=== PATIENT | male | born 1950 | race Caucasian/White ===

== ENCOUNTER 2021-11-18 09:33 | Emergency (ER) | payer MEDICARE, SELFPAY ==
[2021-11-18 09:37] VITALS: BP 181/97; PULSE 77; RESP 18; TEMP 36.8; O2SAT 99; BMI 37.1
--- NOTE | 2021-11-18 09:42 | W.ED.GENADLT ---
HPI - General Adult General: Chief complaint: General Medical Stated complaint: HYPERTENSION Time Seen by Provider: 11/18/21 09:42 Source: patient History of Present Illness: Jared Sofia is a 71 year old male who presents to the ER for high blood pressure. Upon ER arrival, BP was 181/97. Per patient, he did take his BP meds this morning. He states that he lives with his stepmom at home and she normally takes his blood pressure and administers his meds every day. He is unsure how much his BP usually runs at home but states that it is usually high because it runs in the family. He endorses feeling a headache on the right side of his head this morning that was alleviated by taking his BP meds and water pill. He has been having some blurry vision but states that this has been going on for quite a while now. He denies chest pain, SOB, abdominal pain, and black or tarry stools. Patient was unable to state his birthday when asked by registration, and according to his stepmom, that is not normal for him. Onset (ago): unknown Location: head Severity: mild Pain Consistency: now resolved Relieving factors: medication Exacerbating factors: none Associated symptoms: Reports headache(s); Deny chest pain, confusion, cough, diaphoresis, decreased appetite, dyspnea, fevers/chills, malaise, nausea, rash, palpitations, seizures, short of breath, syncope, vomiting or weakness Treatments prior to arrival: none Review of Systems Const: Denies: fever(s), chills, malaise or diaphoresis Eyes: Reports: blurry vision ENMT: Denies: odynophagia Card: Denies: chest pain, palpitations or syncope Resp: Denies: dyspnea GI: Denies: abdominal pain, nausea, vomiting, hematochezia or melena : Denies: flank pain or difficulty urinating Musc: Denies: neck pain Skin/Breast: Denies: rash Neuro: Reports: headache(s); Denies: confusion Psych: Denies: irritability Endo: Denies: polyuria Keyur/Lymph: Denies: easy bruising All/Imm: Denies: urticaria PFSH ED PFSH: Medical History (Updated 11/18/21 @ 13:32 by Bj Baer DO) Diabetes Hypertension Surgical History (Updated 11/18/21 @ 10:02 by Bj Baer DO) History of appendectomy Family History (Updated 11/18/21 @ 10:02 by Bj Baer DO) Other Cancer Hypertension Social History (Updated 11/18/21 @ 10:04 by Bj Baer DO) Smoking and tobacco status: former smoker Second hand smoke exposure: No Smoking risk assessment/counseling performed?: No Alcohol intake: former Desire information about alcohol rehabilitation?: No Counseling given: No Substance/Drug Use: never Desire information about substance/drug rehabilitation?: No Counseling given: No Physical Exam Const: GENERAL APPEARANCE: cooperative and comfortable HENMT: COMMON NORMALS: normocephalic, atraumatic and hearing grossly normal bilaterally HEAD & SCALP: normocephalic and atraumatic Eye: COMMON NORMALS: Equal, round and reactive pupils present and EOMs intact bilaterally PUPIL: Yes Equal, round and reactive pupils present Neck/C-Spine: COMMON NORMALS: no JVD Resp: COMMON NORMALS: normal respiratory effort, No retractions, No use of accessory muscles and clear to auscultation bilaterally AUSCULTATION: clear to auscultation bilaterally Cardio: COMMON NORMALS: no JVD, regular rate, regular rhythm and No murmurs present (Cardio) RATE: regular rate RHYTHM: regular rhythm GI: COMMON NORMALS: Soft to palpation and No hepatosplenomegaly present AUSCULTATION: Yes normoactive bowel sounds PALPATION: Yes Soft to palpation, No Tenderness to palpation present (GI) and Yes No hepatosplenomegaly present Extremity: COMMON NORMALS: normal to inspection, no clubbing, cyanosis or edema, no calf tenderness and no pedal edema Neuro: COMMON NORMALS: moves all extremities and no focal motor deficits SPEECH: speech normal SENSORY EXAM: Yes extremities MOTOR EXAM: 5/5 motor strength present throughout, Pronator motor function not present and no tremor noted Skin: COMMON NORMALS: no rashes or lesions noted GENERAL SKIN EXAM: no rashes or lesions noted Course Vital Signs: Vital signs: Vital Signs Temperature 98.2 F 11/18/21 09:37 Pulse Rate 48 L 11/18/21 13:38 Respiratory Rate 16 11/18/21 13:38 Blood Pressure 193/66 11/18/21 13:38 Pulse Oximetry 99 11/18/21 13:38 [facility] - General Adult Medical Decision Making Elevated blood pressure he is improved he is feeling fine at this point were going to increase his amlodipine to 10 mg daily and Toprol-XL to 50 mg daily. Aspirin daily 81 mg and follow-up with the primary care physician tomorrow to reevaluate blood pressure. Lab Data : 11/18/21 10:35 11/18/21 10:35 Radiology Impressions Chest X-Ray 11/18/21 10:20 IMPRESSION: No acute findings. Laboratory Results WBC 6.7 10^3/uL (4.0-10.0) 11/18/21 10:35 RBC 5.34 10^6/uL (4.1-5.3) H 11/18/21 10:35 Hgb 14.9 g/dL (11.7-16.6) 11/18/21 10:35 Hct 45.3 % (42.0-52.0) 11/18/21 10:35 MCV 84.8 fl (80-94) 11/18/21 10:35 MCH 27.9 pg (28.0-34.0) L 11/18/21 10:35 MCHC 32.9 g/dL (30.0-36.0) 11/18/21 10:35 RDW 13.3 % (12.1-15.1) 11/18/21 10:35 Plt Count 192 10^3/cmm (130-400) 11/18/21 10:35 MPV 11.6 fL (7.4-10.4) H 11/18/21 10:35 Neut % (Auto) 69.7 % 11/18/21 10:35 Lymph % (Auto) 17.5 % 11/18/21 10:35 [place] % (Auto) 11.1 % 11/18/21 10:35 Eos % (Auto) 1.2 % 11/18/21 10:35 Baso % (Auto) 0.4 % 11/18/21 10:35 Neut # (Auto) 4.65 10^3/uL (1.8-7.7) 11/18/21 10:35 Lymph # (Auto) 1.2 10^3/uL (0.8-4.8) 11/18/21 10:35 [place] # (Auto) 0.7 10^3/uL (0.2-0.9) 11/18/21 10:35 Eos # (Auto) 0.1 10^3/uL (0.0-0.8) 11/18/21 10:35 Baso # (Auto) 0.0 10^3/uL (0.0-0.1) 11/18/21 10:35 Nucleated RBC % (auto) 0 % 11/18/21 10:35 Nucleated RBCs # 0.0 /100WBC 11/18/21 10:35 Sodium 141 mmol/L (136-145) 11/18/21 10:35 Potassium 4.1 mmol/L (3.5-5.1) 11/18/21 10:35 Chloride 107 mmol/L (98-107) 11/18/21 10:35 Carbon Dioxide 20 mmol/L (22-29) L 11/18/21 10:35 Anion Gap 18.1 (5-19) 11/18/21 10:35 BUN 24 mg/dL (8-23) H 11/18/21 10:35 Creatinine 0.9 mg/dL (0.7-1.2) 11/18/21 10:35 GFR Calculation Not Reportable 11/18/21 10:35 Glucose 144 mg/dL (65-115) H 11/18/21 10:35 Calculated Osmolality 299 mOsm/kg (285-295) H 11/18/21 10:35 Calcium 8.8 mg/dL (8.5-10.5) 11/18/21 10:35 Total Bilirubin 0.2 mg/dL (0.15-1.2) 11/18/21 10:35 AST 24 U/L (0-40) 11/18/21 10:35 ALT 19 U/L (0-41) 11/18/21 10:35 Alkaline Phosphatase 90 IU/L (40-130) 11/18/21 10:35 Troponin T Baseline 27 ng/L (0-15) H 11/18/21 10:35 Troponin T 120 Minute 27.08 ng/L (0-15) H 11/18/21 12:27 Delta Troponin T 0.08 ABS# (0-10) 11/18/21 12:27 Total Protein 7.7 g/dL (6.6-8.7) 11/18/21 10:35 Albumin 4.7 g/dL (3.5-5.2) 11/18/21 10:35 Globulin 3.0 g/dL (1.3-4.6) 11/18/21 10:35 Discharge Plan Discharge Patient Disposition: Home Clinical Impression: Hypertension Condition: Stable Prescriptions: New amlodipine 10 mg tablet 10 mg PO DAILY Qty: 30 0RF Toprol XL 50 mg tablet extended release 24 hr 50 mg PO DAILY Qty: 30 0RF Discontinued amlodipine 2.5 mg tablet 2.5 mg PO DAILY 0RF No Action glimepiride 2 mg tablet 2 mg PO DAILY 0RF benztropine 1 mg tablet 1 mg PO BID 0RF oxcarbazepine [Trileptal] 600 mg tablet 600 mg PO TID 0RF venlafaxine 75 mg tablet 75 mg PO DAILY 0RF trazodone 50 mg tablet 50 mg PO DAILY 0RF pantoprazole [Protonix] [address] for susp in packet 40 mg PO DAILY 0RF spironolactone [Aldactone] 25 mg tablet 25 mg PO DAILY 0RF omeprazole 40 mg capsule,delayed release(DR/EC) 40 mg PO DAILY 0RF Discharge Orders: Discharge ED (Routine); Ordered 11/18/21 Ordered By: Bj Baer Discharge Diet: Usual diet Discharge Activity: Limit activity as instructed Patient Instructions: Opioid Safety Activity Restrictions/Additional Instructions: Follow-up with your primary care doctor within the week. Coding Level of Care Code ED Process Operator for Deangelo Fwnaveen Exam Comprehensive
--- NOTE | 2021-11-18 10:20 | XRR_ITS ---
PROCEDURE INFORMATION: Exam: XR Chest Exam date and time: 11/18/2021 10:20 AM Age: 71 years old Clinical indication: Cough and dyspnea; Patient HX: Hypertension; Additional info: Dyspnea/cough TECHNIQUE: Imaging protocol: XR of the chest. Views: 1 view. COMPARISON: No relevant prior studies available. FINDINGS: Lungs: Unremarkable. No consolidation. Pleural spaces: Unremarkable. No pleural effusion. No pneumothorax. Heart/Mediastinum: Unremarkable. No cardiomegaly. Bones/joints: Unremarkable. XR/XR chest 1V portable [id number] IMPRESSION: No acute findings.
--- NOTE | 2021-11-18 10:21 | ECG_ITS ---
[facility] Test Date: 2021-11-18 Pat Name: Jared Sofia Department: Room: Gender: Male Information Developer: : 1950 Requested By: Bj Can Order Number: [id number] Malachi MD: Frances Lebron M.D. Measurements Intervals [place] Rate: 63 P: MD: QRS: 127 QRSD: 166 T: 45 QT: 439 QTc: 452 Interpretive Statements Sinus rhythm with first-degree AV block RIGHT BUNDLE BRANCH BLOCK LEFT POSTERIOR FASCICULAR BLOCK SEPTAL MYOCARDIAL INFARCTION , PROBABLY OLD Compared to ECG 05/29/2015 16:03:59 Right bundle-branch block now present Left posterior fascicular block now present Myocardial infarct finding now present Sinus rhythm no longer present Electronically Signed On 11-19-2021 14:41:26 INDUSTRIAL SAFETY AND HEALTH MANAGER by Frances Lebron M.D. [email or web address] children's hospitalHandstrumbull regional [facility] center.BigFix/store/[id number]
[2021-11-18 10:42] VITALS: BP 170/83; PULSE 70; RESP 17; O2SAT 98
[2021-11-18] MEDS: amlodipine 5 mg Tablet PO (10:42)
[2021-11-18] MEDS: metoprolol tartrate 25 mg Tablet PO (10:42)
[2021-11-18 10:49] LABS: Basophils % 0.4 %; Eosinophils # 0.1 10^3/uL (0.0-0.8); Eosinophils % 1.2 %; Hematocrit 45.3 % (42.0-52.0); Hemoglobin 14.9 g/dL (11.7-16.6); Lymphocytes # 1.2 10^3/uL (0.8-4.8); Lymphocytes % 17.5 %; Mean Corpuscular HGB Conc 32.9 g/dL (30.0-36.0); Mean Corpuscular Hemoglobin 27.9 pg (28.0-34.0); Mean Corpuscular Volume 84.8 fl (80-94); Mean Platelet Volume 11.6 fL (7.4-10.4); Monocytes # 0.7 10^3/uL (0.2-0.9); Monocytes % 11.1 %; Neutrophils # 4.65 10^3/uL (1.8-7.7); Neutrophils % 69.7 %; Nucleated Red Blood Cells % 0 %; Platelet Count 192 10^3/cmm (130-400); Red Blood Count 5.34 10^6/uL (4.1-5.3); Red Cell Distribution Width 13.3 % (12.1-15.1); White Blood Count 6.7 10^3/uL (4.0-10.0)
[2021-11-18 11:07] LABS: Troponin(5th) Baseline 27 ng/L (0-15)
[2021-11-18 11:25] LABS: Alanine Aminotransferase 19 U/L (0-41); Albumin Level 4.7 g/dL (3.5-5.2); Alkaline Phosphatase 90 IU/L (40-130); Aspartate Amino Transferase 24 U/L (0-40); Blood Urea Nitrogen 24 mg/dL (8-23); Calcium 8.8 mg/dL (8.5-10.5); Carbon Dioxide 20 mmol/L (22-29); Chloride 107 mmol/L (98-107); Glucose 144 mg/dL (65-115); Osmolality Calculated 299 mOsm/kg (285-295); Sodium 141 mmol/L (136-145); Total Bilirubin 0.2 mg/dL (0.15-1.2); Total Protein 7.7 g/dL (6.6-8.7)
[2021-11-18 11:37] LABS: Anion Gap 18.1 (5-19); Potassium 4.1 mmol/L (3.5-5.1)
[2021-11-18 11:47] VITALS: BP 160/88; PULSE 48; RESP 17; O2SAT 99
--- NOTE | 2021-11-18 12:21 | ECG_ITS ---
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 Measurements Intervals [place] Rate: 50 P: [place]: QRS: -58 QRSD: 176 T: -8 QT: 508 QTc: 466 Interpretive Statements Sinus rhythm with first-degree AV block RIGHT BUNDLE BRANCH BLOCK LEFT ANTERIOR FASCICULAR BLOCK MINIMAL VOLTAGE CRITERIA FOR LVH, CONSIDER NORMAL VARIANT SEPTAL MYOCARDIAL INFARCTION , PROBABLY OLD Compared to ECG 11/18/2021 11:00:40 Left anterior fascicular block now present Left posterior fascicular block no longer present Myocardial infarct finding still present Electronically Signed On 11-19-2021 14:49:05 MAINTENANCE MECHANIC TECHNICIAN by Frances Lebron M.D. [email or web address].Melodigrammerit health river regionBerkeley Design Automationohiohealth shel[facility].[employer]/store/OM/[id number]
[2021-11-18 12:51] VITALS: BP 179/98; PULSE 46; RESP 16; O2SAT 99
[2021-11-18 13:04] LABS: Troponin 5 2HR 27.08 ng/L (0-15)
[2021-11-18 13:06] LABS: Troponin 5 2HR Delta 0.08 ABS# (0-10)
[2021-11-18] MEDS: hyDRALAzine 20 mg/mL INJ 1 mL IVP (13:37)
[2021-11-18 13:38] VITALS: BP 193/66; PULSE 48; RESP 16; O2SAT 99
== END 2021-11-18 13:47 | disposition home or self-care (01) ==
PROVIDERS: Emergency Provider Family Medicine; PCP Family Medicine
DX: I10 Essential (primary) hypertension (principal); Z79.84 Long term (current) use of oral hypoglycemic drugs; E11.9 Type 2 diabetes mellitus without complications; Z87.891 Personal history of nicotine dependence
CPT/HCPCS: 36415; 71045; 80053; 84484; 85025; 93005; 96374; 99284; J0360

== ENCOUNTER 2021-12-08 21:36 | Observation (INO) | payer MEDICARE, SELFPAY ==
--- NOTE | 2021-12-08 21:40 | XRR_ITS ---
PROCEDURE INFORMATION: Exam: XR Chest Exam date and time: 12/08/2021 9:40 PM Age: 71 years old Clinical indication: Chest wall pain; Additional info: Cp TECHNIQUE: Imaging protocol: XR of the chest. Views: 1 view. COMPARISON: CR XR chest 1V portable [id number] 11/18/2021 10:40 AM FINDINGS: Lungs: Unremarkable. No consolidation. Pleural spaces: Unremarkable. No pleural effusion. No pneumothorax. Heart/Mediastinum: Similar mild cardiomegaly. Bones/joints: Unremarkable. XR/XR chest 1V portable [id number] IMPRESSION: Stable exam, no acute findings.
--- NOTE | 2021-12-08 21:41 | ECG_ITS ---
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 Measurements Intervals [place] Rate: 66 P: ID: QRS: -77 QRSD: 164 T: 64 QT: 432 QTc: 456 Interpretive Statements UNCERTAIN IRREGULAR RHYTHM RIGHT BUNDLE BRANCH BLOCK [120+ ms QRS DURATION, UPRIGHT V1, 40+ ms S IN I/aVL/V4/V5/V6] LEFT ANTERIOR FASCICULAR BLOCK [QRS AXIS <= -45, QR IN I, RS IN II] LEFT VENTRICULAR HYPERTROPHY AND ST-T CHANGE [VOLTAGE CRITERIA PLUS ST/T ABNORMALITY] POSSIBLE SEPTAL MYOCARDIAL INFARCTION , PROBABLY OLD [30 ms Q WAVE IN V1/V2] Compared to ECG 11/18/2021 12:24:23 ST (T wave) deviation now present Sinus rhythm no longer present Myocardial infarct finding still present Electronically Signed On 12-09-2021 17:35:03 PLATE DRYING MACHINE TENDER by Sandro Miller M.D. [id number] f
--- NOTE | 2021-12-08 21:43 | ED_ITS ---
HPI - Chest Pain General: Chief Complaint: Chest Pain Stated Complaint: cp Time Seen by Provider: 12/08/21 21:36 Source: patient and EMS Limitations: no limitations History of Present Illness: 71-year-old male states he is having chest pain this evening. He states its been a sharp pain in the center of his chest when EMS arrived he was bradycardic into the 30s and has since resolved. He states his pain is improved as well currently and 2 out of 10. Denies any shortness of breath denies any vomiting or diarrhea. Patient was seen here recently for high blood pressure and increased his metoprolol to 50 mg a day. Denies any worsening improving factors. Associated symptoms: Deny abdominal pain, dyspnea, fever(s), nausea or vomiting Review of Systems Const: Denies: fever(s), chills, body aches or change in appetite Eyes: Denies: blurry vision or eye discomfort ENMT: Denies: throat pain or dental pain Card: Reports: chest pain Resp: Denies: dyspnea GI: Denies: abdominal pain, nausea, vomiting or diarrhea : Denies: dysuria Musc: Denies: neck pain or back pain Skin/Breast: Denies: rash Neuro: Denies: headache(s) Psych: Denies: depression Keyur/Lymph: Denies: easy bruising All/Imm: Denies: urticaria PFSH ED PFSH: Medical History Diabetes Hypertension Surgical History History of appendectomy Family History Other Cancer Hypertension Social History Smoking and tobacco status: former smoker Second hand smoke exposure: No Smoking risk assessment/counseling performed?: No Alcohol intake: former Desire information about alcohol rehabilitation?: No Counseling given: No Desire information about substance/drug rehabilitation?: No Counseling given: No Physical Exam Const: COMMON NORMALS: no acute distress, patient oriented x3 and healthy appearing HENMT: COMMON NORMALS: normocephalic and atraumatic HEAD & SCALP: normocephalic and atraumatic Eye: COMMON NORMALS: Equal, round and reactive pupils present and EOMs intact bilaterally PUPIL: Yes Equal, round and reactive pupils present Neck/C-Spine: COMMON NORMALS: full ROM and supple Chest: COMMONS NORMALS: normal inspection of the chest and normal palpation of entire chest wall Resp: COMMON NORMALS: normal respiratory effort, No retractions, No use of accessory muscles and clear to auscultation bilaterally AUSCULTATION: clear to auscultation bilaterally Cardio: COMMON NORMALS: regular rate, regular rhythm and No murmurs present (Cardio) RATE: regular rate RHYTHM: regular rhythm GI: COMMON NORMALS: Normal to inspection, nondistended, normoactive bowel sounds present, Soft to palpation, non-tender and no masses PALPATION: Yes Soft to palpation Extremity: COMMON NORMALS: normal to inspection and full ROM Neuro: COMMON NORMALS: patient oriented x3, moves all extremities and no focal motor deficits Psych: COMMON NORMALS: mental status grossly normal, Normal thought process present and cooperative THOUGHT PROCESS: Normal thought process present Skin: COMMON NORMALS: no rashes or lesions noted and no wounds GENERAL SKIN EXAM: no rashes or lesions noted Course Vital Signs: Vital signs: Vital Signs Temperature 97.9 F 12/08/21 21:50 Pulse Rate 55 L 12/08/21 21:50 Respiratory Rate 16 12/08/21 21:50 Blood Pressure 208/98 12/08/21 21:50 Pulse Oximetry 98 12/08/21 21:50 MDM - Chest Pain Medical Decision Making The patient presents here with chest and abdominal pain. More abdominal pain here than actual chest pain CT of her abdomen and chest here normal blood work including 2 troponins are normal as well she feels improved here we will start her on Protonix she is to follow-up with PCP and return if worsening. Lab Data : 12/08/21 21:00 12/08/21 21:00 Laboratory Results WBC 8.3 10^3/uL (4.0-10.0) 12/08/21 21:00 RBC 5.06 10^6/uL (4.1-5.3) 12/08/21 21:00 Hgb 13.8 g/dL (11.7-16.6) 12/08/21 21:00 Hct 43.7 % (42.0-52.0) 12/08/21 21:00 MCV 86.4 fl (80-94) 12/08/21 21:00 MCH 27.3 pg (28.0-34.0) L 12/08/21 21:00 MCHC 31.6 g/dL (30.0-36.0) 12/08/21 21:00 RDW 13.3 % (12.1-15.1) 12/08/21 21:00 Plt Count 195 10^3/cmm (130-400) 12/08/21 21:00 MPV 12.3 fL (7.4-10.4) H 12/08/21 21:00 Neut % (Auto) 57.6 % 12/08/21 21:00 Lymph % (Auto) 26.4 % 12/08/21 21:00 [place] % (Auto) 13.5 % 12/08/21 21:00 Eos % (Auto) 1.7 % 12/08/21 21:00 Baso % (Auto) 0.6 % 12/08/21 21:00 Neut # (Auto) 4.79 10^3/uL (1.8-7.7) 12/08/21 21:00 Lymph # (Auto) 2.2 10^3/uL (0.8-4.8) 12/08/21 21:00 [place] # (Auto) 1.1 10^3/uL (0.2-0.9) H 12/08/21 21:00 Eos # (Auto) 0.1 10^3/uL (0.0-0.8) 12/08/21 21:00 Baso # (Auto) 0.1 10^3/uL (0.0-0.1) 12/08/21 21:00 Nucleated RBC % (auto) 0 % 12/08/21 21:00 Nucleated RBCs # 0.0 /100WBC 12/08/21 21:00 EKG Data EKG 1: I personally reviewed and interpreted this EKG as follows: EKG interpretation date: 12/08/21 EKG interpretation time: 21:46 Interpretation: hr [address] or t wave abnormalities rbb qrs 464 qtc 446 unchanged from previous Discharge Plan Discharge Condition: Stable Prescriptions: No Action glimepiride 2 mg tablet 2 mg PO DAILY 0RF benztropine 1 mg tablet 1 mg PO BID 0RF oxcarbazepine [Trileptal] 600 mg tablet 600 mg PO TID 0RF venlafaxine 75 mg tablet 75 mg PO DAILY 0RF trazodone 50 mg tablet 50 mg PO DAILY 0RF pantoprazole [Protonix] [address] for susp in packet 40 mg PO DAILY 0RF spironolactone [Aldactone] 25 mg tablet 25 mg PO DAILY 0RF omeprazole 40 mg capsule,delayed release(DR/EC) 40 mg PO DAILY 0RF amlodipine 10 mg tablet 10 mg PO DAILY Qty: 30 0RF Toprol XL 50 mg tablet extended release 24 hr 50 mg PO DAILY Qty: 30 0RF Referrals: Tray Dennis [Primary Care Provider] - Coding Level of Care Code ED Tool Crib Attendant for Chg Fwd Exam Comprehensive
[2021-12-08 21:46] LABS: Basophils # 0.1 10^3/uL (0.0-0.1); Basophils % 0.6 %; Eosinophils # 0.1 10^3/uL (0.0-0.8); Eosinophils % 1.7 %; Hematocrit 43.7 % (42.0-52.0); Hemoglobin 13.8 g/dL (11.7-16.6); Lymphocytes # 2.2 10^3/uL (0.8-4.8); Lymphocytes % 26.4 %; Mean Corpuscular HGB Conc 31.6 g/dL (30.0-36.0); Mean Corpuscular Hemoglobin 27.3 pg (28.0-34.0); Mean Corpuscular Volume 86.4 fl (80-94); Mean Platelet Volume 12.3 fL (7.4-10.4); Monocytes # 1.1 10^3/uL (0.2-0.9); Monocytes % 13.5 %; Neutrophils # 4.79 10^3/uL (1.8-7.7); Neutrophils % 57.6 %; Nucleated Red Blood Cells % 0 %; Platelet Count 195 10^3/cmm (130-400); Red Blood Count 5.06 10^6/uL (4.1-5.3); Red Cell Distribution Width 13.3 % (12.1-15.1); White Blood Count 8.3 10^3/uL (4.0-10.0)
[2021-12-08 21:50] VITALS: BP 208/98; PULSE 55; RESP 16; TEMP 36.6; O2SAT 98; BMI 37.1
[2021-12-08 22:22] LABS: Troponin(5th) Baseline 33 ng/L (0-15)
[2021-12-08 22:25] LABS: Alanine Aminotransferase 22 U/L (0-41); Albumin Level 4.5 g/dL (3.5-5.2); Alkaline Phosphatase 101 IU/L (40-130); Anion Gap 15.6 (5-19); Aspartate Amino Transferase 23 U/L (0-40); Blood Urea Nitrogen 31 mg/dL (8-23); Calcium 9.9 mg/dL (8.5-10.5); Carbon Dioxide 23 mmol/L (22-29); Chloride 104 mmol/L (98-107); Globulin 2.8 g/dL (1.3-4.6); Glucose 83 mg/dL (65-115); Lipase 33 U/L (13-60); Osmolality Calculated 292 mOsm/kg (285-295); Potassium 4.6 mmol/L (3.5-5.1); Sodium 138 mmol/L (136-145); Total Bilirubin 0.2 mg/dL (0.15-1.2); Total Protein 7.3 g/dL (6.6-8.7)
[2021-12-08] MEDS: hyDRALAzine 20 mg/mL INJ 1 mL 10 MG IVP (22:31)
[2021-12-08 22:53] VITALS: BP 172/84; PULSE 62; RESP 18; O2SAT 94
[2021-12-08 23:03] VITALS: PULSE 55; RESP 16; O2SAT 94
[2021-12-08 23:32] VITALS: BP 179/78; PULSE 57; RESP 18; TEMP 36.1; O2SAT 98
--- NOTE | 2021-12-08 23:41 | ECG_ITS ---
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 Measurements Intervals [place] Rate: 65 P: [place]: QRS: -70 QRSD: 166 T: 25 QT: 440 QTc: 460 Interpretive Statements ATRIAL FIBRILLATION RIGHT BUNDLE BRANCH BLOCK [120+ ms QRS DURATION, UPRIGHT V1, 40+ ms S IN I/aVL/V4/V5/V6] LEFT ANTERIOR FASCICULAR BLOCK [QRS AXIS <= -45, QR IN I, RS IN II] MODERATE VOLTAGE CRITERIA FOR LVH, CONSIDER NORMAL VARIANT [MEETS CRITERIA IN ONE OF: R(aVL), S(V1), R(V5), R(V5/V6)+S(V1)] Compared to ECG 11/18/2021 12:24:23 Sinus rhythm no longer present Myocardial infarct finding no longer present Electronically Signed On 12-09-2021 17:40:23 CLAY DRY PRESS HELPER by Sandro Miller M.D. [email or web address].[employer]store/[id number]
[2021-12-08 23:45] VITALS: BP 179/78; PULSE 50; PULSE 57; RESP 18; TEMP 36.1
--- NOTE | 2021-12-08 23:45 | P.HP_ITS ---
Providers/Chief Complaint Admitting Physician: Harriet Salinas MD Primary Care Provider: Tray Dennis Chief Complaint: cp History of Present Illness Jared Sofia is a 71 year old male with past medical history of hypertension, MR, presents to the hospital after complaining of chest pain, EMS was called at reported bradycardia initially upon arrival. Percolates that are available currently appears to be sinus bradycardia with a heart rate of around 35. Reportedly bradycardia started to resolve by itself. Patient did not need any specific medications or otherwise cardiac resuscitation. History is limited at this present time as patient unable to clearly tell me what brought him to the hospital. At this current time denies any chest pain dyspnea. Blood pressure has been well maintained 1 40-1 60 systolic. EKG showed atrial fibrillation heart rate of 65/min. Baseline troponin at 33, 2-hour troponin at 30, negative delta of -2. Review of Systems General: Reports: 10 or more systems reviewed and unremarkable except in HPI and below Const: Denies: fever(s), chills or body aches Eyes: Denies: change in vision, blurry vision or photophobia ENMT: Reports: hoarseness; Denies: throat pain, enlarged tonsils, odynophagia or nasal congestion Card: Denies: chest pain, palpitations, irregular heart rhythm, edema, swelling of feet/ankles, lightheadedness, pre-syncope, dyspnea on exertion or orthopnea Resp: Denies: dyspnea, productive cough, non-productive cough, wheezing, stridor, pain on inspiration, change in phlegm color, hemoptysis or chest congestion GI: Denies: abdominal pain, nausea, vomiting, hematemesis, coffee ground emesis, dysphagia, heartburn, diarrhea, constipation, GI cramping, change in stool character, hematochezia or melena : Denies: flank pain, dysuria, urinary frequency, urinary urgency, urinary hesitancy or hematuria Musc: Denies: neck pain, back pain, extremity pain, joint swelling, joint warmth or deformity Neuro: Denies: headache(s), numbness in extremities, weakness in extremities, sensory changes, difficulty walking, frequent falls, dizziness, vertigo, behavioral changes, Slurred speech present or seizure-like activity Psych: Denies: anxiety, depression, suicidal ideation or homicidal ideation Endo: Denies: polyuria, polydipsia, tired all the time, cold intolerance or hot flashes Keyur/Lymph: Denies: easy bruising or easy bleeding Medications/Allergies Home Medications Medication Instructions Recorded Confirmed Last Taken Type benztropine 1 mg tablet 1 mg PO BID 08/11/21 08/11/21 Unknown History glimepiride 2 mg tablet 2 mg PO DAILY 08/11/21 08/11/21 Unknown History omeprazole 40 mg capsule,delayed 40 mg PO DAILY 08/11/21 08/11/21 Unknown History release oxcarbazepine 600 mg tablet 600 mg PO TID tab 08/11/21 08/11/21 Unknown History (Trileptal) pantoprazole 40 mg granules 40 mg PO DAILY 08/11/21 08/11/21 Unknown History delayed-release for susp in packet (Protonix) spironolactone 25 mg tablet 25 mg PO DAILY 08/11/21 08/11/21 Unknown History (Aldactone) trazodone 50 mg tablet 50 mg PO DAILY 08/11/21 08/11/21 Unknown History venlafaxine 75 mg tablet 75 mg PO DAILY 08/11/21 08/11/21 Unknown History amlodipine 10 mg tablet 10 mg PO DAILY #30 tab 11/18/21 Unknown Rx metoprolol succinate 50 mg 50 mg PO DAILY #30 tab 11/18/21 Unknown Rx tablet,extended release 24 hr (Toprol XL) Allergies Allergy/AdvReac Type Severity Reaction Status Date / Time aripiprazole [From Abilify] Allergy Mild UNKNOWN Verified 08/11/21 14:22 haloperidol [From Haldol] Allergy Mild UNKNOWN Verified 08/11/21 14:22 cephalexin [From Keflex] Allergy UNKNOWN Verified 08/11/21 14:22 fluoxetine [From Prozac] Allergy Unknown Verified 08/11/21 14:22 lithium Allergy UNKNOWN Verified 08/11/21 14:22 PFSH Acute PFSH: Medical History (Updated 12/09/21 @ 06:47 by Harriet Salinas MD) Bipolar disorder, current episode depressed, moderate Diabetes SHANTEL (generalized anxiety disorder) Hyperlipidemia, unspecified Hypertension Intellectual disability Surgical History History of appendectomy Family History Other Cancer Hypertension Social History Smoking and tobacco status: former smoker Second hand smoke exposure: No Smoking risk assessment/counseling performed?: No Alcohol intake: former Desire information about alcohol rehabilitation?: No Counseling given: No Desire information about substance/drug rehabilitation?: No Counseling given: No Vitals/I&O/Wt Last Vital Signs Temp 97 F L 12/08/21 23:32 Pulse 57 L 12/08/21 23:32 Resp 18 12/08/21 23:32 BP 179/78 12/08/21 23:32 Pulse Ox 98 12/08/21 23:32 Weight last 48 hrs Weight 104.326 kg Physical Exam Narrative: GEN: Awake, alert and oriented, no acute distress CVS: S1S2 N RS: CTA B/L all areas Abd: Soft, nt/nd , bs+ LATENT PRINT EXAMINER: no focal neuro deficits Data : 12/08/21 21:00 12/08/21 21:00 A&P Assessment and plan (1) Bradycardia: EKG with sinus bradycardia with left anterior fascicular block Negatve delta at 2 hr troponin check, pending 6 hr EKG and troponin Recently dose of metoprolol has been increased to 50mg daily for uncontrolled HTN For now hold Beta blockers and benztropine Monitor on telemetry Check TSH Status: Acute (2) Chest pain: Denies current chest pain, dyspnea, palpitations Check echocardiogram May need cardiology consult if c/o recurrent chest pain Status: Acute (3) Diabetes: Status: Acute (4) Hypertension: Currently well controlled, continue spirinolactone and amlodipine Status: Acute Attestations Medical Necessity Statement*: observation admission, anticipate less than 2 midnight for assessment of bradycardia Coding Level of Care Code Acute Neonatal Critical Care Nurse for g Fwd Diagnoses Bradycardia R00.1 Chest pain R07.9 Diabetes E11.9 Hypertension I10
[2021-12-08 23:47] VITALS: BP 179/78; PULSE 68; RESP 16; O2SAT 96
[2021-12-09] VITALS (12 sets, daily range): BP systolic 121–164; BP diastolic 59–104; PULSE 19–79; RESP 17–143; TEMP 36.1–36.6; O2SAT 95–98
--- NOTE | 2021-12-09 | USCV_ITS ---
Transthoracic Echo Jared Sofia Age: 71 Gender: M : 1950 Exam Date: 12/09/2021 02:14 Ordering Phys: Harriet Salinas MD Technologist: Franklyn Villela Exam Location: [facility] [place] Indication: New Onset Bradycardia BP: 121 / 69 HR: 51 Rhythm: Sinus Technical Quality: Adequate MEASUREMENTS (Male / Female) Normal Values 2D ECHO LV Diastolic Diameter PLAX 3.6 cm 4.2 - 5.9 / 3.9 - 5.3 cm LV Systolic Diameter PLAX 2.1 cm IVS Diastolic Thickness 2.0 cm 0.6 - 1.0 / 0.6 - 0.9 cm IVS Systolic Thickness 2.1 cm LVPW Diastolic Thickness 1.6 cm 0.6 - 1.0 / 0.6 - 0.9 cm LVPW Systolic Thickness 2.3 cm LVOT Diameter 2.2 cm LV Ejection Fraction 2D Teich 73.3 % LV Ejection Fraction MOD 2C 67.6 % LV Ejection Fraction 2C AL 64.1 % LA Diameter 3.8 cm LA Width 3.4 cm LA Height 8.1 cm RA Width 6.0 cm RA Height 6.1 cm Aorta at Sinotubular Diameter 2.4 cm M-MODE Aortic Annulus Diameter 2.9 cm LA Ao Ratio MM 1.4 MV E Point Septal Separation 0.5 cm DOPPLER AV Peak Velocity 180.0 cm/s LVOT Peak Velocity 105.0 cm/s AV Area Cont Eq vti 1.9 cm squared AV Area Cont Eq pk 2.3 cm squared MV Area PHT 5.0 cm squared MV E' Velocity 110.0 cm/s TR Peak Velocity 72.4 cm/s TR Peak Gradient 2.1 mmHg TR Mean Velocity 77.4 cm/s TR Mean Gradient 2.8 mmHg TR Velocity Time Integral 23.3 cm Right Atrial Pressure 3.0 mmHg Pulmonary Artery Systolic Pressu 5.1 mmHg PV Peak Velocity 101.0 cm/s RV Acceleration Time 0.2 s RV Ejection Time 0.3 s RV AcT/ET 0.5 FINDINGS Left Ventricle Normal left ventricular size. LV systolic function is normal with EF of 55-60%. No regional wall motion abnormalities. Diastolic function is indeterminate Right Ventricle The right ventricle is normal in size and function. Right Atrium The right atrium is normal in size. Left Atrium The left atrium is normal in size. Mitral Valve Structurally normal mitral valve without significant stenosis or prolapse. There is mild mitral regurgitation. Aortic Valve Not well visualized. No significant stenosis. There is no aortic regurgitation. Tricuspid Valve Structurally normal tricuspid valve without significant stenosis or regurgitation. Insufficient TR jet to calculate RVSP Pulmonic Valve Not visualized Pericardium Normal pericardium without effusion. Aorta Normal ascending aorta dimension. CONCLUSIONS LV systolic function is normal with EF of 55-60% Diastolic function is indeterminate Mild mitral regurgitation No comparison studies are available Sandro Miller MD (Electronically Signed) Final Date: 09 December 2021 17:18 S
[2021-12-09] MEDS: amlodipine 10 mg Tablet PO ×2 (00:05→09:55)
[2021-12-09 00:26] LABS: Troponin 5 2HR 30.06 ng/L (0-15)
[2021-12-09 00:28] LABS: Troponin 5 2HR Delta -2.94 ABS# (0-10)
[2021-12-09 00:35] LABS: Magnesium 2.2 mg/dL (1.7-2.3); Thyroid Stimulating Hormone 1.71 uIU/mL (0.27-4.20)
--- NOTE | 2021-12-09 02:13 | PC.NURSE ---
Pt arrhythmia atrial fibrillation and bradycardic heart rate of 45 bpm. notified. No new orders given. Will continue to monitor.
--- NOTE | 2021-12-09 03:41 | ECG_ITS ---
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 Measurements Intervals [place] Rate: 54 P: ME: QRS: -64 QRSD: 164 T: 1 QT: 468 QTc: 444 Interpretive Statements SINUS BRADYCARDIA WITH 2ND DEGREE AV BLOCK, 2:1 OR MOBITZ TYPE II WITH OCCASIONAL VENTRICULAR PREMATURE COMPLEXES RIGHT BUNDLE BRANCH BLOCK [120+ ms QRS DURATION, UPRIGHT V1, 40+ ms S IN I/aVL/V4/V5/V6] LEFT ANTERIOR FASCICULAR BLOCK [QRS AXIS <= -45, QR IN I, RS IN II] Compared to ECG 12/09/2021 00:31:19 Ventricular premature complex(es) now present Atrial fibrillation no longer present Electronically Signed On 12-09-2021 17:39:48 CMA OR LPN by Sandro Miller M.D. [id number]
[2021-12-09 05:05] LABS: Troponin 5 6HR 36.31 ng/L (0-15)
[2021-12-09 05:12] LABS: Troponin 5 6HR Delta 3.31 ng/L (0-12)
--- NOTE | 2021-12-09 09:39 | PC.PHAR ---
pt states his stepmother liana takes care of his medications-pts stepmother liana states the pts amlodipine 2.5mg daily was dced 7 to 10 days ago states it was changed to losartan 100mg daily-
--- NOTE | 2021-12-09 09:43 | P.CONIM_ITS ---
Providers/Reason For Consult Consulting Physician/Specialty*: SANDRA Hargrove MD/cardiology Reason for Consult*: Patient bradycardia/heart block/chest pain Requesting Physician: Dr. Brambila Attending Physician: Gopal Brambila MD Primary Care Provider: Tray Dennis History of Present Illness History of Present Illness Jared Sofia is a 71 year old male, is admitted to hospital with complaints of chest pain and slow heartbeat. This patient is staying with his stepmother and has history of for developmental delay. He is not able to give any detailed history. Apparently he has been having chest pains off and on. Yesterday evening he had another episode of chest pain. He was found to have heart rate in the 30s, based on EMS report. I do not have the rhythm strip to substantiate this. He was found to have heart rate in the 50s in the emergency room. The EKG also showed features of second- degree heart blocks. He is admitted to hospital for further evaluation management. According the patient, the chest pain can be severe at times. The pain is across the chest. He does not have any shortness of breath. He never had any syncopal episodes. Apparently he was evaluated in the emergency room on 11/18/2021 with uncontrolled blood pressure. At that time, he was started on Toprol-XL 50 mg p.o. daily. The dose of the amlodipine was increased to 5 mg p.o. daily. Review of the EKG at that time revealed first-degree AV block/asymmetric A-V dissociation. The heart rate was in the 50s. He denies any fever or chills. According to him, he has frequent bowel movements since the hospital admission. Blood pressure seems to be getting under control. He is currently off the beta-padmini. He has no previous histor y for any coronary disease, myocardial infarction or heart failure. Details of his family history is not on. Review of Systems General: Reports: 10 or more systems reviewed and unremarkable except in HPI and below Const: Denies: fever(s), chills or body aches Eyes: Denies: change in vision, blurry vision or photophobia ENMT: Reports: hoarseness; Denies: throat pain, enlarged tonsils, odynophagia or nasal congestion Card: Reports: chest pain and irregular heart rhythm (?); Denies: palpitations, edema, swelling of feet/ankles, lightheadedness, pre- syncope, dyspnea on exertion or orthopnea Resp: Denies: dyspnea, productive cough, non-productive cough, wheezing, stridor, pain on inspiration, change in phlegm color, hemoptysis or chest congestion GI: Reports: change in stool character (More frequent stools since the hospital admission); Denies: abdominal pain, nausea, vomiting, hematemesis, coffee ground emesis, dysphagia, heartburn, diarrhea, constipation, GI cramping, hematochezia or melena : Denies: flank pain, dysuria, urinary frequency, urinary urgency, urinary hesitancy or hematuria Musc: Denies: neck pain, back pain, extremity pain, joint swelling, joint warmth or deformity Neuro: Reports: difficulty communicating thoughts and other (Known to have developmental delay); Denies: headache(s), numbness in extremities, weakness in extremities, sensory changes, difficulty walking, frequent falls, dizziness, vertigo, Slurred speech present or seizure-like activity Psych: Denies: anxiety, depression, suicidal ideation or homicidal ideation Endo: Denies: polyuria, polydipsia, tired all the time, cold intolerance or hot flashes Keyur/Lymph: Denies: easy bruising or easy bleeding Medications/Allergies Home Medications Medication Instructions Recorded Confirmed Last Taken Type benztropine 1 mg tablet 2 mg PO BID 08/11/21 12/09/21 Unknown History glimepiride 2 mg tablet 2 mg PO BID 08/11/21 12/09/21 Unknown History omeprazole 40 mg capsule,delayed 40 mg PO DAILY PRN 08/11/21 12/09/21 Unknown History release oxcarbazepine 600 mg tablet 600 mg PO BID tab 08/11/21 12/09/21 Unknown History (Trileptal) pantoprazole 40 mg granules 40 mg PO DAILY PRN 08/11/21 12/09/21 Unknown History delayed-release for susp in packet (Protonix) spironolactone 25 mg tablet 25 mg PO QAM 08/11/21 12/09/21 Unknown History (Aldactone) trazodone 50 mg tablet 50 mg PO BEDTIME 08/11/21 12/09/21 Unknown History venlafaxine 75 mg tablet 75 mg PO QAM 08/11/21 12/09/21 Unknown History ascorbic acid (vitamin C) 500 mg 500 mg PO DAILY 12/09/21 12/09/21 Unknown History tablet (Vitamin C) hydroxyzine HCl 10 mg tablet 10 mg PO TID PRN 12/09/21 12/09/21 Unknown History losartan 100 mg tablet 100 mg PO DAILY 12/09/21 12/09/21 Unknown History metoprolol succinate 25 mg 25 mg PO DAILY 12/09/21 12/09/21 Unknown History tablet,extended release 24 hr topiramate 50 mg tablet 50 mg PO TID 12/09/21 12/09/21 Unknown History Allergies Allergy/AdvReac Type Severity Reaction Status Date / Time aripiprazole [From Abilify] Allergy Mild UNKNOWN Verified 12/09/21 09:33 haloperidol [From Haldol] Allergy Mild UNKNOWN Verified 12/09/21 09:33 cephalexin [From Keflex] Allergy UNKNOWN Verified 12/09/21 09:33 fluoxetine [From Prozac] Allergy Unknown Verified 12/09/21 09:33 lithium Allergy UNKNOWN Verified 12/09/21 09:33 Current Medications Generic Name Dose Route Start Last Admin Trade Name Freq PRN Reason Stop Dose Admin Amlodipine Besylate 10 mg 12/08/21 23:55 12/09/21 00:05 Amlodipine 10 Mg Tablet PO 10 mg DAILY BENJIE Administration PFSH Acute PFSH: Medical History Bipolar disorder, current episode depressed, moderate Diabetes SHANTEL (generalized anxiety disorder) Hyperlipidemia, unspecified Hypertension Intellectual disability Surgical History History of appendectomy Family History Other Cancer Hypertension Social History Smoking and tobacco status: former smoker Second hand smoke exposure: No Smoking risk assessment/counseling performed?: No Alcohol intake: former Desire information about alcohol rehabilitation?: No Counseling given: No Desire information about substance/drug rehabilitation?: No Counseling given: No Vitals/I&O/Wt Last Vital Signs Temp 97.0 F L 12/09/21 07:15 Pulse 68 12/09/21 07:15 Resp 24 H 12/09/21 07:15 BP 147/104 12/09/21 07:15 Pulse Ox 97 12/09/21 07:15 12/08/21 12/09/21 12/09/21 22:59 06:59 14:59 Intake Total 120 / 120 Balance 120 / 120 Weight last 48 hrs Weight 230 lb Physical Exam Narrative: GENERAL: The patient is alert and oriented to place and person. Not in any acute distress. HEENT: No significant pallor, icterus or lymphadenopathy. The pupils are symmetric. Oral cavity: There are no mucous membrane lesions. Funduscopic examination: The fundus is not vision NECK: Trachea appears to be central. No masses noted. No JVD or thyromegaly appreciated. No carotid bruit. RESPIRATORY: Chest is symmetrical. No intercostals muscle retraction or any accessory muscle activation. There is no chest wall tenderness. Breath sounds are heard bilaterally. No rales or rhonchi heard. No evidence of any consolidation. BREASTS: Deferred. HEART: The heart sounds are normal. No S3 or S4. No significant murmurs. No pericardial rub. ABDOMEN: No vessel pulsations or distention. No tenderness. No organomegaly appreciated. No abdominal bruit. Bowel sounds are normally heard. : Deferred. RECTAL: Deferred. LYMPHATIC: No lymphadenopathy noted in the neck or groin. EXTREMITIES: No edema or cyanosis. No clubbing. The peripheral pulses are palpable and fairly good volume and amplitude. MUSCULOSKELETAL: No acute joint deformities or swelling. SKIN: There are no significant scars or skin rash noted. NEUROPSYCHIATRIC: The patient is alert and oriented x2. Appears to be somewhat withdrawn. No focal motor deficits. No rigidity or tremor. Data : 12/08/21 21:00 12/08/21 21:00 Other Labs: Laboratory Last Values WBC 8.3 10^3/uL (4.0-10.0) 12/08/21 21:00 RBC 5.06 10^6/uL (4.1-5.3) 12/08/21 21:00 Hgb 13.8 g/dL (11.7-16.6) 12/08/21 21:00 Hct 43.7 % (42.0-52.0) 12/08/21 21:00 MCV 86.4 fl (80-94) 12/08/21 21:00 MCH 27.3 pg (28.0-34.0) L 12/08/21 21:00 MCHC 31.6 g/dL (30.0-36.0) 12/08/21 21:00 RDW 13.3 % (12.1-15.1) 12/08/21 21:00 Plt Count 195 10^3/cmm (130-400) 12/08/21 21:00 MPV 12.3 fL (7.4-10.4) H 12/08/21 21:00 Neut % (Auto) 57.6 % 12/08/21 21:00 Lymph % (Auto) 26.4 % 12/08/21 21:00 Evangeline % (Auto) 13.5 % 12/08/21 21:00 Eos % (Auto) 1.7 % 12/08/21 21:00 Baso % (Auto) 0.6 % 12/08/21 21:00 Neut # (Auto) 4.79 10^3/uL (1.8-7.7) 12/08/21 21:00 Lymph # (Auto) 2.2 10^3/uL (0.8-4.8) 12/08/21 21:00 Evangeline # (Auto) 1.1 10^3/uL (0.2-0.9) H 12/08/21 21:00 Eos # (Auto) 0.1 10^3/uL (0.0-0.8) 12/08/21 21:00 Baso # (Auto) 0.1 10^3/uL (0.0-0.1) 12/08/21 21:00 Nucleated RBC % (auto) 0 % 12/08/21 21:00 Nucleated RBCs # 0.0 /100WBC 12/08/21 21:00 Sodium 138 mmol/L (136-145) 12/08/21 21:00 Potassium 4.6 mmol/L (3.5-5.1) 12/08/21 21:00 Chloride 104 mmol/L (98-107) 12/08/21 21:00 Carbon Dioxide 23 mmol/L (22-29) 12/08/21 21:00 Anion Gap 15.6 (5-19) 12/08/21 21:00 BUN 31 mg/dL (8-23) H 12/08/21 21:00 Creatinine 1.1 mg/dL (0.7-1.2) 12/08/21 21:00 GFR Calculation Not Reportable 12/08/21 21:00 Glucose 83 mg/dL (65-115) 12/08/21 21:00 Calculated Osmolality 292 mOsm/kg (285-295) 12/08/21 21:00 Calcium 9.9 mg/dL (8.5-10.5) 12/08/21 21:00 Magnesium 2.2 mg/dL (1.7-2.3) 12/08/21 23:52 Total Bilirubin 0.2 mg/dL (0.15-1.2) 12/08/21 21:00 AST 23 U/L (0-40) 12/08/21 21:00 ALT 22 U/L (0-41) 12/08/21 21:00 Alkaline Phosphatase 101 IU/L (40-130) 12/08/21 21:00 Troponin T Baseline 33 ng/L (0-15) H 12/08/21 21:00 Troponin T 120 Minute 30.06 ng/L (0-15) H 12/08/21 23:52 Delta Troponin T -2.94 ABS# (0-10) L 12/08/21 23:52 Troponin T Hi Sens 6Hr 36.31 ng/L (0-15) H 12/09/21 03:40 Troponin T Hi Sens 6Hr Delta 3.31 ng/L (0-12) 12/09/21 03:40 Total Protein 7.3 g/dL (6.6-8.7) 12/08/21 21:00 Albumin 4.5 g/dL (3.5-5.2) 12/08/21 21:00 Globulin 2.8 g/dL (1.3-4.6) 12/08/21 21:00 Lipase 33 U/L (13-60) 12/08/21 21:00 TSH 1.71 uIU/mL (0.27-4.20) 12/08/21 23:52 EKG 1: My Interpretation: EKG from 11/18/2021 reveals sinus rhythm with a first-degree AV block. Right bundle branch block. Left anterior fascicular block. 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 EKG computer-generated impression: Chest X-Ray 12/08/21 21:40 IMPRESSION: Stable exam, no acute findings. EKG 2: My Interpretation: EKG from 12/08/2021 reveals sinus rhythm with a first-degree AV block and premature atrial contractions. Right bundle branch block. Left anterior fascicle block. EKG computer-generated impression: Chest X-Ray 12/08/21 21:40 IMPRESSION: Stable exam, no acute findings. EKG 3: My Interpretation: EKG from today 12/09/2021 reveals sinus rhythm with second-degree type I AV block. Heart rate of 65 bpm. Right bundle branch block. Left anterior fascicular block. EKG computer-generated impression: Chest X-Ray 12/08/21 21:40 IMPRESSION: Stable exam, no acute findings. A&P Assessment and plan (1) Chest pain: The patient chest pain is atypical. The EKG does not reveal any acute ischemic changes. However in view of his multiple risk factors, possibility of underlying coronary ischemia causing this is a consideration. Myocardial infarction is ruled out. The troponin T is slightly elevated with no significant delta. For further evaluation of his symptoms, an echocardiogram would be helpful. His echocardiogram shows some significant wall motion of normalities, We may request a cardiac catheterization. If the LV ejection fraction is normal with no significant wall motion normalities, we may consider doing a stress test. He may be treated with aspirin, topical nitrates and Lovenox for DVT prophylaxis. Status: Acute (2) Bradycardia: At this point, the patient does not appear to have any symptomatic bradyarrhythmias. He needs to be closely monitored on telemetry. He may require a permanent pacemaker , sometime down the line. Since he had the heart block even before starting the metoprolol, most likely this patient has some conduction abnormalities and sinus node dysfunction. Status: Acute (3) Heart block atrioventricular: As mentioned above. Patient seems to have first-degree AV block and intermittent type I second-degree AV block. He has blocked PACs and post PAC pauses. Status: Acute (4) Hypertension: The antihypertensive medication needs to be optimized Status: Acute Plan Based on the clinical progress and the results of the above, further recommendations will be made. Thank you for the opportunity to eval this patient make these recommendations. For better control of blood pressure, he may be started on hydralazine 25 mg p.o. 3 times daily Consult Attestations Medical Necessity Statement: Patient requires continued hospital stay for close monitoring and further management Coding Level of Care Code Acute Chief Controller Tower for Chg Fwd History Detailed Exam Detailed Medical Decision Making High Complexity Diagnoses Chest pain R07.9 Bradycardia R00.1 Heart block atrioventricular I44.30 Hypertension I10
[2021-12-09] MEDS: OXcarbazepine 300 mg Tablet 600 MG PO ×3 (09:54→21:59)
[2021-12-09] MEDS: spironolactone 25 mg Tablet PO (09:55)
[2021-12-09] MEDS: venlafaxine 75 mg Tablet PO (09:55)
[2021-12-09] MEDS: pantoprazole DR 40 mg Tablet PO (09:55)
[2021-12-09] MEDS: trazodone 50 mg Tablet PO (09:55)
--- NOTE | 2021-12-09 14:34 | P.PN_ITS ---
Subjective Subjective: Patient was seen this morning, he sitting up beside the bed, he has a history of developmental delay, it is difficult for me to get answers out of him, when I asked him if he has chest pain he says no, he denies feeling lightheaded or dizzy, he denies passing out, denies feeling weak, denies any n ausea, denies any vomiting, no history of strokes, no history of cardiovascular disease, denies taking too much of his medication, he is not sure who manages his medication, Vitals/I&O/Wt Last Vital Signs Temp 97.0 F L 12/09/21 07:15 Pulse 75 12/09/21 11:34 Resp 19 H 12/09/21 11:34 BP 131/67 12/09/21 11:34 Pulse Ox 97 12/09/21 11:34 12/08/21 12/09/21 12/09/21 22:59 06:59 14:59 Intake Total 120 / 120 Balance 120 / 120 Weight last 48 hrs Weight 104.326 kg Physical Exam Const: COMMON NORMALS: no acute distress HENMT: COMMON NORMALS: normocephalic HEAD & SCALP: normocephalic Resp: COMMON NORMALS: normal respiratory effort, No retractions, No use of ac cessory muscles and clear to auscultation bilaterally AUSCULTATION: clear to auscultation bilaterally Cardio: COMMON NORMALS: regular rate, regular rhythm, S1 normal heart sound present and S2 normal heart sound present RATE: regular rate RHYTHM: regular rhythm HEART SOUNDS: S1 normal heart sound present and S2 normal heart sound present GI: COMMON NORMALS: Normal to inspection, nondistended, normoactive bowel sounds present, Soft to palpation, non-tender and No hepatosplenomegaly present PALPATION: Yes Soft to palpation and Yes No hepatosplenomegaly present Extremity: COMMON NORMALS: no pedal edema Data : 12/08/21 21:00 12/08/21 21:00 A&P Assessment and plan (1) Chest pain: -Cardiac stress test ordered -Cardiac echocardiogram ordered -Cardiology consulted -Full code -Lovenox for DVT prophylaxis Status: Acute (2) Bradycardia: -Hold metoprolol, hold benztropine -Telemetry monitoring -PT OT Status: Acute (3) Heart block atrioventricular: As mentioned above. Patient seems to have first-degree AV block and intermittent type II second-degree AV block. He has blocked PACs and post PAC p auses. -Continue telemetry monitoring -Cardiology consulted Status: Acute (4) Hypertension: The antihypertensive medication needs to be optimized Status: Acute Plan N.p.o. midnight, cardiac stress test morning, cardiac echocardiogram, telemetry monitoring, PT OT Attestations Medical Necessity Statement*: Patient requires hospitalization for chest pain, bradycardia Coding Level of Care Code Acute Mineralogy Teacher for [facility] Nora Diagnoses Chest pain R07.9 Bradycardia R00.1 Heart block atrioventricular I44.30 Hypertension I10
[2021-12-09] MEDS: hyDRALAzine 25 mg Tablet PO ×2 (15:21→21:59)
[2021-12-09] MEDS: topiramate 25 mg Tablet 50 MG PO ×2 (15:22→21:59)
[2021-12-09 15:35] LABS: Estmated Average Glucose 120; Hemoglobin A1C 5.8 % (4.0-6.0)
[2021-12-09 16:15] LABS: Glucose Point of Care 153 mg/dL (70-110)
[2021-12-09] MEDS: insulin lispro 100 unit/1 mL SUBCUT (17:57)
[2021-12-09 20:59] LABS: Glucose Point of Care 129 mg/dL (70-110)
[2021-12-10] VITALS (11 sets, daily range): BP systolic 128–199; BP diastolic 64–92; PULSE 58–73; RESP 16–21; TEMP 36.6; O2SAT 90–99
[2021-12-10 04:46] LABS: Basophils % 0.6 %; Eosinophils # 0.2 10^3/uL (0.0-0.8); Eosinophils % 2.4 %; Hematocrit 43.3 % (42.0-52.0); Hemoglobin 13.9 g/dL (11.7-16.6); Lymphocytes # 1.9 10^3/uL (0.8-4.8); Lymphocytes % 26.4 %; Mean Corpuscular HGB Conc 32.1 g/dL (30.0-36.0); Mean Corpuscular Hemoglobin 27.7 pg (28.0-34.0); Mean Corpuscular Volume 86.3 fl (80-94); Monocytes % 14.3 %; Neutrophils # 4.04 10^3/uL (1.8-7.7); Nucleated Red Blood Cells % 0 %; Platelet Count 167 10^3/cmm (130-400); Red Blood Count 5.02 10^6/uL (4.1-5.3); Red Cell Distribution Width 13.3 % (12.1-15.1); White Blood Count 7.2 10^3/uL (4.0-10.0)
--- NOTE | 2021-12-10 04:52 | PC.NURSE ---
Pt lying in bed talking to staff. Pt resp even and non-labored no distress noted. Pt has no c/o pain or discomfort at the present time. Call light in reach. No needs voiced at the present time. Will cont to monitor.
[2021-12-10 05:10] LABS: Alanine Aminotransferase 18 U/L (0-41); Alkaline Phosphatase 82 IU/L (40-130); Anion Gap 16.2 (5-19); Aspartate Amino Transferase 18 U/L (0-40); Blood Urea Nitrogen 25 mg/dL (8-23); Calcium 9.3 mg/dL (8.5-10.5); Carbon Dioxide 20 mmol/L (22-29); Chloride 109 mmol/L (98-107); Globulin 2.5 g/dL (1.3-4.6); Glucose 116 mg/dL (65-115); Magnesium 2.2 mg/dL (1.7-2.3); Osmolality Calculated 297 mOsm/kg (285-295); Phosphorus 3.2 mg/dL (2.5-4.5); Potassium 4.2 mmol/L (3.5-5.1); Sodium 141 mmol/L (136-145); Total Bilirubin 0.3 mg/dL (0.15-1.2); Total Protein 6.5 g/dL (6.6-8.7)
[2021-12-10 06:43] LABS: Glucose Point of Care 119 mg/dL (70-110)
--- NOTE | 2021-12-10 07:39 | ECG_ITS ---
[facility] Test Date: 2021-12-10 Pat Name: Jared Sofia Department: Room: 105 Gender: Male Rn Appeals: Kim Campon : 1950 Requested By: Gopal Brambila Order Number: [id number] Malachi MD: Sandro Miller M.D. Interpretive Statements NAME OF STUDY: LEXISCAN SESTAMIBI STRESS TEST INDICATION: [Chest Pain, ] Procedure: At the baseline, the blood pressure was 185/84 mmHg with a heart rate of 65 bpm. The electrocardiogram showed normal sinus rhythm, first degree AV block, right bundle branch block, normal axis with normal ST and T's. The Lexiscan was infused over a period of 20 seconds. A total of 0.4 mg of Lexiscan was infused. The stress phase was continued for a total of 5 minutes. Heart rate was at the end of stress phase was 87 bpm and a blood pressure of 139/53 mmHg. The EKG at the peak infusion revealed since normal sinus rhythm with no significant ST-T wave changes. Sestamibi was injected 20 seconds after the Lexiscan infusion. Blood pressure at the end of recovery phase was 139/66 mmHg with a heart rate of 89 bpm. Conclusion: 1. Normal EKG response to Lexiscan infusion 2. No Lexiscan induced chest pain or cardiac arrhythmia. 3. Normal blood pressure and heart rate response. 4. Sestamibi/sestamibi perfusion scan pending; see separate report. Electronically Signed On 01-10-2022 12:14:10 CDT by Sandro Miller M.D. [id number]
--- NOTE | 2021-12-10 07:40 | NMCV_ITS ---
NM [place] perf SPECT r/s* [id number] Jared Sofia Age: 71 Gender: M : 1950 Exam Date: 12/10/2021 09:40 Ordering Phys: Gopal Brambila MD Technologist: SERGEI Scott Exam Location: [facility] Indications: CHEST PAIN STRESS TEST [facility] IMAGE PROTOCOL Rest/Stress 1 Lexiscan Day Radiopharmaceutical Dose (mCi) Administration Site Administered by Rest: Tc-99m 10.8 IV SERGEI Scott Sestamibi Stress:Tc-99m 32.5 IV SERGEI Majano Sestamibi Rest: 10-Dec-2021 60 Discovery 630 Stress: 10-Dec-2021 30 Discovery 630 0.4mg Lexiscan. Supine position only as patient was unable to lay prone. SPECT RESULTS Technical Quality: Excellent Raw Data Analysis: Normal Image Corrections: No attenuation or motion correction applied Summed Stress Score: 7 Summed Rest Score: 3 Summed Difference Score: 4 PERFUSION FINDINGS There is a small sized, mostly fixed myocardial perfusion defect in the anterolateral and lateral perry. This represents small sized prior infarct with small area of nemo-infarct ischemia in LCx territroy FUNCTIONAL RESULTS (calculated via Gated SPECT) Stress Image LV EF (%): 73 Stress EDV (mL):90 TID: 0.93 Stress ESV (mL):24 FUNCTIONAL FINDINGS: There is normal left ventricular systolic function. IMPRESSIONS 1. Abnormal myocardial perfusion imaging with small sized infarct with small area of reversiblity in the Left circumflex artery/diagonal territory 2. LV systolic function is normal Sandro Miller MD (Electronically Signed) Final Date: 10 December 2021 14:30 S
--- NOTE | 2021-12-10 07:58 | PC.NURSE ---
spoke with Dr moreno with concerns patient is to have a stress test this am however has no orders for testing instructions to order lexiscan mibi for this am keep patient NPO
--- NOTE | 2021-12-10 09:36 | PC.NURSE ---
patient off unit for testing
[2021-12-10] MEDS: regadenoson 0.4 Mg/5 ml Syringe IVP (11:02)
[2021-12-10] MEDS: pantoprazole DR 40 mg Tablet PO (12:52)
[2021-12-10] MEDS: spironolactone 25 mg Tablet PO (12:52)
[2021-12-10] MEDS: amlodipine 10 mg Tablet PO (12:52)
[2021-12-10] MEDS: venlafaxine 75 mg Tablet PO (12:52)
[2021-12-10 13:12] LABS: Glucose Point of Care 142 mg/dL (70-110)
[2021-12-10] MEDS: hyDRALAzine 25 mg Tablet PO ×2 (14:09→20:20)
[2021-12-10] MEDS: topiramate 25 mg Tablet 50 MG PO ×2 (14:09→20:20)
[2021-12-10] MEDS: OXcarbazepine 300 mg Tablet 600 MG PO ×2 (14:09→20:20)
--- NOTE | 2021-12-10 14:48 | PM.PN ---
Subjective Subjective: Patient was seen this morning, he sitting up at side of bed, denies any chest pain, no lightheadedness, no dizziness Vitals/I&O/Wt Last Vital Signs Temp 97.9 F 12/10/21 03:26 Pulse 63 12/10/21 07:10 Resp 20 H 12/10/21 07:10 BP 168/76 12/10/21 07:10 Pulse Ox 96 12/10/21 03:26 12/09/21 12/10/21 12/10/21 22:59 06:59 14:59 Intake Total 240 / 480 480 / 480 Output Total 200 / 400 500 / 900 100 / 100 Balance 40 / 80 -500 / -420 380 / 380 Weight last 48 hrs Weight 104.326 kg Physical Exam Const: COMMON NORMALS: no acute distress and patient oriented x3 Resp: COMMON NORMALS: normal respiratory effort, No retractions, No use of accessory muscles and clear to auscultation bilaterally AUSCULTATION: clear to auscultation bilaterally Cardio: COMMON NORMALS: regular rate, regular rhythm, S1 normal heart sound present and S2 normal heart sound present RATE: regular rate RHYTHM: regular rhythm HEART SOUNDS: S1 normal heart sound present and S2 normal heart sound present GI: COMMON NORMALS: Normal to inspection, nondistended, normoactive bowel sounds present, Soft to palpation, non-tender and No hepatosplenomegaly present PALPATION: Yes Soft to palpation and Yes No hepatosplenomegaly present Extremity: COMMON NORMALS: no pedal edema Neuro: COMMON NORMALS: patient oriented x3 Data : 12/10/21 04:08 12/10/21 04:08 A&P Assessment and plan (1) Chest pain: -EKG shows first-degree AV block, 6-hour troponin 36 with a 1, delta 3.31 -Cardiac stress test ordered -Cardiac echocardiogram ordered -Cardiology consulted -Full code -Lovenox for DVT prophylaxis Status: Acute (2) Bradycardia: -Hold metoprolol, hold benztropine -Telemetry monitoring -PT OT Status: Acute (3) Heart block atrioventricular: As mentioned above. Patient seems to have first-degree AV block and intermittent type II second-degree AV block. He has blocked PACs and post PAC pauses. 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
--- NOTE | 2021-12-10 15:12 | ECG_ITS ---
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 Measurements Intervals [place] Rate: 63 P: [place]: QRS: -74 QRSD: 160 T: 27 QT: 443 QTc: 456 Interpretive Statements Possible isometric A-V dissociation RIGHT BUNDLE BRANCH BLOCK [120+ ms QRS DURATION, UPRIGHT V1, 40+ ms S IN I/aVL/V4/V5/V6] LEFT ANTERIOR FASCICULAR BLOCK [QRS AXIS <= -45, QR IN I, RS IN II] MINIMAL VOLTAGE CRITERIA FOR LVH, CONSIDER NORMAL VARIANT [MEETS CRITERIA IN ONE OF: R(aVL), S(V1), R(V5), R(V5/V6)+S(V1)] Compared to ECG 12/09/2021 03:46:42 Sinus bradycardia no longer present Ventricular premature complex(es) no longer present Electronically Signed On 12-10-2021 23:12:49 CREDIT BALANCE SPECIALIST by Angel Hargrove M.D. [id number]
--- NOTE | 2021-12-10 15:13 | PC.NURSE ---
spoke with Dr moreno about tele monitoring changes noted instructions to obtain Ekg
[2021-12-10] MEDS: losartan 50 mg Tablet PO (16:21)
[2021-12-10 17:07] LABS: Glucose Point of Care 121 mg/dL (70-110)
[2021-12-10] MEDS: benztropine 1 mg Tablet 2 MG PO (17:40)
--- NOTE | 2021-12-10 18:08 | PC.NURSE ---
This nurse agrees with all documentation and medication administration by Yulia saleh student nurse
--- NOTE | 2021-12-10 19:13 | PM.PN ---
Subjective Subjective: Patient is feeling okay. He denies any chest pain or chest tightness. No shortness of breath. Telemetry shows sinus rhythm with first-degree AV block intermittent second-degree type I AV block and possible occasional A-V dissociation. Heart rate is mostly in the 60s and 70s. Patient had a myocardial perfusion imaging today. He had a dobutamine/sestamibi/sestamibi stress test. Medications: Medication Review Details: Current Medications Acetaminophen (Acetaminophen 325 Mg Tablet) 650 mg PO Q6H PRN PRN Reason: Mild/Mod Pain Or Temp >/= 101 Aminophylline (Aminophylline 25 Mg/Ml Sdv 10 Ml) 25 mg IVP Q2M PRN PRN Reason: see dose instructions Stop: 12/11/21 07:50 Benztropine Mesylate (Benztropine 1 Mg Tablet) 2 mg PO BID [facility] Last Admin: 12/10/21 17:40 Dose: 2 mg Documented by: Dextrose (Dextrose 50% Syringe 50 Ml) 25 ml IVP ONCE PRN; Protocol PRN Reason: hypoglycemia protocol Dextrose (Dextrose 50% Syringe 50 Ml) 50 ml IVP PRN PRN; Protocol PRN Reason: hypoglycemia protocol Glucagon (Glucagon 1 Mg/Ml Inj 1 Ml) 1 mg IM ONCE PRN; Protocol PRN Reason: Adult Acute Hypoglycemia Prot. Hydralazine HCl (Hydralazine 25 Mg Tablet) 25 mg PO TID [facility] Last Admin: 12/10/21 20:20 Dose: 25 mg Documented by: Dextrose (D5w) 500 mls @ 100 mls/hr IV ONCE PRN; Protocol PRN Reason: Adult Acute Hypoglycemia Prot Insulin Human Lispro (Insulin Lispro 100 Unit/1 Ml) 0 unit SUBCUT TIDWM [facility]; Protocol Last Admin: 12/10/21 17:20 Dose: Not Given Documented by: Losartan Potassium (Losartan 50 Mg Tablet) 50 mg PO Q12H [facility] Last Admin: 12/10/21 16:21 Dose: 50 mg Documented by: Nitroglycerin (Nitroglycerin 0.4 Mg Sublingual Tablet) 0.4 mg SUBLINGUAL Q5M PRN PRN Reason: CHEST PAIN Stop: 12/11/21 07:50 Ondansetron HCl (Ondansetron 2 Mg/Ml Sdv 2 Ml) 4 mg IVP Q2M PRN PRN Reason: NAUSEA Ondansetron HCl (Ondansetron 2 Mg/Ml Sdv 2 Ml) 4 mg IVP Q8H PRN PRN Reason: vomiting, or N/V if npo Oxcarbazepine (Oxcarbazepine 300 Mg Tablet) 600 mg PO TID [facility] Last Admin: 12/10/21 20:20 Dose: 600 mg Documented by: Pantoprazole Sodium (Pantoprazole Dr 40 Mg Tablet) 40 mg PO DAILY [facility] Last Admin: 12/10/21 12:52 Dose: 40 mg Documented by: Spironolactone (Spironolactone 25 Mg Tablet) 25 mg PO DAILY [facility] Last Admin: 12/10/21 12:52 Dose: 25 mg Documented by: Topiramate (Topiramate 25 Mg Tablet) 50 mg PO TID [facility] Last Admin: 12/10/21 20:20 Dose: 50 mg Documented by: Trazodone HCl (Trazodone 50 Mg Tablet) 50 mg PO BEDTIME [facility] Last Admin: 12/10/21 20:21 Dose: 50 mg Documented by: Venlafaxine HCl (Venlafaxine 75 Mg Tablet) 75 mg PO DAILY [facility] Last Admin: 12/10/21 12:52 Dose: 75 mg Documented by: Vitals/I&O/Wt Last Vital Signs Temp 97.8 F 12/10/21 15:30 Pulse 67 12/10/21 16:51 Resp 17 12/10/21 15:30 BP 199/92 12/10/21 16:21 Pulse Ox 99 12/10/21 15:30 12/10/21 12/10/21 12/10/21 06:59 14:59 22:59 Intake Total 480 / 480 240 / 720 Output Total 500 / 900 100 / 100 Balance -500 / -420 380 / 380 240 / 620 Weight last 48 hrs Weight 230 lb Physical Exam Narrative: GENERAL: The patient is alert and oriented to place and person. Not in any acute distress. HEENT: No significant pallor, icterus or lymphadenopathy. The pupils are symmetric. Oral cavity: There are no mucous membrane lesions. NECK: Trachea appears to be central. No masses noted. No JVD or thyromegaly appreciated. No carotid bruit. RESPIRATORY: Chest is symmetrical. No intercostals muscle retraction or any accessory muscle activation. There is no chest wall tenderness. Breath sounds are heard bilaterally. No rales or rhonchi heard. No evidence of any consolidation. BREASTS: Deferred. HEART: The heart sounds are normal. No S3 or S4. Short systolic murmur at the lower sternal border.. No pericardial rub. ABDOMEN: No vessel pulsations or distention. No tenderness. No organomegaly appreciated. No abdominal bruit. Bowel sounds are normally heard. : Deferred. RECTAL: Deferred. LYMPHATIC: No lymphadenopathy noted in the neck or groin. EXTREMITIES: No edema or cyanosis. No clubbing. The peripheral pulses are palpable and fairly good volume and amplitude. MUSCULOSKELETAL: No acute joint deformities or swelling. SKIN: There are no significant scars or skin rash noted. NEUROPSYCHIATRIC: The patient is alert and oriented x2. Appears to be somewhat withdrawn. No focal motor deficits. No rigidity or tremor. Data : 12/10/21 04:08 12/10/21 04:08 Other Imaging: My impression: The myocardial perfusion may revealed 1. Abnormal myocardial perfusion imaging with small sized infarct with small ?area of reversiblity in the Left circumflex artery/diagonal territory ?2. LV systolic function is normal A&P Assessment and plan (1) Chest pain: Patient currently has no chest pain. The implications of myocardial perfusion imaging were discussed. At this point, there is no strong indication for invasive procedure. It was decided to treat her medically. Status: Acute (2) Bradycardia: It is possible that this patient may have congenital heart block. His heart rate responded appropriately to the dobutamine infusion. Since he has no specific symptoms, it may be appropriate to continue on the current treatment. Continue to hold off on the beta-padmini. Status: Acute (3) Heart block atrioventricular: If the patient continues remain stable, he may be discharged home tomorrow. He may go home with an event monitor. Status: Acute (4) Hypertension: Patient currently is symptom stage II hypertension. The antihypertensive medication needs to be optimized. The dose of the hydralazine may be gradually increased. Status: Acute Plan Continue to optimize antihypertensive medications. If he remains stable, may be discharged home tomorrow with an event monitor. Attestations Medical Necessity Statement*: Possible discharge home tomorrow Coding Level of Care Code Acute Indirect Sales Representative for g Fwd History Detailed Exam Detailed Medical Decision Making Moderate Complexity Diagnoses Chest pain R07.9 Bradycardia R00.1 Heart block atrioventricular I44.30 Hypertension I10
[2021-12-10] MEDS: trazodone 50 mg Tablet PO (20:21)
[2021-12-10 20:43] LABS: Glucose Point of Care 147 mg/dL (70-110)
[2021-12-11] VITALS (9 sets, daily range): BP systolic 117–156; BP diastolic 65–89; PULSE 54–80; RESP 14–25; TEMP 36.8–37; O2SAT 90–100
[2021-12-11] MEDS: losartan 50 mg Tablet PO (03:08)
[2021-12-11 03:33] LABS: Basophils % 0.5 %; Eosinophils # 0.2 10^3/uL (0.0-0.8); Eosinophils % 3.1 %; Hematocrit 43.1 % (42.0-52.0); Lymphocytes # 1.8 10^3/uL (0.8-4.8); Mean Corpuscular HGB Conc 32.5 g/dL (30.0-36.0); Mean Corpuscular Hemoglobin 27.8 pg (28.0-34.0); Mean Corpuscular Volume 85.5 fl (80-94); Monocytes % 13.3 %; Neutrophils # 4.25 10^3/uL (1.8-7.7); Neutrophils % 57.8 %; Nucleated Red Blood Cells % 0 %; Platelet Count 175 10^3/cmm (130-400); Red Blood Count 5.04 10^6/uL (4.1-5.3); Red Cell Distribution Width 13.2 % (12.1-15.1); White Blood Count 7.4 10^3/uL (4.0-10.0)
[2021-12-11 03:58] LABS: Alanine Aminotransferase 18 U/L (0-41); Albumin Level 3.9 g/dL (3.5-5.2); Alkaline Phosphatase 86 IU/L (40-130); Anion Gap 15.4 (5-19); Aspartate Amino Transferase 21 U/L (0-40); Blood Urea Nitrogen 23 mg/dL (8-23); Calcium 9.4 mg/dL (8.5-10.5); Carbon Dioxide 22 mmol/L (22-29); Chloride 106 mmol/L (98-107); Globulin 2.7 g/dL (1.3-4.6); Glucose 124 mg/dL (65-115); Magnesium 2.2 mg/dL (1.7-2.3); Osmolality Calculated 293 mOsm/kg (285-295); Phosphorus 3.2 mg/dL (2.5-4.5); Potassium 4.4 mmol/L (3.5-5.1); Sodium 139 mmol/L (136-145); Total Bilirubin 0.3 mg/dL (0.15-1.2); Total Protein 6.6 g/dL (6.6-8.7)
[2021-12-11 06:23] LABS: Glucose Point of Care 123 mg/dL (70-110)
--- NOTE | 2021-12-11 09:26 | P.PN_ITS ---
Subjective Subjective: Patient is feeling okay with no recurrence of chest pain. He had a myocardial perfusion imaging yesterday revealing areas of fixed defects with very small areas of reversible defect, suggestive of nemo-infarction ischemia. Since the patient is remained stable with no significant symptoms, it was thought to be appropriate to continue on the medical treatment. His telemetry shows sinus rhythm isometric A-V dissociation. Medications: Medication Review Details: Current Medications Acetaminophen (Acetaminophen 325 Mg Tablet) 650 mg PO Q6H PRN PRN Reason: Mild/Mod Pain Or Temp >/= 101 Benztropine Mesylate (Benztropine 1 Mg Tablet) 2 mg PO BID [facility] Last Admin: 12/10/21 17:40 Dose: 2 mg Documented by: Dextrose (Dextrose 50% Syringe 50 Ml) 25 ml IVP ONCE PRN; Protocol PRN Reason: hypoglycemia protocol Dextrose (Dextrose 50% Syringe 50 Ml) 50 ml IVP PRN PRN; Protocol PRN Reason: hypoglycemia protocol Glucagon (Glucagon 1 Mg/Ml Inj 1 Ml) 1 mg IM ONCE PRN; Protocol PRN Reason: Adult Acute Hypoglycemia Prot. Hydralazine HCl (Hydralazine 25 Mg Tablet) 25 mg PO TID [facility] Last Admin: 12/10/21 20:20 Dose: 25 mg Documented by: Dextrose (D5w) 500 mls @ 100 mls/hr IV ONCE PRN; Protocol PRN Reason: Adult Acute Hypoglycemia Prot Insulin Human Lispro (Insulin Lispro 100 Unit/1 Ml) 0 unit SUBCUT TIDWM [facility]; Protocol Last Admin: 12/11/21 08:23 Dose: Not Given Documented by: Losartan Potassium (Losartan 50 Mg Tablet) 50 mg PO Q12H [facility] Last Admin: 12/11/21 03:08 Dose: 50 mg Documented by: Ondansetron HCl (Ondansetron 2 Mg/Ml Sdv 2 Ml) 4 mg IVP Q2M PRN PRN Reason: NAUSEA Ondansetron HCl (Ondansetron 2 Mg/Ml Sdv 2 Ml) 4 mg IVP Q8H PRN PRN Reason: vomiting, or N/V if npo Oxcarbazepine (Oxcarbazepine 300 Mg Tablet) 600 mg PO TID [facility] Last Admin: 12/10/21 20:20 Dose: 600 mg Documented by: Pantoprazole Sodium (Pantoprazole Dr 40 Mg Tablet) 40 mg PO DAILY [facility] Last Admin: 12/10/21 12:52 Dose: 40 mg Documented by: Spironolactone (Spironolactone 25 Mg Tablet) 25 mg PO DAILY [facility] Last Admin: 12/10/21 12:52 Dose: 25 mg Documented by: Topiramate (Topiramate 25 Mg Tablet) 50 mg PO TID [facility] Last Admin: 12/10/21 20:20 Dose: 50 mg Documented by: Trazodone HCl (Trazodone 50 Mg Tablet) 50 mg PO BEDTIME [facility] Last Admin: 12/10/21 20:21 Dose: 50 mg Documented by: Venlafaxine HCl (Venlafaxine 75 Mg Tablet) 75 mg PO DAILY [facility] Last Admin: 12/10/21 12:52 Dose: 75 mg Documented by: Vitals/I&O/Wt Last Vital Signs Temp 98.6 F 12/11/21 07:05 Pulse 60 12/11/21 07:05 Resp 23 H 12/11/21 07:05 BP 117/76 12/11/21 07:05 Pulse Ox 100 12/11/21 07:05 12/10/21 12/11/21 12/11/21 22:59 06:59 14:59 Intake Total 240 / 720 235 / 235 Output Total 0 / 100 Balance 240 / 620 0 / 620 235 / 235 Physical Exam Narrative: GENERAL: The patient is alert and oriented to place and person. Not in any acute distress. HEENT: No significant pallor, icterus or lymphadenopathy. The pupils are symmetric. Oral cavity: There are no mucous membrane lesions. NECK: Trachea appears to be central. No masses noted. No JVD or thyromegaly appreciated. No carotid bruit. RESPIRATORY: Chest is symmetrical. No intercostals muscle retraction or any accessory muscle activation. There is no chest wall tenderness. Breath sounds are heard bilaterally. No rales or rhonchi heard. No evidence of any consolidation. BREASTS: Deferred. HEART: The heart sounds are normal. No S3 or S4. Short systolic murmur at the lower sternal border.. No pericardial rub. ABDOMEN: No vessel pulsations or distention. No tenderness. No organomegaly appreciated. No abdominal bruit. Bowel sounds are normally heard. : Deferred. RECTAL: Deferred. LYMPHATIC: No lymphadenopathy noted in the neck or groin. EXTREMITIES: Right radial arterial puncture site has no hematoma bleeding. MUSCULOSKELETAL: No acute joint deformities or swelling. SKIN: There are no significant scars or skin rash noted. NEUROPSYCHIATRIC: The patient is alert and oriented x2. Appears to be somewhat withdrawn. No focal motor deficits. No rigidity or tremor. Data : 12/11/21 02:47 12/11/21 02:47 Other Labs: Laboratory Last Values WBC 7.4 10^3/uL (4.0-10.0) 12/11/21 02:47 RBC 5.04 10^6/uL (4.1-5.3) 12/11/21 02:47 Hgb 14.0 g/dL (11.7-16.6) 12/11/21 02:47 Hct 43.1 % (42.0-52.0) 12/11/21 02:47 MCV 85.5 fl (80-94) 12/11/21 02:47 MCH 27.8 pg (28.0-34.0) L 12/11/21 02:47 MCHC 32.5 g/dL (30.0-36.0) 12/11/21 02:47 RDW 13.2 % (12.1-15.1) 12/11/21 02:47 Plt Count 175 10^3/cmm (130-400) 12/11/21 02:47 MPV 12.0 fL (7.4-10.4) H 12/11/21 02:47 Neut % (Auto) 57.8 % 12/11/21 02:47 Lymph % (Auto) 25.0 % 12/11/21 02:47 Morrill % (Auto) 13.3 % 12/11/21 02:47 Eos % (Auto) 3.1 % 12/11/21 02:47 Baso % (Auto) 0.5 % 12/11/21 02:47 Neut # (Auto) 4.25 10^3/uL (1.8-7.7) 12/11/21 02:47 Lymph # (Auto) 1.8 10^3/uL (0.8-4.8) 12/11/21 02:47 Morrill # (Auto) 1.0 10^3/uL (0.2-0.9) H 12/11/21 02:47 Eos # (Auto) 0.2 10^3/uL (0.0-0.8) 12/11/21 02:47 Baso # (Auto) 0.0 10^3/uL (0.0-0.1) 12/11/21 02:47 Nucleated RBC % (auto) 0 % 12/11/21 02:47 Nucleated RBCs # 0.0 /100WBC 12/11/21 02:47 Sodium 139 mmol/L (136-145) 12/11/21 02:47 Potassium 4.4 mmol/L (3.5-5.1) 12/11/21 02:47 Chloride 106 mmol/L (98-107) 12/11/21 02:47 Carbon Dioxide 22 mmol/L (22-29) 12/11/21 02:47 Anion Gap 15.4 (5-19) 12/11/21 02:47 BUN 23 mg/dL (8-23) 12/11/21 02:47 Creatinine 0.9 mg/dL (0.7-1.2) 12/11/21 02:47 GFR Calculation Not Reportable 12/11/21 02:47 Glucose 124 mg/dL (65-115) H 12/11/21 02:47 POC Glucose 123 mg/dL (70-110) H 12/11/21 06:20 Estimat Average Glucose 120 12/08/21 21:00 Hemoglobin A1c 5.8 % (4.0-6.0) 12/08/21 21:00 Calculated Osmolality 293 mOsm/kg (285-295) 12/11/21 02:47 Calcium 9.4 mg/dL (8.5-10.5) 12/11/21 02:47 Phosphorus 3.2 mg/dL (2.5-4.5) 12/11/21 02:47 Magnesium 2.2 mg/dL (1.7-2.3) 12/11/21 02:47 Total Bilirubin 0.3 mg/dL (0.15-1.2) 12/11/21 02:47 AST 21 U/L (0-40) 12/11/21 02:47 ALT 18 U/L (0-41) 12/11/21 02:47 Alkaline Phosphatase 86 IU/L (40-130) 12/11/21 02:47 Troponin T Baseline 33 ng/L (0-15) H 12/08/21 21:00 Troponin T 120 Minute 30.06 ng/L (0-15) H 12/08/21 23:52 Delta Troponin T -2.94 ABS# (0-10) L 12/08/21 23:52 Troponin T Hi Sens 6Hr 36.31 ng/L (0-15) H 12/09/21 03:40 Troponin T Hi Sens 6Hr Delta 3.31 ng/L (0-12) 12/09/21 03:40 Total Protein 6.6 g/dL (6.6-8.7) 12/11/21 02:47 Albumin 3.9 g/dL (3.5-5.2) 12/11/21 02:47 Globulin 2.7 g/dL (1.3-4.6) 12/11/21 02:47 Lipase 33 U/L (13-60) 12/08/21 21:00 TSH 1.71 uIU/mL (0.27-4.20) 12/08/21 23:52 A&P Assessment and plan (1) Chest pain: Patient currently has no chest pain. The implications of myocardial perfusion imaging were discussed. At this point, there is no strong indication for invasive procedure. It was decided to treat her medically. Status: Acute (2) Bradycardia: It is possible that this patient may have congenital heart block. His heart rate responded appropriately to the dobutamine infusion. Since he has no specific symptoms, it may be appropriate to continue on the current treatment. Continue to hold off on the beta-padmini. Status: Acute (3) Heart block atrioventricular: Patient seems to be seen in the isometric AV dissociation rhythm. Disease asymptomatic, may not require any specific intervention. He may be discharged home on event monitor. Status: Acute (4) Hypertension: Patient currently is symptom stage II hypertension. The antihypertensive medication needs to be optimized. The dose of the hydralazine may be gradually increased. Status: Acute Plan Continue to optimize antihypertensive medications. If he remains stable, may be discharged home tomorrow with an event monitor. Please make an appointment with me in the office in 1 month. Make an appointment to be seen by the nurse practitioner in 1 week at the [facility]. 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
[2021-12-11] MEDS: topiramate 25 mg Tablet 50 MG PO (09:35)
[2021-12-11] MEDS: OXcarbazepine 300 mg Tablet 600 MG PO (09:35)
[2021-12-11] MEDS: venlafaxine 75 mg Tablet PO (09:35)
[2021-12-11] MEDS: pantoprazole DR 40 mg Tablet PO (09:35)
[2021-12-11] MEDS: benztropine 1 mg Tablet 2 MG PO (09:35)
[2021-12-11] MEDS: spironolactone 25 mg Tablet PO (09:35)
[2021-12-11] MEDS: hyDRALAzine 25 mg Tablet PO (09:35)
--- NOTE | 2021-12-11 10:02 | PM.DCS ---
Discharge Providers Date of Admission: 12/08/21 23:19 Date of Discharge: December 11, 2021 Attending Provider at Admission: Harriet Salinas MD Attending Provider at Discharge: Gopal Brambila MD Primary Care Provider: Tray Dennis Diagnoses at Discharge Discharge Diagnosis (1) Chest pain: Status: Acute (2) Bradycardia: Status: Acute (3) Heart block atrioventricular: Status: Acute (4) Hypertension: Status: Acute Reason for Visit Reason for Visit: cp Hospital Course Hospital Course This is a 71-year-old male with a past medical history of noninsulin-dependent type 2 diabetes mellitus, hypertension, hyperlipidemia, history of developmental delay, who presents [facility] due to concerns for chest pain, and low heart rate For chest pain, EKG showed no acute ST-T wave changes, 6-hour troponin 36, delta 3.31, no recurrent chest pain during hospitalization Cardiac stress test showed 1. Abnormal myocardial perfusion imaging with small sized infarct with small ?area of reversiblity in the Left circumflex artery/diagonal territory ?2. LV systolic function is normal Cardiac echocardiogram showed CONCLUSIONS ?LV systolic function is normal with EF of 55-60% ?Diastolic function is indeterminate ?Mild mitral regurgitation ?No comparison studies are available Discussed with cardiology, no active chest pain, stress test shows area of reversibility involving less than 1% of the myocardium, ambulating without symptomatology Nonetheless will discharge on aspirin, statin with close follow-up with cardiology as outpatient, nitro as needed for chest pain Patient was also found to have bradycardia, and isometric A-V dissociation rhythm, first-degree AV block, likely multifactorial from metoprolol which dose was recently increased which was stopped during his hospitalization. No recurrent episodes of significant bradycardia which was symptomatic. But there could be an a possibility of congenital heart block, will discharge on event monitor with close follow-up with cardiology as outpatient. For his hypertension, hydralazine was added, losartan split to 50 twice daily, spironolactone 25 mg daily Diabetes mellitus, I stopped his glimepiride 2 mg twice daily, as is associate with high degree of hypoglycemia, given his age, I would recommend stopping it. His A1c is 5.9, during his hospitalization he had very minimal requirements off the sliding scale, discharged on diabetic diet, with close follow-up with primary care provider as outpatient for consideration of Januvia or Jardiance or Ozempic. Discharge Data Studies Completed and Pending Completed Studies During Hospitalization Category Date Time Status Sestamibi Stress Test Request Stat Exams 12/10/21 07:39 Draft XR chest 1V portable [id number] Stat Exams 12/08/21 21:40 Completed NM [place] perf SPECT r/s* [id number] Routine Nuc Med 12/10/21 07:40 Completed CV. echo complete* [id number] Routine Ultrasound 12/09/21 00:00 Completed Pending at discharge Category Date Time Status Complete Blood Count w/Auto AM LABS Lab 12/12/21 04:00 Ordered Comprehensive Metabolic Panel AM LABS Lab 12/12/21 04:00 Ordered Magnesium AM LABS Lab 12/12/21 04:00 Ordered Phosphorus AM LABS Lab 12/12/21 04:00 Ordered Radiology Impressions Chest X-Ray 12/08/21 21:40 IMPRESSION: Stable exam, no acute findings. Laboratory Results WBC 7.4 10^3/uL (4.0-10.0) 12/11/21 02:47 RBC 5.04 10^6/uL (4.1-5.3) 12/11/21 02:47 Hgb 14.0 g/dL (11.7-16.6) 12/11/21 02:47 Hct 43.1 % (42.0-52.0) 12/11/21 02:47 MCV 85.5 fl (80-94) 12/11/21 02:47 MCH 27.8 pg (28.0-34.0) L 12/11/21 02:47 MCHC 32.5 g/dL (30.0-36.0) 12/11/21 02:47 RDW 13.2 % (12.1-15.1) 12/11/21 02:47 Plt Count 175 10^3/cmm (130-400) 12/11/21 02:47 MPV 12.0 fL (7.4-10.4) H 12/11/21 02:47 Neut % (Auto) 57.8 % 12/11/21 02:47 Lymph % (Auto) 25.0 % 12/11/21 02:47 Armstrong % (Auto) 13.3 % 12/11/21 02:47 Eos % (Auto) 3.1 % 12/11/21 02:47 Baso % (Auto) 0.5 % 12/11/21 02:47 Neut # (Auto) 4.25 10^3/uL (1.8-7.7) 12/11/21 02:47 Lymph # (Auto) 1.8 10^3/uL (0.8-4.8) 12/11/21 02:47 Armstrong # (Auto) 1.0 10^3/uL (0.2-0.9) H 12/11/21 02:47 Eos # (Auto) 0.2 10^3/uL (0.0-0.8) 12/11/21 02:47 Baso # (Auto) 0.0 10^3/uL (0.0-0.1) 12/11/21 02:47 Nucleated RBC % (auto) 0 % 12/11/21 02:47 Nucleated RBCs # 0.0 /100WBC 12/11/21 02:47 Sodium 139 mmol/L (136-145) 12/11/21 02:47 Potassium 4.4 mmol/L (3.5-5.1) 12/11/21 02:47 Chloride 106 mmol/L (98-107) 12/11/21 02:47 Carbon Dioxide 22 mmol/L (22-29) 12/11/21 02:47 Anion Gap 15.4 (5-19) 12/11/21 02:47 BUN 23 mg/dL (8-23) 12/11/21 02:47 Creatinine 0.9 mg/dL (0.7-1.2) 12/11/21 02:47 GFR Calculation Not Reportable 12/11/21 02:47 Glucose 124 mg/dL (65-115) H 12/11/21 02:47 POC Glucose 123 mg/dL (70-110) H 12/11/21 06:20 Estimat Average Glucose 120 12/08/21 21:00 Hemoglobin A1c 5.8 % (4.0-6.0) 12/08/21 21:00 Calculated Osmolality 293 mOsm/kg (285-295) 12/11/21 02:47 Calcium 9.4 mg/dL (8.5-10.5) 12/11/21 02:47 Phosphorus 3.2 mg/dL (2.5-4.5) 12/11/21 02:47 Magnesium 2.2 mg/dL (1.7-2.3) 12/11/21 02:47 Total Bilirubin 0.3 mg/dL (0.15-1.2) 12/11/21 02:47 AST 21 U/L (0-40) 12/11/21 02:47 ALT 18 U/L (0-41) 12/11/21 02:47 Alkaline Phosphatase 86 IU/L (40-130) 12/11/21 02:47 Troponin T Baseline 33 ng/L (0-15) H 12/08/21 21:00 Troponin T 120 Minute 30.06 ng/L (0-15) H 12/08/21 23:52 Delta Troponin T -2.94 ABS# (0-10) L 12/08/21 23:52 Troponin T Hi Sens 6Hr 36.31 ng/L (0-15) H 12/09/21 03:40 Troponin T Hi Sens 6Hr Delta 3.31 ng/L (0-12) 12/09/21 03:40 Total Protein 6.6 g/dL (6.6-8.7) 12/11/21 02:47 Albumin 3.9 g/dL (3.5-5.2) 12/11/21 02:47 Globulin 2.7 g/dL (1.3-4.6) 12/11/21 02:47 Lipase 33 U/L (13-60) 12/08/21 21:00 TSH 1.71 uIU/mL (0.27-4.20) 12/08/21 23:52 Vitals Last Vital Signs Temp 98.6 F 12/11/21 07:05 Pulse 60 12/11/21 07:05 Resp 23 H 12/11/21 07:05 BP 117/76 12/11/21 07:05 Pulse Ox 100 12/11/21 07:05 Discharge Plan Discharge Patient Disposition: Home Condition: Stable Prescriptions: New hydralazine 25 mg Tablet 25 mg PO TID 30 Days Qty: 90 0RF losartan 50 mg Tablet 50 mg PO Q12H 30 Days Qty: 60 0RF Continued benztropine 1 mg tablet 2 mg PO BID 0RF oxcarbazepine [Trileptal] 600 mg tablet 600 mg PO BID 0RF venlafaxine 75 mg tablet 75 mg PO QAM 0RF trazodone 50 mg tablet 50 mg PO BEDTIME 0RF pantoprazole [Protonix] [address] for susp in packet 40 mg PO DAILY PRN (Reason: Heartburn) 0RF spironolactone [Aldactone] 25 mg tablet 25 mg PO QAM 0RF omeprazole 40 mg capsule,delayed release(DR/EC) 40 mg PO DAILY PRN (Reason: Heartburn) 0RF Vitamin C 500 mg Tablet 500 mg PO DAILY 0RF hydroxyzine HCl 10 mg tablet 10 mg PO TID PRN (Reason: Anxiety) 0RF topiramate 50 mg tablet 50 mg PO TID 0RF Discontinued glimepiride 2 mg tablet 2 mg PO BID 0RF metoprolol succinate 25 mg tablet extended release 24 hr 25 mg PO DAILY 0RF losartan 100 mg tablet 100 mg PO DAILY 0RF Discharge Orders: Discharge Order (Routine); Ordered 12/11/21 Ordered By: Gopal Brambila Other Ambulatory Orders: MCT/Event Monitor 30 Days (Routine) Timeframe: 1 Month Facility: [facility] - Location: Radiology Ordered By: Angel Hargrove Referrals: Angel Hargrove MD [Physician] - 1 month Tray Dennis [Primary Care Provider] - 4-7 days Discharge Diet: Cardiac Discharge Activity: Resume usual activity Patient Instructions: Opioid Safety Activity Restrictions/Additional Instructions: -If you have recurrent chest pain please go to the emergency room -Please follow-up with cardiology with event monitor -Please stop metoprolol -Please stop glimepiride due to low blood sugars -Monitor blood sugars 3 times daily -Follow-up with primary care provider for consideration of Jardiance, Januvia, or Ozempic for type 2 diabetes Discharge Attestations Time Spent in Discharge Care*: less than 30 min Quality Metrics Clinical Quality Measures [ No reported AMI, CVA or VTE this stay] Coding Level of Care Code Acute Chg FW DC note Diagnoses Chest pain R07.9 Bradycardia R00.1 Heart block atrioventricular I44.30 Hypertension I10
[2021-12-11 11:04] LABS: Glucose Point of Care 195 mg/dL (70-110)
--- NOTE | 2021-12-11 14:28 | PC.NURSE ---
Discharge Note Patient discharged to home via private vehicle accompanied by friend. Discharge instructions reviewed with patient and/or sales account representative. Mobile pharmacy medications and/or prescriptions provided. Belongings/home medications returned.
== END 2021-12-11 14:27 | disposition home or self-care (01) ==
LOC: ER 22:25 → CSU 23:10
PROVIDERS: Admitting Provider Student in an Organized Health Care Education/Training Program; Emergency Provider Emergency Medicine; PCP Family Medicine; Visit Provider Family Medicine
DX: R07.9 Chest pain, unspecified (principal); R00.1 Bradycardia, unspecified; I44.1 Atrioventricular block, second degree; I45.10 Unspecified right bundle-branch block; I10 Essential (primary) hypertension; E11.9 Type 2 diabetes mellitus without complications; E78.5 Hyperlipidemia, unspecified; F31.9 Bipolar disorder, unspecified; F41.9 Anxiety disorder, unspecified; Z87.891 Personal history of nicotine dependence
CPT/HCPCS: 36415; 36416; 71045; 78452; 80053; 82962; 83036; 83690; 83735; 84100; 84443; 84484; 85025; 93005; 93306; 96372; 96374; 97116; 97161; 99285; A9500; G0378; J0360; J1815; J2785

== ENCOUNTER → 2021-12-11 14:37 | Outpatient (BNVA) | payer MEDICARE, SELFPAY | PROVIDERS: PCP Family Medicine; Visit Provider Internal Medicine Cardiovascular Disease | DX: R00.1 Bradycardia, unspecified (principal); I44.30 Unspecified atrioventricular block | CPT/HCPCS: 93270 ==

== ENCOUNTER 2022-01-18 21:30 | Observation (INO) | payer MEDICARE, SELFPAY ==
[2022-01-18] VITALS (7 sets, daily range): BP systolic 168–214; BP diastolic 83–106; PULSE 66–79; RESP 18–35; TEMP 36.6; O2SAT 97–987; BMI 35.5
--- NOTE | 2022-01-18 21:31 | ECG_ITS ---
[facility] Test Date: 2022-01-18 Pat Name: Jared Sofia Department: Room: Gender: Male Manager Night: : 1950 Requested By: Dawson Masterson Order Number: [id number] Malachi MD: Angel Hargrove M.D. Measurements Intervals [place] Rate: 75 P: [place]: QRS: -63 QRSD: 173 T: 24 QT: 424 QTc: 475 Interpretive Statements Isometric A-V dissociation/first-degree AV block RIGHT BUNDLE BRANCH BLOCK [120+ ms QRS DURATION, UPRIGHT V1, 40+ ms S IN I/aVL/V4/V5/V6] LEFT ANTERIOR FASCICULAR BLOCK [QRS AXIS <= -45, QR IN I, RS IN II] MODERATE VOLTAGE CRITERIA FOR LVH, CONSIDER NORMAL VARIANT [MEETS CRITERIA IN ONE OF: R(aVL), S(V1), R(V5), R(V5/V6)+S(V1)] POSSIBLE SEPTAL MYOCARDIAL INFARCTION , OF INDETERMINATE AGE [30 ms Q WAVE IN V1/V2] Compared to ECG 12/10/2021 15:25:56 Myocardial infarct finding now present Electronically Signed On 01-20-2022 18:47:50 CDT by Angel Hargrove M.D. [email or web address]
--- NOTE | 2022-01-18 21:31 | XRR_ITS ---
PROCEDURE INFORMATION: Exam: XR Chest Exam date and time: 01/18/2022 9:49 PM Age: 71 years old Clinical indication: Sternal or substernal pain; Additional info: Cp TECHNIQUE: Imaging protocol: XR of the chest. Views: 1 view. COMPARISON: CR (CHEST, ) 12/08/2021 9:49 PM FINDINGS: Lungs: There is a background of emphysema and mild pulmonary fibrosis. Increased interstitial markings are seen in the lower hemithoraces bilaterally. This finding could represent mild superimposed pulmonary edema. Pleural spaces: Unremarkable. No pleural effusion. No pneumothorax. Heart/Mediastinum: Unremarkable. No cardiomegaly. Bones/joints: Unremarkable. XR/XR chest 1V portable [id number] IMPRESSION: 1. There is a background of emphysema and pulmonary fibrosis. 2. Increased interstitial markings in lower hemithoraces may represent superimposed pulmonary edema.
--- NOTE | 2022-01-18 21:34 | ED_ITS ---
HPI - Chest Pain General: Chief Complaint: Chest Pain Stated Complaint: cp Source: patient Mode of arrival: ambulatory Limitations: no limitations History of Present Illness: 71-year-old male has a history of MR Hiral spoke to EMS along with family he roughly 2 hours ago started having some diaphoresis was complaining of chest pain he did have an abnormal stress test here last month. He does states when they arrived he was diaphoretic he gave him nitro aspirin his pain is since improved patient is able to give me a slight history it is quite limited though due to his MRI. Denies pain currently Associated symptoms: Deny abdominal pain, dyspnea, fever(s), nausea or vomiting Review of Systems Const: Denies: fever(s), chills, body aches or change in appetite Eyes: Denies: blurry vision or eye discomfort ENMT: Denies: throat pain or dental pain Card: Reports: chest pain Resp: Denies: dyspnea GI: Denies: abdominal pain, nausea, vomiting or diarrhea : Denies: dysuria Musc: Denies: neck pain or back pain Skin/Breast: Denies: rash Neuro: Denies: headache(s) Psych: Denies: depression Keyur/Lymph: Denies: easy bruising All/Imm: Denies: urticaria PFSH ED PFSH: Medical History Bipolar disorder, current episode depressed, moderate Diabetes SHANTEL (generalized anxiety disorder) Hyperlipidemia, unspecified Hypertension Intellectual disability Surgical History History of appendectomy Family History Other Cancer Hypertension Social History Smoking and tobacco status: former smoker Second hand smoke exposure: No Smoking risk assessment/counseling performed?: No Alcohol intake: former Desire information about alcohol rehabilitation?: No Counseling given: No Desire information about substance/drug rehabilitation?: No Counseling given: No Physical Exam 2 Const: COMMON NORMALS: no acute distress, patient oriented x3 and healthy appearing HENMT: COMMON NORMALS: normocephalic and atraumatic HEAD & SCALP: normocephalic and atraumatic Eye: COMMON NORMALS: Equal, round and reactive pupils present and EOMs intact bilaterally PUPIL: Yes Equal, round and reactive pupils present Neck/C-Spine: COMMON NORMALS: full ROM and supple Chest: COMMONS NORMALS: normal inspection of the chest and normal palpation of entire chest wall Resp: COMMON NORMALS: normal respiratory effort, No retractions, No use of accessory muscles and clear to auscultation bilaterally AUSCULTATION: clear to auscultation bilaterally Cardio: COMMON NORMALS: regular rate, regular rhythm and No murmurs present (Cardio) RATE: regular rate RHYTHM: regular rhythm GI: COMMON NORMALS: Normal to inspection, nondistended, normoactive bowel sounds present, Soft to palpation, non-tender and no masses PALPATION: Yes Soft to palpation Extremity: COMMON NORMALS: normal to inspection and full ROM Neuro: COMMON NORMALS: patient oriented x3, moves all extremities and no focal motor deficits Psych: COMMON NORMALS: mental status grossly normal, Normal thought process present and cooperative THOUGHT PROCESS: Normal thought process present Skin: COMMON NORMALS: no rashes or lesions noted and no wounds GENERAL SKIN EXAM: no rashes or lesions noted Course Vital Signs: Vital signs: Vital Signs Temperature 97.8 F 01/18/22 21:32 Pulse Rate 71 01/18/22 22:30 Respiratory Rate 19 H 01/18/22 22:30 Blood Pressure 168/85 01/18/22 22:30 Pulse Oximetry 98 01/18/22 22:30 MDM - Chest Pain Medical Decision Making Patient presents here with chest pain is been relieved with nitro his initial troponin is 29 he did have a recent stress test that was abnormal due to his history and abnormal stress test spoke to hospitalist will admit for ACS rule out Lab Data : 01/18/22 22:05 01/18/22 22:05 Radiology Impressions Chest X-Ray 01/18/22 21:31 IMPRESSION: 1. There is a background of emphysema and pulmonary fibrosis. 2. Increased interstitial markings in lower hemithoraces may represent superimposed pulmonary edema. Laboratory Results WBC 6.1 10^3/uL (4.0-10.0) 01/18/22 22:05 RBC 4.63 10^6/uL (4.1-5.3) 01/18/22 22:05 Hgb 12.8 g/dL (11.7-16.6) 01/18/22 22:05 Hct 39.6 % (42.0-52.0) L 01/18/22 22:05 MCV 85.5 fl (80-94) 01/18/22 22:05 MCH 27.6 pg (28.0-34.0) L 01/18/22 22:05 MCHC 32.3 g/dL (30.0-36.0) 01/18/22 22:05 RDW 13.8 % (12.1-15.1) 01/18/22 22:05 Plt Count 170 10^3/cmm (130-400) 01/18/22 22:05 MPV 11.3 fL (7.4-10.4) H 01/18/22 22:05 Neut % (Auto) 60.2 % 01/18/22 22:05 Lymph % (Auto) 21.9 % 01/18/22 22: Anson % (Auto) 13.7 % 01/18/22 22: Eos % (Auto) 3.0 % 01/18/22 22: Baso % (Auto) 0.7 % 01/18/22 22:05 Neut # (Auto) 3.67 10^3/uL (1.8-7.7) 01/18/22 22:05 Lymph # (Auto) 1.3 10^3/uL (0.8-4.8) 01/18/22 22:05 [place]son # (Auto) 0.8 10^3/uL (0.2-0.9) 01/18/22 22:05 Eos # (Auto) 0.2 10^3/uL (0.0-0.8) 01/18/22 22:05 Baso # (Auto) 0.0 10^3/uL (0.0-0.1) 01/18/22 22:05 Nucleated RBC % (auto) 0 % 01/18/22: Nucleated RBCs # 0.0 /100WBC 01/18/22 22: PT 12.80 SECONDS (12.1-14.9) 01/18/22 22: INR 0.93 (0.8-1.2) 01/18/22 22:05 Sodium 141 mmol/L (136-145) 01/18/22 22: Potassium 4.0 mmol/L (3.5-5.1) 01/18/22 22:05 Chloride 108 mmol/L (98-107) H 01/18/22 22:05 Carbon Dioxide 22 mmol/L (22-29) 01/18/22 22:05 Anion Gap 15.0 (5-19) 01/18/22 22:05 BUN 27 mg/dL (8-23) H 01/18/22 22:05 Creatinine 1.1 mg/dL (0.7-1.2) 01/18/22 22:05 GFR Calculation Not Reportable 01/18/22 22:05 Glucose 124 mg/dL (65-115) H 01/18/22 22:05 Calculated Osmolality 299 mOsm/kg (285-295) H 01/18/22 22:05 Calcium 9.1 mg/dL (8.5-10.5) 01/18/22 22:05 Total Bilirubin 0.2 mg/dL (0.15-1.2) 01/18/22 22:05 AST 21 U/L (0-40) 01/18/22 22:05 ALT 20 U/L (0-41) 01/18/22 22:05 Alkaline Phosphatase 101 IU/L (40-130) 01/18/22 22:05 Troponin T Baseline 29 ng/L (0-15) H 01/18/22 22:05 NT-Pro-B Natriuret Pep 247 pg/mL (0-125) H 01/18/22 22:05 Total Protein 7.2 g/dL (6.6-8.7) 01/18/22 22:05 Albumin 4.0 g/dL (3.5-5.2) 01/18/22 22:05 Globulin 3.2 g/dL (1.3-4.6) 01/18/22 22:05 EKG Data EKG 1: I personally reviewed and interpreted this EKG as follows: EKG interpretation date: 01/18/22 EKG interpretation time: 21:35 Interpretation: nsr hr [address] elevation rbbb qrs 173 qtc 453 Discharge Plan Discharge Patient Disposition: Admitted As Inpatient Clinical Impression: Chest pain Condition: Stable Prescriptions: No Action benztropine 1 mg tablet 2 mg PO BID 0RF oxcarbazepine [Trileptal] 600 mg tablet 600 mg PO BID 0RF venlafaxine 75 mg tablet 75 mg PO QAM 0RF trazodone 50 mg tablet 50 mg PO BEDTIME 0RF pantoprazole [Protonix] [address] for susp in packet 40 mg PO DAILY PRN (Reason: Heartburn) 0RF spironolactone [Aldactone] 25 mg tablet 25 mg PO QAM 0RF omeprazole 40 mg capsule,delayed release(DR/EC) 40 mg PO DAILY PRN (Reason: Heartburn) 0RF Vitamin C 500 mg Tablet 500 mg PO DAILY 0RF hydroxyzine HCl 10 mg tablet 10 mg PO TID PRN (Reason: Anxiety) 0RF topiramate 50 mg tablet 50 mg PO TID 0RF Referrals: Tray Dennis [Primary Care Provider] - Coding Level of Care Code ED Pensionholder Information Clerk for Chg Fwd Exam Comprehensive
[2022-01-18] MEDS: ondansetron 2 mg/ML SDV 2 mL 4 MG IVP (22:05)
[2022-01-18] MEDS: morphine 4 mg/mL SDV 1 mL IVP (22:07)
[2022-01-18 22:17] LABS: Basophils % 0.7 %; Eosinophils # 0.2 10^3/uL (0.0-0.8); Hematocrit 39.6 % (42.0-52.0); Hemoglobin 12.8 g/dL (11.7-16.6); Lymphocytes # 1.3 10^3/uL (0.8-4.8); Lymphocytes % 21.9 %; Mean Corpuscular HGB Conc 32.3 g/dL (30.0-36.0); Mean Corpuscular Hemoglobin 27.6 pg (28.0-34.0); Mean Corpuscular Volume 85.5 fl (80-94); Mean Platelet Volume 11.3 fL (7.4-10.4); Monocytes # 0.8 10^3/uL (0.2-0.9); Monocytes % 13.7 %; Neutrophils # 3.67 10^3/uL (1.8-7.7); Neutrophils % 60.2 %; Nucleated Red Blood Cells % 0 %; Platelet Count 170 10^3/cmm (130-400); Red Blood Count 4.63 10^6/uL (4.1-5.3); Red Cell Distribution Width 13.8 % (12.1-15.1); White Blood Count 6.1 10^3/uL (4.0-10.0)
[2022-01-18 22:38] LABS: Troponin(5th) Baseline 29 ng/L (0-15)
[2022-01-18 22:43] LABS: INR 0.93 (0.8-1.2)
[2022-01-18 22:44] LABS: Alanine Aminotransferase 20 U/L (0-41); Alkaline Phosphatase 101 IU/L (40-130); Aspartate Amino Transferase 21 U/L (0-40); Blood Urea Nitrogen 27 mg/dL (8-23); Calcium 9.1 mg/dL (8.5-10.5); Carbon Dioxide 22 mmol/L (22-29); Chloride 108 mmol/L (98-107); Globulin 3.2 g/dL (1.3-4.6); Glucose 124 mg/dL (65-115); NT Pro B Type Natriuretic Pept 247 pg/mL (0-125); Osmolality Calculated 299 mOsm/kg (285-295); Sodium 141 mmol/L (136-145); Total Bilirubin 0.2 mg/dL (0.15-1.2); Total Protein 7.2 g/dL (6.6-8.7)
[2022-01-18] MEDS: enoxaparin 100 mg/mL Syringe SUBCUT (23:06)
--- NOTE | 2022-01-18 23:18 | PM.HP ---
Providers/Chief Complaint Admitting Physician: Regan Crespo DO Primary Care Provider: Tray Dennis Chief Complaint: cp History of Present Illness The patient is a 71-year-old male who present to [place] of chest pain which started proximally 5 PM on January 18, 2022. He states it was of sudden onset and substernal area without radiation. He describes the pain as sharp and's been intermittent since the time of onset. He states that he did not take any medication at home. With the onset of chest pain he admits to dyspnea, diaphoresis, palpitations, sense of rapid heartbeat, sensation knee regular heartbeat. He denies lightheadedness or dizziness. He denies peripheral edema. As worst the pain rated 10 out of 10 and it present time he claims it rates 10 out of 10 although is outward appearance does not come close to matching the subjective rating of pain. Of note, the patient was recently hospitalized from December 08, 2021 until December 11, 2021 during which point time he had an abnormal stress test and echocardiogram which is was not a great of quality but did not Dem straight any obvious abnormalities. He presents for further evaluation Review of Systems General: Reports: 10 or more systems reviewed and unremarkable except in HPI and below Medications/Allergies Home Medications Medication Instructions Recorded Confirmed Last Taken Type benztropine 1 mg tablet 2 mg PO BID 08/11/21 12/09/21 Unknown History omeprazole 40 mg capsule,delayed 40 mg PO DAILY PRN 08/11/21 12/09/21 Unknown History release oxcarbazepine 600 mg tablet 600 mg PO BID tab 08/11/21 12/09/21 Unknown History (Trileptal) pantoprazole 40 mg granules 40 mg PO DAILY PRN 08/11/21 12/09/21 Unknown History delayed-release for susp in packet (Protonix) spironolactone 25 mg tablet 25 mg PO QAM 08/11/21 12/09/21 Unknown History (Aldactone) trazodone 50 mg tablet 50 mg PO BEDTIME 08/11/21 12/09/21 Unknown History venlafaxine 75 mg tablet 75 mg PO QAM 08/11/21 12/09/21 Unknown History ascorbic acid (vitamin C) 500 mg 500 mg PO DAILY 12/09/21 12/09/21 Unknown History tablet (Vitamin C) hydroxyzine HCl 10 mg tablet 10 mg PO TID PRN 12/09/21 12/09/21 Unknown History topiramate 50 mg tablet 50 mg PO TID 12/09/21 12/09/21 Unknown History Allergies Allergy/AdvReac Type Severity Reaction Status Date / Time aripiprazole [From Abilify] Allergy Mild UNKNOWN Verified 12/09/21 09:33 haloperidol [From Haldol] Allergy Mild UNKNOWN Verified 12/09/21 09:33 cephalexin [From Keflex] Allergy UNKNOWN Verified 12/09/21 09:33 fluoxetine [From Prozac] Allergy Unknown Verified 12/09/21 09:33 lithium Allergy UNKNOWN Verified 12/09/21 09:33 PFSH Acute PFSH: Medical History Bipolar disorder, current episode depressed, moderate Diabetes SHANTEL (generalized anxiety disorder) Hyperlipidemia, unspecified Hypertension Intellectual disability Surgical History History of appendectomy Family History Other Cancer Hypertension Social History Smoking and tobacco status: former smoker Second hand smoke exposure: No Smoking risk assessment/counseling performed?: No Alcohol intake: former Desire information about alcohol rehabilitation?: No Counseling given: No Desire information about substance/drug rehabilitation?: No Counseling given: No Vitals/I&O/Wt Last Vital Signs Temp 97.8 F 01/18/22 21:32 Pulse 71 01/18/22 22:30 Resp 19 H 01/18/22 22:30 BP 168/85 01/18/22 22:30 Pulse Ox 98 01/18/22 22:30 Weight last 48 hrs Weight 99.79 kg Physical Exam Narrative: General: -Alert -No acute distress -No dyspnea -No tachypnea Head: -Atraumatic -Normocephalic Eyes: -Pupils equally round and reactive to light and accommodation -Extraocular muscles intact Neurological: -Cranial nerves II-XII intact Neck: -No jugular venous distention -No thyromegaly -No cervical lymphadenopathy Heart: -Regular rate -Regular rhythm -No murmurs -No gallops -No rubs Lungs: -No wheeze -No rhonchi -No rales ? Abdomen: -Normal bowel sounds in all four quadrants -No rebound -No guarding -No tenderness Extremities: -2/4 pulse in all four extremities -No clubbing -No cyanosis -No edema -No calf tenderness present bilaterally -Negative Chrissie?s sign bilaterally Musculoskeletal: -5/5 bilateral upper extremity strength -5/5 bilateral lower extremity strength -Sensorium of bilateral upper extremities are equal and intact -Sensorium of bilateral lower extremities are equal and intact ? Additional Details / Additional Findings / Exceptions / Miscellaneous: Data : 01/18/22 22:05 01/18/22 22:05 A&P Assessment and plan (1) Chest pain: Status: Acute Plan Chest pain, rule out ACS. Patient appears to have chronically elevated troponins especially in the face of his elevated blood pressure. Monitor patient on telemetry and checks her cardiac enzymes. Check TSH, free T4, magnesium level. In the morning we will recheck EKG and check fasting lipid panel. Aspirin 81 Mill grams daily plus Nitropaste 1 inch every 6 hours plus Lipitor 40 Mill grams by mouth daily at bedtime. No beta-padmini given that he previously had a first degree AV block which was believed to be iatrogenic. Echo Karg grams will not be reordered as it was recently performed and although was not a great quality study appeared unremarkable. Patient did did have abnormal cardiac stress test. Patient may be expressing dyspepsia for which she will be starting Protonix 40 mg by mouth twice a day. Unless patient has continued symptoms and/or troponins continued to rise, cardiology consultation may be a consideration History of atrial for ablation. Telemetry monitoring First-degree AV block during previous hospitalization. Telemetry monitoring. This was believed to be iatrogenic due to administration of beta-blockers Bipolar disorder Mental retardation Query pulmonary edema. Patient echo December 09, 2021 which was not a great quality study but what which appeared unremarkable. Be and he pending. Strict I/O. Daily weight. Echocardiogram will not be repeated at this time COPD/pulmonary fibrosis Diabetes. Will check fasting glucose before meals and at bedtime and provide insulin sliding scale GERD. Protonix 40 Mill grams by mouth twice a day Hyperlipidemia. Fasting lipid panel pending. Lipitor 40 Mill grams by mouth daily at bedtime Hypertension. Nitropaste 1 inch every 6 hours Obesity. The patient becomes regarding lifestyle medication DVT Proflex is. Lovenox 40 Mill grams subcu tensely daily Attestations Medical Necessity Statement*: Anticipated length of stay is less than 2 midnights at this time to rule out ACS Coding Level of Care Code Acute Supervisor Filling And Packing for Deangelo Melendez Diagnoses Chest pain R07.9
--- NOTE | 2022-01-18 23:31 | ECG_ITS ---
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 Measurements Intervals [place] Rate: 52 P: [place]: QRS: -54 QRSD: 173 T: -14 QT: 473 QTc: 442 Interpretive Statements Isometric A-V dissociation ABNORMAL RHYTHM ECG Right bundle branch Compared to ECG 01/18/2022 21:35:41 Left anterior fascicular block no longer present Myocardial infarct finding no longer present Electronically Signed On 01-20-2022 18:58:08 CDT by Angel Hargrove M.D. [id number]
[2022-01-19] VITALS (31 sets, daily range): BP systolic 157–209; BP diastolic 67–105; PULSE 51–77; RESP 13–26; TEMP 36.2–36.7; O2SAT 94–98
[2022-01-19 01:42] LABS: Troponin 5 2HR 33.03 ng/L (0-15)
[2022-01-19 01:51] LABS: Troponin 5 2HR Delta 4.03 ABS# (0-10)
[2022-01-19 01:57] LABS: Free T4 Free Thyroxine 0.65 ng/dL (0.82-1.77); Magnesium 2.5 mg/dL (1.7-2.3); NT Pro B Type Natriuretic Pept 312 pg/mL (0-125); Thyroid Stimulating Hormone 1.77 uIU/mL (0.27-4.20)
--- NOTE | 2022-01-19 03:31 | ECG_ITS ---
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 Measurements Intervals [place] Rate: 54 P: [place]: QRS: -55 QRSD: 170 T: -10 QT: 475 QTc: 452 Interpretive Statements SINUS BRADYCARDIA WITH EXTREMELY LONG FIRST DEGREE AV BLOCK RIGHT BUNDLE BRANCH BLOCK LEFT ANTERIOR FASCICULAR BLOCK POSSIBLE SEPTAL MYOCARDIAL INFARCTION , PROBABLY OLD Compared to ECG 01/19/2022 00:57:50 Right bundle-branch block now present Left anterior fascicular block now present Myocardial infarct finding now present Ventricular-paced complex(es) or rhythm no longer present Electronically Signed On 01-20-2022 7:43:19 CDT by Frances Lebron M.D. [id number]
[2022-01-19 03:50] LABS: Chol HDL Ratio 4.76 mg/dL (1.0-5.00); Cholesterol 214 mg/dL (0-200); HDL Cholesterol 45 mg/dL (60-100); LDL Cholesterol Calculated 145 mg/dL (50-129); LDL HDL Ratio 3.22 RATIO (0.00-3.22); Triglycerides 120 mg/dL (0-150)
[2022-01-19 03:51] LABS: Troponin 5 6HR 39.77 ng/L (0-15)
[2022-01-19 03:52] LABS: Troponin 5 6HR Delta 10.77 ng/L (0-12)
[2022-01-19] MEDS: nitroglycerin 1 gm/inch oint Pkt 1 INCH TOPICAL ×4 (06:20→23:25)
[2022-01-19 06:39] LABS: Glucose Point of Care 78 mg/dL (70-110)
--- NOTE | 2022-01-19 08:58 | PC.NURSE ---
patient is resting in bed comfortably, would like to speak to nurse regarding stay. Case management is at bedside. Notified patient's nurse.
[2022-01-19] MEDS: losartan 50 mg Tablet PO ×2 (09:08→18:00)
[2022-01-19] MEDS: pantoprazole DR 40 mg Tablet PO ×2 (09:11→18:00)
[2022-01-19] MEDS: hyDRALAzine 25 mg Tablet PO ×3 (09:11→20:11)
[2022-01-19] MEDS: aspirin 81 mg EC Tablet PO (09:11)
--- NOTE | 2022-01-19 09:53 | PC.CHAP ---
Pastoral Care Encounter/Spiritual Assessment Type of Contact [] Declined tanning consultant visit [] Patient/Family/Request visit [] Outpatient visit [] Follow-up visit [] Physician referral [] Code/Alert [x] Routine visit [] Staff referral [] Actively dying [] Patient sleeping [] Family support [] [] Out of room [] Palliative care [] [] Receiving care in room [] Pre-surgical visit [] Trauma [] Long length of stay [] ICU visit [] Other: Relational/Emotional Strength [] Patient feels connected with others/family/visitors/staff [] Distress [] Loneliness/isolation [] Abandonment Spirituality of Patient [] Person of [place] [] Attends Restorationism of their [place] [] Believes in Prayer [] Reads Bible or Episcopalian materials [] There are Spiritual issues to be addressed [employer] Interventions [x] Prayer [] Active listening [] Non-anxious presence [] Spiritual/emotional support [] Crisis/trauma care [] Spiritual counseling [] Bereavement support [] Provided bereavement packet [] Provided Bible/devotional materials [] Provided toy/stuffed animal, coloring book to patient or family member [] Provided Communion [] Anointing/[place] [] Salvation [x] Completed spiritual assessment [] Other: Impact on Illness or Injury [] Angry [] Fearful [] Anxious [] Often cries [] Exhaustion [] Unable to work [] Unable to attend hindu [] Unable to walk/stand [] Unable to read [] Unable to drive [] Unable to eat/drink [] Unable to sleep [] Unable to be with family [] Patient intubated [] Other: Summary Time spent with patient
--- NOTE | 2022-01-19 10:38 | PC.NURSE ---
patient reports nausea basin provided and blood glucose check due to NPO status BG 107
[2022-01-19 10:41] LABS: Glucose Point of Care 107 mg/dL (70-110)
--- NOTE | 2022-01-19 11:56 | ECG_ITS ---
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 Measurements Intervals [place] Rate: 62 P: [place]: 444 QRS: -59 QRSD: 164 T: -9 QT: 472 QTc: 479 Interpretive Statements SINUS RHYTHM WITH EXTREMELY LONG FIRST DEGREE AV BLOCK RIGHT BUNDLE BRANCH BLOCK LEFT ANTERIOR FASCICULAR BLOCK Compared to ECG 01/19/2022 04:41:57 Atrial fibrillation no longer present Myocardial infarct finding no longer present Electronically Signed On 01-20-2022 7:38:56 CDT by Frances Lebron M.D. [id number]
--- NOTE | 2022-01-19 12:13 | PC.NURSE ---
Dr pritchett on unit instructed to obtain Ekg and 5th gen troponin levels
--- NOTE | 2022-01-19 13:16 | PC.NURSE ---
Dr villalpando at bedside for assessment and plan of care evaluation verbal instructions to obtain Stat Bnp and BG finger stick
[2022-01-19 13:18] LABS: Glucose Point of Care 102 mg/dL (70-110)
[2022-01-19 13:19] LABS: Troponin T (5th) Once 37 ng/L (0-15)
--- NOTE | 2022-01-19 13:19 | PM.CONSULT ---
Providers/Reason For Consult Consulting Physician/Specialty*: Dr.AK Hargrove/ Cardiology Reason for Consult*: Chest pain Requesting Physician: Kleber Attending Physician: Yusuf Shahid Primary Care Provider: Tray Dennis History of Present Illness History of Present Illness Jared Sofia is a 71 year old male, is admitted to hospital with complaints of chest pain and uncontrolled blood pressure. His troponin T was slightly elevated. Cardiology consult is requested for further cardiac evaluation recommendations. This patient is known to have mental retardation/developmental delay. Most of the information is on the stepmother with whom he lives. He apparently has been in his baseline state of health up until yesterday evening when he had episode of severe chest pain associated with the profuse sweating. His chest pain was in the lower substernal region. The intensity of the pain was 10/10. Lasted for 15 minutes or so associated with profuse sweating. His blood pressure was in the 220 range at that time. His chest pain gradually subsided. According the patient, he still having some chest pain. His initial troponin was around 30. But the delta at 2 hours and 6 hours were unremarkable. This patient was admitted to the hospital in the beginning of last month with complaints of uncontrolled blood pressure and slow heartbeat and chest pain He was found to have EKG evidence of first-degree heart block with intermittent second-degree type I AV block. He had a myocardial perfusion imaging at that time which revealed areas of fixed defects with small areas of reversible defects. Since his pain all subsided, it was decided to treat him medically. His heart block also improved since he stopped the beta-padmini. According to the stepmother, patient never had chest pain that bad before. He also never had profuse sweating like alliance party he had yesterday. He has a history of type 2 diabetes. High blood pressure and high cholesterol. No history for any CVA, peripheral artery disease, liver disease or bleeding disorders. 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 He was found to have slightly evaded BUN/creatinine during this admission. Review of Systems Narrative: CONSTITUTIONAL: No fever or chills. EYES: No blurring of vision or other visual disturbances lately. ENT: No hoarseness of voice, auditory disturbances or sore throat. CARDIOVASCULAR: As mentioned above. RESPIRATORY: No significant cough. GASTROINTESTINAL: No hematemesis or melena. GENITOURINARY: No dysuria or hematuria. INTEGUMENTARY: No skin rashes or history of skin cancer. NEURO: No transient ischemic attacks or amaurosis. PSYCHIATRIC: History of bipolar disorder. HEMATOLOGIC: No bleeding disorders or significant anemia. ENDOCRINE: No history of polyuria or polydipsia. MUSCULOSKELETAL: No recent joint pain or swelling. ALLERGY/IMMUNOLOGY: As mentioned above. Medications/Allergies Home Medications Medication Instructions Recorded Confirmed Last Taken Type benztropine 1 mg tablet 2 mg PO BID 08/11/21 01/19/22 01/18/22 09:00 History 1 mg omeprazole 40 mg capsule,delayed 40 mg PO DAILY PRN 08/11/21 01/19/22 01/18/22 09:00 History release 40 mg oxcarbazepine 600 mg tablet 600 mg PO BID tab 08/11/21 01/19/22 01/18/22 20:00 History (Trileptal) 600 mg pantoprazole 40 mg granules 40 mg PO DAILY PRN 08/11/21 01/19/22 Unknown History delayed-release for susp in packet (Protonix) spironolactone 25 mg tablet 25 mg PO QAM 08/11/21 01/19/22 01/18/22 09:00 History (Aldactone) 25 mg trazodone 50 mg tablet 50 mg PO BEDTIME 08/11/21 01/19/22 01/17/22 21:00 History 50 mg venlafaxine 75 mg tablet 75 mg PO QAM 08/11/21 01/19/22 01/18/22 09:00 History 75 mg ascorbic acid (vitamin C) 500 mg 500 mg PO DAILY 12/09/21 01/19/22 Unknown History tablet (Vitamin C) hydroxyzine HCl 10 mg tablet 10 mg PO TID PRN 12/09/21 01/19/22 Unknown History topiramate 50 mg tablet 50 mg PO TID 12/09/21 01/19/22 01/18/22 20:00 History 50 mg aspirin 81 mg tablet,delayed 81 mg PO DAILY 01/19/22 01/19/22 Unknown History release fluticasone propionate 50 50 mcg INTRANASAL DAILY 01/19/22 01/19/22 Unknown History mcg/actuation nasal spray,suspension glimepiride 1 mg tablet 1 mg PO DAILY 01/19/22 01/19/22 01/18/22 09:00 History 1 mg hydralazine 25 mg tablet 25 mg PO TID 01/19/22 01/19/22 Unknown History losartan 50 mg tablet 50 mg PO BID 01/19/22 01/19/22 Unknown History Allergies Allergy/AdvReac Type Severity Reaction Status Date / Time aripiprazole [From Abilify] Allergy Mild UNKNOWN Verified 12/09/21 09:33 haloperidol [From Haldol] Allergy Mild UNKNOWN Verified 12/09/21 09:33 cephalexin [From Keflex] Allergy UNKNOWN Verified 12/09/21 09:33 fluoxetine [From Prozac] Allergy Unknown Verified 12/09/21 09:33 lithium Allergy UNKNOWN Verified 12/09/21 09:33 Current Medications Generic Name Dose Route Start Last Admin Trade Name Freq PRN Reason Stop Dose Admin Aspirin 81 mg 01/19/22 09:00 01/19/22 09:11 Aspirin 81 Mg Ec Tablet PO 81 mg DAILY BENJIE Administration Hydralazine HCl 25 mg 01/19/22 09:00 01/19/22 09:11 Hydralazine 25 Mg Tablet PO 25 mg TID BENJIE Administration Insulin Human Lispro 0 unit 01/19/22 08:00 01/19/22 10:51 Insulin Lispro 100 Unit/1 Ml SUBCUT Not Given WM&BEDTIME BENJIE Protocol Losartan Potassium 50 mg 01/19/22 09:00 01/19/22 09:08 Losartan 50 Mg Tablet PO 50 mg BID BENJIE Administration Nitroglycerin 1 inch 01/19/22 00:01 01/19/22 12:10 Nitroglycerin 1 Gm/Inch Oint Pkt TOPICAL 1 inch Q6H BENJIE Administration Pantoprazole Sodium 40 mg 01/19/22 09:00 01/19/22 09:[address] 40 Mg Tablet PO 40 mg BID BENJIE Administration PFSH Acute PFSH: Medical History Bipolar disorder, current episode depressed, moderate Diabetes SHANTEL (generalized anxiety disorder) Hyperlipidemia, unspecified Hypertension Intellectual disability Surgical History History of appendectomy Family History Other Cancer Hypertension Social History Smoking and tobacco status: former smoker Second hand smoke exposure: No Smoking risk assessment/counseling performed?: No Alcohol intake: former Desire information about alcohol rehabilitation?: No Counseling given: No Desire information about substance/drug rehabilitation?: No Counseling given: No Vitals/I&O/Wt Last Vital Signs Temp 97.1 F L 01/19/22 12:00 Pulse 59 L 01/19/22 12:00 Resp 14 01/19/22 12:00 BP 165/86 01/19/22 12:00 Pulse Ox 94 01/19/22 12:00 01/18/22 01/19/22 01/19/22 22:59 06:59 14:59 Intake Total 0 / 0 Output Total 630 / 630 Balance 0 / 0 -630 / -630 Weight last 48 hrs Weight 214 lb Weight 214 lb 14.4 oz Weight 220 lb Physical Exam Narrative: GENERAL: The patient is alert and oriented times three. Not in any acute distress. HEENT: No significant pallor, icterus or lymphadenopathy.Oral cavity: There are no mucous membrane lesions. NECK: Trachea appears to be central. No masses noted. No JVD or thyromegaly appreciated. RESPIRATORY: Chest is symmetrical. No intercostals muscle retraction or any accessory muscle activation. There is no chest wall tenderness. Breath sounds are heard bilaterally. No rales or rhonchi heard. No evidence of any consolidation. BREASTS: Deferred. HEART: The heart sounds are normal. No S3 or S4. No significant murmurs. No pericardial rub ABDOMEN: No vessel pulsations or distention. No tenderness. No organomegaly appreciated. Bowel sounds are normally heard. : Deferred. RECTAL: Deferred. LYMPHATIC: No lymphadenopathy noted in the neck. EXTREMITIES: No edema or cyanosis. No clubbing. MUSCULOSKELETAL: No acute joint deformities or swelling SKIN: There are no significant rashes or ecchymosis NEUROPSYCHIATRIC: The patient is alert and oriented x3. Appears to be in a good mood. No tremors or rigidity noted. Data : 01/18/22 22:05 01/18/22 22:05 Other Labs: Laboratory Last Values WBC 6.1 10^3/uL (4.0-10.0) 01/18/22 22:05 RBC 4.63 10^6/uL (4.1-5.3) 01/18/22 22:05 Hgb 12.8 g/dL (11.7-16.6) 01/18/22 22:05 Hct 39.6 % (42.0-52.0) L 01/18/22 22:05 MCV 85.5 fl (80-94) 01/18/22 22:05 MCH 27.6 pg (28.0-34.0) L 01/18/22 22:05 MCHC 32.3 g/dL (30.0-36.0) 01/18/22 22:05 RDW 13.8 % (12.1-15.1) 01/18/22 22:05 Plt Count 170 10^3/cmm (130-400) 01/18/22:05 MPV 11.3 fL (7.4-10.4) H 01/18/22 22:05 Neut % (Auto) 60.2 % 01/18/22 22:05 Lymph % (Auto) 21.9 % 01/18/22 22: [place] % (Auto) 13.7 % 01/18/22 22: Eos % (Auto) 3.0 % 01/18/22 22:05 Baso % (Auto) 0.7 % 01/18/22:05 Neut # (Auto) 3.67 10^3/uL (1.8-7.7) 01/18/22 22:05 Lymph # (Auto) 1.3 10^3/uL (0.8-4.8) 01/18/22 22:05 [place] # (Auto) 0.8 10^3/uL (0.2-0.9) 01/18/22 22:05 Eos # (Auto) 0.2 10^3/uL (0.0-0.8) 01/18/22 22:05 Baso # (Auto) 0.0 10^3/uL (0.0-0.1) 01/18/22 22: Nucleated RBC % (auto) 0 % 01/18/22: Nucleated RBCs # 0.0 /100WBC 01/18/22 22: PT 12.80 SECONDS (12.1-14.9) 01/18/22 22: INR 0.93 (0.8-1.2) 01/18/22 22:05 Sodium 141 mmol/L (136-145) 01/18/22 22:05 Potassium 4.0 mmol/L (3.5-5.1) 01/18/22 22:05 Chloride 108 mmol/L (98-107) H 01/18/22 22:05 Carbon Dioxide 22 mmol/L (22-29) 01/18/22 22:05 Anion Gap 15.0 (5-19) 01/18/22 22:05 BUN 27 mg/dL (8-23) H 01/18/22 22:05 Creatinine 1.1 mg/dL (0.7-1.2) 01/18/22 22:05 GFR Calculation Not Reportable 01/18/22 22:05 Glucose 124 mg/dL (65-115) H 01/18/22 22:05 POC Glucose 102 mg/dL (70-110) 01/19/22 13:12 Calculated Osmolality 299 mOsm/kg (285-295) H 01/18/22 22:05 Calcium 9.1 mg/dL (8.5-10.5) 01/18/22 22:05 Magnesium 2.5 mg/dL (1.7-2.3) H 01/19/22 00:40 Total Bilirubin 0.2 mg/dL (0.15-1.2) 01/18/22 22:05 AST 21 U/L (0-40) 01/18/22 22:05 ALT 20 U/L (0-41) 01/18/22 22:05 Alkaline Phosphatase 101 IU/L (40-130) 01/18/22 22:05 Troponin T Gen 5 ng/L 37 ng/L (0-15) H 01/19/22 12:50 Troponin T Baseline 29 ng/L (0-15) H 01/18/22 22:05 Troponin T 120 Minute 33.03 ng/L (0-15) H 01/19/22 00:40 Delta Troponin T 4.03 ABS# (0-10) 01/19/22 00:40 Troponin T Hi Sens 6Hr 39.77 ng/L (0-15) H 01/19/22 03:20 Troponin T Hi Sens 6Hr Delta 10.77 ng/L (0-12) 01/19/22 03:20 NT-Pro-B Natriuret Pep 312 pg/mL (0-125) H 01/19/22 00:40 Total Protein 7.2 g/dL (6.6-8.7) 01/18/22 22:05 Albumin 4.0 g/dL (3.5-5.2) 01/18/22 22:05 Globulin 3.2 g/dL (1.3-4.6) 01/18/22 22:05 Triglycerides 120 mg/dL (0-150) 01/19/22 03:20 Cholesterol 214 mg/dL (0-200) H 01/19/22 03:20 LDL Cholesterol, Calc 145 mg/dL (50-129) H 01/19/22 03:20 HDL Cholesterol 45 mg/dL (60-100) L 01/19/22 03:20 LDL/HDL Ratio 3.22 RATIO (0.00-3.22) 01/19/22 03:20 Cholesterol/HDL Ratio 4.76 mg/dL (1.0-5.00) 01/19/22 03:20 TSH 1.77 uIU/mL (0.27-4.20) 01/19/22 00:40 Free T4 0.65 ng/dL (0.82-1.77) L 01/19/22 00:40 Other Imaging: My impression: Myocardial perfusion imaging on 12/10/2021 . Abnormal myocardial perfusion imaging with small sized infarct with small ?area of reversiblity in the Left circumflex artery/diagonal territory ?2. LV systolic function is normal CXR: My impression: The chest x-ray shows normal cardiac silhouette . The descending aorta appears to be dilated. No acute lung infiltrate. EKG 1: My Interpretation: The EKG showed a sinus rhythm with first-degree AV block, right bundle branch block and left anterior fascicular block EKG computer-generated impression: Chest X-Ray 01/18/22 21:31 IMPRESSION: 1. There is a background of emphysema and pulmonary fibrosis. 2. Increased interstitial markings in lower hemithoraces may represent superimposed pulmonary edema. Other data: The echocardiogram revealed ECHO ?LV systolic function is normal with EF of 55-60% ?Diastolic function is indeterminate ?Mild mitral regurgitation ?No comparison studies are available A&P Assessment and plan (1) Chest pain: Patient's prolonged episode of severe chest pain,, accelerated hypertension and a dilated descending aorta, may suggest aortic pathology. The EKG appears to show any acute ischemic changes. At this point, it may be appropriate to go ahead with a CTA of the chest to rule out aortic dissection. If the CTA does not reveal any evidence of dissection, need to consider cardiac catheterization to further evaluate the symptoms. Discussed with the patient's stepmother, who is her regulator operator of this patient. She is agreeable for the procedures. Status: Acute (2) Accelerated hypertension: Patient's blood pressure is still elevated. But it seems to be coming down. His blood pressure was in the 200 range at home. Currently it is 160/85. May continue optimizing the antihypertensive medication. Status: Acute (3) Dyslipidemia: Patient is on a statin drug which may be continued. Status: Acute (4) Diabetes: The blood sugar also seems to be under control. Status: Acute (5) Heart block atrioventricular: Also monitor blood pressure.Patient currently is in sinus rhythm with first-degree AV block. May continue on the current medications. Status: Acute Plan Other problems are #1 abnormal kidney function #2 history of bipolar disorder #3 mental retardation Consult Attestations Medical Necessity Statement: Patient the patient's clinical progress on the results of the above, further recommendations will be made. Thank you for the opportunity to eval this patient and make these recommendations Coding Level of Care Code Acute Microwave Remote Sensing Scientist for Deangelo Fwd History Detailed Exam Detailed Medical Decision Making High Complexity Diagnoses Chest pain R07.9 Accelerated hypertension I10 Dyslipidemia E78.5 Diabetes E11.9 Heart block atrioventricular I44.30
[2022-01-19] MEDS: sodium chloride 0.45% 1,000 ML 125 ML IV (13:40)
[2022-01-19 13:50] LABS: Blood Urea Nitrogen 20 mg/dL (8-23); Calcium 8.2 mg/dL (8.5-10.5); Carbon Dioxide 21 mmol/L (22-29); Chloride 108 mmol/L (98-107); Glucose 108 mg/dL (65-115); Osmolality Calculated 293 mOsm/kg (285-295); Sodium 140 mmol/L (136-145)
--- NOTE | 2022-01-19 14:03 | CTR_ITS ---
PROCEDURE INFORMATION: Exam: CTA Chest With Contrast Exam date and time: 01/19/2022 2:51 PM Age: 71 years old Clinical indication: Abdominal pain; Generalized; Additional info: ? Aortic disese? , Presented with cp and uncontrolled HTN TECHNIQUE: Imaging protocol: Computed tomographic angiography of the chest with contrast. 3D rendering (Not supervised by radiologist): MIP and/or 3D reconstructed images were created and reviewed. COMPARISON: CR (CHEST, ) 01/18/2022 9:49 PM FINDINGS: Pulmonary arteries: Normal. No pulmonary emboli. Aorta: No aortic aneurysm or dissection. Ascending aorta measures 3.4 cm and descending aorta 2.7 cm. Minimal plaque formation and wall calcifications are present. Thyroid: The thyroid gland appears somewhat enlarged and heterogeneous containing several small nodules, measuring up to 4.4 x 2.2 cm in the right lobe extending to the isthmus. Several other smaller nodules are present. Lungs: Unremarkable. No consolidation. No masses. Pleural spaces: Unremarkable. No pneumothorax. No pleural effusion. Heart: Mild cardiomegaly with coronary calcification. Lymph nodes: Unremarkable. No enlarged lymph nodes. Bones/joints: Multilevel vertebral disc degeneration and endplate osteophytes. No acute osseous findings otherwise. Soft tissues: Unremarkable. Other findings: Several images are degraded due to external streak artifacts arising from patient's arm(s). COMMENTS: Consistent with the [employer]'s Incidental Findings Committee white paper (J Am Juany Radiol 2015): In patients aged 35 years and older with an incidental thyroid nodule equal to or greater than 1.[address], MRI or extrathyroidal US, further evaluation with dedicated thyroid US is recommended for patients with normal life expectancy and without comorbidities. For smaller nodules without suspicious features, no further evaluation or follow up is recommended. PROCEDURE INFORMATION: Exam: CTA Abdomen and Pelvis With Contrast Exam date and time: 01/19/2022 2:51 PM Age: 71 years old Clinical indication: Abdominal pain; Generalized; Additional info: ? Aortic disese? , Presented with cp and uncontrolled HTN TECHNIQUE: Imaging protocol: Computed tomographic angiography of the abdomen and pelvis with contrast material. 3D rendering (Not supervised by radiologist): MIP and/or 3D reconstructed images were created by the technologist. Radiation optimization: All CT scans at this facility use at least one of these dose optimization techniques: automated exposure control; mA and/or kV adjustment per patient size (includes targeted exams where dose is matched to clinical indication); or iterative reconstruction. Contrast material: OMNI 350; Contrast volume: 95 ml; Contrast route: INTRAVENOUS (IV); COMPARISON: CR (CHEST, ) 01/18/2022 9:49 PM RADIATION DOSE METRICS: Total DLP (mGy-cm): 2532.85 FINDINGS: Aorta: No aortic aneurysm or dissection. Suprarenal aorta measures 2.4 cm cm and infrarenal aorta 1.9 cm. Mild diffuse plaque formation and wall calcifications are present. Celiac trunk and mesenteric arteries: [id number] proximal SMA stenosis related to partially calcified plaque. Renal arteries: Probable [id number] renal artery origin stenosis bilaterally due to calcified plaque. Right iliac arteries: No occlusion or significant stenosis. Left iliac arteries: No occlusion or significant stenosis. Liver: No mass. Gallbladder and bile ducts: Unremarkable. No calcified stones. No ductal dilation. Pancreas: Unremarkable. No mass. No ductal dilation. Spleen: Unremarkable. No splenomegaly. Adrenal glands: Unremarkable. No mass. Kidneys and ureters: Right upper pole simple renal cyst measuring 2 cm. No hydronephrosis. Stomach and bowel: Colonic diverticulosis. Appendix: High-density surgical sutures in the cecal region with a few surgical clips, likely related to prior appendectomy. No regional inflammatory response. Intraperitoneal space: Unremarkable. No free air. No significant fluid collection. Lymph nodes: Unremarkable. No enlarged lymph nodes. Urinary bladder: Unremarkable. No mass. Reproductive: Minimal prostate enlargement. Bones/joints: Multilevel vertebral disc degeneration and endplate osteophytes. No acute osseous findings otherwise. Soft tissues: Bilateral fat-containing inguinal hernias are present, left larger than right. Other findings: Several images are degraded due to external streak artifacts arising from patient's arm(s), and motion artifacts. CT/CT angio chest abdomen pelvis IMPRESSION: 1. No acute findings or aortic dissection/aneurysm. 2. Multinodular goiter as described above. See comment below. 3. Other nonacute findings as described. IMPRESSION: 1. No acute findings or aortic dissection/aneurysm. 2. Other nonacute findings as described above.
--- NOTE | 2022-01-19 14:05 | P.PN_ITS ---
Subjective Subjective: The patient reports chest pain. Denies shortness of breath, abdominal pain, nausea or vomiting. No fever or chills. Medications: Medication Review Details: Medications are reviewed Vitals/I&O/Wt Last Vital Signs Temp 97.1 F L 01/19/22 12:00 Pulse 59 L 01/19/22 12:00 Resp 14 01/19/22 12:00 BP 165/86 01/19/22 12:00 Pulse Ox 94 01/19/22 12:00 01/18/22 01/19/22 01/19/22 22:59 06:59 14:59 Intake Total 0 / 0 Output Total 630 / 630 Balance 0 / 0 -630 / -630 Weight last 48 hrs Weight 97.069 kg Weight 97.477 kg Weight 99.79 kg Physical Exam Narrative: The patient is awake alert and oriented. No acute distress. Mood is normal. Responses are adequate. Skin is warm and dry. Moist mucous membranes Neck supple. No JVD Lungs are clear bilaterally. No wheezes or crackles. Heart S1, S2, irregular Abdomen soft, obese, nontender, bowel sounds are present Extremities trace edema, no cyanosis or calf tenderness bilaterally. Normal peripheral pulses bilaterally. Moves all extremities. No facial asymmetry. Normal speech. Eyes PERRL, extraocular muscle intact Data : 01/18/22 22:05 01/19/22 12:50 A&P Assessment and plan (1) Chest pain: Status: Acute Plan Chest pain, rule out ACS. Patient appears to have chronically elevated troponins especially in the face of his elevated blood pressure. Monitor patient on telemetry and checks her cardiac enzymes. Check TSH, free T4, magnesium level. In the morning we will recheck EKG and check fasting lipid panel. Aspirin 81 Mill grams daily plus Nitropaste 1 inch every 6 hours plus Lipitor 40 Mill grams by mouth daily at bedtime. No beta-padmini given that he previously had a first degree AV block which was believed to be iatrogenic. Echo Karg grams will not be reordered as it was recently performed and although was not a great quality study appeared unremarkable. Patient did did have abno rmal cardiac stress test. Patient may be expressing dyspepsia for which she will be starting Protonix 40 mg by mouth twice a day. Unless patient has continued symptoms and/or troponins continued to rise, cardiology consultation may be a consideration History of atrial for ablation. Telemetry monitoring First-degree AV block during previous hospitalization. Telemetry monitoring. This was believed to be iatrogenic due to administration of beta-blockers Bipolar disorder Mental retardation Query pulmonary edema. Patient echo December 09, 2021 which was not a great quality study but what which appeared unremarkable. Be and he pending. Strict I/O. Daily weight. Echocardiogram will not be repeated at this time COPD/pulmonary fibrosis Diabetes. Will check fasting glucose before meals and at bedtime and provide insulin sliding scale GERD. Protonix 40 Mill grams by mouth twice a day Hyperlipidemia. Fasting lipid panel pending. Lipitor 40 Mill grams by mouth daily at bedtime Hypertension. Nitropaste 1 inch every 6 hours Obesity. The patient becomes regarding lifestyle medication DVT Proflex is. Lovenox 40 Mill grams subcu tensely daily [place] Chest pain. Elevated troponin. EKG with Tramaine crawofrd, stable. Discussed with Dr. Hargrove. I appreciate his input. Altered seems to be enlarged on the chest x- ray. Blood pressure was severely elevated. We will go ahead and order CTA chest and abdomen to rule out acute aortic disease. We will continue cardiac medications. We will reassess tomorrow. We will consider cardiac catheterization if no additional findings and if kidney function remained stable. Uncontrolled hypertension. Hypertensive urgency. Medications are adjusted. Continue as needed medications. Severe dyslipidemia. Continuing statin. History of COPD and possible interstitial lung disease. No evidence of exacerbation. Continue current management. Diabetes. Insulin sliding scale. The plan of care was discussed with patient. Discussed with Dr. Hargrove. Dr. Hargrove also spoke with the patient's stepmom. She agrees with the plan of care. Discussed with multidisciplinary team. Attestations Medical Necessity Statement*: The patient requires hospitalization for work-up and adjustments of the treatment based on the new findings Coding Level of Care Code Acute Preschool Assistant Principal for Chg Fwd Diagnoses Chest pain R07.9
--- NOTE | 2022-01-19 14:10 | PC.NURSE ---
patient is resting in bed and has no needs at this time.
[2022-01-19 14:12] LABS: NT Pro B Type Natriuretic Pept 324 pg/mL (0-125)
[2022-01-19] MEDS: iohexol 350 mg/mL 100 mL Btl IV (15:11)
[2022-01-19 16:16] LABS: Glucose Point of Care 116 mg/dL (70-110)
[2022-01-19] MEDS: atorvastatin 40 mg Tablet PO (20:11)
[2022-01-19] MEDS: trazodone 50 mg Tablet PO (20:11)
[2022-01-19 20:18] LABS: Glucose Point of Care 158 mg/dL (70-110)
[2022-01-19] MEDS: sodium chloride 0.45% 1,000 ML 75 ML IV (21:23)
[2022-01-19] MEDS: amlodipine 5 mg Tablet PO (21:23)
[2022-01-19] MEDS: hyDRALAzine 50 mg Tablet PO (21:23)
[2022-01-19] MEDS: enoxaparin 40 mg/0.4 mL Syringe SUBCUT (23:25)
[2022-01-19] MEDS: hyDRALAzine 20 mg/mL INJ 1 mL 10 MG IVP (23:39)
[2022-01-20] VITALS (64 sets, daily range): BP systolic 108–226; BP diastolic 53–110; PULSE 67–90; RESP 8–30; TEMP 36.6; O2SAT 93–97
[2022-01-20 04:39] LABS: Albumin Level 4.1 g/dL (3.5-5.2); Blood Urea Nitrogen 20 mg/dL (8-23); Calcium 9.5 mg/dL (8.5-10.5); Carbon Dioxide 18 mmol/L (22-29); Chloride 104 mmol/L (98-107); Creatinine Clr Calc Pharmacy 82.2983; Glucose 186 mg/dL (65-115); Magnesium 2.2 mg/dL (1.7-2.3); Phosphorus 2.6 mg/dL (2.5-4.5); Sodium 136 mmol/L (136-145)
--- NOTE | 2022-01-20 05:04 | XACV_ITS ---
Exam Room: [facility] Ht: 168 cm Wt: 98 kg BSA: 2.17 m2 Gender: Male : 1950 Any Known Allergies: Other Exam Priority: Routine Indication(s): Unstable angina with a small area of ischemia by previous myocardial perfusion imaging - Procedure(s): Procedure Description: The LV catheterization and the left coronary angiogram was performed from a radial artery approach. While advancing the right coronary catheter, there was resistance in advancing the guidewire through the axillary artery. For that reason we did an injection in the region of the axillary artery. Artery was found to have diffuse disease with a possible area of dissection. Patient apparently did not have any arm pain or any signs of hemodynamic compromise. The radial pulse was of good volume and amplitude. I reviewed this with Dr. Miller. At this point, it was decided not to continue the procedure with a radial approach. So we resorted to the right femoral artery approach to do the right coronary angiogram and possible PCI. Patient tolerated the procedure very well. Procedure Description: PCI procedure Procedure Description: Left Heart Catheterization Procedure Description: Drug Eluting Coronary Stent Procedure Description: PTCA Procedure Description: Coronary Angiography Procedure Description: Pressure Wire Delvin DONNELLY; Diagnostic Cath Status: Urgent Diagnostic Findings * Left main is a medium caliber vessel with no significant stenotic lesions. * The left anterior descending artery is a medium caliber vessel which appears to wrap around the LV apex. The first diagonal has a high takeoff, appears to be the intermedius artery. The proximal segment of the artery was found to have diffused around 30 to 40% narrowing. The second diagonal branch was found to have 20 to 30% irregular diffuse narrowing in the proximal segment. Right after the second diagonal, there was around 70% stenosis in the LAD. There appears to be somewhat tortuous at this area. The distal LAD was found to have diffuse intimal irregularities. Around the apex, there was a 50 to 60% segmental narrowing in the artery. No other significant stenotic lesions were noted. * Left circumflex artery is a medium caliber dominant vessel appears to have minimal intimal irregularities proximally. The first obtuse marginal artery appears to bifurcate proximally. The second obtuse marginal artery appears to have an ostial narrowing of around 40% at its takeoff. This artery appears to bifurcate distally. The second obtuse marginal artery appears to gives off the PDA branch. The circumflex proper, after giving of the second obtuse marginal branch, becomes very rudimentary with no significant lesions. * Right coronary artery is a nondominant small to medium caliber vessel which appears to have mild diffuse disease proximally. In the artery appears to bifurcate. At the bifurcation, there is 40 to 50% narrowing.. No other significant stenotic lesions were noted. PCI Status: Urgent PCI Indication: Other Interventional Findings * PROCEDURE DETAIL: We engaged left main artery with XB 3.5 guide catheter. IV heparin was used to maintain an ACT over 250 s. iFR wire was used to cross the stenosis in LAD and was put in distal vessel. IFR value of 0.74 was obtained that was significantly ischemic. We predilated the stenosis with 2.5 x 12 mm semi-compliant balloon. This was followed by placement of 3.5 x 18 mm resolute Beverly drug-eluting stent. At this time final angiogram was performed that showed excellent stent expansion, LYN-3 flow and no residual stenosis. Guidewire and guide catheter were removed. Patient left the Nocturnist in a stable condition.. * Mid Left Anterior Descendin% stenosis treated with a AB TREK 2.50X12 RX BALLOON, and SHAQUILLE Workman JOLEEN 3.5X18 KHOA. 0% residual stenosis, LYN: 3 flow. Conclusions 1. 71-year-old white male with history of high blood pressure and type 2 diabetes, presents with an episode of prolonged chest pain. He had a recent hospital admission for chest pain. At that time myocardial infarction was ruled out. Myocardial perfusion imaging revealed a small area of ischemia. It was opted to treat her medically at that time. Because of his recurrent episodes of chest pain requiring hospital admissions, for further evaluation of his coronary status,a cardiac catheterization was recommended. Patient underwent left heart catheterization with left and right coronary angiogram today. The findings are as follows. 2. 1. No significant disease in the left main. 2. The left anterior descending artery was found to have around 70% stenosis in the midsegment and 50 to 60% segmental narrowing around the apex. Mild diffuse disease is noted in the proximal segments of the first and second diagonal branches. 3. Mild disease in the dominant circumflex artery and nondominant right coronary artery. LVEDP of 15 mmHg. Moderate diffuse disease in the right axillary artery with an area of possible dissection. 3. I reviewed and discussed the cardiac catheterization data with the Dr. Miller. It was thought to be appropriate to consider IFR of the LAD lesion and possible PCI. Dr. Miller took over further management of this patient at this point. 4. Ischemic iFR value of 0.74 s/p successful revacsularization of LAD with KHOA X 1. 5. Mid Left Anterior Descending was treated with a Balloon, and Drug Eluting Stent. Recommendations * Aspirin and Plavix for atleast 1 year. * High intensity statin therapy. * Outpatient cardiology followup in 4 weeks. Interventional RX Recommendation: PCI w/o planned CABG Diagnostic RX Recommendation: PCI w/o planned CABG Anticoagulation: Heparin LV EDP: 15 mmHg Left Ventriculography Findings: * LV gram was not performed. LVEDP was 15 mmHg. Pressures Phase:Rest AO : 167 / 89 ( 92 ) @ 7:18:00 AM 100 / 63 ( 80 ) @ 7:19:00 AM 108 / 65 ( 83 ) @ 7:20:00 AM 117 / 68 ( 89 ) @ 7:23:00 AM 169 / 76 ( 116 ) @ 7:37:00 AM 167 / 68 ( 114 ) @ 7:37:00 AM 106 / 59 ( 77 ) @ 8:32:00 AM 109 / 62 ( 81 ) @ 8:43:00 AM LV : 180 / 7 / 15 @ 7:37:00 AM 178 / 8 / 16 @ 7:37:00 AM Valves Phase:DefaultPhase AV : 16.0 @ 8:04:33 AM AV Mean Gradient: 15.0 @ 8:04:33 AM 15.0 @ 8:04:33 AM Clinical Evaluation EBL: 5mL-10mL Procedural Details Procedure Consent Obtained. Current Diagnosis : NSTEMI. Pre-Procedure Time Out. Identified patient by full name and date of as verbalized by the patient/guarantor. Does the consent match the physician's order: Yes. Accurate & Complete Informed Consent: Yes. Inpatient/Outpatient History & Physical on Chart: Yes. If H&P is completed, is and addenduem needed: No; If yes, is the addendum complete: N/A. Visualize and Verify Site with Patient/Guarantor: N/A. Relevant Radiology Images available: Yes. Pre-op teaching completed and patient verbalized understanding. The risks, benefits, and alternatives of sedation and/or procedure were discussed by physician. The patient agrees to continue. Procedure started. [facility] Clinical Fraility Score: 4: Vulnerable. Nocturnist Indications: ACS > 24 hours. Chest Pain Symptom Assessment: Atypical Angina. Correct patient, site and procedure confirmed by cath team. Current diagnosis: NSTEMI. PERRLA. Strong, equal hand natural gas basis trader bilaterally. Lungs clear x 5 lobes. IV Site on Arrival: 18 gauge in the left anticubital. IV Fluids: 0.9% NaCl at KVO. 0 mL infused prior to labor and employment paralegal. Pre Procedural Pulses: right radial was 2+. Oxygen started at 2liters/min via nasal canula. right groin was prepped with chloroprep then draped in the usual sterile fashion. right radial was prepped with chloroprep then draped in the usual sterile fashion. Physician notified. Baseline sample Acquired. HR: 0 BPM. Physician arrived. Physician scrubbed in. Immediate Pre-Procedure Time Out. Correct Patient: Yes; Correct Procedure: Yes; Correct Site: Yes; Correct Patient Position: Yes; Correct Supplies: Yes; Dried Flammable Prep: Yes; Blood Products Available: N/A;. Lidocaine 1% infiltrated to the right radial. Arterial access obtained. A 5 zimbabwean David catheter in over wire. Multiple views taken of left coronary artery. Dr. Miller called to review films. Catheter redirected to the RCA. Catheter removed over the standard wire. A 5 zimbabwean JR4 catheter in over wire. Dr. Miller arrived. Catheter removed over the standard wire. A 5 zimbabwean 3DRC catheter in over wire. EDP Sample taken: LV 180/7,15; HR: 85 BPM; SpO2: 98%. Pullback taken: LV 178/8,16; AO 169/76(116); Mean: 15mmHg, Peak to Peak: 16mmHg, SEP: 17sec/min; HR: 85 BPM; SpO2: 98%. Catheter removed over the standard wire. A 5 zimbabwean AR MOD catheter in over wire. Catheter removed over the exchange wire. A 5 zimbabwean AR1 catheter in over wire. contrast hand injected through the catheter x 3. Catheter removed over the standard wire. contrast hand injected through the radial sheath. A TR Band was successful obtaining hemostatsis at the Right Radial artery insertion site. Lidocaine 1% infiltrated to the right groin. Arterial access obtained with micropuncture set. A 5 zimbabwean JR4 catheter in over wire. Inventory is [employer] Dynamicsst STANDARD J GUIDEWIRE .035 145cm. Catheter removed over the standard wire. A 5 zimbabwean AR1 catheter in over wire. Multiple views taken of right coronary artery. Catheter removed over the standard wire. Dr. Hargrove scrubbed out. Dr. Miller scrubbed in to perform intervention. 6 zimbabwean XB 3.5 guide catheter was inserted over the wire. FFR guidewire was advanced through the guide catheter to lesion in the mid LAD. Results: 0.74. Inflation number : 1 A AB TREK 2.50X12 RX BALLOON was prepped and advanced across the Mid LAD , then inflated to 8 ALLEN for 0:16 seconds. Inflation number: 2 The AB TREK 2.50X12 RX BALLOON was reinflated across the Mid LAD, to 8 ALLEN for 0:19 seconds. Inflation number: 3 The AB TREK 2.50X12 RX BALLOON was reinflated across the Mid LAD, to 0 ALLEN for 0:00 seconds. Inflation number: 4 The AB TREK 2.50X12 RX BALLOON was reinflated across the Mid LAD, to 8 ALLEN for 0:00 seconds. Balloon out. Inflation Number : 5 Aditya Workman JOLEEN 3.5X18 KHOA -Lot Number# _[id number]_ was prepped and advanced across the Mid LAD. The stent was deployed at 12 ALLEN for 0:33 seconds. Stent balloon out over wire. Results checked. Wire out. ACT drawn. Results 199 seconds. Therapeutic limits - pre-heparin administration 90-150 seconds and monitoring heparin during a vascular procedure >250 seconds. Guide catheter out. A Right femoral angiogram was performed to determine safe placement of closure device. Sheath(s) sutured into position with 2-0 silk and sterile 4x4's and Op-site applied over the site. No oozing or signs and symptoms of hematoma noted. Arterial sheath flushed and connected to tranducer and pressure bag with heparinized saline. A Suture was successful obtaining hemostatsis at the Right Femoral artery insertion site. Post Procedure: Pulses reassessed and unchanged. PERRLA. Strong, equal hand natural gas basis trader bilaterally. No VTE prophylaxis required. Medication's Wasted: Lidocaine 1% = 2 mL. Medication's Wasted: Nitro = 49.7 mg. Medication's Wasted: Heparin = 2000 units. Medication's Wasted: Other = Fentanyl 25 mg. Total IV fluids: 401 mL. Estimated blood loss: 5mL-10mL. Responsiveness - Normal response to verbal stimuli; alert and oriented, PERRLA. Airway - Unaffected, no intervention required; spontaneous ventilation. Circulation: W/N/L, pulses unchanged. Nausea/Vomiting: No. Procedure completed. Patient transferred by bed to 1st floor. Vital chart was stopped. Access Site Site: Right Radial artery Sheath Size: 6 Fr Hemostasis Method: TR Band Hemostasis Success: Successful Site: Right Femoral artery Sheath Size: 6 Fr Hemostasis Method: Suture Hemostasis Success: Successful Procedure Medications Start: 6:00 AM Stop: 6:00 AM Medication: Fentanyl Amount: 50 mcg Route: I.V. Start: 6:06 AM Stop: 6:06 AM Medication: Versed Amount: 1 mg Route: I.V. Start: 6:15 AM Stop: 6:15 AM Medication: Verapamil Amount: 5 mg Route: I.A. Start: 6:15 AM Stop: 6:15 AM Medication: Nitrogylcerin Amount: 200 mcg Route: I.A. Start: 6:20 AM Stop: 6:20 AM Medication: Heparin Amount: 5000 units Route: I.V. Start: 7:12 AM Stop: 7:12 AM Medication: Versed Amount: 1 mg Route: I.V. Start: 7:30 AM Stop: 7:30 AM Medication: Heparin Amount: 4000 units Route: I.V. Start: 7:40 AM Stop: 7:40 AM Medication: Versed 1 mg and Fentanyl 25 mcg Amount: 1 Route: I.V. Start: 7:41 AM Stop: 7:41 AM Medication: Heparin Amount: 1000 units Route: I.V. Start: 7:56 AM Stop: 7:56 AM Medication: Heparin Amount: 2000 units Route: I.V. Start: 7:56 AM Stop: 7:56 AM Medication: Plavix Amount: 600 mg Route: P.O. I, the attending physician, have reviewed and verified all procedure medications. Yes, all medications given per verbal order History/Risk Factors Hypertension: Yes Dyslipidemia: Yes Peripheral Arterial Disease (PAD): No Myocardial Infarction (NC): No Obesity: No Renal Disease: No Prior Interventions PCI: No CABG: No Valve Surgery: No Report Signatures Interventional Workflow Finalized by Sandro Miller MD on 02/02/2022 04:52 PM Diagnostic Workflow Finalized by Dr Angel Hargrove MD [facility] on 01/20/2022 05:57 PM
[2022-01-20] MEDS: diphenhydrAMINE 50 mg Capsule PO (05:17)
[2022-01-20] MEDS: venlafaxine 75 mg Tablet PO (05:17)
[2022-01-20] MEDS: nitroglycerin 1 gm/inch oint Pkt 1 INCH TOPICAL (05:17)
[2022-01-20] MEDS: sodium chloride 0.9% 1,000 ML 50 ML IV (05:18)
--- NOTE | 2022-01-20 05:52 | PC.NURSE ---
Pt prepped for heart cath and pt education given. Pt verbalized understanding. 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
--- NOTE | 2022-01-20 06:05 | W.PM.OPSUD ---
Surgery/Procedure H&P Update DATE OF PROCEDURE: January 20, 2022 DATE H&P PERFORMED: 01/19/22 H&P UPDATE INFORMATION: I have reviewed H&P completed within last 30 days, I have examined patient prior to procedure and No changes to prior documentation PREOP DIAGNOSIS: ASHD PRIMARY INDICATION FOR PROCEDURE: UAP/ abnormal Stress test PLANNED PROCEDURE: [facility] with left and right coronary angio ,LV angio and possiable PCI PATIENT REASSESSED PRIOR TO SEDATION, WITH NO CHANGE NOTED: Yes PHYSICAL EXAM: alert, oriented x 3, clear to auscultation bilaterally, regular rate & rhythm and operative site marked AIRWAY EVAL/ANESTHESIA PLAN: normal airway, see other exam findings, ASA III, Monitored Anesthesia, Local Anesthesia, Risks, benefits & alternatives of sedation and/or procedure discussed and Patient agrees to continue as planned
--- NOTE | 2022-01-20 06:57 | PC.NURSE ---
pt off floor for [facility]
--- NOTE | 2022-01-20 08:17 | PM.MISC ---
Miscellaneous Note Purpose of Documentation: Brief procedure note Note: Patient had severe mid LAD stenosis. Confirmed with iFR value of 0.74 S/p successful revascularization with KHOA X 1. Aspirin and Plavix for atleast 1 year Aggressive risk factor modification
[2022-01-20] MEDS: aspirin 81 mg EC Tablet PO (08:54)
[2022-01-20] MEDS: losartan 50 mg Tablet PO ×2 (08:54→17:21)
[2022-01-20] MEDS: pantoprazole DR 40 mg Tablet PO (08:54)
[2022-01-20] MEDS: hyDRALAzine 25 mg Tablet PO ×3 (08:54→20:04)
[2022-01-20] MEDS: sodium chloride 0.9% 1,000 ML 100 ML IV ×2 (08:54→17:23)
[2022-01-20] MEDS: amlodipine 5 mg Tablet PO ×2 (08:55→17:22)
--- NOTE | 2022-01-20 09:28 | PC.NURSE ---
Patient arrived via bed from chemical lab supervisor. Patient has TR band in place on right wrist. No hematoma present, no oozing from the site. Patient also has sheath intact in right groin attached to pressure bag. No hematoma or oozing from that site either. Patient is alert and oriented and does not have any pain. Patient VS are stable. Patient has been educated regarding activity restrictions, and to notify the nurse of any concerns. Nurse will continue to monitor patient Q15m
--- NOTE | 2022-01-20 10:25 | PM.PN ---
Subjective Subjective: The patient underwent cardiac catheterization. Doing well. No chest pain. No shortness of breath. No fever or chills. Medications: Medication Review Details: Generic Name Dose Route Start Last Admin Trade Name Freq PRN Reason Stop Dose Admin Amlodipine Besylat e 5 mg 01/20/22 09:00 01/20/22 08:55 Amlodipine 5 Mg Tablet PO 5 mg BID BENJIE Administration Aspirin 81 mg 01/19/22 09:00 01/20/22 08:54 Aspirin 81 Mg Ec Tablet PO 81 mg DAILY BENJIE Administration Atorvastatin Calci um 40 mg 01/19/22 21:00 01/19/22 20:11 Atorvastatin 40 Mg Tablet PO 40 mg BEDTIME BENJIE Administration Enoxaparin Sodium 40 mg 01/19/22 23:00 01/19/22 23:25 Enoxaparin 40 Mg /0.4 Ml Syringe SUBCUT 40 mg Q24H BENJIE Administration Hydralazine HCl 10 mg 01/19/22 00:01 01/19/22 23:39 Hydralazine 20 M g/Ml Inj 1 Ml IVP 10 mg Q4H PRN Administration prn sbp>150 Hydralazine HCl 25 mg 01/19/22 09:00 01/20/22 08:54 Hydralazine 25 M g Tablet PO 25 mg TID BENJIE Administration Sodium Chloride 1,000 mls @ 75 ml s/hr 01/19/22 13:45 01/19/22 21:23 Sodium Chloride 0.45% IV 75 mls/hr .[id number] BENJIE Administration Sodium Chloride 1,000 mls @ 50 ml s/hr 01/20/22 05:05 01/20/22 05:18 Sodium Chloride 0.9% IV 01/21/22 01:04 50 mls/hr .Q20H ONE Administration Sodium Chloride 1,000 mls @ 100 m ls/hr 01/20/22 08:30 01/20/22 08:54 Sodium Chloride 0.9% IV 100 mls/hr .Q10H BENJIE Administration Insulin Human Lisp ro 0 unit 01/19/22 08:00 01/20/22 09:20 Insulin Lispro 1 00 Unit/1 Ml SUBCUT Not Given WM&BEDTIME BENJIE Protocol Losartan Potassium 50 mg 01/19/22 09:00 01/20/22 08:54 Losartan 50 Mg T ablet PO 50 mg BID BENJIE Administration Nitroglycerin 1 inch 01/19/22 00:01 01/20/22 05:17 Nitroglycerin 1 Gm/Inch Oint Pkt TOPICAL 1 inch Q6H BENJIE Administration Pantoprazole Sodiu m 40 mg 01/19/22 09:00 01/20/22 08:[address] 40 Mg Tablet PO 40 mg BID BENJIE Administration Trazodone HCl 50 mg 01/19/22 21:00 01/19/22 20:11 Trazodone 50 Mg Tablet PO 50 mg BEDTIME BENJIE Administration Venlafaxine HCl 75 mg 01/20/22 06:00 01/20/22 05:17 Venlafaxine 75 M g Tablet PO 75 mg QAM BENJIE Administration Vitals/I&O/Wt Last Vital Signs Temp 98 F 01/20/22 03:20 Pulse 70 01/20/22 09:15 Resp 17 01/20/22 09:15 BP 146/78 01/20/22 09:15 Pulse Ox 95 01/20/22 08:32 01/19/22 01/20/22 01/20/22 22:59 06:59 14:59 Intake Total 1204.583 / 1204.583 0 / 1204.583 236 / 236 Output Total 430 / 1060 Balance 774.583 / 144.583 0 / 144.583 236 / 236 Weight last 48 hrs Weight 97.522 kg Weight 97.069 kg Weight 97.477 kg Weight 99.79 kg Physical Exam Narrative: The patient is awake alert and oriented. No acute distress. Mood is normal. Responses are adequate. Skin is warm and dry. Moist mucous membranes Neck supple. No JVD Lungs are clear bilaterally. No wheezes or crackles. Heart S1, S2, irregular Abdomen soft, obese, nontender, bowel sounds are present Extremities trace edema, no cyanosis or calf tenderness bilaterally. Normal peripheral pulses bilaterally. Moves all extremities. No facial asymmetry. Normal speech. Eyes PERRL, extraocular muscle intact Data : 01/18/22 22:05 01/20/22 03:23 A&P Assessment and plan (1) Chest pain: Status: Acute Plan Chest pain No beta-padmini given that he previously had a first degree AV block which was believed to be iatrogenic. Echo Karg grams will not be reordered as it was recently performed and although was not a great quality study appeared unremarkable. History of atrial for ablation. Telemetry monitoring First-degree AV block during previous hospitalization. Telemetry monitoring. This was believed to be iatrogenic due to administration of beta-blockers Bipolar disorder. Stable Mental retardation Query pulmonary edema. Patient echo December 09, 2021 which was not a great quality study but what which appeared unremarkable. Be and he pending. Strict I/O. Daily weight. Echocardiogram will not be repeated at this time COPD/pulmonary fibrosis Diabetes. Will check fasting glucose before meals and at bedtime and provide insulin sliding scale GERD. Protonix 40 Mill grams by mouth twice a day Hyperlipidemia. Fasting lipid panel pending. Lipitor 40 Mill grams by mouth daily at bedtime Hypertension. Nitropaste 1 inch every 6 hours Obesity. The patient becomes regarding lifestyle medication DVT Proflex is. Lovenox 40 Mill grams subcu tensely daily [place] Chest pain. Elevated troponin, ACS, CAD Patient had severe mid LAD stenosis. Confirmed with iFR value of 0.74 S/p successful revascularization with KHOA X 1. Aspirin and Plavix for atleast 1 year Aggressive risk factor modification Uncontrolled hypertension. Hypertensive urgency. Improved. Medications are adjusted. Continue as needed medications. Continue further adjustments. Severe dyslipidemia. Continuing statin. History of COPD and possible interstitial lung disease. No evidence of exacerbation. Continue current management. Diabetes. Insulin sliding scale. Multinodular goiter. Will need referral for outpatient endocrinology via primary care physician. Additional testing and follow-up is necessary DVT prophylaxis. Enoxaparin. GI. Decreasing the frequency of Protonix to daily The plan of care was discussed with patient. Discussed with multidisciplinary team. Attestations Medical Necessity Statement*: Status postcardiac catheterization and PCI. We will monitor today with possible discharge home tomorrow. Coding Level of Care Code Acute Telecommunications Cable Jointer for Deangelo Melendez Diagnoses Chest pain R07.9
[2022-01-20 10:53] LABS: Partial Thromboplastin Time 199.3 SECONDS (23.9-36.7)
--- NOTE | 2022-01-20 11:00 | PC.NURSE ---
Oozing Pt sheath is oozing per LATASHA Bender. Pt right groin site is checked. dressing is saturated with blood. applied pressure for 10 mins 2 to 3 cm above the puncture site. 6 FR sheath intact. Pt denies any pain or discomfort. pt noted to be moving his hips due to urine incontinence in bed and repositioning for clean up. will keep monitoring.
[2022-01-20 11:13] LABS: Glucose Point of Care 134 mg/dL (70-110)
[2022-01-20 11:41] LABS: Glucose Point of Care 185 mg/dL (70-110)
[2022-01-20] MEDS: insulin lispro 100 unit/1 mL SUBCUT ×2 (11:44→21:11)
--- NOTE | 2022-01-20 12:51 | PC.NURSE ---
TR band removed, no hematoma present. Patient educated regarding continued activity restrictions.
[2022-01-20 13:50] LABS: Partial Thromboplastin Time 43.1 SECONDS (23.9-36.7)
[2022-01-20] MEDS: fentaNYL 50 mcg/mL INJ 2mL IVP (14:42)
--- NOTE | 2022-01-20 14:45 | PC.NURSE ---
noted swelling and small hematoma on right groin pre-medicated pt on fentanyl. noted swelling on right groin thigh lateral to sheath and around the sheath. Pressure held for [address] Villalpando and immediately came to pt's room. notified him that manual pressure has been is [address] villalpando check the access site and Per Dr Villalpando, hematoma has resolved, verbal orders to apply more pressure for total of 30 mins and apply sandbag. Hemostasis achieved. will keep monitoring.
[2022-01-20 15:55] LABS: Glucose Point of Care 134 mg/dL (70-110)
--- NOTE | 2022-01-20 18:54 | PC.NURSE ---
Sheath pulled by ALPHONSO Tee at 14:50. This nurse assisted. Patient tolerated procedure well. Small hematoma present during sheath pull, however pressure was applied and physician notified. Dr. Hargrove ordered to place sand bag on site for 2hrs. Patient is doing well and has had no further issues.
[2022-01-20] MEDS: trazodone 50 mg Tablet PO (20:04)
[2022-01-20] MEDS: atorvastatin 40 mg Tablet PO (20:04)
--- NOTE | 2022-01-20 20:17 | PC.NURSE ---
Dr. Miller ordered to d/c nitropaste and continue Lovenox.
[2022-01-20 20:38] LABS: Glucose Point of Care 179 mg/dL (70-110)
[2022-01-20] MEDS: enoxaparin 40 mg/0.4 mL Syringe SUBCUT (21:12)
[2022-01-20] MEDS: hyDRALAzine 20 mg/mL INJ 1 mL 10 MG IVP (21:28)
[2022-01-21] VITALS (7 sets, daily range): BP systolic 139–166; BP diastolic 73–78; PULSE 68–77; RESP 18–26; TEMP 36.5–36.6; O2SAT 94–96
[2022-01-21 04:27] LABS: Albumin Level 3.8 g/dL (3.5-5.2); Anion Gap 17.8 (5-19); Blood Urea Nitrogen 19 mg/dL (8-23); Calcium 9.5 mg/dL (8.5-10.5); Carbon Dioxide 18 mmol/L (22-29); Chloride 106 mmol/L (98-107); Glucose 140 mg/dL (65-115); Phosphorus 2.9 mg/dL (2.5-4.5); Potassium 3.8 mmol/L (3.5-5.1); Sodium 138 mmol/L (136-145)
[2022-01-21] MEDS: venlafaxine 75 mg Tablet PO (04:35)
[2022-01-21 06:34] LABS: Glucose Point of Care 139 mg/dL (70-110)
--- NOTE | 2022-01-21 07:53 | PC.NURSE ---
Making patient rounds, patient is sitting up in chair eating breakfast.
[2022-01-21] MEDS: pantoprazole DR 40 mg Tablet PO (09:04)
[2022-01-21] MEDS: clopidogrel 75 mg Tablet PO (09:04)
[2022-01-21] MEDS: aspirin 81 mg EC Tablet PO (09:04)
[2022-01-21] MEDS: losartan 50 mg Tablet PO (09:06)
[2022-01-21] MEDS: amlodipine 5 mg Tablet PO (09:06)
[2022-01-21] MEDS: hyDRALAzine 25 mg Tablet PO (09:06)
--- NOTE | 2022-01-21 09:06 | PC.NURSE ---
Patient is resting in bed, nurse is at bedside giving medications.
--- NOTE | 2022-01-21 09:25 | USCV_ITS ---
Jared Sofia Age: 71 Gender: M : 1950 Exam Date: 01/21/2022 11:08 Ordering Phys: Angel Hargrove MD ([email or web address]) Technologist: CKDominick [place] [facility] [place]: DM2 nonsmoker. Patient is unaware of why this exam is to be done. Nurse states difficult cardiac cath via RT arm. Risk Factors: DM2 Previous Vascular Surgery: Nurse states no hx of stenting or bypass grafts in RUE Right BP: 172.00 / Left BP: / RIGHT LEFT Waveform PSV PSV Waveform (cm/s) (cm/s) Biphasic 79.0 Subclavian Proximal Biphasic 79.0 Subclavian Distal Triphasic 133.0 Axillary Biphasic 135.0 Brachial Proximal Biphasic 145.0 Brachial Mid Biphasic 99.0 Brachial at AC Biphasic 87.0 Radial Proximal Biphasic 64.0 Radial Mid Biphasic 59.0 Radial at Wrist Biphasic 116.0 Ulnar Proximal Biphasic 97.0 Ulnar Mid Biphasic 92.0 Ulnar at Wrist 0.96 Radial/Brachial Index 0.93 Ulnar/Brachial Index FINDINGS Normal arterial Doppler flow velocities. Normal RBI and UBI. Mild diffuse plaques in the axillary and brachial artery on the right side CONCLUSIONS No evidence of any significant arterial obstruction in the right upper extremity arteries mentioned above Dr Angel Hargrove MD FAC (Electronically Signed) Final Date: 21 January 2022 14:25 S
--- NOTE | 2022-01-21 09:28 | PM.PN ---
Subjective Subjective: Patient has no recurrence of chest pain. No hematoma bleeding in the right groin. Good radial and ulnar pulse on the right side. No new symptoms. Blood pressure seems to be staying elevated in the 150s and 160s Medications: Medication Review Details: Current Medications Acetaminophen (Acetaminophen 325 Mg Tablet) 650 mg PO Q6H PRN PRN Reason: Mild/Mod Pain Or Temp >/= 101 Acetaminophen (Acetaminophen 325 Mg Tablet) 650 mg PO Q6H PRN PRN Reason: MILD PAIN Al Hydrox/Mg Hydrox/Simethicone (Ovnv-Aew-Keyrnqgrx-Melissa 30 Ml Udc) 30 ml PO Q15M PRN PRN Reason: INDIGESTION Alprazolam (Alprazolam 0.5 Mg Tablet) 0.25 mg PO TID PRN PRN Reason: ANXIETY Amlodipine Besylate (Amlodipine 5 Mg Tablet) 5 mg PO BID [facility] Last Admin: 01/21/22 09:06 Dose: 5 mg Documented by: Aspirin (Aspirin 81 Mg Ec Tablet) 81 mg PO DAILY [facility] Last Admin: 01/21/22 09:04 Dose: 81 mg Documented by: Atorvastatin Calcium (Atorvastatin 40 Mg Tablet) 40 mg PO BEDTIME [facility] Last Admin: 01/20/22 20:04 Dose: 40 mg Documented by: Atropine Sulfate (Atropine 1 Mg/Ml Sdv 1 Ml) 0.5 mg IVP PRN PRN PRN Reason: Symptomatic bradycardia Clopidogrel Bisulfate (Clopidogrel 75 Mg Tablet) 75 mg PO DAILY [facility] Last Admin: 01/21/22 09:04 Dose: 75 mg Documented by: Dextrose (Dextrose 50% Syringe 50 Ml) 25 ml IVP ONCE PRN; Protocol PRN Reason: hypoglycemia protocol Dextrose (Dextrose 50% Syringe 50 Ml) 50 ml IVP PRN PRN; Protocol PRN Reason: hypoglycemia protocol Enoxaparin Sodium (Enoxaparin 40 Mg/0.4 Ml Syringe) 40 mg SUBCUT Q24H BENJIE Last Admin: 01/20/22 21:12 Dose: 40 mg Documented by: Fentanyl (Fentanyl 50 Mcg/Ml Inj 2ml) 50 mcg IVP PRN PRN PRN Reason: Pain Last Admin: 01/20/22 14:42 Dose: 50 mcg Documented by: Glucagon (Glucagon 1 Mg/Ml Inj 1 Ml) 1 mg IM ONCE PRN; Protocol PRN Reason: Adult Acute Hypoglycemia Prot. Hydralazine HCl (Hydralazine 20 Mg/Ml Inj 1 Ml) 10 mg IVP Q4H PRN PRN Reason: prn sbp>150 Last Admin: 01/20/22 21:28 Dose: 10 mg Documented by: Hydralazine HCl (Hydralazine 25 Mg Tablet) 25 mg PO TID [facility] Last Admin: 01/21/22 09:06 Dose: 25 mg Documented by: Dextrose (D5w) 500 mls @ 100 mls/hr IV ONCE PRN; Protocol PRN Reason: Adult Acute Hypoglycemia Prot Insulin Human Lispro (Insulin Lispro 100 Unit/1 Ml) 0 unit SUBCUT WM&BEDTIME [facility]; Protocol Last Admin: 01/21/22 07:37 Dose: Not Given Documented by: Losartan Potassium (Losartan 50 Mg Tablet) 50 mg PO BID [facility] Last Admin: 01/21/22 09:06 Dose: 50 mg Documented by: Magnesium Hydroxide (Magnesium Hydroxide 30 Ml Udc) 30 ml PO DAILY PRN PRN Reason: CONSTIPATION Naloxone HCl (Naloxone 0.4 Mg/Ml Sdv) 0.1 mg IVP Q2M PRN PRN Reason: RESPIRATORY RATE < 8/MIN Nitroglycerin (Nitroglycerin 0.4 Mg Sublingual Tablet) 0.4 mg SUBLINGUAL Q5M PRN PRN Reason: CHEST PAIN Ondansetron HCl (Ondansetron 2 Mg/Ml Sdv 2 Ml) 4 mg IVP Q8H PRN PRN Reason: vomiting, or N/V if npo Pantoprazole Sodium (Pantoprazole Dr 40 Mg Tablet) 40 mg PO DAILY [facility] Last Admin: 01/21/22 09:04 Dose: 40 mg Documented by: Temazepam (Temazepam 15 Mg Capsule) 15 mg PO BEDTIME PRN PRN Reason: INSOMNIA Trazodone HCl (Trazodone 50 Mg Tablet) 50 mg PO BEDTIME [facility] Last Admin: 01/20/22 20:04 Dose: 50 mg Documented by: Venlafaxine HCl (Venlafaxine 75 Mg Tablet) 75 mg PO QAM [facility] Last Admin: 01/21/22 04:35 Dose: 75 mg Documented by: Vitals/I&O/Wt Last Vital Signs Temp 97.7 F 01/21/22 07:08 Pulse 68 01/21/22 07:08 Resp 18 01/21/22 07:08 BP 166/78 01/21/22 09:06 Pulse Ox 96 01/21/22 07:08 01/20/22 01/21/22 01/21/22 22:59 06:59 14:59 Intake Total 3204.333 / 4676.333 240 / 240 Balance 3204.333 / 4676.333 240 / 240 Weight last 48 hrs Weight 215 lb Weight 215 lb Physical Exam Narrative: GENERAL: The patient is alert and oriented times three. Not in any acute distress. HEENT: No significant pallor, icterus or lymphadenopathy.Oral cavity: There are no mucous membrane lesions. NECK: Trachea appears to be central. No masses noted. No JVD or thyromegaly appreciated. RESPIRATORY: Chest is symmetrical. No intercostals muscle retraction or any accessory muscle activation. There is no chest wall tenderness. Breath sounds are heard bilaterally. No rales or rhonchi heard. No evidence of any consolidation. BREASTS: Deferred. HEART: The heart sounds are normal. No S3 or S4. No significant murmurs. No pericardial rub ABDOMEN: No vessel pulsations or distention. No tenderness. No organomegaly appreciated. Bowel sounds are normally heard. : Deferred. RECTAL: Deferred. LYMPHATIC: No lymphadenopathy noted in the neck. EXTREMITIES: No hematoma bleeding in the right groin. Right radial and ulnar pulses are good. The amplitude of the right radial pulse is weaker, compared to the ulnar. MUSCULOSKELETAL: No acute joint deformities or swelling SKIN: There are no significant rashes or ecchymosis NEUROPSYCHIATRIC: The patient is alert and oriented x3. Appears to be in a good mood. No tremors or rigidity noted. Data : 01/18/22 22:05 01/21/22 03:31 A&P Assessment and plan (1) Chest pain: Patient had a cardiac catheterization yesterday. Was found to have high-grade lesion in the mid LAD which was intervened. Mild to moderate diffuse disease in the other vessels. LVEDP of 15 mmHg. Patient is currently doing okay with no recurrence of chest pain. May continue on the aspirin and Plavix Status: Acute (2) Accelerated hypertension: Hydralazine dose may be increased to 50 mg p.o. every 8 hours Status: Acute (3) Dyslipidemia: Patient is on a statin drug which may be continued. Status: Acute (4) Diabetes: Management as per the primary Status: Acute (5) Heart block atrioventricular: Also monitor blood pressure.Patient currently is in sinus rhythm with first-degree AV block. May continue on the current medications. 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 May go home on Plavix, aspirin, atorvastatin, hydralazine 50 mg p.o. every 8 hours, along with other medications. Please make a follow-up appointment to be seen [facility] next week by the nurse practitioner. Appointment with me in the office in 1 month Attestations Medical Necessity Statement*: Possible discharge home today Coding Level of Care Code Acute Sailor for Deangelo Melendez Diagnoses Chest pain R07.9 Accelerated hypertension I10 Dyslipidemia E78.5 Diabetes E11.9 Heart block atrioventricular I44.30
--- NOTE | 2022-01-21 10:13 | PC.NURSE ---
Making patient rounds, patient is resting in bed. Call light is in reach, as well as bedside table.
--- NOTE | 2022-01-21 10:16 | P.DS_ITS ---
Discharge Providers Date of Admission: 01/19/22 00:01 Date of Discharge: January 21, 2022 Attending Provider at Admission: Regan Crespo DO Attending Provider at Discharge: Yusuf Shahid Primary Care Provider: Tray Dennis Diagnoses at Discharge Discharge Diagnosis (1) Chest pain: Status: Acute (2) Accelerated hypertension: Status: Acute (3) Dyslipidemia: Status: Acute (4) Diabetes: Status: Acute (5) Heart block atrioventricular: Status: Acute Reason for Visit Reason for Visit: cp Hospital Course Hospital Course Please see patient's H&P, consult notes, progress notes and procedure notes for more details. Discharge diagnoses and problem list Chest pain. Elevated troponin, ACS, CAD Patient had severe mid LAD stenosis. Confirmed with iFR value of 0.74 S/p successful revascularization with KHOA X 1. Aspirin and Plavix for atleast 1 year Aggressive risk factor modification Currently the patient is doing very well. Denies any active complaints. Denies any chest pain, diaphoresis, shortness of breath, dizziness or lightheadedness. Eager to go home. Uncontrolled hypertension.? Hypertensive urgency.? Improved. Medications are adjusted.? Continue outpatient adjustments per primary care team. Discussed with the patient's stepmom on the phone about this problem and other findings including multinodular goiter. She verbalized understanding and agreement. Severe dyslipidemia.? Continuing statin. Watch for any signs of side effects which were discussed. History of COPD and possible interstitial lung disease.? No evidence of exacerbation.? Continue current management. Diabetes.? Continue home medication Multinodular goiter.? Will need referral for outpatient endocrinology via primary care physician.? Discussed with the patient and his stepmom. They verbalized understanding and agreement. DVT prophylaxis. Received enoxaparin. GI.? Continue home PPI. Discussed with multidisciplinary team. Physical Exam Narrative: The patient is awake alert and oriented. No acute distress. Mood is normal. Responses are adequate. Skin is warm and dry. Moist mucous membranes Neck supple. No JVD Lungs are clear bilaterally. No wheezes or crackles. Heart S1, S2, irregular Abdomen soft, obese, nontender, bowel sounds are present Extremities trace edema, no cyanosis or calf tenderness bilaterally. Normal peripheral pulses bilaterally. Moves all extremities. No facial asymmetry. Normal speech. Eyes PERRL, extraocular muscle intact Discharge Data Studies Completed and Pending Completed Studies During Hospitalization Category Date Time Status CTA chest abdomen pelvis [CT angio chest abdomen pelvis Cat Scan 01/19/22 14:03 Completed ] Stat XR chest 1V portable [id number] Stat Exams 01/18/22 21:31 Completed Pending at discharge Category Date Time Status [employer] request for service Routine Exams 01/20/22 05:04 [place] [id number] Routine Ultrasound 01/21/22 09:25 Ordered Radiology Impressions Chest X-Ray 01/18/22 21:31 IMPRESSION: 1. There is a background of emphysema and pulmonary fibrosis. 2. Increased interstitial markings in lower hemithoraces may represent superimposed pulmonary edema. Chest/Abdomen/Pelvis CTA 01/19/22 14:03 IMPRESSION: 1. No acute findings or aortic dissection/aneurysm. 2. Multinodular goiter as described above. See comment below. 3. Other nonacute findings as described. IMPRESSION: 1. No acute findings or aortic dissection/aneurysm. 2. Other nonacute findings as described above. Laboratory Results WBC 6.1 10^3/uL (4.0-10.0) 01/18/22 22:05 RBC 4.63 10^6/uL (4.1-5.3) 01/18/22 22:05 Hgb 12.8 g/dL (11.7-16.6) 01/18/22 22:05 Hct 39.6 % (42.0-52.0) L 01/18/22 22:05 MCV 85.5 fl (80-94) 01/18/22 22:05 MCH 27.6 pg (28.0-34.0) L 01/18/22 22:05 MCHC 32.3 g/dL (30.0-36.0) 01/18/22 22:05 RDW 13.8 % (12.1-15.1) 01/18/22 22:05 Plt Count 170 10^3/cmm (130-400) 01/18/22 22:05 MPV 11.3 fL (7.4-10.4) H 01/18/22 22:05 Neut % (Auto) 60.2 % 01/18/22 22:05 Lymph % (Auto) 21.9 % 01/18/22 22:05 [place] % (Auto) 13.7 % 01/18/22 22:05 Eos % (Auto) 3.0 % 01/18/22 22:05 Baso % (Auto) 0.7 % 01/18/22 22:05 Neut # (Auto) 3.67 10^3/uL (1.8-7.7) 01/18/22 22:05 Lymph # (Auto) 1.3 10^3/uL (0.8-4.8) 01/18/22 22:05 [place] # (Auto) 0.8 10^3/uL (0.2-0.9) 01/18/22 22:05 Eos # (Auto) 0.2 10^3/uL (0.0-0.8) 01/18/22 22:05 Baso # (Auto) 0.0 10^3/uL (0.0-0.1) 01/18/22 22:05 Nucleated RBC % (auto) 0 % 01/18/22 22:05 Nucleated RBCs # 0.0 /100WBC 01/18/22 22:05 PT 12.80 SECONDS (12.1-14.9) 01/18/22 22:05 INR 0.93 (0.8-1.2) 01/18/22 22:05 APTT 43.1 SECONDS (23.9-36.7) H D 01/20/22 13:18 Sodium 138 mmol/L (136-145) 01/21/22 03:31 Potassium 3.8 mmol/L (3.5-5.1) 01/21/22 03:31 Chloride 106 mmol/L (98-107) 01/21/22 03:31 Carbon Dioxide 18 mmol/L (22-29) L 01/21/22 03:31 Anion Gap 17.8 (5-19) 01/21/22 03:31 BUN 19 mg/dL (8-23) 01/21/22 03:31 Creatinine 0.8 mg/dL (0.7-1.2) 01/21/22 03:31 GFR Calculation Not Reportable 01/21/22 03:31 Glucose 140 mg/dL (65-115) H 01/21/22 03:31 POC Glucose 139 mg/dL (70-110) H 01/21/22 06:28 Calculated Osmolality Cancelled 01/20/22 03:23 Calcium 9.5 mg/dL (8.5-10.5) 01/21/22 03:31 Phosphorus 2.9 mg/dL (2.5-4.5) 01/21/22 03:31 Magnesium 2.2 mg/dL (1.7-2.3) 01/20/22 03:23 Magnesium Cancelled 01/20/22 03:23 Total Bilirubin 0.2 mg/dL (0.15-1.2) 01/18/22 22:05 AST 21 U/L (0-40) 01/18/22 22:05 ALT 20 U/L (0-41) 01/18/22 22:05 Alkaline Phosphatase 101 IU/L (40-130) 01/18/22 22:05 Troponin T Gen 5 ng/L 37 ng/L (0-15) H 01/19/22 12:50 Troponin T Baseline 29 ng/L (0-15) H 01/18/22 22:05 Troponin T 120 Minute 33.03 ng/L (0-15) H 01/19/22 00:40 Delta Troponin T 4.03 ABS# (0-10) 01/19/22 00:40 Troponin T Hi Sens 6Hr 39.77 ng/L (0-15) H 01/19/22 03:20 Troponin T Hi Sens 6Hr Delta 10.77 ng/L (0-12) 01/19/22 03:20 NT-Pro-B Natriuret Pep 324 pg/mL (0-125) H 01/19/22 12:50 Total Protein 7.2 g/dL (6.6-8.7) 01/18/22 22:05 Albumin 3.8 g/dL (3.5-5.2) 01/21/22 03:31 Globulin 3.2 g/dL (1.3-4.6) 01/18/22 22:05 Triglycerides 120 mg/dL (0-150) 01/19/22 03:20 Cholesterol 214 mg/dL (0-200) H 01/19/22 03:20 LDL Cholesterol, Calc 145 mg/dL (50-129) H 01/19/22 03:20 HDL Cholesterol 45 mg/dL (60-100) L 01/19/22 03:20 LDL/HDL Ratio 3.22 RATIO (0.00-3.22) 01/19/22 03:20 Cholesterol/HDL Ratio 4.76 mg/dL (1.0-5.00) 01/19/22 03:20 TSH 1.77 uIU/mL (0.27-4.20) 01/19/22 00:40 Free T4 0.65 ng/dL (0.82-1.77) L 01/19/22 00:40 Vitals Last Vital Signs Temp 97.7 F 01/21/22 07:08 Pulse 68 01/21/22 07:08 Resp 18 01/21/22 07:08 BP 166/78 01/21/22 09:06 Pulse Ox 96 01/21/22 07:08 Discharge Plan Discharge Patient Disposition: Home Condition: Stable Prescriptions: New atorvastatin 40 mg Tablet 40 mg PO BEDTIME Qty: 30 0RF clopidogrel 75 mg Tablet 75 mg PO DAILY Qty: 30 0RF amlodipine 5 mg Tablet 5 mg PO BID Qty: 60 0RF hydralazine 50 mg Tablet 50 mg PO TID Qty: 90 0RF Continued benztropine 1 mg tablet 2 mg PO BID 0RF oxcarbazepine [Trileptal] 600 mg tablet 600 mg PO BID 0RF venlafaxine 75 mg tablet 75 mg PO QAM 0RF trazodone 50 mg tablet 50 mg PO BEDTIME 0RF omeprazole 40 mg capsule,delayed release(DR/EC) 40 mg PO DAILY PRN (Reason: Heartburn) 0RF ascorbic acid (vitamin C) [Vitamin C] 500 mg Tablet 500 mg PO DAILY 0RF hydroxyzine HCl 10 mg tablet 10 mg PO TID PRN (Reason: Anxiety) 0RF topiramate 50 mg tablet 50 mg PO TID 0RF fluticasone propionate 50 mcg/actuation spray,suspension 50 mcg INTRANASAL DAILY 0RF glimepiride 1 mg tablet 1 mg PO DAILY 0RF aspirin 81 mg tablet,delayed release (DR/EC) 81 mg PO DAILY 0RF losartan 50 mg tablet 50 mg PO BID 0RF Discontinued pantoprazole [Protonix] [address] for susp in packet 40 mg PO DAILY PRN (Reason: Heartburn) 0RF spironolactone [Aldactone] 25 mg tablet 25 mg PO QAM 0RF hydralazine 25 mg tablet 25 mg PO TID 0RF Discharge Orders: Discharge Order (Routine); Ordered 01/21/22 Ordered By: Yusuf Shahid Referrals: Tray Dennis [Primary Care Provider] - 7-10 days (pl ask PCP to adjust BP meds as needed) Discharge Diet: Cardiac Discharge Activity: Increase activity as tolerated Patient Instructions: Hydralazine (By mouth), Amlodipine (By mouth), Atorvastatin (By mouth) (Lipitor), Clopidogrel (By mouth) (Plavix), Coronary Angioplasty (DC), Chronic Hypertension (DC), Hyperlipidemia (DC), Coronary Intravascular Stent Placement (DC), Chest Pain Stoplight, Post Angiogram Home Care Instructions Activity Restrictions/Additional Instructions: Please follow-up with Dr. Hargrove as we discussed. Please do not change her medications without speaking with your doctors. Watch for any signs of bleeding. Come back to emergency room if you develop any chest pain, shortness of breath, diaphoresis, dizziness or lightheadedness, abdominal pain, nausea or vomiting, diarrhea, rectal blood or black stool, muscle aches, bloody urine or any other new complaints. Discharge Attestations Time Spent in Discharge Care*: greater than 30 min Quality Metrics Clinical Quality Measures [ Acute Myocardial Infaction { Clinical Trial Participant: No; Contraindication to aspirin: None; Aspirin prescribed; Contraindication to statin: None; Statin prescribed; Contraindication to PCI: None; PCI performed;}] Coding Level of Care Code Acute Chg FW DC note Diagnoses Chest pain R07.9 Accelerated hypertension I10 Dyslipidemia E78.5 Diabetes E11.9 Heart block atrioventricular I44.30
[2022-01-21 12:07] LABS: Glucose Point of Care 146 mg/dL (70-110)
--- NOTE | 2022-01-21 13:13 | PC.NURSE ---
spoke to patients mother/powder nipper on the phone and gave all discharge instructions. I reviewed discharge instructions with patient at bedside. he verbalized understanding. iv dc'd. cath sites have bandages in place, small bruising around femoral site, soft. Dr Hargrove has been at bedside and visualized both sites this am. New medications delivered by pharmacy to bedside. Pt left via wheelchair to family friends vehicle who is here to drive patient home. They understand that I am available for any questions if they arise today.
== END 2022-01-21 13:12 | disposition home or self-care (01) ==
LOC: ER 22:58 → CSU 01-19 00:06
PROVIDERS: Internal Medicine; Internal Medicine Cardiovascular Disease; Admitting Provider Internal Medicine; Emergency Provider Emergency Medicine; PCP Family Medicine; Visit Provider Internal Medicine
DX: I25.110 Atherosclerotic heart disease of native coronary artery with unstable angina pectoris (principal); I10 Essential (primary) hypertension; E78.5 Hyperlipidemia, unspecified; E11.9 Type 2 diabetes mellitus without complications; I44.30 Unspecified atrioventricular block; I25.10 Atherosclerotic heart disease of native coronary artery without angina pectoris; E04.9 Nontoxic goiter, unspecified; Z79.4 Long term (current) use of insulin; F79 Unspecified intellectual disabilities; F41.9 Anxiety disorder, unspecified; Z87.891 Personal history of nicotine dependence
CPT/HCPCS: 36415; 36416; 71045; 71275; 74174; 80048; 80053; 80061; 80069; 82962; 83735; 83880; 84439; 84443; 84484; 85025; 85347; 85610; 85730; 93005; 93452; 93458; 93571; 93931; 96361; 96372; 96374; 96375; 99152; 99153; 99285; C1725; C1769; C1874; C1887; C1894; C9600; G0378; J0360; J1644; J1650; J1815; J2250; J2270; J2405; J3010; J3490; J7030; Q0163; Q9967

== ENCOUNTER → 2022-01-29 09:52 | Outpatient (BNVA) | payer MEDICARE, SELFPAY | PROVIDERS: PCP Family Medicine; Visit Provider Nurse Practitioner Family | DX: I25.10 Atherosclerotic heart disease of native coronary artery without angina pectoris (principal); I10 Essential (primary) hypertension; Z79.82 Long term (current) use of aspirin | CPT/HCPCS: 80048; 99213; 99214 ==

== ENCOUNTER 2022-01-31 21:23 | Emergency (ER) | payer MEDICARE, SELFPAY ==
--- NOTE | 2022-01-31 21:36 | ECG_ITS ---
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 Measurements Intervals [place] Rate: 73 P: UT: QRS: -62 QRSD: 156 T: 33 QT: 410 QTc: 453 Interpretive Statements UNCERTAIN IRREGULAR RHYTHM, possible atrial fibrillation RIGHT BUNDLE BRANCH BLOCK [120+ ms QRS DURATION, UPRIGHT V1, 40+ ms S IN I/aVL/V4/V5/V6] LEFT ANTERIOR FASCICULAR BLOCK [QRS AXIS <= -45, QR IN I, RS IN II] MODERATE VOLTAGE CRITERIA FOR LVH, CONSIDER NORMAL VARIANT [MEETS CRITERIA IN ONE OF: R(aVL), S(V1), R(V5), R(V5/V6)+S(V1)] POSSIBLE SEPTAL MYOCARDIAL INFARCTION , PROBABLY OLD [30 ms Q WAVE IN V1/V2] Compared to ECG 01/19/2022 12:04:11 Myocardial infarct finding now present Sinus rhythm no longer present First degree AV block no longer present Electronically Signed On 02-01-2022 8:17:13 CDT by Brad Pacheco M.D. [email or web address]
--- NOTE | 2022-01-31 21:36 | XRR_ITS ---
PROCEDURE INFORMATION: Exam: XR Chest Exam date and time: 01/31/2022 9:43 PM Age: 71 years old Clinical indication: Chest pressure; Prior surgery; Surgery date: <1 month; Patient HX: C/O transient chest pain since coronary stent placement about 1.5 weeks ago. TECHNIQUE: Imaging protocol: XR of the chest. Views: 1 view. COMPARISON: CR (CHEST, ) 01/18/2022 9:49 PM FINDINGS: Lungs: There are mildly increased peribronchial markings present and bilateral patchy and strandy opacities present in the lower hemithoraces, findings that may represent a bilateral bronchitis and atelectasis. Superimposed bilateral basilar infiltrates and pneumonia cannot be entirely excluded. Pleural spaces: Unremarkable. No pleural effusion. No pneumothorax. Heart/Mediastinum: The cardiac silhouette is at the upper limits of normal. Bones/joints: Unremarkable. XR/XR chest 1V portable [id number] IMPRESSION: 1. Stable mildly prominent cardiac silhouette. 2. Mildly increased peribronchial markings present bilaterally and bilateral basilar strandy and patchy opacities, findings that may represent bronchitis and atelectasis although superimposed basilar infiltrates and pneumonia cannot be excluded.
[2022-01-31 21:40] VITALS: BP 200/90; PULSE 71; RESP 18; TEMP 36.4; O2SAT 99; BMI 26.6
[2022-01-31 21:59] LABS: Basophils # 0.1 10^3/uL (0.0-0.1); Basophils % 0.7 %; Eosinophils # 0.3 10^3/uL (0.0-0.8); Eosinophils % 3.8 %; Hematocrit 39.6 % (42.0-52.0); Hemoglobin 12.6 g/dL (11.7-16.6); Lymphocytes # 1.4 10^3/uL (0.8-4.8); Lymphocytes % 18.1 %; Mean Corpuscular HGB Conc 31.8 g/dL (30.0-36.0); Mean Corpuscular Hemoglobin 27.8 pg (28.0-34.0); Mean Corpuscular Volume 87.2 fl (80-94); Mean Platelet Volume 10.6 fL (7.4-10.4); Monocytes % 13.1 %; Neutrophils # 4.78 10^3/uL (1.8-7.7); Nucleated Red Blood Cells % 0 %; Platelet Count 269 10^3/cmm (130-400); Red Blood Count 4.54 10^6/uL (4.1-5.3); Red Cell Distribution Width 13.5 % (12.1-15.1); White Blood Count 7.5 10^3/uL (4.0-10.0)
--- NOTE | 2022-01-31 22:01 | ED_ITS ---
Documented by User: Oziel Torres MD 02/07/22 11:11 HPI - General Adult General: Chief complaint: Chest Pain Stated complaint: CP Time Seen by Provider: 01/31/22 21:36 History of Present Illness: HPI: This is a 71yo patient hx of CAD s/p KHOA to the LAD on 01/20/[address] Ortiz presenting to the ED complaining of acute sudden onset intermittent sharp chest pain x 2 days WITHOUT radiation to the back or shoulders. No associated with shortness of breath, chest pain or dyspnea on exertion. Pain is not tearing in nature and does not radiate to the back. Pain not associated with vomiting or PO intake. Denies any recent sympathomimetic drug use. Patient denies any cough. Denies palpitations, dysphagia, diaphoresis, radiation of pain to bilateral arms, jaw. Denies F/N/V/D. Patient denies any recent immobility, surgery, unilateral leg swelling, or prior PE. Patient denies any orthopnea. Onset: 2 days ago Duration: ongoing for the last 2 days Location: home Severity: moderate Associated symptoms: Reports chest pain; Deny dyspnea, nausea, rash, palpitations or vomiting Review of Systems Const: Denies: fever(s) or chills Eyes: Denies: change in vision ENMT: Denies: mouth pain Card: Reports: chest pain; Denies: palpitations Resp: Denies: dyspnea or non-productive cough GI: Denies: abdominal pain, nausea, vomiting or diarrhea : Denies: dysuria Musc: Denies: extremity pain Skin/Breast: Denies: rash or new lesions Neuro: Denies: weakness in extremities Psych: Reports: other (Normal mood) Keyur/Lymph: Denies: easy bruising [facility] ED PFSH: Medical History Atherosclerosis of coronary artery Bipolar disorder, current episode depressed, moderate Diabetes SHANTEL (generalized anxiety disorder) Hyperlipidemia, unspecified Hypertension Intellectual disability Surgical History History of appendectomy Family History Other Cancer Hypertension Social History Smoking and tobacco status: never smoked Second hand smoke exposure: No Smoking risk assessment/counseling performed?: No Alcohol intake: former Desire information about alcohol rehabilitation?: No Counseling given: No Desire information about substance/drug rehabilitation?: No Counseling given: No Physical Exam Const: COMMON NORMALS: alert HENMT: COMMON NORMALS: atraumatic HEAD & SCALP: atraumatic MOUTH: moist mucous membranes not abnormal Eye: COMMON NORMALS: EOMs intact bilaterally and conjunctivae normal CONJUNCTIVA: Yes conjunctivae normal Neck/C-Spine: COMMON NORMALS: full ROM and supple Resp: COMMON NORMALS: normal respiratory effort and clear to auscultation bilaterally AUSCULTATION: clear to auscultation bilaterally Cardio: COMMON NORMALS: regular rate RATE: regular rate OTHER: 2+ radial pulses b/l GI: COMMON NORMALS: Soft to palpation and non-tender PALPATION: Yes Soft to palpation Extremity: COMMON NORMALS: full ROM Neuro: SENSORIUM/ORIENTATION: Yes alert MOTOR EXAM: No Abnormal motor strength present and Other motor observations present (no focal motor deficits) Psych: COMMON NORMALS: speech normal SPEECH: Yes normal speech MOOD & AFFECT: Yes euthymic mood Course Vital Signs: Vital signs: Vital Signs Temperature 97.6 F 01/31/22 21:40 Pulse Rate 88 02/01/22 01:02 Respiratory Rate 16 02/01/22 01:02 Blood Pressure 170/95 02/01/22 01:02 Pulse Oximetry 98 02/01/22 01:02 MDM - General Adult Medical Decision Making As to what[71]yo patient w/ hx of CAD s/p KHOA to LAD on 01/20/2022 presenting to the ED with evaluation of new onset sharp chest pain x2 days. HDS, pulse 2+ radially bilaterally, no signs of fluid overload, AAOx3, neuro exam intact. Given History and Exam today I have low suspicion for ACS, Pneumothorax, Pneumonia, Pulmonary Embolus, Tamponade, Aortic Dissection or other emergent problems as a cause for this presentation. EMS: ASA and nitro Workup: ECG x 2, CXR, CBC, BMP, Troponin x 2 Interventions: morphine PRN pain Findings: ECG: RBB simlar to 01/19/2022: No overt evidence of STEMI, hyperacute T waves, localizable STD or T wave inversions. No evidence of Brugada?s sign, delta wave, epsilon wave, significantly prolonged QTc, or malignant arrhythmia. No Q waves. Troponin x 1 of 26 similar to baseline CXR: Bibasilar patchy opacities 30 for atelectasis versus pneumonia versus bronchitis. Patient is clinically afebrile, without white count no complaints of cough, and this is unlikely to be pneumonia at this time. At 1045pm, case was discussed with Dr. Brad Pacheco who tells me that since patient had the drug-eluting stent 2 weeks ago and the EKG did not showing signs of STEMI, this is unlikely with stent thrombosis or migration. Dr. Pacheco recommended obtaining serial troponins. If the serial troponins are similar, patient not having active chest pain, Dr. Pacheco recommends close follow-up with cardiology outpatient. I have given patient follow up with our shoe caser to be seen by our outpatient Cardiology. Patient aware of a call from our shoe caser to schedule for appointment(s) and verbalizes understanding of the importance of following up. Case signed out to Dr. Owens pending repeat troponin, EKG and evaluation Patient checked out to me by Dr. Torres at shift change. 2-hour troponin did not elevate significantly the patient is pain-free. Will allow discharge home in accordance with cardiology recommendations. Close outpatient follow-up Lab Data : 01/31/22 21:55 01/31/22 21:55 Radiology Impressions Chest X-Ray 01/31/22 21:36 IMPRESSION: 1. Stable mildly prominent cardiac silhouette. 2. Mildly increased peribronchial markings present bilaterally and bilateral basilar strandy and patchy opacities, findings that may represent bronchitis and atelectasis although superimposed basilar infiltrates and pneumonia cannot be excluded. Laboratory Results WBC 7.5 10^3/uL (4.0-10.0) 01/31/22 21:55 RBC 4.54 10^6/uL (4.1-5.3) 01/31/22 21:55 Hgb 12.6 g/dL (11.7-16.6) 01/31/22 21:55 Hct 39.6 % (42.0-52.0) L 01/31/22 21:55 MCV 87.2 fl (80-94) 01/31/22 21:55 MCH 27.8 pg (28.0-34.0) L 01/31/22 21:55 MCHC 31.8 g/dL (30.0-36.0) 01/31/22 21:55 RDW 13.5 % (12.1-15.1) 01/31/22 21:55 Plt Count 269 10^3/cmm (130-400) 01/31/22 21:55 MPV 10.6 fL (7.4-10.4) H 01/31/22 21:55 Neut % (Auto) 64.0 % 01/31/22 21:55 Lymph % (Auto) 18.1 % 01/31/22 21:55 [place] % (Auto) 13.1 % 01/31/22 21:55 Eos % (Auto) 3.8 % 01/31/22 21:55 Baso % (Auto) 0.7 % 01/31/22 21:55 Neut # (Auto) 4.78 10^3/uL (1.8-7.7) 01/31/22 21:55 Lymph # (Auto) 1.4 10^3/uL (0.8-4.8) 01/31/22 21:55 [place] # (Auto) 1.0 10^3/uL (0.2-0.9) H 01/31/22 21:55 Eos # (Auto) 0.3 10^3/uL (0.0-0.8) 01/31/22 21:55 Baso # (Auto) 0.1 10^3/uL (0.0-0.1) 01/31/22 21:55 Nucleated RBC % (auto) 0 % 01/31/22 21:55 Nucleated RBCs # 0.0 /100WBC 01/31/22 21:55 Sodium 140 mmol/L (136-145) 01/31/22 21:55 Potassium 4.3 mmol/L (3.5-5.1) 01/31/22 21:55 Chloride 108 mmol/L (98-107) H 01/31/22 21:55 Carbon Dioxide 20 mmol/L (22-29) L 01/31/22 21:55 Anion Gap 16.3 (5-19) 01/31/22 21:55 BUN 28 mg/dL (8-23) H 01/31/22 21:55 Creatinine 0.9 mg/dL (0.7-1.2) 01/31/22 21:55 GFR Calculation Not Reportable 01/31/22 21:55 Glucose 122 mg/dL (65-115) H 01/31/22 21:55 Calculated Osmolality 297 mOsm/kg (285-295) H 01/31/22 21:55 Calcium 9.7 mg/dL (8.5-10.5) 01/31/22 21:55 Troponin T Baseline 26 ng/L (0-15) H 01/31/22 21:55 Troponin T 120 Minute 27.89 ng/L (0-15) H 01/31/22 23:50 Delta Troponin T 1.89 ABS# (0-10) 01/31/22 23:50 Imaging Data Other Imaging: Radiologist's impression: [facility] [address] [address] XRay Report Signed Patient: Jared Sofia Unit #: [id number] : 1950 Age/Sex: 71 / M ADM Date: 01/31/22 Loc: ER Room/Bed: Attending Dr: Ordering Provider/Ordering MD: Oziel Torres MD Date of Service: 01/31/22 Procedure(s): XR chest 1V portable [id number] Accession Number(s): [id number] Report Number: [id number] PROCEDURE INFORMATION: Exam: XR Chest Exam date and time: 01/31/2022 9:43 PM Age: 71 years old Clinical indication: Chest pressure; Prior surgery; Surgery date: <1 month; Patient HX: C/O transient chest pain since coronary stent placement about 1.5 weeks ago. TECHNIQUE: Imaging protocol: XR of the chest. Views: 1 view. COMPARISON: CR (CHEST, ) 01/18/2022 9:49 PM FINDINGS: Lungs: There are mildly increased peribronchial markings present and bilateral patchy and strandy opacities present in the lower hemithoraces, findings that may represent a bilateral bronchitis and atelectasis. Superimposed bilateral basilar infiltrates and pneumonia cannot be entirely excluded. Pleural spaces: Unremarkable. No pleural effusion. No pneumothorax. Heart/Mediastinum: The cardiac silhouette is at the upper limits of normal. Bones/joints: Unremarkable. XR/XR chest 1V portable [id number] IMPRESSION: 1. Stable mildly prominent cardiac silhouette. 2. Mildly increased peribronchial markings present bilaterally and bilateral basilar strandy and patchy opacities, findings that may represent bronchitis and atelectasis although superimposed basilar infiltrates and pneumonia cannot be excluded. ? Dictated By: Mitchel Mcintyre MD Signed By: Mitchel Mcintyre MD Signed Date/Time: 01/31/222300 DD/ 42 Discharge Plan Discharge Patient Disposition: Home Clinical Impression: Chest pain Condition: Stable Prescriptions: No Action benztropine 1 mg tablet 2 mg PO BID 0RF oxcarbazepine [Trileptal] 600 mg tablet 600 mg PO BID 0RF venlafaxine 75 mg tablet 75 mg PO QAM 0RF trazodone 50 mg tablet 50 mg PO BEDTIME 0RF omeprazole 40 mg capsule,delayed release(DR/EC) 40 mg PO DAILY PRN (Reason: Heartburn) 0RF nitroglycerin 0.4 mg tablet, sublingual 0.4 mg sublingual Q5M PRN0RF Rx Instructions: do not exceed 3 doses per episode amlodipine 10 mg tablet 10 mg PO DAILY Qty: 90 3RF Rx Instructions: Per Dr Hargrove instructions: Take 1 tab every morning for blood pressure. BP/HR log ezetimibe [Zetia] 10 mg tablet 10 mg PO DAILY Qty: 90 3RF Rx Instructions: per Dr Hargrove's instructions: Take 1 tab every evening for cholesterol hydralazine 50 mg tablet 50 mg PO Q8H Qty: 270 3RF Rx Instructions: per Dr Hargrove's instructions: Take 1 tab every 8 hrs for blood pressure. losartan 100 mg tablet 100 mg PO DAILY Qty: 90 3RF Rx Instructions: per Dr Hargrove's instructions: Take 1 tab every evening for blood pressure. spironolactone 25 mg tablet 25 mg PO DAILY Qty: 90 3RF Rx Instructions: per Dr Hargrove's instructions: Take 1 tab by mouth every morning for edema/shortness of breath ascorbic acid (vitamin C) [Vitamin C] 500 mg Tablet 500 mg PO DAILY 0RF hydroxyzine HCl 10 mg tablet 10 mg PO TID PRN (Reason: Anxiety) 0RF topiramate 50 mg tablet 50 mg PO TID 0RF fluticasone propionate 50 mcg/actuation spray,suspension 50 mcg INTRANASAL DAILY 0RF glimepiride 1 mg tablet 1 mg PO DAILY 0RF aspirin 81 mg tablet,delayed release (DR/EC) 81 mg PO DAILY 0RF clopidogrel 75 mg Tablet 75 mg PO DAILY Qty: 30 0RF isosorbide mononitrate 30 mg tablet extended release 24 hr 30 mg PO DAILY Qty: 30 0RF Discharge Orders: Discharge ED (Routine); Ordered 02/01/22 Ordered By: Dudley Owens Referrals: Tray Dennis [Primary Care Provider] - Patient Instructions: Chest Pain (ED) Activity Restrictions/Additional Instructions: Return for return of chest pain, development of significant shortness of breath, fever, cough, sputum production, any other concerning symptoms. Follow-up with your cement paver next week. Call on Wednesday to let them know you were seen in the emergency department. They may wish to see you, or do further outpatient testing upon you. Coding Level of Care Code ED It Security Consulting Director for Chg Fwd Exam Comprehensive Documented by User: Dudley Owens, 02/01/22 00:53 HPI - General Adult General: Chief complaint: Chest Pain Stated complaint: CP Time Seen by Provider: 01/31/22 21:36 [facility] ED PFSH: Medical History Atherosclerosis of coronary artery Bipolar disorder, current episode depressed, moderate Diabetes SHANTEL (generalized anxiety disorder) Hyperlipidemia, unspecified Hypertension Intellectual disability Surgical History History of appendectomy Family History Other Cancer Hypertension Social History Smoking and tobacco status: never smoked Second hand smoke exposure: No Smoking risk assessment/counseling performed?: No Alcohol intake: former Desire information about alcohol rehabilitation?: No Counseling given: No Desire information about substance/drug rehabilitation?: No Counseling given: No Course Vital Signs: Vital signs: Vital Signs Temperature 97.6 F 01/31/22 21:40 Pulse Rate 88 02/01/22 01:02 Respiratory Rate 16 02/01/22 01:02 Blood Pressure 170/95 02/01/22 01:02 Pulse Oximetry 98 02/01/22 01:02 MDM - General Adult Medical Decision Making As to what[71]yo patient w/ hx of CAD s/p KHOA to LAD on 01/20/2022 presenting to the ED with evaluation of new onset sharp chest pain x2 days. HDS, pulse 2+ radially bilaterally, no signs of fluid overload, AAOx3, neuro exam intact. Given History and Exam today I have no suspicion for ACS, Pneumothorax, Pneumonia, Pulmonary Embolus, Tamponade, Aortic Dissection or other emergent problems as a cause for this presentation. EMS: ASA and nitro Workup: ECG x 2, CXR, CBC, BMP, Troponin x 2 Interventions: morphine PRN pain Findings: ECG: RBB simlar to 01/19/2022: No overt evidence of STEMI, hyperacute T waves, localizable STD or T wave inversions. No evidence of Brugada?s sign, delta wave, epsilon wave, significantly prolonged QTc, or malignant arrhythmia. No Q waves. Troponin x 1 of 26 similar to baseline CXR: Bibasilar patchy opacities 30 for atelectasis versus pneumonia versus bronchitis. Patient is clinically afebrile, without white count no complaints of cough, and this is unlikely to be pneumonia at this time. At 1045pm, case was discussed with Dr. Brad Pacheco who tells me that since patient had the drug-eluting stent 2 weeks ago and the EKG did not showing signs of STEMI, this is unlikely with stent thrombosis or migration. Dr. Pachceo recommended obtaining serial troponins. If the serial troponins are similar, patient not having active chest pain, Dr. Pacheco recommends close follow-up with cardiology outpatient. I have given patient follow up with our shoe caser to be seen by our outpatient Cardiology. Patient aware of a call from our shoe caser to schedule for appointment(s) and verbalizes understanding of the importance of following up. Case signed out to Dr. Owens pending repeat troponin, EKG and evaluation Patient checked out to me by Dr. Torres at shift change. 2-hour troponin did not elevate significantly the patient is pain-free. Will allow discharge home in accordance with cardiology recommendations. Close outpatient follow-up Lab Data : 01/31/22 21:55 01/31/22 21:55 Radiology Impressions Chest X-Ray 01/31/22 21:36 IMPRESSION: 1. Stable mildly prominent cardiac silhouette. 2. Mildly increased peribronchial markings present bilaterally and bilateral basilar strandy and patchy opacities, findings that may represent bronchitis and atelectasis although superimposed basilar infiltrates and pneumonia cannot be excluded. Laboratory Results WBC 7.5 10^3/uL (4.0-10.0) 01/31/22 21:55 RBC 4.54 10^6/uL (4.1-5.3) 01/31/22 21:55 Hgb 12.6 g/dL (11.7-16.6) 01/31/22 21:55 Hct 39.6 % (42.0-52.0) L 01/31/22 21:55 MCV 87.2 fl (80-94) 01/31/22 21:55 MCH 27.8 pg (28.0-34.0) L 01/31/22 21:55 MCHC 31.8 g/dL (30.0-36.0) 01/31/22 21:55 RDW 13.5 % (12.1-15.1) 01/31/22 21:55 Plt Count 269 10^3/cmm (130-400) 01/31/22 21:55 MPV 10.6 fL (7.4-10.4) H 01/31/22 21:55 Neut % (Auto) 64.0 % 01/31/22 21:55 Lymph % (Auto) 18.1 % 01/31/22 21:55 [place] % (Auto) 13.1 % 01/31/22 21:55 Eos % (Auto) 3.8 % 01/31/22 21:55 Baso % (Auto) 0.7 % 01/31/22 21:55 Neut # (Auto) 4.78 10^3/uL (1.8-7.7) 01/31/22 21:55 Lymph # (Auto) 1.4 10^3/uL (0.8-4.8) 01/31/22 21:55 [place] # (Auto) 1.0 10^3/uL (0.2-0.9) H 01/31/22 21:55 Eos # (Auto) 0.3 10^3/uL (0.0-0.8) 01/31/22 21:55 Baso # (Auto) 0.1 10^3/uL (0.0-0.1) 01/31/22 21:55 Nucleated RBC % (auto) 0 % 01/31/22 21:55 Nucleated RBCs # 0.0 /100WBC 01/31/22 21:55 Sodium 140 mmol/L (136-145) 01/31/22 21:55 Potassium 4.3 mmol/L (3.5-5.1) 01/31/22 21:55 Chloride 108 mmol/L (98-107) H 01/31/22 21:55 Carbon Dioxide 20 mmol/L (22-29) L 01/31/22 21:55 Anion Gap 16.3 (5-19) 01/31/22 21:55 BUN 28 mg/dL (8-23) H 01/31/22 21:55 Creatinine 0.9 mg/dL (0.7-1.2) 01/31/22 21:55 GFR Calculation Not Reportable 01/31/22 21:55 Glucose 122 mg/dL (65-115) H 01/31/22 21:55 Calculated Osmolality 297 mOsm/kg (285-295) H 01/31/22 21:55 Calcium 9.7 mg/dL (8.5-10.5) 01/31/22 21:55 Troponin T Baseline 26 ng/L (0-15) H 01/31/22 21:55 Troponin T 120 Minute 27.89 ng/L (0-15) H 01/31/22 23:50 Delta Troponin T 1.89 ABS# (0-10) 01/31/22 23:50 Discharge Plan Discharge Patient Disposition: Home Clinical Impression: Chest pain Condition: Stable Prescriptions: No Action benztropine 1 mg tablet 2 mg PO BID 0RF oxcarbazepine [Trileptal] 600 mg tablet 600 mg PO BID 0RF venlafaxine 75 mg tablet 75 mg PO QAM 0RF trazodone 50 mg tablet 50 mg PO BEDTIME 0RF omeprazole 40 mg capsule,delayed release(DR/EC) 40 mg PO DAILY PRN (Reason: Heartburn) 0RF nitroglycerin 0.4 mg tablet, sublingual 0.4 mg sublingual Q5M PRN0RF Rx Instructions: do not exceed 3 doses per episode amlodipine 10 mg tablet 10 mg PO DAILY Qty: 90 3RF Rx Instructions: Per Dr Hargrove instructions: Take 1 tab every morning for blood pressure. BP/HR log ezetimibe [Zetia] 10 mg tablet 10 mg PO DAILY Qty: 90 3RF Rx Instructions: per Dr Hargrove's instructions: Take 1 tab every evening for cholesterol hydralazine 50 mg tablet 50 mg PO Q8H Qty: 270 3RF Rx Instructions: per Dr Hargrove's instructions: Take 1 tab every 8 hrs for blood pressure. losartan 100 mg tablet 100 mg PO DAILY Qty: 90 3RF Rx Instructions: per Dr Hargrove's instructions: Take 1 tab every evening for blood pressure. spironolactone 25 mg tablet 25 mg PO DAILY Qty: 90 3RF Rx Instructions: per Dr Hargrove's instructions: Take 1 tab by mouth every morning for edema/shortness of breath ascorbic acid (vitamin C) [Vitamin C] 500 mg Tablet 500 mg PO DAILY 0RF hydroxyzine HCl 10 mg tablet 10 mg PO TID PRN (Reason: Anxiety) 0RF topiramate 50 mg tablet 50 mg PO TID 0RF fluticasone propionate 50 mcg/actuation spray,suspension 50 mcg INTRANASAL DAILY 0RF glimepiride 1 mg tablet 1 mg PO DAILY 0RF aspirin 81 mg tablet,delayed release (DR/EC) 81 mg PO DAILY 0RF clopidogrel 75 mg Tablet 75 mg PO DAILY Qty: 30 0RF isosorbide mononitrate 30 mg tablet extended release 24 hr 30 mg PO DAILY Qty: 30 0RF Discharge Orders: Discharge ED (Routine); Ordered 02/01/22 Ordered By: Dudley Owens Referrals: Tray Dennis [Primary Care Provider] - Patient Instructions: Chest Pain (ED) Activity Restrictions/Additional Instructions: Return for return of chest pain, development of significant shortness of breath, fever, cough, sputum production, any other concerning symptoms. Follow-up with your cement paver next week. Call on Wednesday to let them know you were seen in the emergency department. They may wish to see you, or do further outpatient testing upon you. Coding Level of Care Code ED It Security Consulting Director for Chg Fwd Exam Comprehensive
[2022-01-31 22:22] LABS: Blood Urea Nitrogen 28 mg/dL (8-23); Calcium 9.7 mg/dL (8.5-10.5); Carbon Dioxide 20 mmol/L (22-29); Chloride 108 mmol/L (98-107); Glucose 122 mg/dL (65-115); Osmolality Calculated 297 mOsm/kg (285-295); Sodium 140 mmol/L (136-145)
[2022-01-31 22:23] LABS: Anion Gap 16.3 (5-19); Potassium 4.3 mmol/L (3.5-5.1); Troponin(5th) Baseline 26 ng/L (0-15)
[2022-01-31 22:31] VITALS: BP 182/78; PULSE 75; RESP 17; O2SAT 100
--- NOTE | 2022-01-31 23:36 | ECG_ITS ---
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 Measurements Intervals [place] Rate: 71 P: [place]: QRS: -65 QRSD: 156 T: 14 QT: 410 QTc: 447 Interpretive Statements UNCERTAIN IRREGULAR RHYTHM RIGHT BUNDLE BRANCH BLOCK [120+ ms QRS DURATION, UPRIGHT V1, 40+ ms S IN I/aVL/V4/V5/V6] LEFT ANTERIOR FASCICULAR BLOCK [QRS AXIS <= -45, QR IN I, RS IN II] MODERATE VOLTAGE CRITERIA FOR LVH, CONSIDER NORMAL VARIANT [MEETS CRITERIA IN ONE OF: R(aVL), S(V1), R(V5), R(V5/V6)+S(V1)] POSSIBLE SEPTAL MYOCARDIAL INFARCTION , PROBABLY OLD [30 ms Q WAVE IN V1/V2] Compared to ECG 01/31/2022 21:48:48 No significant changes Electronically Signed On 02-01-2022 8:24:36 CDT by Brad Pacheco M.D. [email or web address] [email or web address] state [email or web address] community general [id number]
[2022-02-01 00:15] LABS: Troponin 5 2HR 27.89 ng/L (0-15)
[2022-02-01 00:30] LABS: Troponin 5 2HR Delta 1.89 ABS# (0-10)
[2022-02-01 01:02] VITALS: BP 170/95; PULSE 88; RESP 16; O2SAT 98
== END 2022-02-01 01:03 | disposition home or self-care (01) ==
PROVIDERS: Emergency Medicine; Emergency Provider Emergency Medicine; PCP Family Medicine
DX: R07.9 Chest pain, unspecified (principal); I25.10 Atherosclerotic heart disease of native coronary artery without angina pectoris; E11.9 Type 2 diabetes mellitus without complications; I10 Essential (primary) hypertension; Z95.5 Presence of coronary angioplasty implant and graft; Z79.02 Long term (current) use of antithrombotics/antiplatelets; Z79.82 Long term (current) use of aspirin
CPT/HCPCS: 71045; 80048; 84484; 85025; 93005; 99283

== ENCOUNTER 2022-02-03 15:07 | Emergency (ER) | payer MEDICARE, SELFPAY ==
[2022-02-03 15:35] VITALS: BP 165/76; PULSE 71; RESP 15; TEMP 36.8; O2SAT 98
[2022-02-03 15:43] VITALS: BP 160/80; PULSE 78; RESP 18; O2SAT 98
--- NOTE | 2022-02-03 15:47 | ECG_ITS ---
[facility] Test Date: 2022-02-03 Pat Name: Jared Sofia Department: Room: Gender: Male Scrum Coach: : 1950 Requested By: Nan Crum Order Number: [id number] Malachi MD: Sandro Miller M.D. Measurements Intervals [place] Rate: 61 P: PA: QRS: -56 QRSD: 164 T: 25 QT: 441 QTc: 447 Interpretive Statements SINUS RHYTHM RIGHT BUNDLE BRANCH BLOCK [120+ ms QRS DURATION, UPRIGHT V1, 40+ ms S IN I/aVL/V4/V5/V6] LEFT ANTERIOR FASCICULAR BLOCK [QRS AXIS <= -45, QR IN I, RS IN II] POSSIBLE SEPTAL MYOCARDIAL INFARCTION , PROBABLY OLD [30 ms Q WAVE IN V1/V2] Compared to ECG 01/31/2022 23:19:20 No significant changes Electronically Signed On 02-03-2022 20:47:52 CDT by Sandro Miller M.D. [email or web address] [facility].[id number]
--- NOTE | 2022-02-03 15:47 | XRR_ITS ---
PROCEDURE INFORMATION: Exam: XR Chest Exam date and time: 02/03/2022 4:11 PM Age: 71 years old Clinical indication: Pain; Angina pectoris; Additional info: Chest pain TECHNIQUE: Imaging protocol: XR of the chest. Views: 1 view. COMPARISON: CR (CHEST, ) 01/31/2022 9:43 PM FINDINGS: Lungs: Cardiac silhouette size, and vascularity are somewhat accentuated, likely related to poor inspiration/expansion however clinical correlation for mild CHF should be obtained. Upper lungs are clear. Lung bases are suboptimally assessed. Pleural spaces: Unremarkable. No pleural effusion. No pneumothorax. Heart/Mediastinum: As above. Bones/joints: No acute osseous findings. Other findings: Single view was submitted. XR/XR chest 1V portable [id number] IMPRESSION: 1. Accentuated cardiac silhouette size and vascularity. See discussion above. 2. No obvious acute consolidation. Suboptimal lung base assessment. Followup including lateral view may be obtained if clinically indicated.
--- NOTE | 2022-02-03 16:01 | ED_ITS ---
HPI - Chest Pain General: Chief Complaint: Chest Pain Stated Complaint: CHEST PAIN Time Seen by Provider: 02/03/22 16:01 History of Present Illness: Mr. Sofia is a 71-year-old gentleman with history of chest pain, CAD, hypertension, hyperlipidemia, DM who presents emergency department due to chest pain. He provides vague history but does not appear to have altered mental status. He endorses chest pain for some time primarily in the upper chest with varying radiation. Usually feels sharp. Intensity varies between mild to severe though no specific activity appears to changes. Additionally endorses some right leg discomfort though once again does not provide specifics. No other specific changes in health, exacerbating, or alleviating factors identified. Pertinent past history: coronary artery disease Onset (ago): day(s) Timing of current episode: episodic Prior episodes: Yes Pain location: substernal Severity: moderate Review of Systems General: Reports: 10 or more systems reviewed and unremarkable except in HPI and below PFSH ED PFSH: Medical History Atherosclerosis of coronary artery Bipolar disorder, current episode depressed, moderate Diabetes SHANTEL (generalized anxiety disorder) Hyperlipidemia, unspecified Hypertension Intellectual disability Surgical History History of appendectomy Family History Other Cancer Hypertension Social History Smoking and tobacco status: never smoked Second hand smoke exposure: No Smoking risk assessment/counseling performed?: No Alcohol intake: former Desire information about alcohol rehabilitation?: No Counseling given: No Desire information about substance/drug rehabilitation?: No Counseling given: No Physical Exam Const: COMMON NORMALS: patient oriented x3 and alert GENERAL APPEARANCE: cooperative and well developed HENMT: COMMON NORMALS: normocephalic and atraumatic HEAD & SCALP: normocephalic and atraumatic Eye: COMMON NORMALS: conjunctivae normal CONJUNCTIVA: Yes conjunctivae normal SCLERA: sclerae normal Neck/C-Spine: COMMON NORMALS: supple GENERAL: Yes trachea midline Resp: COMMON NORMALS: clear to auscultation bilaterally EFFORT & INSPECTION: Yes able to speak in complete sentences AUSCULTATION: clear to auscultation bilaterally Cardio: COMMON NORMALS: regular rate and regular rhythm RATE: regular rate RHYTHM: regular rhythm GI: COMMON NORMALS: Soft to palpation PALPATION: Yes Soft to palpation and No Tenderness to palpation present (GI) PERCUSSION: normal to percussion Extremity: GENERAL: Yes normal exam except as noted and No edema Neuro: COMMON NORMALS: patient oriented x3, CN's II-XII intact bilaterally, moves all extremities, no focal motor deficits and no sensory deficits noted SENSORIUM/ORIENTATION: Yes alert and No Orientation impaired Course ED course: - Patient was seen and evaluated by me at bedside - Patient placed on cardiac monitors, IV access obtained - Initial evaluation notable for exam as above. Challenging history as the patient provides vague details and wants me to refer to previous documentation/hospital visits - Labs and xrays personally interpreted by me. EKGs reviewed and shows sinus rhythm with right bundle branch block, no STEMI. -Aspirin given - Labs notable for no leukocytosis, normal hemoglobin. Metabolic panel with perhaps mild evidence of dehydration. Delta troponin is negative. D-dimer is elevated. - Imaging notable for no evidence of pseudoaneurysm, patient did refer to leg pain but more likely groin pain on initial exam. Chest x-ray with no lobar consolidation or pneumothorax. CTA without clear evidence of cause of patient's symptoms, no PE. - Upon serial reexamination after treatment the patient was similar - Based on patient history, evaluation, and testing as interpreted the most likely cause of the patient's condition is chest pain. Given recent inpatient evaluation I do not feel that repeat inpatient management is required, discussed with cardiology and will initiate isosorbide with outpatient follow-up plan. - The results of ED evaluation were discussed with the patient including prescriptions and/or symptomatic cares (if applicable) including appropriate and responsible use, followup plan, and return precautions. The patient verbalized understanding and felt safe for discharge. - Patient discharged in satisfactory condition. Note: Click bubbles or prepopulated molina in note writing are used for assistance with data collection and billing and are inherently more limited than narrative and other text portions of this note. Please use narrative for additional clinical history and defer to narrative/free test for any case of contradictory information. If information appears in only free text or click bubble it should be considered present or absent as reported. Please contact note handbook writer for clarifications of clinical information or contradictory information. MDM is a brief summary, contradictory or erroneous seeming information should be clarified and full note should be reviewed. Vital Signs: Vital signs: Vital Signs Temperature 98.2 F 02/03/22 15:35 Pulse Rate 58 L 02/03/22 18:13 Respiratory Rate 18 02/03/22 18:13 Blood Pressure 150/78 02/03/22 18:13 Pulse Oximetry 98 02/03/22 18:13 MDM - Chest Pain Medical Decision Making 71-year-old gentleman with complex history including recent inpatient cardiac evaluation presenting due to chest pain. He has previously been to the emergenc y department for similar. ED evaluation without obvious cause. Discussed with cardiology, and will initiate isosorbide mononitrate. Plan for outpatient follow-up. Patient comfortable with plan. Medical Records I reviewed the patient's medical records. Lab Data I reviewed the patient's lab results. : 02/03/22 17:23 02/03/22 17:23 Radiology Impressions Chest X-Ray 02/03/22 15:47 IMPRESSION: 1. Accentuated cardiac silhouette size and vascularity. See discussion above. 2. No obvious acute consolidation. Suboptimal lung base assessment. Followup including lateral view may be obtained if clinically indicated. Arterial/Peripheral Duplex 02/03/22 16:15 IMPRESSION: Limited exam with attention to the right groin only. No evidence of aneurysm/pseudoaneurysm, significant stenosis or DVT in the common femoral vessels. Chest CTA 02/03/22 18:01 IMPRESSION: 1. No acute PE or lung consolidation/ground-glass opacity. 2. Cardiomegaly with coronary calcification. 3. Multinodular goiter with probable nodule measuring up to 3.7 cm. See comment below. COMMENTS: 1. Consistent with the [place] [employer]'s Incidental Findings Committee white paper (J Am Juany Radiol 2015): In patients aged 35 years and older with an incidental thyroid nodule equal to or greater than 1.[address], MRI or extrathyroidal US, further evaluation with dedicated nonemergent thyroid US is recommended for patients with normal life expectancy and without comorbidities. For smaller nodules without suspicious features, no further evaluation or follow up is recommended. 2. Limited life expectancy and comorbidities that increase the risk of treatment or are more likely to cause morbidity and mortality than the thyroid cancer itself. Patients with comorbidities or limited life expectancy should not have further evaluation, unless it is warranted clinically, or specifically requested by the patient or referring physician. Laboratory Results WBC 7.5 10^3/uL (4.0-10.0) 02/03/22 17: RBC 4.54 10^6/uL (4.1-5.3) 02/03/22 17: Hgb 12.5 g/dL (11.7-16.6) 02/03/22: Hct 39.8 % (42.0-52.0) L 02/03/22 17: MCV 87.7 fl (80-94) 02/03/22 17: MCH 27.5 pg (28.0-34.0) L 02/03/22: MCHC 31.4 g/dL (30.0-36.0) 02/03/22: RDW 13.3 % (12.1-15.1) 02/03/22: Plt Count 270 10^3/cmm (130-400) 02/03/22: MPV 10.3 fL (7.4-10.4) 02/03/22 17: Neut % (Auto) 69.8 % 02/03/22 17: Lymph % (Auto) 13.8 % 02/03/22 17: Mills % (Auto) 12.2 % 02/03/22 17: Eos % (Auto) 3.1 % 02/03/22: Baso % (Auto) 0.7 % 02/03/22: Neut # (Auto) 5.27 10^3/uL (1.8-7.7) 02/03/22 17: Lymph # (Auto) 1.0 10^3/uL (0.8-4.8) 02/03/22 17: [place] # (Auto) 0.9 10^3/uL (0.2-0.9) 02/03/22: Eos # (Auto) 0.2 10^3/uL (0.0-0.8) 02/03/22 17: Baso # (Auto) 0.1 10^3/uL (0.0-0.1) 02/03/22: Nucleated RBC % (auto) 0 % 02/03/22 17:23 Nucleated RBCs # 0.0 /100WBC 02/03/22 17:23 D-Dimer 0.76 ug/mIFEU (0-0.59) H 02/03/22 17:23 Sodium 140 mmol/L (136-145) 02/03/22 17:23 Potassium 3.9 mmol/L (3.5-5.1) 02/03/22 17:23 Chloride 109 mmol/L (98-107) H 02/03/22 17:23 Carbon Dioxide 21 mmol/L (22-29) L 02/03/22 17:23 Anion Gap 13.9 (5-19) 02/03/22 17:23 BUN 24 mg/dL (8-23) H 02/03/22 17:23 Creatinine 1.0 mg/dL (0.7-1.2) 02/03/22 17:23 GFR Calculation Not Reportable 02/03/22 17:23 Glucose 95 mg/dL (65-115) 02/03/22 17:23 Calculated Osmolality 294 mOsm/kg (285-295) 02/03/22 17:23 Calcium 8.6 mg/dL (8.5-10.5) 02/03/22 17:23 Total Bilirubin 0.2 mg/dL (0.15-1.2) 02/03/22 17:23 AST 19 U/L (0-40) 02/03/22 17:23 ALT 18 U/L (0-41) 02/03/22 17:23 Alkaline Phosphatase 121 IU/L (40-130) 02/03/22 17:23 Troponin T Baseline 28 ng/L (0-15) H 02/03/22 17:23 Troponin T 120 Minute 28.92 ng/L (0-15) H 02/03/22 19:36 Delta Troponin T 0.92 ABS# (0-10) 02/03/22 19:36 Total Protein 7.3 g/dL (6.6-8.7) 02/03/22 17:23 Albumin 4.2 g/dL (3.5-5.2) 02/03/22 17:23 Globulin 3.1 g/dL (1.3-4.6) 02/03/22 17:23 Lipase 33 U/L (13-60) 02/03/22 17:23 Discharge Plan Discharge Patient Disposition: Home Clinical Impression: Chest pain Condition: Stable Prescriptions: New isosorbide mononitrate 30 mg tablet extended release 24 hr 30 mg PO DAILY Qty: 30 0RF No Action benztropine 1 mg tablet 2 mg PO BID 0RF oxcarbazepine [Trileptal] 600 mg tablet 600 mg PO BID 0RF venlafaxine 75 mg tablet 75 mg PO QAM 0RF trazodone 50 mg tablet 50 mg PO BEDTIME 0RF omeprazole 40 mg capsule,delayed release(DR/EC) 40 mg PO DAILY PRN (Reason: Heartburn) 0RF nitroglycerin 0.4 mg tablet, sublingual 0.4 mg sublingual Q5M PRN0RF Rx Instructions: do not exceed 3 doses per episode losartan 100 mg tablet 150 mg PO DAILY Qty: 90 4RF ascorbic acid (vitamin C) [Vitamin C] 500 mg Tablet 500 mg PO DAILY 0RF hydroxyzine HCl 10 mg tablet 10 mg PO TID PRN (Reason: Anxiety) 0RF topiramate 50 mg tablet 50 mg PO TID 0RF fluticasone propionate 50 mcg/actuation spray,suspension 50 mcg INTRANASAL DAILY 0RF glimepiride 1 mg tablet 1 mg PO DAILY 0RF aspirin 81 mg tablet,delayed release (DR/EC) 81 mg PO DAILY 0RF atorvastatin 40 mg Tablet 40 mg PO BEDTIME Qty: 30 0RF clopidogrel 75 mg Tablet 75 mg PO DAILY Qty: 30 0RF amlodipine 5 mg Tablet 5 mg PO BID Qty: 60 0RF Discharge Orders: Discharge ED (Routine); Ordered 02/03/22 Ordered By: Elvin Tubbs Referrals: Tray Dennis [Primary Care Provider] - Discharge Diet: Usual diet Discharge Activity: Increase activity as tolerated Patient Instructions: Isosorbide Mononitrate (By mouth), Chest Pain (ED), Opioid Safety Activity Restrictions/Additional Instructions: Thank you for visiting the emergency department. You were seen and evaluated for chest pain. The exact cause of your symptoms is unclear, no evidence of new heart attack was identified and no evidence of blood clot or other obvious cause was identified on imaging. You will be started on isosorbide mononitrate for chronic chest pain management. Please follow-up with cardiology 1 week. Return to the emergency department for anything that you are concerned about and feel needs emergency department evaluation. Coding Level of Care Code ED Melting Operator for Deangelo Melendez
--- NOTE | 2022-02-03 16:15 | USR_ITS ---
PROCEDURE INFORMATION: Exam: US Duplex Right Lower Extremity Arteries Or Arterial Bypass Grafts Exam date and time: 02/03/2022 5:00 PM Age: 71 years old Clinical indication: Pain; Leg, upper; Right; Additional info: Pain, swelling, HX graft TECHNIQUE: Imaging protocol: Right Real-time duplex scan of the arteries or arterial bypass grafts of the right lower extremity with 2-D myers scale, color Doppler flow and spectral waveform analysis. Images documented and saved. COMPARISON: CT angio chest abdomen pelvis 01/19/2022 2:51 PM FINDINGS: Limited right groin exam was performed including arterial and venous duplex imaging. The right common femoral vein and artery both appear patent with compressible vein, both demonstrating normal spectral waveform. No evidence of DVT or pseudoaneurysm. No hematoma or collection. US/[place] [id number] IMPRESSION: Limited exam with attention to the right groin only. No evidence of aneurysm/pseudoaneurysm, significant stenosis or DVT in the common femoral vessels.
[2022-02-03 17:13] VITALS: BP 158/75; PULSE 60; RESP 16; O2SAT 98
[2022-02-03 17:43] LABS: Basophils # 0.1 10^3/uL (0.0-0.1); Basophils % 0.7 %; Eosinophils # 0.2 10^3/uL (0.0-0.8); Eosinophils % 3.1 %; Hematocrit 39.8 % (42.0-52.0); Hemoglobin 12.5 g/dL (11.7-16.6); Lymphocytes % 13.8 %; Mean Corpuscular HGB Conc 31.4 g/dL (30.0-36.0); Mean Corpuscular Hemoglobin 27.5 pg (28.0-34.0); Mean Corpuscular Volume 87.7 fl (80-94); Mean Platelet Volume 10.3 fL (7.4-10.4); Monocytes # 0.9 10^3/uL (0.2-0.9); Monocytes % 12.2 %; Neutrophils # 5.27 10^3/uL (1.8-7.7); Neutrophils % 69.8 %; Nucleated Red Blood Cells % 0 %; Platelet Count 270 10^3/cmm (130-400); Red Blood Count 4.54 10^6/uL (4.1-5.3); Red Cell Distribution Width 13.3 % (12.1-15.1); White Blood Count 7.5 10^3/uL (4.0-10.0)
--- NOTE | 2022-02-03 17:47 | ECG_ITS ---
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 Measurements Intervals [place] Rate: 56 P: [place]: QRS: -52 QRSD: 164 T: 4 QT: 435 QTc: 422 Interpretive Statements SINUS RHYTHM WITH FIRST DEGREE AV BLOCK RIGHT BUNDLE BRANCH BLOCK [120+ ms QRS DURATION, UPRIGHT V1, 40+ ms S IN I/aVL/V4/V5/V6] LEFT ANTERIOR FASCICULAR BLOCK [QRS AXIS <= -45, QR IN I, RS IN II] MINIMAL VOLTAGE CRITERIA FOR LVH, CONSIDER NORMAL VARIANT [MEETS CRITERIA IN ONE OF: R(aVL), S(V1), R(V5), R(V5/V6)+S(V1)] POSSIBLE SEPTAL MYOCARDIAL INFARCTION , PROBABLY OLD [30 ms Q WAVE IN V1/V2] Compared to ECG 02/03/2022 15:51:11 No significant changes Electronically Signed On 02-03-2022 20:54:05 CDT by Sandro Miller M.D. [id number]
[2022-02-03 18:01] LABS: D Dimer 0.76 ug/mIFEU (0-0.59)
--- NOTE | 2022-02-03 18:01 | CTR_ITS ---
PROCEDURE INFORMATION: Exam: CTA Chest With Contrast Exam date and time: 02/03/2022 7:10 PM Age: 71 years old Clinical indication: Abnormal findings; Abnormal diagnostic tests; Elevated d-dimer; Additional info: Chest pain, elevated ddimer TECHNIQUE: Imaging protocol: Computed tomographic angiography of the chest with contrast. 3D rendering (Not supervised by radiologist): MIP and/or 3D reconstructed images were created by the technologist. Radiation optimization: All CT scans at this facility use at least one of these dose optimization techniques: automated exposure control; mA and/or kV adjustment per patient size (includes targeted exams where dose is matched to clinical indication); or iterative reconstruction. Contrast material: OMNIPAQUE 350; Contrast volume: 90 ml; Contrast route: INTRAVENOUS (IV); COMPARISON: CT angio chest abdomen pelvis 01/19/2022 2:51 PM RADIATION DOSE METRICS: Total DLP (mGy-cm): 618.72 FINDINGS: Pulmonary arteries: There is no pulmonary embolism in the central-proximal segmental branches. Assessment of the peripheral subsegmental small branches is limited due to artifacts. Aorta: No aortic aneurysm. No aortic dissection. Thyroid: Enlarged, heterogeneous likely multinodular thyroid gland. Probable right thyroid nodule extending to the isthmus, measuring about 3.7 cm. Other thyroid nodules are probably present. There is minimal regional tracheal luminal compression. Lungs: Calcified pulmonary granulomas bilaterally. No acute lung consolidation or suspicious round ground-glass opacity. No significant peribronchial thickening. Pleural spaces: Unremarkable. No pneumothorax. No pleural effusion. Heart: Mild cardiomegaly with diffuse coronary calcification. Lymph nodes: Unremarkable. No enlarged lymph nodes. Bones/joints: Multilevel vertebral disc degeneration and endplate osteophytes. No acute osseous findings otherwise. Soft tissues: Unremarkable. CT/CT angio chest PE protcl [id number] IMPRESSION: 1. No acute PE or lung consolidation/ground-glass opacity. 2. Cardiomegaly with coronary calcification. 3. Multinodular goiter with probable nodule measuring up to 3.7 cm. See comment below. COMMENTS: 1. Consistent with the [place] [employer]'s Incidental Findings Committee white paper (J Am Juany Radiol 2015): In patients aged 35 years and older with an incidental thyroid nodule equal to or greater than 1.[address], MRI or extrathyroidal US, further evaluation with dedicated nonemergent thyroid US is recommended for patients with normal life expectancy and without comorbidities. For smaller nodules without suspicious features, no further evaluation or follow up is recommended. 2. Limited life expectancy and comorbidities that increase the risk of treatment or are more likely to cause morbidity and mortality than the thyroid cancer itself. Patients with comorbidities or limited life expectancy should not have further evaluation, unless it is warranted clinically, or specifically requested by the patient or referring physician.
[2022-02-03 18:02] LABS: Alanine Aminotransferase 18 U/L (0-41); Albumin Level 4.2 g/dL (3.5-5.2); Alkaline Phosphatase 121 IU/L (40-130); Anion Gap 13.9 (5-19); Aspartate Amino Transferase 19 U/L (0-40); Blood Urea Nitrogen 24 mg/dL (8-23); Calcium 8.6 mg/dL (8.5-10.5); Carbon Dioxide 21 mmol/L (22-29); Chloride 109 mmol/L (98-107); Globulin 3.1 g/dL (1.3-4.6); Glucose 95 mg/dL (65-115); Lipase 33 U/L (13-60); Osmolality Calculated 294 mOsm/kg (285-295); Potassium 3.9 mmol/L (3.5-5.1); Sodium 140 mmol/L (136-145); Total Bilirubin 0.2 mg/dL (0.15-1.2); Total Protein 7.3 g/dL (6.6-8.7)
[2022-02-03 18:05] LABS: Troponin(5th) Baseline 28 ng/L (0-15)
[2022-02-03 18:13] VITALS: BP 150/78; PULSE 58; RESP 18; O2SAT 98
[2022-02-03] MEDS: iohexol 350 mg/mL 100 mL Btl IV (19:09)
[2022-02-03 20:13] LABS: Troponin 5 2HR 28.92 ng/L (0-15)
[2022-02-03 20:16] LABS: Troponin 5 2HR Delta 0.92 ABS# (0-10)
== END 2022-02-03 21:44 | disposition home or self-care (01) ==
PROVIDERS: Physician Assistant; Emergency Provider Emergency Medicine; PCP Family Medicine
DX: R07.9 Chest pain, unspecified (principal); I25.10 Atherosclerotic heart disease of native coronary artery without angina pectoris; I10 Essential (primary) hypertension; F79 Unspecified intellectual disabilities; Z79.82 Long term (current) use of aspirin; Z79.02 Long term (current) use of antithrombotics/antiplatelets
CPT/HCPCS: 36415; 71045; 71275; 80053; 83690; 84484; 85025; 85378; 93005; 93926; 99285; Q9967

== ENCOUNTER 2022-02-06 04:08 | Emergency (ER) | payer MEDICARE, MEDICAID, SELFPAY ==
[2022-02-06 04:13] VITALS: BP 224/94; PULSE 66; RESP 16; TEMP 36.7; O2SAT 100; BMI 33.4
--- NOTE | 2022-02-06 04:13 | ECG_ITS ---
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 Measurements Intervals [place] Rate: 62 P: [place]: QRS: -59 QRSD: 167 T: 7 QT: 446 QTc: 454 Interpretive Statements Sinus rhythm with a first-degree AV block/isometric A-V dissociation RIGHT BUNDLE BRANCH BLOCK [120+ ms QRS DURATION, UPRIGHT V1, 40+ ms S IN I/aVL/V4/V5/V6] LEFT ANTERIOR FASCICULAR BLOCK [QRS AXIS <= -45, QR IN I, RS IN II] POSSIBLE SEPTAL MYOCARDIAL INFARCTION , PROBABLY OLD [30 ms Q WAVE IN V1/V2] Compared to ECG 02/03/2022 17:49:01 There may not be a significant change Electronically Signed On 02-06-2022 20:18:14 CDT by Angel Hargrove M.D. [id number]
--- NOTE | 2022-02-06 04:13 | XRR_ITS ---
PROCEDURE INFORMATION: Exam: XR Chest Exam date and time: 02/06/2022 4:15 AM Age: 71 years old Clinical indication: Chest pressure; Patient HX: C/O chest pain. Hypertensive 220 systolic on monitor. ; Additional info: Cp TECHNIQUE: Imaging protocol: XR of the chest. Views: 1 view. COMPARISON: CR XR chest 1V portable [id number] 02/03/2022 4:11 PM FINDINGS: Lungs: No focal airspace disease. Pleural spaces: Unremarkable. No pleural effusion. No pneumothorax. Heart/Mediastinum: Cardiomediastinal silhouette is within normal limits. Bones/joints: Unremarkable. XR/XR chest 1V portable [id number] IMPRESSION: No acute cardiopulmonary abnormality.
--- NOTE | 2022-02-06 04:14 | ED_ITS ---
HPI - Chest Pain General: Chief Complaint: Chest Pain Stated Complaint: CHEST PAIN Time Seen by Provider: 02/06/22 04:09 Source: patient and EMS Mode of arrival: EMS Limitations: no limitations History of Present Illness: 71-year-old male has a history of MR he has been seen here multiple times over the last month for chest pain he also had a cardiac cath last month patient arturo started having some pain but his mother was mainly worried about his high blood pressure. Patient here states his pain is improved full history is difficult from him due to his MR no shortness of breath he is hypertensive here. Associated symptoms: Deny abdominal pain, dyspnea, fever(s), nausea or vomiting Review of Systems Const: Denies: fever(s), chills, body aches or change in appetite Eyes: Denies: blurry vision or eye discomfort ENMT: Denies: throat pain or dental pain Card: Reports: chest pain Resp: Denies: dyspnea GI: Denies: abdominal pain, nausea, vomiting or diarrhea : Denies: dysuria Musc: Denies: neck pain or back pain Skin/Breast: Denies: rash Neuro: Denies: headache(s) Psych: Denies: depression [place]/Lymph: Denies: easy bruising All/Imm: Denies: urticaria PFSH ED PFSH: Medical History Atherosclerosis of coronary artery Bipolar disorder, current episode depressed, moderate Diabetes SHANTEL (generalized anxiety disorder) Hyperlipidemia, unspecified Hypertension Intellectual disability Surgical History History of appendectomy Family History Other Cancer Hypertension Social History Smoking and tobacco status: never smoked Second hand smoke exposure: No Smoking risk assessment/counseling performed?: No Alcohol intake: former Desire information about alcohol rehabilitation?: No Counseling given: No Desire information about substance/drug rehabilitation?: No Counseling given: No Physical Exam Const: COMMON NORMALS: no acute distress, patient oriented x3 and healthy appearing HENMT: COMMON NORMALS: normocephalic and atraumatic HEAD & SCALP: normocephalic and atraumatic Eye: COMMON NORMALS: Equal, round and reactive pupils present and EOMs intact bilaterally PUPIL: Yes Equal, round and reactive pupils present Neck/C-Spine: COMMON NORMALS: full ROM and supple Chest: COMMONS NORMALS: normal inspection of the chest and normal palpation of entire chest wall Resp: COMMON NORMALS: normal respiratory effort, No retractions, No use of accessory muscles and clear to auscultation bilaterally AUSCULTATION: clear to auscultation bilaterally Cardio: COMMON NORMALS: regular rate, regular rhythm and No murmurs present (Cardio) RATE: regular rate RHYTHM: regular rhythm GI: COMMON NORMALS: Normal to inspection, nondistended, normoactive bowel sounds present, Soft to palpation, non-tender and no masses PALPATION: Yes Soft to palpation Extremity: COMMON NORMALS: normal to inspection and full ROM Neuro: COMMON NORMALS: patient oriented x3, moves all extremities and no focal motor deficits Psych: COMMON NORMALS: mental status grossly normal, Normal thought process present and cooperative THOUGHT PROCESS: Normal thought process present Skin: COMMON NORMALS: no rashes or lesions noted and no wounds GENERAL SKIN EXAM: no rashes or lesions noted Course Vital Signs: Vital signs: Vital Signs Temperature 98.0 F 02/06/22 04:13 Pulse Rate 66 02/06/22 04:13 Respiratory Rate 16 02/06/22 04:13 Blood Pressure 224/94 02/06/22 04:13 Pulse Oximetry 100 02/06/22 04:13 MDM - Chest Pain Medical Decision Making Patient presents here with chest pain and has been seen here multiple times for his chest pain he had a recent cath as well he is well-appearing here troponins at his baseline does have some hypertension he is to continue his blood pressure meds at home follow-up with cardiology and return if worsening he understands risk plan. Lab Data : 02/06/22 04:55 02/06/22 04:55 Laboratory Results WBC 7.4 10^3/uL (4.0-10.0) 02/06/22 04:55 RBC 4.23 10^6/uL (4.1-5.3) 02/06/22 04:55 Hgb 11.6 g/dL (11.7-16.6) L 02/06/22 04:55 Hct 36.2 % (42.0-52.0) L 02/06/22 04:55 MCV 85.6 fl (80-94) 02/06/22 04:55 MCH 27.4 pg (28.0-34.0) L 02/06/22 04:55 MCHC 32.0 g/dL (30.0-36.0) 02/06/22 04:55 RDW 13.3 % (12.1-15.1) 02/06/22 04:55 Plt Count 236 10^3/cmm (130-400) 02/06/22 04:55 MPV 10.7 fL (7.4-10.4) H 02/06/22 04:55 Neut % (Auto) 62.2 % 02/06/22 04:55 Lymph % (Auto) 18.9 % 02/06/22 04:55 [place] % (Auto) 14.4 % 02/06/22 04:55 Eos % (Auto) 3.5 % 02/06/22 04:55 Baso % (Auto) 0.7 % 02/06/22 04:55 Neut # (Auto) 4.59 10^3/uL (1.8-7.7) 02/06/22 04:55 Lymph # (Auto) 1.4 10^3/uL (0.8-4.8) 02/06/22 04:55 [place] # (Auto) 1.1 10^3/uL (0.2-0.9) H 02/06/22 04:55 Eos # (Auto) 0.3 10^3/uL (0.0-0.8) 02/06/22 04:55 Baso # (Auto) 0.1 10^3/uL (0.0-0.1) 02/06/22 04:55 Nucleated RBC % (auto) 0 % 02/06/22 04:55 Nucleated RBCs # 0.0 /100WBC 02/06/22 04:55 Sodium 139 mmol/L (136-145) 02/06/22 04:55 Potassium 3.9 mmol/L (3.5-5.1) 02/06/22 04:55 Chloride 107 mmol/L (98-107) 02/06/22 04:55 Carbon Dioxide 23 mmol/L (22-29) 02/06/22 04:55 Anion Gap 12.9 (5-19) 02/06/22 04:55 BUN 24 mg/dL (8-23) H 02/06/22 04:55 Creatinine 0.9 mg/dL (0.7-1.2) 02/06/22 04:55 GFR Calculation Not Reportable 02/06/22 04:55 Glucose 101 mg/dL (65-115) 02/06/22 04:55 Calculated Osmolality 292 mOsm/kg (285-295) 02/06/22 04:55 Calcium 9.4 mg/dL (8.5-10.5) 02/06/22 04:55 Total Bilirubin 0.2 mg/dL (0.15-1.2) 02/06/22 04:55 AST 18 U/L (0-40) 02/06/22 04:55 ALT 14 U/L (0-41) 02/06/22 04:55 Alkaline Phosphatase 102 IU/L (40-130) 02/06/22 04:55 Troponin T Baseline 26 ng/L (0-15) H 02/06/22 04:55 Total Protein 7.3 g/dL (6.6-8.7) 02/06/22 04:55 Albumin 3.9 g/dL (3.5-5.2) 02/06/22 04:55 Globulin 3.4 g/dL (1.3-4.6) 02/06/22 04:55 EKG Data EKG 1: I personally reviewed and interpreted this EKG as follows: EKG interpretation date: 02/06/22 EKG interpretation time: 04:14 Interpretation: nsr hr [address] elevation qrs 167 qtc 451 Discharge Plan Discharge Patient Disposition: Home Clinical Impression: Hypertension Chest pain Qualifiers: Chest pain type: unspecified Qualified Code(s): R07.9 - Chest pain, unspecified Condition: Stable Prescriptions: No Action benztropine 1 mg tablet 2 mg PO BID 0RF oxcarbazepine [Trileptal] 600 mg tablet 600 mg PO BID 0RF venlafaxine 75 mg tablet 75 mg PO QAM 0RF trazodone 50 mg tablet 50 mg PO BEDTIME 0RF omeprazole 40 mg capsule,delayed release(DR/EC) 40 mg PO DAILY PRN (Reason: Heartburn) 0RF nitroglycerin 0.4 mg tablet, sublingual 0.4 mg sublingual Q5M PRN0RF Rx Instructions: do not exceed 3 doses per episode losartan 100 mg tablet 150 mg PO DAILY Qty: 90 4RF ascorbic acid (vitamin C) [Vitamin C] 500 mg Tablet 500 mg PO DAILY 0RF hydroxyzine HCl 10 mg tablet 10 mg PO TID PRN (Reason: Anxiety) 0RF topiramate 50 mg tablet 50 mg PO TID 0RF fluticasone propionate 50 mcg/actuation spray,suspension 50 mcg INTRANASAL DAILY 0RF glimepiride 1 mg tablet 1 mg PO DAILY 0RF aspirin 81 mg tablet,delayed release (DR/EC) 81 mg PO DAILY 0RF atorvastatin 40 mg Tablet 40 mg PO BEDTIME Qty: 30 0RF clopidogrel 75 mg Tablet 75 mg PO DAILY Qty: 30 0RF amlodipine 5 mg Tablet 5 mg PO BID Qty: 60 0RF isosorbide mononitrate 30 mg tablet extended release 24 hr 30 mg PO DAILY Qty: 30 0RF Discharge Orders: Discharge ED (Routine); Ordered 02/06/22 Ordered By: Dawson Masterson Referrals: Tray Dennis [Primary Care Provider] - 1-3 days Discharge Diet: Advance as tolerated Discharge Activity: Resume usual activity Patient Instructions: Chest Pain (ED), Hypertension (ED) Coding Level of Care Code ED [employer] for [employer] Fwd Exam Comprehensive
[2022-02-06] MEDS: labetalol 5 mg/mL SDV 20mL 10 MG IVP (05:05)
[2022-02-06 05:07] LABS: Basophils # 0.1 10^3/uL (0.0-0.1); Basophils % 0.7 %; Eosinophils # 0.3 10^3/uL (0.0-0.8); Eosinophils % 3.5 %; Hematocrit 36.2 % (42.0-52.0); Hemoglobin 11.6 g/dL (11.7-16.6); Lymphocytes # 1.4 10^3/uL (0.8-4.8); Lymphocytes % 18.9 %; Mean Corpuscular Hemoglobin 27.4 pg (28.0-34.0); Mean Corpuscular Volume 85.6 fl (80-94); Mean Platelet Volume 10.7 fL (7.4-10.4); Monocytes # 1.1 10^3/uL (0.2-0.9); Monocytes % 14.4 %; Neutrophils # 4.59 10^3/uL (1.8-7.7); Neutrophils % 62.2 %; Nucleated Red Blood Cells % 0 %; Platelet Count 236 10^3/cmm (130-400); Red Blood Count 4.23 10^6/uL (4.1-5.3); Red Cell Distribution Width 13.3 % (12.1-15.1); White Blood Count 7.4 10^3/uL (4.0-10.0)
[2022-02-06 05:26] LABS: Alanine Aminotransferase 14 U/L (0-41); Albumin Level 3.9 g/dL (3.5-5.2); Alkaline Phosphatase 102 IU/L (40-130); Anion Gap 12.9 (5-19); Aspartate Amino Transferase 18 U/L (0-40); Blood Urea Nitrogen 24 mg/dL (8-23); Calcium 9.4 mg/dL (8.5-10.5); Carbon Dioxide 23 mmol/L (22-29); Chloride 107 mmol/L (98-107); Creatinine Clr Calc Pharmacy 86.2031; Globulin 3.4 g/dL (1.3-4.6); Glucose 101 mg/dL (65-115); Osmolality Calculated 292 mOsm/kg (285-295); Potassium 3.9 mmol/L (3.5-5.1); Sodium 139 mmol/L (136-145); Total Bilirubin 0.2 mg/dL (0.15-1.2); Total Protein 7.3 g/dL (6.6-8.7)
[2022-02-06 05:27] LABS: Troponin(5th) Baseline 26 ng/L (0-15)
[2022-02-06] MEDS: hyDRALAzine 20 mg/mL INJ 1 mL 10 MG IVP (05:38)
[2022-02-06 07:45] VITALS: BP 159/74; PULSE 53; RESP 16; O2SAT 99
[2022-02-06 08:57] VITALS: BP 159/74; PULSE 53; RESP 16; O2SAT 99
== END 2022-02-06 08:59 | disposition home or self-care (01) ==
PROVIDERS: Emergency Provider Emergency Medicine; PCP Family Medicine
DX: R07.9 Chest pain, unspecified (principal); I10 Essential (primary) hypertension; E11.9 Type 2 diabetes mellitus without complications; E78.5 Hyperlipidemia, unspecified; Z79.82 Long term (current) use of aspirin; Z79.84 Long term (current) use of oral hypoglycemic drugs
CPT/HCPCS: 71045; 80053; 84484; 85025; 93005; 96374; 96375; 99285; J0360; J3490

== ENCOUNTER 2022-02-11 08:55 | Observation (INO) | payer MEDICARE, MEDICAID, SELFPAY ==
[2022-02-11] VITALS (7 sets, daily range): BP systolic 143–167; BP diastolic 70–83; PULSE 58–64; RESP 13–21; TEMP 36.3; O2SAT 95–100; BMI 31.7
--- NOTE | 2022-02-11 09:02 | XR_ITS ---
WS: [id number] XR chest 1V portable [id number] REASON FOR EXAM: chest pain FINDINGS: The chest is unchanged compared to 02/06/2022. Mild to moderate tortuosity the thoracic aorta without aneurysmal dilatation. Mild cardiomegaly. No active pulmonary parenchymal or pleural disease. XR/XR chest 1V portable [id number] IMPRESSION: Stable chest with no acute abnormality identified.
--- NOTE | 2022-02-11 09:02 | ECG_ITS ---
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 Measurements Intervals [place] Rate: 72 P: [place]: QRS: -67 QRSD: 164 T: 22 QT: 423 QTc: 465 Interpretive Statements Sinus rhythm with a first-degree AV block RIGHT BUNDLE BRANCH BLOCK [120+ ms QRS DURATION, UPRIGHT V1, 40+ ms S IN I/aVL/V4/V5/V6] LEFT ANTERIOR FASCICULAR BLOCK [QRS AXIS <= -45, QR IN I, RS IN II] MODERATE VOLTAGE CRITERIA FOR LVH, CONSIDER NORMAL VARIANT [MEETS CRITERIA IN ONE OF: R(aVL), S(V1), R(V5), R(V5/V6)+S(V1)] POSSIBLE SEPTAL MYOCARDIAL INFARCTION , OF INDETERMINATE AGE [30 ms Q WAVE IN V1/V2] Compared to ECG 02/06/2022 04:14:43 Sinus rhythm no longer present Myocardial infarct finding still present Electronically Signed On 02-12-2022 23:55:17 CDT by Angel Hargrove M.D. [id number]
--- NOTE | 2022-02-11 09:39 | W.ED.CHESTPA ---
HPI - Chest Pain General: Chief Complaint: Chest Pain Stated Complaint: CHEST PAIN Time Seen by Provider: 02/11/22 08:59 Source: patient Mode of arrival: EMS Limitations: no limitations History of Present Illness: 71-year-old male presents emergency room with complaint of chest pain. The ER multiple times the chest pain recently. Chest pain began this morning while he was sitting eating breakfast he states it radiated into his neck its mostly gone now but he still has a little bit of discomfort. He denies any shortness of breath or diaphoresis but he states that the discomfort radiated into his neck. He did receive 325 of aspirin in route. He had an abnormal Lexiscan sestamibi stress test on December 10 of this year. He subsequently went to the [facility]. Evidently there is little difficulty in the [facility] initially started through a radial approach then converted to a right femoral artery approach. Reading report patient had a LAD stent placed. This was on January 20. He has had several episodes of chest pain since then. MD complaint: chest pain Pertinent past history: coronary artery disease Onset (ago): minute(s) Timing of current episode: episodic Prior episodes: Yes Onset: during rest Pain location: left chest Pain radiation: neck Severity: mild Quality: tightness, aching and heaviness Relieving factors: nothing Exacerbating factors: nothing Associated symptoms: Deny abdominal pain, diaphoresis, dyspnea, fever(s), leg edema, nausea, palpitations, sense of impending doom, syncope or vomiting Treatment prior to arrival: aspirin Risk Factors: Coronary artery disease risk factors: diabetes Review of Systems General: Reports: Other (Limited reliability due to patient's mental handicap) Const: Denies: fever(s), chills, body aches, change in appetite or diaphoresis ENMT: Denies: throat pain, ear or mastoid pain, nasal discharge or nasal congestion Card: Reports: chest pain; Denies: palpitations, edema or syncope Resp: Denies: dyspnea, productive cough or non-productive cough GI: Denies: abdominal pain, nausea or vomiting : Denies: flank pain, difficulty urinating, dysuria, urinary frequency or urinary urgency Musc: Reports: neck pain PFS ED PFSH: Medical History Atherosclerosis of coronary artery Bipolar disorder, current episode depressed, moderate Diabetes SHANTEL (generalized anxiety disorder) Hyperlipidemia, unspecified Hypertension Intellectual disability Surgical History History of appendectomy Family History Other Cancer Hypertension Social History Smoking and tobacco status: never smoked Second hand smoke exposure: No Smoking risk assessment/counseling performed?: No Alcohol intake: former Desire information about alcohol rehabilitation?: No Counseling given: No Desire information about substance/drug rehabilitation?: No Counseling given: No Physical Exam Const: GENERAL APPEARANCE: cooperative and comfortable ORIENTATION/CONSCIOUSNESS: Yes awake HENMT: COMMON NORMALS: normocephalic, atraumatic and hearing grossly normal bilaterally HEAD & SCALP: normocephalic and atraumatic Neck/C-Spine: COMMON NORMALS: no JVD Resp: COMMON NORMALS: normal respiratory effort, No retractions, No use of accessory muscles and clear to auscultation bilaterally AUSCULTATION: clear to auscultation bilaterally Cardio: COMMON NORMALS: no JVD, regular rate, regular rhythm and No murmurs present (Cardio) RATE: regular rate RHYTHM: regular rhythm GI: COMMON NORMALS: Soft to palpation and No hepatosplenomegaly present AUSCULTATION: Yes normoactive bowel sounds PALPATION: Yes Soft to palpation, No Tenderness to palpation present (GI), No Guarding due to palpation present (GI) and Yes No hepatosplenomegaly present Extremity: COMMON NORMALS: normal to inspection, capillary refill normal, no clubbing, cyanosis or edema, no calf tenderness and no pedal edema Skin: COMMON NORMALS: no rashes or lesions noted GENERAL SKIN EXAM: no rashes or lesions noted Course Vital Signs: Vital signs: Vital Signs Temperature 97.3 F L 02/11/22 20:00 Pulse Rate 63 02/12/22 11:07 Respiratory Rate 16 02/12/22 11:07 Blood Pressure 172/87 02/12/22 15:59 Pulse Oximetry 98 02/12/22 11:07 MDM - Chest Pain Medical Decision Making Patient has had multiple episodes of chest pain Medical Records I reviewed the patient's medical records. Lab Data I reviewed the patient's lab results. : 02/12/22 04:54 02/12/22 04:54 Radiology Impressions Chest X-Ray 02/11/22 09:02 IMPRESSION: Stable chest with no acute abnormality identified. Laboratory Results WBC 6.2 10^3/uL (4.0-10.0) 02/11/22 09:35 RBC 4.41 10^6/uL (4.1-5.3) 02/11/22 09:35 Hgb 12.3 g/dL (11.7-16.6) 02/11/22 09:35 Hct 37.1 % (42.0-52.0) L 02/11/22 09:35 MCV 84.1 fl (80-94) 02/11/22 09:35 MCH 27.9 pg (28.0-34.0) L 02/11/22 09:35 MCHC 33.2 g/dL (30.0-36.0) 02/11/22 09:35 RDW 13.4 % (12.1-15.1) 02/11/22 09:35 Plt Count 188 10^3/cmm (130-400) 02/11/22 09:35 MPV 11.2 fL (7.4-10.4) H 02/11/22 09:35 Neut % (Auto) 67.2 % 02/11/22 09:35 Lymph % (Auto) 14.3 % 02/11/22 09:35 [place] % (Auto) 13.8 % 02/11/22 09:35 Eos % (Auto) 3.9 % 02/11/22 09:35 Baso % (Auto) 0.5 % 02/11/22 09:35 Neut # (Auto) 4.18 10^3/uL (1.8-7.7) 02/11/22 09:35 Lymph # (Auto) 0.9 10^3/uL (0.8-4.8) 02/11/22 09:35 [place] # (Auto) 0.9 10^3/uL (0.2-0.9) 02/11/22 09:35 Eos # (Auto) 0.2 10^3/uL (0.0-0.8) 02/11/22 09:35 Baso # (Auto) 0.0 10^3/uL (0.0-0.1) 02/11/22 09:35 Nucleated RBC % (auto) 0 % 02/11/22 09:35 Nucleated RBCs # 0.0 /100WBC 02/11/22 09:35 Sodium 138 mmol/L (136-145) 02/11/22 09:35 Potassium 3.8 mmol/L (3.5-5.1) 02/11/22 09:35 Chloride 108 mmol/L (98-107) H 02/11/22 09:35 Carbon Dioxide 19 mmol/L (22-29) L 02/11/22 09:35 Anion Gap 14.8 (5-19) 02/11/22 09:35 BUN 24 mg/dL (8-23) H 02/11/22 09:35 Creatinine 1.0 mg/dL (0.7-1.2) 02/11/22 09:35 GFR Calculation Not Reportable 02/11/22 09:35 Glucose 169 mg/dL (65-115) H 02/11/22 09:35 Calculated Osmolality 294 mOsm/kg (285-295) 02/11/22 09:35 Calcium 9.0 mg/dL (8.5-10.5) 02/11/22 09:35 Total Bilirubin 0.2 mg/dL (0.15-1.2) 02/11/22 09:35 AST 20 U/L (0-40) 02/11/22 09:35 ALT 16 U/L (0-41) 02/11/22 09:35 Alkaline Phosphatase 94 IU/L (40-130) 02/11/22 09:35 Troponin T Baseline 27 ng/L (0-15) H 02/11/22 09:35 Troponin T 120 Minute 27.40 ng/L (0-15) H 02/11/22 11:40 Delta Troponin T 0.40 ABS# (0-10) 02/11/22 11:40 Total Protein 7.1 g/dL (6.6-8.7) 02/11/22 09:35 Albumin 3.8 g/dL (3.5-5.2) 02/11/22 09:35 Globulin 3.3 g/dL (1.3-4.6) 02/11/22 09:35 Discharge Plan Discharge Patient Disposition: Admitted As Inpatient Admit Provider: Sunny Mart Clinical Impression: Chest pain, Intellectual disability, Diabetes, Hypertension Clinical Impression: (Ruled Out): Pes planus of both feet Condition: Stable Discharge Diet: Cardiac Discharge Activity: Increase activity as tolerated Coding Level of Care Code ED Vehicle Calibration Engineer for Chg Fwd Exam Comprehensive
[2022-02-11 09:53] LABS: Basophils % 0.5 %; Eosinophils # 0.2 10^3/uL (0.0-0.8); Eosinophils % 3.9 %; Hematocrit 37.1 % (42.0-52.0); Hemoglobin 12.3 g/dL (11.7-16.6); Lymphocytes # 0.9 10^3/uL (0.8-4.8); Lymphocytes % 14.3 %; Mean Corpuscular HGB Conc 33.2 g/dL (30.0-36.0); Mean Corpuscular Hemoglobin 27.9 pg (28.0-34.0); Mean Corpuscular Volume 84.1 fl (80-94); Mean Platelet Volume 11.2 fL (7.4-10.4); Monocytes # 0.9 10^3/uL (0.2-0.9); Monocytes % 13.8 %; Neutrophils # 4.18 10^3/uL (1.8-7.7); Neutrophils % 67.2 %; Nucleated Red Blood Cells % 0 %; Platelet Count 188 10^3/cmm (130-400); Red Blood Count 4.41 10^6/uL (4.1-5.3); Red Cell Distribution Width 13.4 % (12.1-15.1); White Blood Count 6.2 10^3/uL (4.0-10.0)
[2022-02-11] MEDS: aspirin 81 mg Chew Tablet 324 MG PO (10:01)
[2022-02-11 10:15] LABS: Troponin(5th) Baseline 27 ng/L (0-15)
[2022-02-11 10:17] LABS: Alanine Aminotransferase 16 U/L (0-41); Albumin Level 3.8 g/dL (3.5-5.2); Alkaline Phosphatase 94 IU/L (40-130); Anion Gap 14.8 (5-19); Aspartate Amino Transferase 20 U/L (0-40); Blood Urea Nitrogen 24 mg/dL (8-23); Carbon Dioxide 19 mmol/L (22-29); Chloride 108 mmol/L (98-107); Globulin 3.3 g/dL (1.3-4.6); Glucose 169 mg/dL (65-115); Osmolality Calculated 294 mOsm/kg (285-295); Potassium 3.8 mmol/L (3.5-5.1); Sodium 138 mmol/L (136-145); Total Bilirubin 0.2 mg/dL (0.15-1.2); Total Protein 7.1 g/dL (6.6-8.7)
--- NOTE | 2022-02-11 10:57 | PC.PHAR ---
pts stepmother winigan [phone] verified pts medications-winigan states imdur 30mg daily,amlodipine 10mg daily,lipitor 40mg daily, and metoprolol er 50mg daily was all dced
--- NOTE | 2022-02-11 11:02 | ECG_ITS ---
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 Measurements Intervals [place] Rate: 66 P: [place]: QRS: -67 QRSD: 171 T: 27 QT: 466 QTc: 489 Interpretive Statements Sinus rhythm with a first-degree AV block RIGHT BUNDLE BRANCH BLOCK [120+ ms QRS DURATION, UPRIGHT V1, 40+ ms S IN I/aVL/V4/V5/V6] LEFT ANTERIOR FASCICULAR BLOCK [QRS AXIS <= -45, QR IN I, RS IN II] MINIMAL VOLTAGE CRITERIA FOR LVH, CONSIDER NORMAL VARIANT [MEETS CRITERIA IN ONE OF: R(aVL), S(V1), R(V5), R(V5/V6)+S(V1)] POSSIBLE SEPTAL MYOCARDIAL INFARCTION , PROBABLY OLD [30 ms Q WAVE IN V1/V2] Compared to ECG 02/11/2022 09:32:44 No significant changes Electronically Signed On 02-13-2022 0:10:21 CDT by Angel Hargrove M.D. [id number]
--- NOTE | 2022-02-11 12:31 | PM.HP ---
Providers/Chief Complaint Admitting Physician: Sunny Mart Primary Care Provider: Tray Dennis Chief Complaint: CHEST PAIN History of Present Illness Jared Sofia is a 71 year old male Medications/Allergies Home Medications Medication Instructions Recorded Confirmed Last Taken Type benztropine 1 mg tablet See Rx Instructions .ROUTE .COMPLEX 08/11/21 02/11/22 02/11/22 07:30 History 2 mg omeprazole 40 mg capsule,delayed 20 - 40 mg PO DAILY PRN 08/11/21 02/11/22 01/18/22 09:00 History release 40 mg oxcarbazepine 600 mg tablet 600 mg PO BID tab 08/11/21 02/11/22 02/11/22 07:30 History (Trileptal) trazodone 50 mg tablet 50 mg PO BEDTIME 08/11/21 02/11/22 02/10/22 History venlafaxine 75 mg tablet 75 mg PO QAM 08/11/21 02/11/22 02/11/22 07:30 History topiramate 50 mg tablet 50 mg PO TID 12/09/21 02/11/22 02/11/22 07:30 History aspirin 81 mg tablet,delayed 81 mg PO QAM 01/19/22 02/11/22 02/11/22 07:30 History release glimepiride 1 mg tablet 1 mg PO QAM 01/19/22 02/11/22 02/11/22 History nitroglycerin 0.4 mg sublingual 0.4 mg SUBLINGUAL Q5M PRN 01/29/22 02/11/22 Unknown History tablet hydralazine 100 mg tablet 100 mg PO Q8H #90 tab 02/09/22 02/11/22 02/11/22 07:30 Rx clopidogrel 75 mg tablet 75 mg PO QAM 02/11/22 02/11/22 02/11/22 07:30 History ezetimibe 10 mg tablet (Zetia) 10 mg PO QPM 02/11/22 02/11/22 02/10/22 History losartan 100 mg tablet 100 mg PO QPM 02/11/22 02/11/22 02/10/22 History spironolactone 25 mg tablet 25 mg PO QAM 02/11/22 02/11/22 02/11/22 07:30 History Allergies Allergy/AdvReac Type Severity Reaction Status Date / Time aripiprazole [From Abilify] Allergy Mild UNKNOWN Verified 01/29/22 08:05 haloperidol [From Haldol] Allergy Mild UNKNOWN Verified 01/29/22 08:05 cephalexin [From Keflex] Allergy UNKNOWN Verified 01/29/22 08:05 fluoxetine [From Prozac] Allergy Unknown Verified 01/29/22 08:05 lithium Allergy UNKNOWN Verified 01/29/22 08:05 amlodipine AdvReac Severe ADR-Hyperte Verified 02/09/22 12:14 nsion metoprolol AdvReac Severe unknown Verified 02/09/22 12:57 PFSH Acute PFSH: Medical History (Updated 02/11/22 @ 12:32 by Sunny Mart MD) Atherosclerosis of coronary artery Bipolar disorder, current episode depressed, moderate Diabetes SHANTEL (generalized anxiety disorder) Hyperlipidemia, unspecified Hypertension Intellectual disability Surgical History History of appendectomy Family History Other Cancer Hypertension Social History Smoking and tobacco status: never smoked Second hand smoke exposure: No Smoking risk assessment/counseling performed?: No Alcohol intake: former Desire information about alcohol rehabilitation?: No Counseling given: No Desire information about substance/drug rehabilitation?: No Counseling given: No Data : 02/11/22 09:35 02/11/22 09:35 A&P Assessment and plan (1) Chest pain: Status: Acute Qualifiers: Chest pain type: unspecified Qualified Code(s): R07.9 - Chest pain, unspecified (2) Hypertension: Status: Acute (3) Atherosclerosis of coronary artery: Status: Acute (4) Dyslipidemia: Status: Acute (5) Bradycardia: Status: Acute (6) Diabetes: Status: Acute Coding Level of Care Code Acute Statistical Assistant for [facility] Diagnoses Chest pain R07.9 Chest pain type: unspecified Hypertension I10 Atherosclerosis of coronary artery I25.10 Dyslipidemia E78.5 Bradycardia R00.1 Diabetes E11.9
--- NOTE | 2022-02-11 12:43 | PM.HP ---
Providers/Chief Complaint Admitting Physician: Sunny Mart Primary Care Provider: Tray Dennis Chief Complaint: CHEST PAIN History of Present Illness Jared Sofia is a 71 year old male with a past medical history significant for intellectual disability, coronary artery disease with recent PCI w/ KHOA to mid LAD in January 2022, type 2 diabetes mellitus, hypertension, dyslipidemia, and COPD who presents to the emergency department complaining of chest x1 day. Patient reports chest pain began after breakfast this morning, he is unsure of what time it was. He reports he was sitting at rest when it came on. Describes the pain as left sided, substernal, and burning. Denies any radiation. Endorses associated symptoms of diaphoresis. Denies taking nitroglycerin. Denies any alleviating or aggravating factors. Reports pain lasted for over 2 hours. Denies fevers, chills, shortness of breath, or headaches. Reports symptoms similar to prior myocardial infarction. Reports family history of ischemic heart disease in his father. Review of Systems Narrative: A complete review of systems was obtained and is negative except as stated in HPI. Medications/Allergies Home Medications Medication Instructions Recorded Confirmed Last Taken Type benztropine 1 mg tablet See Rx Instructions .ROUTE .COMPLEX 08/11/21 02/11/22 02/11/22 07:30 History 2 mg omeprazole 40 mg capsule,delayed 20 - 40 mg PO DAILY PRN 08/11/21 02/11/22 01/18/22 09:00 History release 40 mg oxcarbazepine 600 mg tablet 600 mg PO BID tab 08/11/21 02/11/22 02/11/22 07:30 History (Trileptal) trazodone 50 mg tablet 50 mg PO BEDTIME 08/11/21 02/11/22 02/10/22 History venlafaxine 75 mg tablet 75 mg PO QAM 08/11/21 02/11/22 02/11/22 07:30 History topiramate 50 mg tablet 50 mg PO TID 12/09/21 02/11/22 02/11/22 07:30 History aspirin 81 mg tablet,delayed 81 mg PO QAM 01/19/22 02/11/22 02/11/22 07:30 History release glimepiride 1 mg tablet 1 mg PO QAM 01/19/22 02/11/22 02/11/22 History nitroglycerin 0.4 mg sublingual 0.4 mg SUBLINGUAL Q5M PRN 01/29/22 02/11/22 Unknown History tablet hydralazine 100 mg tablet 100 mg PO Q8H #90 tab 02/09/22 02/11/22 02/11/22 07:30 Rx clopidogrel 75 mg tablet 75 mg PO QAM 02/11/22 02/11/22 02/11/22 07:30 History ezetimibe 10 mg tablet (Zetia) 10 mg PO QPM 02/11/22 02/11/22 02/10/22 History losartan 100 mg tablet 100 mg PO QPM 02/11/22 02/11/22 02/10/22 History spironolactone 25 mg tablet 25 mg PO QAM 02/11/22 02/11/22 02/11/22 07:30 History Allergies Allergy/AdvReac Type Severity Reaction Status Date / Time aripiprazole [From Abilify] Allergy Mild UNKNOWN Verified 01/29/22 08:05 haloperidol [From Haldol] Allergy Mild UNKNOWN Verified 01/29/22 08:05 cephalexin [From Keflex] Allergy UNKNOWN Verified 01/29/22 08:05 fluoxetine [From Prozac] Allergy Unknown Verified 01/29/22 08:05 lithium Allergy UNKNOWN Verified 01/29/22 08:05 amlodipine AdvReac Severe ADR-Hyperte Verified 02/09/22 12:14 nsion metoprolol AdvReac Severe unknown Verified 02/09/22 12:57 PFSH Acute PFSH: Medical History (Updated 02/11/22 @ 12:32 by Sunny Mart MD) Atherosclerosis of coronary artery Bipolar disorder, current episode depressed, moderate Diabetes SHANTEL (generalized anxiety disorder) Hyperlipidemia, unspecified Hypertension Intellectual disability Surgical History History of appendectomy Family History Other Cancer Hypertension Social History Smoking and tobacco status: never smoked Second hand smoke exposure: No Smoking risk assessment/counseling performed?: No Alcohol intake: former Desire information about alcohol rehabilitation?: No Counseling given: No Desire information about substance/drug rehabilitation?: No Counseling given: No Physical Exam Narrative: General: Patient is awake and alert. Head:? Normocephalic. Atraumatic. EOM intact. Neck: No JVD. Cardiovascular: RRR. No gallops. No murmurs. No peripheral edema. Lungs: Clear to auscultation, no use of accessory muscles, no crackles or wheezes. Skin: No jaundice. No rashes. Abdomen: Normal bowel sounds, abdomen soft and nontender. Genito Urinary: Genital exam not performed since complaints not related. Rectal: Rectal exam not performed since no symptoms indicated blood loss. Extremeties: No cyanosis or clubbing. Musculoskeletal: 5/5 strength, normal range of motion, no swollen or erythematous joints. Neurological: Moves all 4 extremities. No myoclonus. Data : 02/11/22 09:35 02/11/22 09:35 CXR: My impression: Mild cardiomegaly. No airspace opacities. Radiologist's impression: Stable chest with no acute abnormality identified. EKG 1: My Interpretation: LAFB, RBBB, no STEMI Barrelhead Inspector Interpretation: UNCERTAIN REGULAR RHYTHM RIGHT BUNDLE BRANCH BLOCK? [120+ ms QRS DURATION, UPRIGHT V1, 40+ ms S IN I/aVL/V4/V5/V6] LEFT ANTERIOR FASCICULAR BLOCK? [QRS AXIS <= -45, QR IN I, RS IN II] MINIMAL VOLTAGE CRITERIA FOR LVH, CONSIDER NORMAL VARIANT? [MEETS CRITERIA IN ONE OF: R(aVL), S(V1), R(V5), R(V5/V6)+S(V1)] POSSIBLE SEPTAL MYOCARDIAL INFARCTION , PROBABLY OLD [30 ms Q WAVE IN V1/V2] EKG computer-generated impression: Chest X-Ray 02/11/22 09:02 IMPRESSION: Stable chest with no acute abnormality identified. A&P Assessment and plan (1) Chest pain: Chest pain with history of coronary artery disease with recent stent to mid LAD in 01/2022. Rule out acute coronary syndrome with serial troponin and telemetry monitoring. Stress test ordered for tomorrow. Continue DAPT and Zetia. NTG as needed. Status: Acute Qualifiers: Chest pain type: unspecified Qualified Code(s): R07.9 - Chest pain, unspecified (2) Hypertension: Uncontrolled. Continue home losartan, aldactone, and hydralazine. Adjust antihypertensives as needed. Status: Acute (3) Bipolar disorder, current episode depressed, moderate: Continue home trazodone, topiramate, Trileptal, venlafaxine and benztropine Status: Acute (4) Intellectual disability: Mentation appears to be at baseline. Status: Acute (5) Dyslipidemia: Continue Zetia Status: Acute (6) Diabetes: Hold glimepiride. SSI. Avoid hypoglycemia. Status: Acute Plan DVT ppx: Lovenox Diet: Cardiac Code status: DNR - Discussed with patient Attestations Medical Necessity Statement*: Patient being admitted to observation and not expected to cross 2 midnights. 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
--- NOTE | 2022-02-11 13:00 | PC.NURSE ---
report to yumiko WERNER
[2022-02-11] MEDS: topiramate 25 mg Tablet 50 MG PO ×2 (14:28→20:38)
[2022-02-11] MEDS: benztropine 1 mg Tablet PO ×2 (14:28→20:38)
[2022-02-11] MEDS: enoxaparin 40 mg/0.4 mL Syringe SUBCUT (14:28)
[2022-02-11] MEDS: hyDRALAzine 50 mg Tablet 100 MG PO ×2 (14:28→20:38)
--- NOTE | 2022-02-11 15:02 | ECG_ITS ---
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 Measurements Intervals [place] Rate: 59 P: MO: QRS: -54 QRSD: 174 T: 12 QT: 480 QTc: 477 Interpretive Statements SINUS RHYTHM WITH LONG FIRST DEGREE AV BLOCK RIGHT BUNDLE BRANCH BLOCK LEFT ANTERIOR FASCICULAR BLOCK MINIMAL VOLTAGE CRITERIA FOR LVH, CONSIDER NORMAL VARIANT Compared to ECG 02/11/2022 11:07:49 No significant changes Electronically Signed On 02-11-2022 22:51:18 CDT by Frances Lebron M.D. [id number]
[2022-02-11 16:12] LABS: Glucose Point of Care 83 mg/dL (70-110)
[2022-02-11 16:41] LABS: Troponin 5 6HR 31.07 ng/L (0-15)
[2022-02-11 16:42] LABS: Troponin 5 6HR Delta 4.07 ng/L (0-12)
[2022-02-11] MEDS: OXcarbazepine 300 mg Tablet 600 MG PO (17:29)
[2022-02-11] MEDS: losartan 50 mg Tablet 100 MG PO (17:30)
[2022-02-11] MEDS: ezetimibe 10 mg Tablet PO (17:30)
[2022-02-11 20:22] LABS: Glucose Point of Care 198 mg/dL (70-110)
[2022-02-11] MEDS: trazodone 50 mg Tablet PO (20:38)
[2022-02-12] VITALS (9 sets, daily range): BP systolic 125–172; BP diastolic 66–102; PULSE 57–76; RESP 16–20; O2SAT 96–98
--- NOTE | 2022-02-12 | NMCV_ITS ---
NM [place] perf SPECT r/s* [id number] Jared Sofia Age: 71 Gender: M : 1950 Exam Date: 02/12/2022 Ordering Phys: Sunny Mart MD Technologist: SERGEI Scott Exam Location: [facility] Indications: CHEST PAIN STRESS TEST Please see separate stress test report in [facility] for full findings IMAGE PROTOCOL Rest/Stress 1 Lexiscan Day Radiopharmaceutical Dose (mCi) Administration Site Administered by Rest: Tc-99m 10.9 IV SERGEI Majano Sestamibi Stress:Tc-99m 33.0 IV SERGEI Majano Sestamibi Rest: 12-Feb-2022 60 Discovery 630 Stress: 12-Feb-2022 30 Discovery 630 0.4mg Lexiscan. Supine position only as patient was unable to lay prone. SPECT RESULTS Technical Quality: Excellent Raw Data Analysis: Normal Image Corrections: No attenuation or motion correction applied Summed Stress Score: 1 Summed Rest Score: 5 Summed Difference Score: 0 PERFUSION FINDINGS Some patchy areas of slightly increased tracer uptake are noted in the inferior wall and lateral wall regions. No significant reversibility was noted in these regions. FUNCTIONAL RESULTS (calculated via Gated SPECT) Stress Image LV EF (%): 77 Stress EDV (mL):124 TID: 0.97 Stress ESV (mL):28 FUNCTIONAL FINDINGS: Segmental wall motion analysis revealing no gross wall motion abnormalities. IMPRESSIONS 1. Patchy areas of persistent decreased tracer uptake in the inferior wall and lateral wall regions, most like, most likely represent agitation artifacts. 2. Normal LV ejection fraction 77%. 3. LV wall motion analysis revealing no gross wall motion normalities. 4. Normal LV volume. Low probability for coronary ischemia, based on the above findings Dr Angel Hargrove MD [facility] (Electronically Signed) Final Date: 12 Feb 2022 12:56 S
[2022-02-12] MEDS: acetaminophen 325 mg Tablet 650 MG PO (01:19)
--- NOTE | 2022-02-12 01:22 | PC.NURSE ---
Patient hits his call light to c/o pain to right leg and right arm. Patient states it hurts so bad I can hardly stand it. Nurse asked patient if the pain is new and patient states, no it's been like this since my procedure last month. Dr. Hargrove said it would be sore, but it would heal up pretty quick. Patient points to right upper arm and right groin when telling nurse where they did the procedure at. Radial and pedal pulses present by palpitation. Right groin and right leg skin WNL. Bruise noted to right AC, but otherwise right arm skin WNL. PRN Tylenol given for pain. Patient states I'm not one to normally complain, but its hurt pretty bad. Nurse asks patient, does it hurt more than it has been? Patient states, a little bit. No abnormal assessment findings to report at this time.
--- NOTE | 2022-02-12 03:25 | PC.NURSE ---
Patient states the Tylenol eased up his pain a lot.
[2022-02-12] MEDS: benztropine 1 mg Tablet 2 MG PO (05:05)
[2022-02-12] MEDS: aspirin 81 mg EC Tablet PO (05:05)
[2022-02-12] MEDS: venlafaxine 75 mg Tablet PO (05:05)
[2022-02-12] MEDS: clopidogrel 75 mg Tablet PO (05:05)
[2022-02-12] MEDS: hyDRALAzine 50 mg Tablet 100 MG PO ×2 (05:05→12:35)
[2022-02-12] MEDS: spironolactone 25 mg Tablet PO (05:05)
--- NOTE | 2022-02-12 06:00 | ECG_ITS ---
[facility] Test Date: 2022-02-12 Pat Name: Jared Sofia Department: Room: 107 Gender: Male Ophthalmic Technologist: Kim Duque : 1950 Requested By: Sunny Denis Order Number: [id number] Malachi MD: Angel Hargrove M.D. Interpretive Statements NAME OF STUDY: LEXISCAN SESTAMIBI STRESS TEST INDICATION: Chest Pain, PROCEDURE: At the baseline, the EKG revealed sinus rhythm with a first-degree AV block. Frequent PVCs in the form of bigeminy. The baseline blood pressure was 197/78 mm Hg with a heart rate of 63 beats/min. Lexiscan was infused over a period of 20 seconds. A total of 0.4 milligrams of Lexiscan was infused. The stress phase was continued for a total of 5 minutes. Heart rate at the end of the stress phase was 84 with a blood pressure 127/65. The EKG at the peak infusion revealed no significant changes. Sestamibi was injected 20 seconds after the Lexiscan infusion. Blood pressure at the end of the recovery phase was 158/66 with a heart rate of 76 per minute. CONCLUSION: 1. No significant EKG changes with the LexiScan infusion 2. No LexiScan induced chest pain or cardiac arrhythmia 3. Normal blood pressure and heart rate response 4. Sestamibi/sestamibi perfusion scan pending; see separate report. Electronically Signed On 02-12-2022 13:40:21 CDT by Angel Hargrove M.D. [id number]
[2022-02-12 06:11] LABS: Basophils % 0.5 %; Eosinophils # 0.3 10^3/uL (0.0-0.8); Eosinophils % 4.1 %; Hematocrit 42.8 % (42.0-52.0); Hemoglobin 13.5 g/dL (11.7-16.6); Lymphocytes # 1.3 10^3/uL (0.8-4.8); Lymphocytes % 18.4 %; Mean Corpuscular HGB Conc 31.5 g/dL (30.0-36.0); Mean Corpuscular Hemoglobin 27.6 pg (28.0-34.0); Mean Corpuscular Volume 87.5 fl (80-94); Mean Platelet Volume 11.4 fL (7.4-10.4); Monocytes % 14.3 %; Neutrophils # 4.55 10^3/uL (1.8-7.7); Neutrophils % 62.4 %; Nucleated Red Blood Cells % 0 %; Platelet Count 221 10^3/cmm (130-400); Red Blood Count 4.89 10^6/uL (4.1-5.3); Red Cell Distribution Width 13.5 % (12.1-15.1); White Blood Count 7.3 10^3/uL (4.0-10.0)
[2022-02-12 06:21] LABS: Glucose Point of Care 96 mg/dL (70-110)
[2022-02-12 06:26] LABS: Albumin Level 4.2 g/dL (3.5-5.2); Blood Urea Nitrogen 24 mg/dL (8-23); Calcium 10.1 mg/dL (8.5-10.5); Carbon Dioxide 18 mmol/L (22-29); Chloride 104 mmol/L (98-107); Glucose 101 mg/dL (65-115); Phosphorus 2.7 mg/dL (2.5-4.5); Sodium 134 mmol/L (136-145)
[2022-02-12 06:27] LABS: Anion Gap 16.2 (5-19); Potassium 4.2 mmol/L (3.5-5.1)
[2022-02-12] MEDS: regadenoson 0.4 Mg/5 ml Syringe IVP (07:38)
[2022-02-12] MEDS: ondansetron 2 mg/ML SDV 2 mL 4 MG IVP (07:51)
[2022-02-12] MEDS: topiramate 25 mg Tablet 50 MG PO (08:53)
[2022-02-12] MEDS: OXcarbazepine 300 mg Tablet 600 MG PO (08:53)
[2022-02-12] MEDS: pantoprazole DR 40 mg Tablet PO (08:53)
--- NOTE | 2022-02-12 10:27 | PC.CHAP ---
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 visit [] Patient/Family/Request visit [] Outpatient visit [] Follow-up visit [] Physician referral [] Code/Alert [x] Routine visit [] Staff referral [] Actively dying [] Patient sleeping [] Family support [] [] Out of room [] Palliative care [] [x] Receiving care in room [] Pre-surgical visit [] Trauma [x] Long length of stay [] ICU visit [] Other: Relational/Emotional Strength [] Patient feels connected with others/family/visitors/staff [] Distress [] Loneliness/isolation [] Abandonment Spirituality of Patient [] Person of [place] [] Attends Latter Day of their [place] [] Believes in Prayer [] Reads Bible or Gnosticism materials [] There are Spiritual issues to be addressed Customer Success Director Interventions [] Prayer [] Active listening [] Non-anxious presence [] Spiritual/emotional support [] Crisis/trauma care [] Spiritual counseling [] Bereavement support [] Provided bereavement packet [] Provided Bible/devotional materials [] Provided toy/stuffed animal, coloring book to patient or family member [] Provided Communion [] Anointing/[place] [] Salvation [] Completed spiritual assessment [] Other: Impact on Illness or Injury [] Angry [] Fearful [x] Anxious [] Often cries [] Exhaustion [x] Unable to work [] Unable to attend buddhism [] Unable to walk/stand [] Unable to read [] Unable to drive [] Unable to eat/drink [] Unable to sleep [] Unable to be with family [] Patient intubated [] Other: Summary chest pain has waiting doctors report a good attitude changing meds well be going home Time spent with patient 10 mins
[2022-02-12] MEDS: benztropine 1 mg Tablet PO (12:35)
[2022-02-12] MEDS: enoxaparin 40 mg/0.4 mL Syringe SUBCUT (12:35)
--- NOTE | 2022-02-12 14:12 | P.DS_ITS ---
Discharge Providers Date of Admission: 02/11/22 12:29 Date of Discharge: February 12, 2022 Attending Provider at Admission: Sunny Mart MD Attending Provider at Discharge: Sunny Mart MD Primary Care Provider: Tray Dennis Diagnoses at Discharge Discharge Diagnosis (1) Chest pain: Status: Acute Qualifiers: Chest pain type: unspecified Qualified Code(s): R07.9 - Chest pain, unspecified (2) Hypertension: Status: Acute (3) Bipolar disorder, current episode depressed, moderate: Status: Acute (4) Intellectual disability: Status: Acute (5) Dyslipidemia: Status: Acute (6) Diabetes: Status: Acute Reason for Visit Reason for Visit: CHEST PAIN Hospital Course Hospital Course Jared Sofia is a 71 year old male with a past medical history significant for intellectual disability, coronary artery disease with recent PCI w/ KHOA to mid LAD in January 2022, type 2 diabetes mellitus, hypertension, dyslipidemia, and COPD who presents to the emergency department complaining of chest x1 day.?Acute coronary syndrome was considered and ruled out with serial troponin and telemetry monitoring. Patient underwent cardiac stress testing which showed agitation artifacts and low probability for coronary ischemia. Chest pain resolved. Patient's anti-anginal regimen was adjusted to include Imdur. He was discharged to home in stable condition. Physical Exam Narrative: General: Patient is awake and alert. NAD. Head:? Normocephalic. Atraumatic. Neck: No JVD. Cardiovascular: RRR. No gallops. No murmurs. No peripheral edema. Lungs: Clear to auscultation, no use of accessory muscles, no crackles or wheezes. Skin: No jaundice. No rashes. Abdomen: Normal bowel sounds, abdomen soft and nontender. Genito Urinary: Genital exam not performed since complaints not related. Rectal: Rectal exam not performed since no symptoms indicated blood loss. Extremeties: No cyanosis or clubbing. Neurological: Moves all 4 extremities. No myoclonus. Discharge Data Studies Completed and Pending Completed Studies During Hospitalization Category Date Time Status Sestamibi Stress Test Request Routine Exams 02/12/22 06:00 Completed XR chest 1V portable [id number] Stat Exams 02/11/22 09:02 Completed NM [place] perf SPECT r/s* [id number] Routine Nuc Med 02/12/22 Completed Radiology Impressions Chest X-Ray 02/11/22 09:02 IMPRESSION: Stable chest with no acute abnormality identified. Laboratory Results WBC 7.3 10^3/uL (4.0-10.0) 02/12/22 04:54 RBC 4.89 10^6/uL (4.1-5.3) 02/12/22 04:54 Hgb 13.5 g/dL (11.7-16.6) 02/12/22 04:54 Hct 42.8 % (42.0-52.0) 02/12/22 04:54 MCV 87.5 fl (80-94) 02/12/22 04:54 MCH 27.6 pg (28.0-34.0) L 02/12/22 04:54 MCHC 31.5 g/dL (30.0-36.0) D 02/12/22 04:54 RDW 13.5 % (12.1-15.1) 02/12/22 04:54 Plt Count 221 10^3/cmm (130-400) 02/12/22 04:54 MPV 11.4 fL (7.4-10.4) H 02/12/22 04:54 Neut % (Auto) 62.4 % 02/12/22 04:54 Lymph % (Auto) 18.4 % 02/12/22 04:54 [place] % (Auto) 14.3 % 02/12/22 04:54 Eos % (Auto) 4.1 % 02/12/22 04:54 Baso % (Auto) 0.5 % 02/12/22 04:54 Neut # (Auto) 4.55 10^3/uL (1.8-7.7) 02/12/22 04:54 Lymph # (Auto) 1.3 10^3/uL (0.8-4.8) 02/12/22 04:54 [place] # (Auto) 1.0 10^3/uL (0.2-0.9) H 02/12/22 04:54 Eos # (Auto) 0.3 10^3/uL (0.0-0.8) 02/12/22 04:54 Baso # (Auto) 0.0 10^3/uL (0.0-0.1) 02/12/22 04:54 Nucleated RBC % (auto) 0 % 02/12/22 04:54 Nucleated RBCs # 0.0 /100WBC 02/12/22 04:54 Sodium 134 mmol/L (136-145) L 02/12/22 04:54 Potassium 4.2 mmol/L (3.5-5.1) 02/12/22 04:54 Chloride 104 mmol/L (98-107) 02/12/22 04:54 Carbon Dioxide 18 mmol/L (22-29) L 02/12/22 04:54 Anion Gap 16.2 (5-19) 02/12/22 04:54 BUN 24 mg/dL (8-23) H 02/12/22 04:54 Creatinine 0.9 mg/dL (0.7-1.2) 02/12/22 04:54 GFR Calculation Not Reportable 02/12/22 04:54 Glucose 101 mg/dL (65-115) 02/12/22 04:54 POC Glucose 96 mg/dL (70-110) 02/12/22 06:10 Calculated Osmolality Cancelled 02/12/22 04:54 Calcium 10.1 mg/dL (8.5-10.5) 02/12/22 04:54 Phosphorus 2.7 mg/dL (2.5-4.5) 02/12/22 04:54 Total Bilirubin 0.2 mg/dL (0.15-1.2) 02/11/22 09:35 AST 20 U/L (0-40) 02/11/22 09:35 ALT 16 U/L (0-41) 02/11/22 09:35 Alkaline Phosphatase 94 IU/L (40-130) 02/11/22 09:35 Troponin T Baseline 27 ng/L (0-15) H 02/11/22 09:35 Troponin T 120 Minute 27.40 ng/L (0-15) H 02/11/22 11:40 Delta Troponin T 0.40 ABS# (0-10) 02/11/22 11:40 Troponin T Hi Sens 6Hr 31.07 ng/L (0-15) H 02/11/22 15:34 Troponin T Hi Sens 6Hr Delta 4.07 ng/L (0-12) 02/11/22 15:34 Total Protein 7.1 g/dL (6.6-8.7) 02/11/22 09:35 Albumin 4.2 g/dL (3.5-5.2) 02/12/22 04:54 Globulin 3.3 g/dL (1.3-4.6) 02/11/22 09:35 Vitals Last Vital Signs Temp 97.3 F L 02/11/22 20:00 Pulse 63 02/12/22 11:07 Resp 16 02/12/22 11:07 BP 172/87 02/12/22 11:07 Pulse Ox 98 02/12/22 11:07 Discharge Plan Discharge Patient Disposition: Home Condition: Stable Prescriptions: New isosorbide mononitrate 30 mg tablet extended release 24 hr 30 mg PO DAILY Qty: 30 0RF Continued benztropine 1 mg tablet See Rx Instructions .ROUTE .COMPLEX 0RF Rx Instructions: 2mg po qam, 1mg po at noon and 1mg po at bedtime oxcarbazepine [Trileptal] 600 mg tablet 600 mg PO BID 0RF venlafaxine 75 mg tablet 75 mg PO QAM 0RF trazodone 50 mg tablet 50 mg PO BEDTIME 0RF omeprazole 40 mg capsule,delayed release(DR/EC) 20 - 40 mg PO DAILY PRN (Reason: Heartburn) 0RF nitroglycerin 0.4 mg tablet, sublingual 0.4 mg sublingual Q5M PRN (Reason: Chest Pain) 0RF Rx Instructions: do not exceed 3 doses per episode hydralazine 100 mg tablet 100 mg PO Q8H Qty: 90 5RF topiramate 50 mg tablet 50 mg PO TID 0RF glimepiride 1 mg tablet 1 mg PO QAM 0RF aspirin 81 mg tablet,delayed release (DR/EC) 81 mg PO QAM 0RF clopidogrel 75 mg tablet 75 mg PO QAM 0RF Zetia 10 mg tablet 10 mg PO QPM 0RF spironolactone 25 mg tablet 25 mg PO QAM 0RF Rx Instructions: for edema/shortness of breath losartan 100 mg tablet 100 mg PO QPM 0RF Discharge Orders: Discharge Order (Routine); Ordered 02/12/22 Ordered By: Sunny Mart Referrals: Tray Dennis [Primary Care Provider] - 1 week Discharge Diet: Cardiac Discharge Activity: Increase activity as tolerated Patient Instructions: Isosorbide Mononitrate (By mouth) (Imdur, Imdur ER, Ismo), Opioid Safety Discharge Attestations Time Spent in Discharge Care*: greater than 30 min Quality Metrics Clinical Quality Measures [ No reported AMI, CVA or VTE this stay] Coding Level of Care Code Acute Chg FW DC note Diagnoses Chest pain R07.9 Chest pain type: unspecified Hypertension I10 Bipolar disorder, current episode depressed, moderate F31.32 Intellectual disability F79 Dyslipidemia E78.5 Diabetes E11.9
--- NOTE | 2022-02-12 16:03 | PC.NURSE ---
Jared's step mother concerned about discharge. She states that pt has become aggressive since changing medication last admission. I requested Dr. Mart call and discuss with her, which he did. On follow up phone call she is very much relieved and happy with the patients care and discharge plan. No further concerns from her at this time. 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 Discharge paperwork given to the patient, discharge instructions previously discussed with mother, and also with the patient. piv dc'd, coban placed due to bleeding, instructed to remove in 30 minutes. Pt left via [place] to private vehicle. New Rx sent to [facility] in [place].
== END 2022-02-12 16:02 | disposition home or self-care (01) ==
LOC: ER 12:40 → CSU 13:00
PROVIDERS: Admitting Provider Internal Medicine; Emergency Provider Family Medicine; PCP Family Medicine; Visit Provider Internal Medicine
DX: R07.9 Chest pain, unspecified (principal); I10 Essential (primary) hypertension; F31.32 Bipolar disorder, current episode depressed, moderate; F79 Unspecified intellectual disabilities; E78.5 Hyperlipidemia, unspecified; E11.9 Type 2 diabetes mellitus without complications; I25.10 Atherosclerotic heart disease of native coronary artery without angina pectoris; J44.9 Chronic obstructive pulmonary disease, unspecified; F41.1 Generalized anxiety disorder; I45.10 Unspecified right bundle-branch block
CPT/HCPCS: 36416; 71045; 78452; 80053; 80069; 82962; 84484; 85025; 93005; 93017; 96372; 96374; 99285; A9500; G0378; J1650; J2405; J2785

== ENCOUNTER → 2022-03-05 13:27 | Outpatient (BNVA) | payer MEDICARE, SELFPAY | PROVIDERS: PCP Family Medicine; Visit Provider Internal Medicine Cardiovascular Disease | DX: I25.10 Atherosclerotic heart disease of native coronary artery without angina pectoris (principal); E78.5 Hyperlipidemia, unspecified; E11.9 Type 2 diabetes mellitus without complications; F79 Unspecified intellectual disabilities; F31.32 Bipolar disorder, current episode depressed, moderate; Z79.84 Long term (current) use of oral hypoglycemic drugs; I10 Essential (primary) hypertension | CPT/HCPCS: 99214 ==

== ENCOUNTER 2022-06-25 09:27 | Emergency (ER) | payer MEDICARE, SELFPAY ==
[2022-06-25] VITALS (7 sets, daily range): BP systolic 144–172; BP diastolic 81–93; PULSE 69–80; RESP 17–21; TEMP 37.1; O2SAT 96–99; BMI 29.8
--- NOTE | 2022-06-25 09:56 | XR_ITS ---
WS: [id number] Portable AP upright chest, 06/25/2022 Clinical Data: cp Comparison: Portable chest, 02/11/2022. Findings: No nodules, masses or effusions are seen. The heart is slightly enlarged. The pulmonary vas cularity is not increased. No pneumonia or pneumothorax is seen. The descending thoracic aorta shows mild tortuosity. There are monitor leads on the chest wall. XR/XR chest 1V portable [id number] Impression: Cardiomegaly and atherosclerosis.
--- NOTE | 2022-06-25 10:11 | ED_ITS ---
HPI - Chest Pain General: Chief Complaint: Chest Pain Stated Complaint: cp, behaviors Time Seen by Provider: 06/25/22 09:54 Source: patient Mode of arrival: ambulatory Limitations: no limitations History of Present Illness: 71-year-old male states that he and became angry today states he got angry started having some chest pain. States pain has been in the center of his chest some radiation to the epigastric region. He states he is now pain-free has had a history of heart disease along with chest pain denies any shortness of breath denies any nausea denies any diaphoresis. He has had no vomiting or diarrhea. Associated symptoms: Deny abdominal pain, dyspnea, fever(s), nausea or vomiting Review of Systems Const: Denies: fever(s), chills, body aches or change in appetite Eyes: Denies: blurry vision or eye discomfort ENMT: Denies: throat pain or dental pain Card: Reports: chest pain Resp: Denies: dyspnea GI: Denies: abdominal pain, nausea, vomiting or diarrhea : Denies: dysuria Musc: Denies: neck pain or back pain Skin/Breast: Denies: rash Neuro: Denies: headache(s) Psych: Denies: depression Keyur/Lymph: Denies: easy bruising All/Imm: Denies: urticaria PFSH ED PFSH: Medical History Atherosclerosis of coronary artery Bipolar disorder, current episode depressed, moderate Diabetes SHANTEL (generalized anxiety disorder) Hyperlipidemia, unspecified Hypertension Intellectual disability Surgical History History of appendectomy Family History Grandfather Bleeding disorder Clotting disorder Mother CAD (coronary artery disease), Onset Age: 70 Father CAD (coronary artery disease), Onset Age: 70 Cancer Diabetes Lung disease Brother CAD (coronary artery disease), Onset Age: 70 Other Hypertension Denies family history of Dementia Chronic kidney disease (CKD) Suicide Anesthesia complication Stroke Social History Smoking and tobacco status: never smoked Second hand smoke exposure: No Smoking risk assessment/counseling performed?: No Alcohol intake: former Desire information about alcohol rehabilitation?: No Counseling given: No Desire information about substance/drug rehabilitation?: No Counseling given: No Physical Exam Const: COMMON NORMALS: no acute distress, patient oriented x3 and healthy appearing HENMT: COMMON NORMALS: normocephalic and atraumatic HEAD & SCALP: normocephalic and atraumatic Eye: COMMON NORMALS: Equal, round and reactive pupils present and EOMs intact bilaterally PUPIL: Yes Equal, round and reactive pupils present Neck/C-Spine: COMMON NORMALS: full ROM and supple Chest: COMMONS NORMALS: normal inspection of the chest and normal palpation of entire chest wall Resp: COMMON NORMALS: normal respiratory effort, No retractions, No use of accessory muscles and clear to auscultation bilaterally AUSCULTATION: clear to auscultation bilaterally Cardio: COMMON NORMALS: regular rate, regular rhythm and No murmurs present ( Cardio) RATE: regular rate RHYTHM: regular rhythm GI: COMMON NORMALS: Normal to inspection, nondistended, normoactive bowel sounds present, Soft to palpation, non-tender and no masses PALPATION: Yes Soft to palpation Extremity: COMMON NORMALS: normal to inspection and full ROM Neuro: COMMON NORMALS: patient oriented x3, moves all extremities and no focal motor deficits Psych: COMMON NORMALS: mental status grossly normal, Normal thought process present and cooperative THOUGHT PROCESS: Normal thought process present Skin: COMMON NORMALS: no rashes or lesions noted and no wounds GENERAL SKIN EXAM: no rashes or lesions noted Course Vital Signs: Vital signs: Vital Signs Temperature 98.7 F 06/25/22 09:34 Pulse Rate 69 06/25/22 12:40 Respiratory Rate 18 06/25/22 12:40 Blood Pressure 164/81 06/25/22 12:40 Pulse Oximetry 99 06/25/22 12:40 Oxygen Delivery Me thod 06/25/22 12:40 MDM - Chest Pain Medical Decision Making Patient presents here with chest pain atypical in nature he is well-appearing here initial repeat troponins here are negative he has no signs of acute coronary syndrome or dissection he is stable for discharge she is to follow-up PCP and return if worsening. Lab Data : 06/25/22 10:22 06/25/22 10:22 Radiology Impressions Chest X-Ray 06/25/22 09:56 Impression: Cardiomegaly and atherosclerosis. Head CT 06/25/22 11:31 IMPRESSION: 1. No evidence of intracranial hemorrhage or mass effect. 2. Mild small vessel changes. Mild parenchymal volume loss. 3. Small vessel changes progressed 2014 4. No acute intracranial findings. Notified Dawson Masterson MD at 06/25/2022 12:45 PM. Laboratory Results WBC 6.4 10^3/uL (4.0-10.0) 06/25/22 10: RBC 4.86 10^6/uL (4.1-5.3) 06/25/22 10:22 Hgb 13.3 g/dL (11.7-16.6) 06/25/22 10:22 Hct 42.2 % (42.0-52.0) 06/25/22 10: MCV 86.8 fl (80-94) 06/25/22 10:22 MCH 27.4 pg (28.0-34.0) L 06/25/22 10: MCHC 31.5 g/dL (30.0-36.0) 06/25/22 10:22 RDW 14.2 % (12.1-15.1) 06/25/22 10:22 Plt Count 181 10^3/cmm (130-400) 06/25/22 10: MPV 11.2 fL (7.4-10.4) H 06/25/22 10:22 Neut % (Auto) 69.7 % 06/25/22 10:22 Lymph % (Auto) 15.3 % 06/25/22 10:22 [place] % (Auto) 12.9 % 06/25/22 10:22 Eos % (Auto) 1.4 % 06/25/22 10:22 Baso % (Auto) 0.5 % 06/25/22 10:22 Neut # (Auto) 4.47 10^3/uL (1.8-7.7) 06/25/22 10:22 Lymph # (Auto) 1.0 10^3/uL (0.8-4.8) 06/25/22 10:22 [place] # (Auto) 0.8 10^3/uL (0.2-0.9) 06/25/22 10:22 Eos # (Auto) 0.1 10^3/uL (0.0-0.8) 06/25/22 10:22 Baso # (Auto) 0.0 10^3/uL (0.0-0.1) 06/25/22 10:22 Nucleated RBC % (auto) 0 % 06/25/22 10:22 Nucleated RBCs # 0.0 /100WBC 06/25/22 10:22 Sodium 139 mmol/L (136-145) 06/25/22 10:22 Potassium 4.2 mmol/L (3.5-5.1) 06/25/22 10:22 Chloride 109 mmol/L (98-107) H 06/25/22 10:22 Carbon Dioxide 21 mmol/L (22-29) L 06/25/22 10:22 Anion Gap 13.2 (5-19) 06/25/22 10:22 BUN 22 mg/dL (8-23) 06/25/22 10:22 Creatinine 1.0 mg/dL (0.7-1.2) 06/25/22 10:22 GFR Calculation Not Reportable 06/25/22 10:22 Glucose 131 mg/dL (65-115) H 06/25/22 10:22 Calculated Osmolality 293 mOsm/kg (285-295) 06/25/22 10:22 Calcium 9.0 mg/dL (8.5-10.5) 06/25/22 10:22 Total Bilirubin 0.2 mg/dL (0.15-1.2) 06/25/22 10:22 AST 19 U/L (0-40) 06/25/22 10:22 ALT 14 U/L (0-41) 06/25/22 10:22 Alkaline Phosphatase 89 U/L (40-130) 06/25/22 10:22 Troponin T Baseline 34 ng/L (0-15) H 06/25/22 10:22 Troponin T 120 Minute 34.85 ng/L (0-15) H 06/25/22 12:51 Delta Troponin T 0.85 ABS# (0-10) 06/25/22 12:51 Total Protein 6.7 g/dL (6.6-8.7) 06/25/22 10:22 Albumin 3.5 g/dL (3.5-5.2) 06/25/22 10:22 Globulin 3.2 g/dL (1.3-4.6) 06/25/22 10:22 EKG Data EKG 1: I personally reviewed and interpreted this EKG as follows: EKG interpretation date: 06/25/22 EKG interpretation time: 10:20 Interpretation: nsr hr [address] elevation qrs 159 qtc 471 no change from previous ekg Discharge Plan Discharge Patient Disposition: Home Clinical Impression: Chest pain Qualifiers: Chest pain type: unspecified Qualified Code(s): R07.9 - Chest pain, unspecified Condition: Stable Prescriptions: No Action benztropine 1 mg tablet See Rx Instructions .ROUTE .COMPLEX Rx Instructions: 2mg po qam, 1mg po at noon and 1mg po at bedtime oxcarbazepine [Trileptal] 600 mg tablet 600 mg PO BID venlafaxine 75 mg tablet 75 mg PO QAM nitroglycerin 0.4 mg tablet, sublingual 0.4 mg sublingual Q5M PRN (Reason: Chest Pain) Rx Instructions: do not exceed 3 doses per episode isosorbide mononitrate 60 mg tablet extended release 24 hr 60 mg PO DAILY Qty: 60 5RF topiramate 50 mg tablet 50 mg PO TID aspirin 81 mg tablet,delayed release (DR/EC) 81 mg PO QAM glimepiride 1 mg tablet 2 mg PO QAM trazodone 50 mg tablet 50 mg PO BEDTIME Vitamin C 500 mg Tablet 500 mg PO DAILY clopidogrel 75 mg tablet 75 mg PO QAM spironolactone 25 mg tablet 25 mg PO QAM Rx Instructions: for edema/shortness of breath Discharge Orders: Discharge ED (Routine); Ordered 06/25/22 Ordered By: Dawson Masterson Referrals: Tray Dennis [Primary Care Provider] - Discharge Diet: Advance as tolerated Discharge Activity: Resume usual activity Patient Instructions: Chest Pain (ED) Coding Level of Care Code ED Drama Professor for Chg Fwd Exam Comprehensive
--- NOTE | 2022-06-25 10:20 | ECG_ITS ---
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 Measurements Intervals [place] Rate: 80 P: -2 ID: [id number] QRS: -85 QRSD: 158 T: -84 QT: 435 QTc: 504 Interpretive Statements SINUS RHYTHM WITH FIRST DEGREE AV BLOCK WITH OCCASIONAL VENTRICULAR PREMATURE COMPLEXES RIGHT BUNDLE BRANCH BLOCK [120+ ms QRS DURATION, UPRIGHT V1, 40+ ms S IN I/aVL/V4/V5/V6] LEFT ANTERIOR FASCICULAR BLOCK [QRS AXIS <= -45, QR IN I, RS IN II] POSSIBLE SEPTAL MYOCARDIAL INFARCTION , OF INDETERMINATE AGE [30 ms Q WAVE IN V1/V2] MODERATE T-WAVE ABNORMALITY, CONSIDER LATERAL ISCHEMIA [-0.1+ mV T-WAVE IN I/aVL/V5/V6] MODERATE T-WAVE ABNORMALITY, CONSIDER INFERIOR ISCHEMIA [-0.1+ mV T-WAVE IN II/aVF] Compared to ECG 02/11/2022 15:28:32 Ventricular premature complex(es) now present Myocardial infarct finding now present T-wave abnormality now present Possible ischemia now present Electronically Signed On 06-25-2022 20:43:10 CDT by Angel Hargrove M.D. [id number]
[2022-06-25 10:29] LABS: Basophils % 0.5 %; Eosinophils # 0.1 10^3/uL (0.0-0.8); Eosinophils % 1.4 %; Hematocrit 42.2 % (42.0-52.0); Hemoglobin 13.3 g/dL (11.7-16.6); Lymphocytes % 15.3 %; Mean Corpuscular HGB Conc 31.5 g/dL (30.0-36.0); Mean Corpuscular Hemoglobin 27.4 pg (28.0-34.0); Mean Corpuscular Volume 86.8 fl (80-94); Mean Platelet Volume 11.2 fL (7.4-10.4); Monocytes # 0.8 10^3/uL (0.2-0.9); Monocytes % 12.9 %; Neutrophils # 4.47 10^3/uL (1.8-7.7); Neutrophils % 69.7 %; Nucleated Red Blood Cells % 0 %; Platelet Count 181 10^3/cmm (130-400); Red Blood Count 4.86 10^6/uL (4.1-5.3); Red Cell Distribution Width 14.2 % (12.1-15.1); White Blood Count 6.4 10^3/uL (4.0-10.0)
[2022-06-25 11:10] LABS: Alanine Aminotransferase 14 U/L (0-41); Albumin Level 3.5 g/dL (3.5-5.2); Alkaline Phosphatase 89 U/L (40-130); Aspartate Amino Transferase 19 U/L (0-40); Blood Urea Nitrogen 22 mg/dL (8-23); Carbon Dioxide 21 mmol/L (22-29); Chloride 109 mmol/L (98-107); Globulin 3.2 g/dL (1.3-4.6); Glucose 131 mg/dL (65-115); Osmolality Calculated 293 mOsm/kg (285-295); Sodium 139 mmol/L (136-145); Total Bilirubin 0.2 mg/dL (0.15-1.2); Total Protein 6.7 g/dL (6.6-8.7)
[2022-06-25 11:12] LABS: Anion Gap 13.2 (5-19); Potassium 4.2 mmol/L (3.5-5.1)
[2022-06-25 11:13] LABS: Troponin(5th) Baseline 34 ng/L (0-15)
--- NOTE | 2022-06-25 11:31 | CT_ITS ---
WS: [id number] CT HEAD TECHNIQUE: Noncontrast CT of the head obtained from the skullbase to the vertex. CLINICAL INFORMATION: ams COMPARISON: 2013 DLP: 1078.[address] scans at [facility] use at least one of these dose optimization techniques: automated e xposure control; mA and/or kV adjustment per patient size (includes targeted exams where dose is matc hed to clinical indication); or iterative reconstruction. FINDINGS: No evidence of intracranial hemorrhage or mass effect. Ventricular system and basal cisterns are hearn nt. Mild small vessel changes with mild parenchymal volume loss. No extra-axial fluid collections. No evidence of mass or mass effect. Paranasal sinuses and mastoid air cells are well aerated. .Normal visualized soft tissues. Normal pos terior nasopharynx. CT/CT head wo con* [id number] IMPRESSION: 1. No evidence of intracranial hemorrhage or mass effect. 2. Mild small vessel changes. Mild parenchymal volume loss. 3. Small vessel changes progressed 2013 4. No acute intracranial findings. Notified Dawson Masterson MD at 06/25/2022 12:45 PM.
[2022-06-25 13:23] LABS: Troponin 5 2HR 34.85 ng/L (0-15)
[2022-06-25 13:26] LABS: Troponin 5 2HR Delta 0.85 ABS# (0-10)
--- NOTE | 2022-06-25 13:45 | PC.NURSE ---
Patient given sandwich bag. This RN update family member on discharge status. She will be sending a ride for patient.
--- NOTE | 2022-06-25 14:56 | PC.NURSE ---
Patient disconnected self from monitoring equipment and refusing updated set of vitals. Frank, Familiy member, at bedside to transport patient home.
== END 2022-06-25 14:58 | disposition home or self-care (01) ==
PROVIDERS: Emergency Provider Emergency Medicine; PCP Family Medicine
DX: R07.9 Chest pain, unspecified (principal); Z79.84 Long term (current) use of oral hypoglycemic drugs; Z79.82 Long term (current) use of aspirin; Z79.02 Long term (current) use of antithrombotics/antiplatelets; E11.9 Type 2 diabetes mellitus without complications; I25.10 Atherosclerotic heart disease of native coronary artery without angina pectoris; E78.5 Hyperlipidemia, unspecified; I10 Essential (primary) hypertension
CPT/HCPCS: 36415; 70450; 71045; 80053; 84484; 85025; 93005; 99285

== ENCOUNTER 2022-06-28 09:40 | Observation (INO) | payer MEDICARE, SELFPAY ==
[2022-06-28] VITALS (7 sets, daily range): BP systolic 111–180; BP diastolic 69–88; PULSE 60–85; RESP 15–21; TEMP 36.3–36.4; O2SAT 95–99; BMI 27.8; BMI 28.8
--- NOTE | 2022-06-28 09:46 | ECG_ITS ---
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1950 Requested By: Waylon Anders Order Number: [id number] Reading MD: Measurements Intervals [place] Rate: 78 P: MT: QRS: -82 QRSD: 184 T: 231 QT: 414 QTc: 472 Interpretive Statements UNCERTAIN REGULAR RHYTHM RIGHT BUNDLE BRANCH BLOCK [120+ ms QRS DURATION, UPRIGHT V1, 40+ ms S IN I/aVL/V4/V5/V6] LEFT ANTERIOR FASCICULAR BLOCK [QRS AXIS <= -45, QR IN I, RS IN II] MODERATE T-WAVE ABNORMALITY, CONSIDER LATERAL ISCHEMIA [-0.1+ mV T-WAVE IN I/aVL/V5/V6] MODERATE T-WAVE ABNORMALITY, CONSIDER INFERIOR ISCHEMIA [-0.1+ mV T-WAVE IN II/aVF] No previous ECG available for comparison [id number] f
--- NOTE | 2022-06-28 09:51 | XRR_ITS ---
PROCEDURE INFORMATION: Exam: XR Chest Exam date and time: 06/28/2022 9:57 AM Age: 71 years old Clinical indication: Pain; Chest pressure; Additional info: Cp TECHNIQUE: Imaging protocol: Radiologic exam of the chest. Views: 1 view. COMPARISON: CR XR chest 1V portable [id number] 06/25/2022 10:13 AM FINDINGS: Lungs: Unremarkable. No consolidation. Pleural spaces: Unremarkable. No pleural effusion. No pneumothorax. Heart/Mediastinum: Unremarkable. No cardiomegaly. Bones/joints: Unremarkable. XR/XR chest 1V portable [id number] IMPRESSION: No acute findings.
[2022-06-28 10:13] LABS: Basophils % 0.3 %; Eosinophils # 0.1 10^3/uL (0.0-0.8); Eosinophils % 1.8 %; Hematocrit 40.1 % (42.0-52.0); Lymphocytes # 1.1 10^3/uL (0.8-4.8); Lymphocytes % 18.3 %; Mean Corpuscular HGB Conc 32.4 g/dL (30.0-36.0); Mean Corpuscular Hemoglobin 27.3 pg (28.0-34.0); Mean Corpuscular Volume 84.1 fl (80-94); Mean Platelet Volume 11.4 fL (7.4-10.4); Monocytes # 0.8 10^3/uL (0.2-0.9); Monocytes % 13.1 %; Neutrophils # 3.99 10^3/uL (1.8-7.7); Neutrophils % 66.3 %; Nucleated Red Blood Cells % 0 %; Platelet Count 178 10^3/cmm (130-400); Red Blood Count 4.77 10^6/uL (4.1-5.3); Red Cell Distribution Width 14.2 % (12.1-15.1)
[2022-06-28 10:31] LABS: Alanine Aminotransferase 14 U/L (0-41); Alkaline Phosphatase 86 U/L (40-130); Anion Gap 13.4 (5-19); Aspartate Amino Transferase 18 U/L (0-40); Blood Urea Nitrogen 26 mg/dL (8-23); Calcium 8.9 mg/dL (8.5-10.5); Carbon Dioxide 22 mmol/L (22-29); Chloride 111 mmol/L (98-107); Globulin 2.1 g/dL (1.3-4.6); Glucose 116 mg/dL (65-115); Osmolality Calculated 300 mOsm/kg (285-295); Potassium 4.4 mmol/L (3.5-5.1); Sodium 142 mmol/L (136-145); Total Bilirubin 0.2 mg/dL (0.15-1.2); Total Protein 6.1 g/dL (6.6-8.7)
[2022-06-28 10:43] LABS: Troponin(5th) Baseline 41 ng/L (0-15)
--- NOTE | 2022-06-28 10:46 | W.ED.CHESTPA ---
HPI - Chest Pain General: Chief Complaint: Chest Pain Stated Complaint: chest pain Time Seen by Provider: 06/28/22 09:51 Source: patient Mode of arrival: EMS Limitations: no limitations History of Present Illness: This patient presents to the emergency department because of chest pain symptoms. He states it began approximately 630 this morning when he was getting ready breakfast. He states it felt like heartburn pain. He states it also seems to worsen when he takes a deep breath. He does have a known history of coronary artery disease and had stents placed in this past year. He was seen by EMS and upon arrival was given 324 of aspirin as well as nitro paste prior to arrival. He states he is not having any pain at this time. He denies any shortness of breath or cough chest injury recent illness fevers etc. MD complaint: chest pain Pertinent past history: coronary artery disease Onset: during rest Pain location: substernal Quality: aching Exacerbating factors: inspiration and palpation Context: recent illness Associated symptoms: Deny abdominal pain, fever(s), nausea, palpitations, syncope or vomiting Review of Systems Const: Denies: fever(s) or chills Eyes: Denies: change in vision ENMT: Denies: throat pain, odynophagia, ear discharge or change in hearing Card: Denies: palpitations, irregular heart rhythm, syncope or pre-syncope GI: Denies: abdominal pain, nausea, vomiting, hematochezia or melena : Denies: flank pain, difficulty urinating, dysuria or urinary frequency Musc: Denies: neck pain, back pain, extremity pain or extremity swelling Skin/Breast: Denies: rash or pruritus Neuro: Denies: headache(s) or numbness in extremities Psych: Denies: auditory hallucinations, tactile hallucinations, suicidal ideation or homicidal ideation Endo: Denies: polyuria or polydipsia PFSH ED PFSH: Medical History Atherosclerosis of coronary artery Bipolar disorder, current episode depressed, moderate Diabetes SHANTEL (generalized anxiety disorder) Hyperlipidemia, unspecified Hypertension Intellectual disability Surgical History History of appendectomy Family History Grandfather Bleeding disorder Clotting disorder Mother CAD (coronary artery disease), Onset Age: 70 Father CAD (coronary artery disease), Onset Age: 70 Cancer Diabetes Lung disease Brother CAD (coronary artery disease), Onset Age: 70 Other Hypertension Denies family history of Dementia Chronic kidney disease (CKD) Suicide Anesthesia complication Stroke Social History Smoking and tobacco status: never smoked Second hand smoke exposure: No Smoking risk assessment/counseling performed?: No Alcohol intake: former Desire information about alcohol rehabilitation?: No Counseling given: No Desire information about substance/drug rehabilitation?: No Counseling given: No Physical Exam Narrative: EXAM NARRATIVE: Patient is alert and cooperative and interacts in an appropriate fashion. Const: COMMON NORMALS: no acute distress and average body habitus GENERAL APPEARANCE: cooperative and comfortable HENMT: COMMON NORMALS: normocephalic, Normal nasal mucous membranes and turbinates present, moist oral mucous membranes and oropharynx normal HEAD & SCALP: normocephalic FACE & SINUS: normal facial exam NOSE: Normal nasal mucous membranes and turbinates present Eye: COMMON NORMALS: Equal, round and reactive pupils present, EOMs intact bilaterally and conjunctivae normal CONJUNCTIVA: Yes conjunctivae normal PUPIL: Yes Equal, round and reactive pupils present Neck/C-Spine: COMMON NORMALS: full ROM, no lymphadenopathy, supple and no meningeal signs Lymph: LYMPHATIC: no lymphadenopathy noted Chest: COMMONS NORMALS: normal inspection of the chest OTHER: Anterior chest wall tenderness to palpation with subjective symptoms. No ecchymosis, skin rashes, subcutaneous emphysema. Resp: COMMON NORMALS: normal respiratory effort AUSCULTATION: rhonchi (Scattered rhonchi and crackles at bases.) Cardio: COMMON NORMALS: regular rate, regular rhythm, No murmurs present (Cardio) and Peripheral pulses 2+ throughout RATE: regular rate RHYTHM: regular rhythm PERIPHERAL PULSES: Peripheral pulses 2+ throughout GI: COMMON NORMALS: Normal to inspection, nondistended, normoactive bowel sounds present, Soft to palpation, non-tender and no masses PALPATION: Yes Soft to palpation Back/Pelvis: COMMON NORMALS: thoracic and lumbar spine normal to inspection, no thoracic nor lumbar tenderness and straight leg raise negative bilaterally Extremity: COMMON NORMALS: normal to inspection, full ROM, capillary refill normal, no calf tenderness and no pedal edema Neuro: COMMON NORMALS: moves all extremities, no focal motor deficits and no sensory deficits noted MENINGEAL SIGNS: Yes no meningeal signs CRANIAL NERVES: Yes CN normal except as noted SPEECH: speech normal Psych: COMMON NORMALS: mental status grossly normal Skin: COMMON NORMALS: no rashes or lesions noted, no wounds and no jaundice GENERAL SKIN EXAM: no rashes or lesions noted Course Reevaluation(s): Reevaluation #1: Patient remains clinically stable. His second troponin is still elevated over the cutoff but not significantly increased from his first. I reviewed his sestamibi scan in February which was unrevealing for any signs of reversible ischemia at that time. We will [place] check a D-dimer to ensure there is no active thromboembolic process and then discussed with hospitalist regarding observation. Time: 13:13 Consultations: Consultation #1: Discussed with Dr. Castellanos the hospitalist team. Time: 13:41 Consultation #2: Discussed with landscape photographer Dr. Hargrove. He will see in consultation Time: 14:03 Vital Signs: Vital signs: Vital Signs Temperature 97.5 F L 06/28/22 09:47 Pulse Rate 85 06/28/22 13:30 Respiratory Rate 15 06/28/22 13:30 Blood Pressure 134/88 06/28/22 13:30 Pulse Oximetry 99 06/28/22 13:30 Oxygen Delivery Me thod 06/28/22 13:30 MDM - Chest Pain Medical Decision Making Individual presented to the emergency department with chest pain. He has known coronary disease and is previously received coronary artery stents. Pain pattern was difficult to discern due to his rather reticent communication. His initial troponin was noted to be elevated and his subsequent troponin remained in that same range without any significant continued abs elevation. His serial resting EKGs at this visit showed some biphasic T waves in the lateral precordial leads which appears to be different than prior tracings available within our system. Lab Data I reviewed the patient's lab results. : 06/28/22 10:05 06/28/22 10:05 Radiology Impressions Chest X-Ray 06/28/22 09:51 IMPRESSION: No acute findings. Laboratory Results WBC 6.0 10^3/uL (4.0-10.0) 06/28/22 10:05 RBC 4.77 10^6/uL (4.1-5.3) 06/28/22 10:05 Hgb 13.0 g/dL (11.7-16.6) 06/28/22 10:05 Hct 40.1 % (42.0-52.0) L 06/28/22 10:05 MCV 84.1 fl (80-94) 06/28/22 10:05 MCH 27.3 pg (28.0-34.0) L 06/28/22 10:05 MCHC 32.4 g/dL (30.0-36.0) 06/28/22 10:05 RDW 14.2 % (12.1-15.1) 06/28/22 10:05 Plt Count 178 10^3/cmm (130-400) 06/28/22 10:05 MPV 11.4 fL (7.4-10.4) H 06/28/22 10:05 Neut % (Auto) 66.3 % 06/28/22 10:05 Lymph % (Auto) 18.3 % 06/28/22 10:05 [place] % (Auto) 13.1 % 06/28/22 10:05 Eos % (Auto) 1.8 % 06/28/22 10:05 Baso % (Auto) 0.3 % 06/28/22 10:05 Neut # (Auto) 3.99 10^3/uL (1.8-7.7) 06/28/22 10:05 Lymph # (Auto) 1.1 10^3/uL (0.8-4.8) 06/28/22 10:05 [place] # (Auto) 0.8 10^3/uL (0.2-0.9) 06/28/22 10:05 Eos # (Auto) 0.1 10^3/uL (0.0-0.8) 06/28/22 10:05 Baso # (Auto) 0.0 10^3/uL (0.0-0.1) 06/28/22 10:05 Nucleated RBC % (auto) 0 % 06/28/22 10:05 Nucleated RBCs # 0.0 /100WBC 06/28/22 10:05 D-Dimer 0.41 ug/mIFEU (0-0.59) 06/28/22 10:05 Sodium 142 mmol/L (136-145) 06/28/22 10:05 Potassium 4.4 mmol/L (3.5-5.1) 06/28/22 10:05 Chloride 111 mmol/L (98-107) H 06/28/22 10:05 Carbon Dioxide 22 mmol/L (22-29) 06/28/22 10:05 Anion Gap 13.4 (5-19) 06/28/22 10:05 BUN 26 mg/dL (8-23) H 06/28/22 10:05 Creatinine 1.0 mg/dL (0.7-1.2) 06/28/22 10:05 GFR Calculation Not Reportable 06/28/22 10:05 Glucose 116 mg/dL (65-115) H 06/28/22 10:05 Calculated Osmolality 300 mOsm/kg (285-295) H 06/28/22 10:05 Calcium 8.9 mg/dL (8.5-10.5) 06/28/22 10:05 Total Bilirubin 0.2 mg/dL (0.15-1.2) 06/28/22 10:05 AST 18 U/L (0-40) 06/28/22 10:05 ALT 14 U/L (0-41) 06/28/22 10:05 Alkaline Phosphatase 86 U/L (40-130) 06/28/22 10:05 Troponin T Baseline 41 ng/L (0-15) H 06/28/22 10:05 Troponin T 120 Minute 41.44 ng/L (0-15) H 06/28/22 11:53 Delta Troponin T 0.44 ABS# (0-10) 06/28/22 11:53 Total Protein 6.1 g/dL (6.6-8.7) L 06/28/22 10:05 Albumin 4.0 g/dL (3.5-5.2) 06/28/22 10:05 Globulin 2.1 g/dL (1.3-4.6) 06/28/22 10:05 EKG Data EKG 1: Interpretation: Resting EKG reveals a ventricular rate of 78 bpm. P wave is indeterminate on this tracing however his rhythm is regular. He does have right bundle branch block pattern. EKG appears to be unchanged as compared to prior tracings within the system. EKG 2: I personally reviewed and interpreted this EKG as follows: EKG interpretation time: 12:01 Interpretation: Second EKG this visit reveals ventricular rate of 69 bpm with an indeterminate P wave. Still continues with a right bundle branch block. There are nonspecific T wave inversion V4 with biphasic T waves V5 and V6. Discharge Plan Discharge Patient Disposition: Placed in Observation Clinical Impression: Chest pain Condition: Stable Prescriptions: No Action benztropine 1 mg tablet See Rx Instructions .ROUTE .COMPLEX Rx Instructions: 2mg po qam, 1mg po at noon and 1mg po at bedtime oxcarbazepine [Trileptal] 600 mg tablet 600 mg PO BID venlafaxine 75 mg tablet 75 mg PO QAM nitroglycerin 0.4 mg tablet, sublingual 0.4 mg sublingual Q5M PRN (Reason: Chest Pain) Rx Instructions: do not exceed 3 doses per episode isosorbide mononitrate 60 mg tablet extended release 24 hr 60 mg PO DAILY Qty: 60 5RF topiramate 50 mg tablet 50 mg PO TID aspirin 81 mg tablet,delayed release (DR/EC) 81 mg PO QAM glimepiride 1 mg tablet 2 mg PO QAM trazodone 50 mg tablet 50 mg PO BEDTIME ascorbic acid (vitamin C) [Vitamin C] 500 mg Tablet 500 mg PO DAILY clopidogrel 75 mg tablet 75 mg PO QAM spironolactone 25 mg tablet 25 mg PO QAM Rx Instructions: for edema/shortness of breath Referrals: Tray Dennis [Primary Care Provider] - Coding Level of Care Code ED Grading Supervisor for Chg Fwd Exam Comprehensive
--- NOTE | 2022-06-28 11:51 | ECG_ITS ---
[facility] Test Date: 2022-06-28 Pat Name: Jared Sofia Department: Room: Gender: Male Clinical Education Manager: : 1950 Requested By: Waylon Anders Order Number: [id number] Reading MD: Measurements Intervals [place] Rate: 69 P: CT: QRS: -78 QRSD: 170 T: 245 QT: 437 QTc: 470 Interpretive Statements UNCERTAIN IRREGULAR RHYTHM RIGHT BUNDLE BRANCH BLOCK [120+ ms QRS DURATION, UPRIGHT V1, 40+ ms S IN I/aVL/V4/V5/V6] LEFT ANTERIOR FASCICULAR BLOCK [QRS AXIS <= -45, QR IN I, RS IN II] LEFT VENTRICULAR HYPERTROPHY AND ST-T CHANGE [VOLTAGE CRITERIA PLUS ST/T ABNORMALITY] POSSIBLE SEPTAL MYOCARDIAL INFARCTION , OF INDETERMINATE AGE [30 ms Q WAVE IN V1/V2] Compared to ECG 06/28/2022 09:46:35 Left ventricular hypertrophy now present ST (T wave) deviation now present Myocardial infarct finding now present T-wave abnormality no longer present Possible ischemia no longer present [id number]
[2022-06-28 12:22] LABS: Troponin 5 2HR 41.44 ng/L (0-15)
[2022-06-28 12:28] LABS: Troponin 5 2HR Delta 0.44 ABS# (0-10)
--- NOTE | 2022-06-28 13:30 | PC.NURSE ---
Patient step mother called, reports that patient has been aggressive and combative at home. She reports that he may need to have his normal medications adjusted. Patient has been cooperative while in ED. Lying in bed watching TV. Patient reports that he has been more aggressive at home. He states that behavior usually occurs in the evenings and morning.
[2022-06-28 13:31] LABS: D Dimer 0.41 ug/mIFEU (0-0.59)
--- NOTE | 2022-06-28 13:48 | PM.HP ---
Providers/Chief Complaint Primary Care Provider: Tray Dennis Chief Complaint: chest pain History of Present Illness Jared Sofia is a 71 year old male with who has history of coronary disease, recently PCI was done LAD, patient has intellectual disability, lives with his stepmother, today was sent to the hospital for chief complaint of chest pain. Patient is not reliable historian. His stepmother was called, she stating that around 6:30 AM when they were getting ready to attend the tenriism ceremony today Jared started complaining of chest pain, normally he can differentiate between heartburn and a chest pain but today he was getting short of breath and his mother could see that this was different from a heartburn history. That is why she has called 911 to get him checked up. Lately he has been experiencing aggressive behavior as well she is concerned if thyroid nodules have something to do with it. She is not thinking of sending him to Alzheimer's/dementia unit for now. Jared's father has and stepmother is avoiding to send him to a correction for now. In the ER troponins are stable they have not progressed significantly, EKG showing T wave inversion in lateral leads which is a new change from previous EKGs he does have first-degree AV block, right bundle branch block, history of A. fib I have requested TSH, thyroid ultrasound, free T4, thyroid antibodies D-dimer level Review of Systems Const: Reports: body aches Eyes: Denies: change in vision ENMT: Denies: throat pain Card: Reports: chest pain Resp: Reports: dyspnea GI: Denies: abdominal pain : Denies: flank pain Musc: Denies: neck pain Skin/Breast: Denies: rash Neuro: Denies: headache(s) Psych: Reports: anxiety and irritability Endo: Denies: polyuria Keyur/Lymph: Denies: easy bruising All/Imm: Denies: urticaria Medications/Allergies Home Medications Medication Instructions Recorded Confirmed Last Taken Type benztropine 1 mg tablet See Rx Instructions .Route .COMPLEX 08/11/21 06/28/22 06/25/22 History oxcarbazepine 600 mg tablet 600 mg PO BID 08/11/21 06/28/22 06/25/22 History (Trileptal) venlafaxine 75 mg tablet 75 mg PO QAM 08/11/21 06/28/22 06/25/22 History topiramate 50 mg tablet 50 mg PO TID 12/09/21 06/28/22 06/25/22 History aspirin 81 mg tablet,delayed 81 mg PO QAM 01/19/22 06/28/22 06/25/22 History release nitroglycerin 0.4 mg sublingual 0.4 mg sublingual Q5M PRN Chest 01/29/22 06/28/22 Unknown History tablet Pain clopidogrel 75 mg tablet 75 mg PO QAM 02/11/22 06/28/22 06/25/22 History spironolactone 25 mg tablet 25 mg PO QAM 02/11/22 06/28/22 06/25/22 History glimepiride 1 mg tablet 2 mg PO QAM 03/05/22 06/28/22 06/25/22 History isosorbide mononitrate 60 mg 60 mg PO DAILY #60 tabs 03/05/22 06/28/22 06/25/22 Rx tablet,extended release 24 hr ascorbic acid (vitamin C) 500 mg 500 mg PO DAILY 06/25/22 06/28/22 06/24/22 History tablet (Vitamin C) trazodone 50 mg tablet 50 mg PO BEDTIME 06/25/22 06/28/22 06/24/22 History Allergies Allergy/AdvReac Type Severity Reaction Status Date / Time hydralazine Allergy Severe ADR-Agitate Verified 06/25/22 11:02 d lisinopril Allergy Severe Muscle pain Verified 06/25/22 11:02 aripiprazole [From Abilify] Allergy Mild UNKNOWN Verified 06/25/22 11:02 haloperidol [From Haldol] Allergy Mild UNKNOWN Verified 06/25/22 11:02 cephalexin [From Keflex] Allergy UNKNOWN Verified 06/25/22 11:02 fluoxetine [From Prozac] Allergy Unknown Verified 06/25/22 11:02 lithium Allergy UNKNOWN Verified 06/25/22 11:02 amlodipine AdvReac Severe ADR-Hyperte Verified 06/25/22 11:02 nsion ezetimibe [From Zetia] AdvReac Severe muscle pain Verified 06/25/22 11:02 losartan AdvReac Severe Muscle pain Verified 06/25/22 11:02 metoprolol AdvReac Severe unknown Verified 06/25/22 11:02 [id number]-CaF Reductase AdvReac Severe Muscle pain Verified 06/25/22 11:02 Inhibitor PFSH Acute PFSH: Medical History Atherosclerosis of coronary artery Bipolar disorder, current episode depressed, moderate Diabetes SHANTEL (generalized anxiety disorder) Hyperlipidemia, unspecified Hypertension Intellectual disability Surgical History History of appendectomy Family History Grandfather Bleeding disorder Clotting disorder Mother CAD (coronary artery disease), Onset Age: 70 Father CAD (coronary artery disease), Onset Age: 70 Cancer Diabetes Lung disease Brother CAD (coronary artery disease), Onset Age: 70 Other Hypertension Denies family history of Dementia Chronic kidney disease (CKD) Suicide Anesthesia complication Stroke Social History Smoking and tobacco status: never smoked Second hand smoke exposure: No Smoking risk assessment/counseling performed?: No Alcohol intake: former Desire information about alcohol rehabilitation?: No Counseling given: No Desire information about substance/drug rehabilitation?: No Counseling given: No Vitals/I&O/Wt Last Vital Signs Temp 97.5 F L 06/28/22 09:47 Pulse 85 06/28/22 13:30 Resp 15 06/28/22 13:30 BP 134/88 06/28/22 13:30 Pulse Ox 99 06/28/22 13:30 O2 Del Method 06/28/22 13:30 Weight last 48 hrs Weight 90.718 kg Physical Exam Narrative: General: Patient is awake and alert. Head:? Normocephalic. Atraumatic. EOM intact. Neck: No JVD. Cardiovascular: RRR. No gallops. No murmurs. No peripheral edema. Lungs: Clear to auscultation, no use of accessory muscles, no crackles or wheezes. Skin: No jaundice. No rashes. Abdomen: Normal bowel sounds, abdomen soft and nontender. Genito Urinary: Genital exam not performed since complaints not related. Rectal: Rectal exam not performed since no symptoms indicated blood loss. Extremeties: No cyanosis or clubbing. Musculoskeletal: 5/5 strength, normal range of motion, no swollen or erythematous joints. Neurological: Moves all 4 extremities. No myoclonus. Data : 06/29/22 04:35 06/29/22 04:35 A&P Assessment and plan (1) Chest pain: (2) Bipolar disorder, current episode depressed, moderate: (3) Intellectual disability: (4) Atherosclerosis of coronary artery: (5) Heart block atrioventricular: (6) Diabetes: (7) Thyroid nodule: Plan Recurrent chest pain Troponin without significant delta However troponins are higher than from his baseline EKG showing T wave inversion lateral leads Right bundle branch block Dr. Hargrove consulted by the ER Recent stress test was done results reviewed I would not repeat echo at this point We will give him GI cocktail Monitor on cardiac stepdown unit with telemetry Continue aspirin, Plavix, we will keep him n.p.o. after midnight Check D-dimer, Multiple thyroid nodules Previously TSH was normal Recheck thyroid levels and thyroid antibodies Check thyroid ultrasound Bipolar disorder Aggressive behavior Manic phase Patient is already on multiple antipsychotics and anxiolytics, I would discontinue trazodone because of essential tremors, I will add Seroquel at bedtime CT head is showing vascular ischemia age-related changes He might be experiencing age-related dementia I did tell his stepmother that if she wants to consider dementia unit/Alzheimer correction placement, she is not thinking about placement for now Might benefit from olanzapine, I would watch him on Seroquel first, monitor QTc interval Diabetes Sliding scale Cardiac consistent carb diet: N.p.o. after midnight DVT prophylaxis covered with Lovenox Attestations Medical Necessity Statement*: Anticipating discharge in 48 hours will need evaluation for recurrent chest pain Time Spent in Patient Care: 40 Coding Level of Care Code Acute Associate Agent Insurance Sales for [facility] Fwd Diagnoses Chest pain R07.9 Bipolar disorder, current episode depressed, moderate F31.32 Intellectual disability F79 Atherosclerosis of coronary artery I25.10 Heart block atrioventricular I44.30 Diabetes E11.9 Thyroid nodule E04.1
[2022-06-28 14:42] LABS: Procalcitonin 0.06 ng/mL (0-0.5)
--- NOTE | 2022-06-28 15:51 | ECG_ITS ---
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1950 Requested By: Waylon Anders Order Number: [id number] Reading MD: Measurements Intervals Phenix Rate: 69 P: WA: QRS: -78 QRSD: 173 T: 246 QT: 428 QTc: 460 Interpretive Statements UNCERTAIN REGULAR RHYTHM RIGHT BUNDLE BRANCH BLOCK [120+ ms QRS DURATION, UPRIGHT V1, 40+ ms S IN I/aVL/V4/V5/V6] LEFT ANTERIOR FASCICULAR BLOCK [QRS AXIS <= -45, QR IN I, RS IN II] LEFT VENTRICULAR HYPERTROPHY AND ST-T CHANGE [VOLTAGE CRITERIA PLUS ST/T ABNORMALITY] POSSIBLE SEPTAL MYOCARDIAL INFARCTION , OF INDETERMINATE AGE [30 ms Q WAVE IN V1/V2] Compared to ECG 06/28/2022 09:46:35 Left ventricular hypertrophy now present ST (T wave) deviation now present Myocardial infarct finding now present T-wave abnormality no longer present Possible ischemia no longer present [id number]
[2022-06-28 16:18] LABS: Troponin 5 6HR 39.59 ng/L (0-15)
--- NOTE | 2022-06-28 16:22 | P.CONIM_ITS ---
Providers/Reason For Consult Consulting Physician/Specialty*: SANDRA Hargrove MD/cardiology Reason for Consult*: Patient with chest pain and elevated troponin T Requesting Physician: Dr. Pop Attending Physician: Scott Pop MD Primary Care Provider: Tray Dennis History of Present Illness History of Present Illness Jared Sofia is a 71 year old male with a history of coronary artery disease, status post PCI of the LAD in January 2022, is presenting with the complaints of a prolonged episode of chest pain. He was found to have elevated troponin T at the baseline. His 2-hour delta was insignificant. Cardiology co nsult is requested for further cardiac evaluation recommendations. This patient is known to have bipolar disorder and intellectual disability. He had multiple hospital admissions in the past with chest pains. His last hospital admission for chest pain was in February of this year. At that time, he had a Myocardial perfusion imaging which was unremarkable. It was opted to treat him medically at that time. According the patient, he been doing okay with no significant symptoms up until this morning. He woke up around 6:00 with pain in the lower substernal region. According the patient, this was a heartburn type of pain. The intensity of the pain was 10/10. The pain was confined to the sternal area. No associated symptom of shortness of breath, nausea or vomiting. No sweating. No radiation of pain. He was told by his stepmother not to take any medication for the heartburns. He also did not take any sublingual nitro. The stepmother called the ambulance and the patient was brought to the hospital. In the ambulance, he was given 1 sublingual nitro. It gave him some relief of pain. In the emergency room, he was given a GI cocktail. His symptoms gradually subsided. At the time of my examination, patient is pain-free. This patient had a cardiac catheterization in January of this year. At that time he was found to have around 70% LAD lesion in the midsegment. The distal se gment of the artery was found to have around 50 to 60% lesion. The IFR of the mid lesion was found to be 0.74. Patient underwent PCI of this lesion at that time. He was readmitted in February with chest pain. A repeat myocardial perfusion imaging was unremarkable. His medications were adjusted and he was discharged home. Apparently he has been doing okay since then. Because of his intellectual disability and bipolar disorder, the reliability of his symptoms are difficult to discern. According to the patient, he had a pizza with a lot of pepper for dinner, last night. He attributes this to the heartburns. He has a history of hypertension, diabetes, dyslipidemia, bipolar disorder. Review of Systems Narrative: CONSTITUTIONAL: No fever or chills. EYES: No blurring of vision or other visual disturbances lately. ENT: No hoarseness of voice, auditory disturbances or sore throat. CARDIOVASCULAR: As mentioned above. RESPIRATORY: No significant cough. GASTROINTESTINAL: History of heartburns GENITOURINARY: No dysuria or hematuria. INTEGUMENTARY: No skin rashes or history of skin cancer. NEURO: Intellectual disability as mentioned above PSYCHIATRIC: History of bipolar disorder HEMATOLOGIC: No bleeding disorders or significant anemia. ENDOCRINE: No history of polyuria or polydipsia. MUSCULOSKELETAL: No recent joint pain or swelling. ALLERGY/IMMUNOLOGY: As mentioned above. Medications/Allergies Home Medications Medication Instructions Recorded Confirmed Last Taken Type benztropine 1 mg tablet See Rx Instructions .Route .COMPLEX 08/11/21 06/28/22 06/25/22 History oxcarbazepine 600 mg tablet 600 mg PO BID 08/11/21 06/28/22 06/25/22 History (Trileptal) venlafaxine 75 mg tablet 75 mg PO QAM 08/11/21 06/28/22 06/25/22 History topiramate 50 mg tablet 50 mg PO TID 12/09/21 06/28/22 06/25/22 History aspirin 81 mg tablet,delayed 81 mg PO QAM 01/19/22 06/28/22 06/25/22 History release nitroglycerin 0.4 mg sublingual 0.4 mg sublingual Q5M PRN Chest 01/29/22 06/28/22 Unknown History tablet Pain clopidogrel 75 mg tablet 75 mg PO QAM 02/11/22 06/28/22 06/25/22 History spironolactone 25 mg tablet 25 mg PO QAM 02/11/22 06/28/22 06/25/22 History glimepiride 1 mg tablet 2 mg PO QAM 03/05/22 06/28/22 06/25/22 History isosorbide mononitrate 60 mg 60 mg PO DAILY #60 tabs 03/05/22 06/28/22 06/25/22 Rx tablet,extended release 24 hr ascorbic acid (vitamin C) 500 mg 500 mg PO DAILY 06/25/22 06/28/22 06/24/22 History tablet (Vitamin C) trazodone 50 mg tablet 50 mg PO BEDTIME 06/25/22 06/28/22 06/24/22 History Allergies Allergy/AdvReac Type Severity Reaction Status Date / Time hydralazine Allergy Severe ADR-Agitate Verified 06/25/22 11:02 d lisinopril Allergy Severe Muscle pain Verified 06/25/22 11:02 aripiprazole [From Abilify] Allergy Mild UNKNOWN Verified 06/25/22 11:02 haloperidol [From Haldol] Allergy Mild UNKNOWN Verified 06/25/22 11:02 cephalexin [From Keflex] Allergy UNKNOWN Verified 06/25/22 11:02 fluoxetine [From Prozac] Allergy Unknown Verified 06/25/22 11:02 lithium Allergy UNKNOWN Verified 06/25/22 11:02 amlodipine AdvReac Severe ADR-Hyperte Verified 06/25/22 11:02 nsion ezetimibe [From Zetia] AdvReac Severe muscle pain Verified 06/25/22 11:02 losartan AdvReac Severe Muscle pain Verified 06/25/22 11:02 metoprolol AdvReac Severe unknown Verified 06/25/22 11:02 Fgdjqim-TSR-EgC Reductase AdvReac Severe Muscle pain Verified 06/25/22 11:02 Inhibitor PFSH Acute PFSH: Medical History Atherosclerosis of coronary artery Bipolar disorder, current episode depressed, moderate Diabetes SHANTEL (generalized anxiety disorder) Hyperlipidemia, unspecified Hypertension Intellectual disability Surgical History History of appendectomy Family History Grandfather Bleeding disorder Clotting disorder Mother CAD (coronary artery disease), Onset Age: 70 Father CAD (coronary artery disease), Onset Age: 70 Cancer Diabetes Lung disease Brother CAD (coronary artery disease), Onset Age: 70 Other Hypertension Denies family history of Dementia Chronic kidney disease (CKD) Suicide Anesthesia complication Stroke Social History Smoking and tobacco status: never smoked Second hand smoke exposure: No Smoking risk assessment/counseling performed?: No Alcohol intake: former Desire information about alcohol rehabilitation?: No Counseling given: No Desire information about substance/drug rehabilitation?: No Counseling given: No Vitals/I&O/Wt Last Vital Signs Temp 97.5 F L 06/28/22 09:47 Pulse 85 06/28/22 13:30 Resp 15 06/28/22 13:30 BP 134/88 06/28/22 13:30 Pulse Ox 99 06/28/22 13:30 O2 Del Method 06/28/22 16:13 Weight last 48 hrs Weight 200 lb Physical Exam Narrative: GENERAL: The patient is alert and oriented times three. Not in any acute distress. Moderately obese HEENT: No significant pallor, icterus or lymphadenopathy.Oral cavity: There are no mucous membrane lesions. NECK: Trachea appears to be central. No masses noted. No JVD or thyromegaly appreciated. RESPIRATORY: Chest is symmetrical. No intercostals muscle retraction or any accessory muscle activation. There is no chest wall tenderness. Breath sounds are heard bilaterally. No rales or rhonchi heard. No evidence of any consolidation. BREASTS: Deferred. HEART: The heart sounds are normal. No S3 or S4. No significant murmurs. No pericardial rub ABDOMEN: No vessel pulsations or distention. No tenderness. No organomegaly appreciated. Bowel sounds are normally heard. : Deferred. RECTAL: Deferred. LYMPHATIC: No lymphadenopathy noted in the neck. EXTREMITIES: No edema or cyanosis. No clubbing. MUSCULOSKELETAL: No acute joint deformities or swelling SKIN: There are no significant rashes or ecchymosis NEUROPSYCHIATRIC: The patient is alert and oriented x3. Appears to be in a good mood. No tremors or rigidity noted. Data : 06/28/22 10:05 06/28/22 10:05 Other Labs: Laboratory Last Values WBC 6.0 10^3/uL (4.0-10.0) 06/28/22 10:05 RBC 4.77 10^6/uL (4.1-5.3) 06/28/22 10:05 Hgb 13.0 g/dL (11.7-16.6) 06/28/22 10:05 Hct 40.1 % (42.0-52.0) L 06/28/22 10:05 MCV 84.1 fl (80-94) 06/28/22 10:05 MCH 27.3 pg (28.0-34.0) L 06/28/22 10:05 MCHC 32.4 g/dL (30.0-36.0) 06/28/22 10:05 RDW 14.2 % (12.1-15.1) 06/28/22 10:05 Plt Count 178 10^3/cmm (130-400) 06/28/22 10:05 MPV 11.4 fL (7.4-10.4) H 06/28/22 10:05 Neut % (Auto) 66.3 % 06/28/22 10:05 Lymph % (Auto) 18.3 % 06/28/22 10:05 [place] % (Auto) 13.1 % 06/28/22 10:05 Eos % (Auto) 1.8 % 06/28/22 10:05 Baso % (Auto) 0.3 % 06/28/22 10:05 Neut # (Auto) 3.99 10^3/uL (1.8-7.7) 06/28/22 10:05 Lymph # (Auto) 1.1 10^3/uL (0.8-4.8) 06/28/22 10:05 [place] # (Auto) 0.8 10^3/uL (0.2-0.9) 06/28/22 10:05 Eos # (Auto) 0.1 10^3/uL (0.0-0.8) 06/28/22 10:05 Baso # (Auto) 0.0 10^3/uL (0.0-0.1) 06/28/22 10:05 Nucleated RBC % (auto) 0 % 06/28/22 10:05 Nucleated RBCs # 0.0 /100WBC 06/28/22 10:05 D-Dimer 0.41 ug/mIFEU (0-0.59) 06/28/22 10:05 Sodium 142 mmol/L (136-145) 06/28/22 10:05 Potassium 4.4 mmol/L (3.5-5.1) 06/28/22 10:05 Chloride 111 mmol/L (98-107) H 06/28/22 10:05 Carbon Dioxide 22 mmol/L (22-29) 06/28/22 10:05 Anion Gap 13.4 (5-19) 06/28/22 10:05 BUN 26 mg/dL (8-23) H 06/28/22 10:05 Creatinine 1.0 mg/dL (0.7-1.2) 06/28/22 10:05 GFR Calculation Not Reportable 06/28/22 10:05 Glucose 116 mg/dL (65-115) H 06/28/22 10:05 Calculated Osmolality 300 mOsm/kg (285-295) H 06/28/22 10:05 Calcium 8.9 mg/dL (8.5-10.5) 06/28/22 10:05 Total Bilirubin 0.2 mg/dL (0.15-1.2) 06/28/22 10:05 AST 18 U/L (0-40) 06/28/22 10:05 ALT 14 U/L (0-41) 06/28/22 10:05 Alkaline Phosphatase 86 U/L (40-130) 06/28/22 10:05 Troponin T Baseline 41 ng/L (0-15) H 06/28/22 10:05 Troponin T 120 Minute 41.44 ng/L (0-15) H 06/28/22 11:53 Delta Troponin T 0.44 ABS# (0-10) 06/28/22 11:53 Total Protein 6.1 g/dL (6.6-8.7) L 06/28/22 10:05 Albumin 4.0 g/dL (3.5-5.2) 06/28/22 10:05 Globulin 2.1 g/dL (1.3-4.6) 06/28/22 10:05 Procalcitonin 0.06 ng/mL (0-0.5) 06/28/22 10:05 EKG 1: My Interpretation: The EKG showed sinus rhythm with a first-degree AV block. Left anterior fascicular block. Right bundle branch block. T wave changes in the anterolateral leads, suggestive of ischemia. Small Q waves in leads V2 suggesting old septal infarction. Compared to EKG from February of this year, the T wave changes appear to be new EKG computer-generated impression: Chest X-Ray 06/28/22 09:51 IMPRESSION: No acute findings. A&P Assessment and plan (1) Chest pain: Patient chest pain, in view of his risk factors, abnormal EKG and elevated troponin T is suggestive of non-ST elevation myocardial infarction. Hemodynamically seems to be stable. The 2-hour delta was not significant. (2) Elevated troponin: Patient mated with aspirin, Plavix, subcu Lovenox and other symptomatic measures. (3) Atherosclerosis of coronary artery: May be continued on the current medications. An echocardiogram will be helpful to evaluate LV function and rule out new pathology. Patient may benefit from a repeat cardiac catheterization, to reevaluate the coronary status and decide on further management. After reviewing echocardiogram, further recommendations will be made. (4) Dyslipidemia: May be continued on the current medications. (5) Heart block atrioventricular: Currently the patient has first-degree AV block. He is known to have isometric A-V dissociation. We will continue to monitor him on the telemetry. (6) Diabetes: Aggressive management of the diabetes will be appropriate. (7) Hypertension: The antihypertensive medication doses need to be adjusted. Blood pressures are stage II at this time. Plan Based on the patient's clinical progress on the results of the above, further recommendations will be made. 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
[2022-06-28 16:27] LABS: Troponin 5 6HR Delta -1.41 ng/L (0-12)
[2022-06-28 16:52] LABS: Glucose Point of Care 99 mg/dL (70-110)
--- NOTE | 2022-06-28 17:05 | US_ITS ---
WS: [id number] THYROID ULTRASOUND HISTORY: thyroid nodule COMPARISON: None available. Right lobe: 3.5 cm x 3.0 cm x 8.5 cm (w x ap x l). Volume: 46.8 cm3. Markedly enlarged heterogeneous nodular thyroid. Hypoechoic nodule in the inferior thyroid is partial ly obscured and there is mild heterogeneity. No microcalcifications or echogenic foci. Nodule measure s 2.1 x 2.1 x 3.2 cm. Left lobe: 2.9 cm x 3.3 cm x 7.2 cm (w x ap x l). Volume: 35.6 cm3. Enlarged heterogeneous nodular thyroid. Very poorly defined nodules scattered throughout. Margins are not well visualized. The largest nodule measures 2.1 x 2.3 x 2.0 cm. Isthmus: 0.8 cm. US/US thyroid [id number] IMPRESSION: 1. Enlarged heterogeneous nodular thyroid. Most likely this is a multinodular goiter. 2. No adjacent lymph nodes.
[2022-06-28 17:37] LABS: Free T4 Free Thyroxine 0.69 ng/dL (0.82-1.77); Thyroid Stimulating Hormone 0.72 uIU/mL (0.27-4.20)
[2022-06-28] MEDS: enoxaparin 40 mg/0.4 mL Syringe SUBCUT (17:47)
[2022-06-28] MEDS: OXcarbazepine 300 mg Tablet 600 MG PO (17:47)
[2022-06-28] MEDS: lidocaine 2% viscous 15 ML, aluminum-mag hydrox-simethicon 30 ML, sucralfate oral liq 1 GM PO (17:49)
--- NOTE | 2022-06-28 17:49 | USCV_ITS ---
Jared Sofia Age: 71 Gender: M : 1950 Exam Date: 06/28/2022 18:28 Ordering Phys: Angel Hargrove MD ([email or web address]) Technologist: Gricelda Rome Exam Location: [facility] – [place] Indication: NSTEMI ASHD BP: 134 / 88 HR: 63 Rhythm: Sinus Technical Quality: Adequate MEASUREMENTS (Male / Female) Normal Values 2D ECHO LV Diastolic Diameter PLAX 4.0 cm 4.2 - 5.9 / 3.9 - 5.3 cm LV Systolic Diameter PLAX 2.6 cm LV Chamber Size 2.8 cm IVS Diastolic Thickness 1.4 cm 0.6 - 1.0 / 0.6 - 0.9 cm IVS Systolic Thickness 1.5 cm LVPW Diastolic Thickness 1.7 cm 0.6 - 1.0 / 0.6 - 0.9 cm LVPW Systolic Thickness 1.9 cm RV Chamber Size 2.3 cm LVOT Diameter 2.1 cm LV Ejection Fraction 2D Teich 62.5 % LV Ejection Fraction MOD 2C 59.8 % LV Ejection Fraction 2C AL 63.4 % LA Diameter 4.5 cm LA Width 3.1 cm LA Height 5.3 cm RA Width 3.5 cm RA Height 4.4 cm Aorta at Sinotubular Diameter 3.1 cm IVC Diameter 2.1 cm M-MODE Aortic Annulus Diameter 3.4 cm LA Ao Ratio MM 1.5 MV E Point Septal Separation 0.7 cm DOPPLER AV Peak Velocity 168.0 cm/s LVOT Peak Velocity 90.3 cm/s AV Area Cont Eq vti 1.9 cm squared AV Area Cont Eq pk 1.8 cm squared MV Area PHT 5.0 cm squared Mitral E to A Ratio 1.8 MV E' Velocity 65.0 cm/s Mitral E to MV E' Ratio 8.7 Mitral E to LV E' Lateral Ratio 10.6 Mitral E to LV E' Septal Ratio 7.4 TR Peak Velocity 326.1 cm/s TR Peak Gradient 42.5 mmHg TR Mean Velocity 231.6 cm/s TR Mean Gradient 24.2 mmHg TR Velocity Time Integral 74.2 cm TV Peak E Velocity 65.0 cm/s Right Atrial Pressure 3.0 mmHg Pulmonary Artery Systolic Pressu 45.5 mmHg RV Acceleration Time 0.1 s RV Ejection Time 0.3 s RV AcT/ET 0.4 FINDINGS Left Ventricle Normal left ventricular size and systolic function, EF 64 %. Mild left ventricular hypertrophy. No regional wall motion abnormalities. Right Ventricle The right ventricle is normal in size and function. Right Atrium The right atrium is normal in size. Left Atrium Mildly increased left atrial size. Mitral Valve Trace to mild mitral valve regurgitation. Aortic Valve Thickened aortic valve. Tricuspid Valve Trace tricuspid valve regurgitation. Pulmonic Valve Pulmonic valve not well visualized. Pericardium Normal pericardium without effusion. Aorta Normal ascending aorta dimension. IVC Mildly dilated CONCLUSIONS Normal left ventricular size and systolic function, EF 64 %. Mild left ventricular hypertrophy. No regional wall motion abnormalities. Mildly increased left atrial size. Trace tricuspid valve regurgitation. Thickened aortic valve. Trace to mild mitral valve regurgitation. There is no pericardial effusion. There are no intracardiac masses. Compared to the study from 12/09/2021, there may not be significant change Dr Angel Hargrove MD FAC (Electronically Signed) Final Date: 29 June 2022 08:21 S
[2022-06-28] MEDS: enoxaparin 60 mg/0.6 mL Syringe 50 MG SUBCUT (17:59)
--- NOTE | 2022-06-28 18:08 | PC.NURSE ---
receieved into [id number] from er at 1620.report received.sr w/1st degree avb on monitor.denies chest pain.oriented to room environment.instructed to notify staff for any chest pain,sob,or for any concerns at all.pt is cooperative,calm.
[2022-06-28] MEDS: quetiapine 25 mg Tablet PO (20:12)
[2022-06-28] MEDS: topiramate 25 mg Tablet 50 MG PO (20:12)
[2022-06-28] MEDS: benztropine 1 mg Tablet PO (20:13)
[2022-06-28 20:44] LABS: Glucose Point of Care 102 mg/dL (70-110)
[2022-06-29] VITALS (81 sets, daily range): BP systolic 121–174; BP diastolic 59–97; PULSE 51–100; RESP 7–29; TEMP 36.3–36.9; O2SAT 60–100
[2022-06-29 04:58] LABS: Basophils % 0.4 %; Eosinophils # 0.1 10^3/uL (0.0-0.8); Eosinophils % 2.4 %; Hematocrit 42.2 % (42.0-52.0); Hemoglobin 13.7 g/dL (11.7-16.6); Lymphocytes # 1.5 10^3/uL (0.8-4.8); Lymphocytes % 28.1 %; Mean Corpuscular HGB Conc 32.5 g/dL (30.0-36.0); Mean Corpuscular Hemoglobin 27.3 pg (28.0-34.0); Mean Corpuscular Volume 84.1 fl (80-94); Mean Platelet Volume 11.2 fL (7.4-10.4); Monocytes # 0.7 10^3/uL (0.2-0.9); Neutrophils # 2.97 10^3/uL (1.8-7.7); Neutrophils % 55.9 %; Nucleated Red Blood Cells % 0 %; Platelet Count 166 10^3/cmm (130-400); Red Blood Count 5.02 10^6/uL (4.1-5.3); Red Cell Distribution Width 14.2 % (12.1-15.1); White Blood Count 5.3 10^3/uL (4.0-10.0)
[2022-06-29 05:23] LABS: Anion Gap 12.2 (5-19); Blood Urea Nitrogen 24 mg/dL (8-23); Carbon Dioxide 22 mmol/L (22-29); Chloride 112 mmol/L (98-107); Glucose 93 mg/dL (65-115); Magnesium 2.4 mg/dL (1.7-2.3); Osmolality Calculated 298 mOsm/kg (285-295); Potassium 4.2 mmol/L (3.5-5.1); Sodium 142 mmol/L (136-145)
--- NOTE | 2022-06-29 05:35 | ECG_ITS ---
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 Measurements Intervals [place] Rate: 69 P: KS: QRS: -78 QRSD: 171 T: 251 QT: 438 QTc: 472 Interpretive Statements Normal sinus rhythm with a first-degree AV block and occasional PVCs. RIGHT BUNDLE BRANCH BLOCK [120+ ms QRS DURATION, UPRIGHT V1, 40+ ms S IN I/aVL/V4/V5/V6] LEFT ANTERIOR FASCICULAR BLOCK [QRS AXIS <= -45, QR IN I, RS IN II] LEFT VENTRICULAR HYPERTROPHY AND ST-T CHANGE [VOLTAGE CRITERIA PLUS ST/T ABNORMALITY] POSSIBLE SEPTAL MYOCARDIAL INFARCTION , OF INDETERMINATE AGE [30 ms Q WAVE IN V1/V2] T wave changes in anterolateral leads Compared to ECG 06/28/2022 11:58:45 Right bundle-branch block now present .ST (T wave) deviation still present Myocardial infarct finding still present Electronically Signed On 06-30-2022 0:04:41 CDT by Angel Hargrove M.D. [email or web address]
[2022-06-29] MEDS: benztropine 1 mg Tablet 2 MG PO (05:46)
[2022-06-29] MEDS: clopidogrel 75 mg Tablet PO (05:46)
[2022-06-29] MEDS: aspirin 81 mg EC Tablet PO (05:46)
[2022-06-29] MEDS: venlafaxine 75 mg Tablet PO (05:46)
[2022-06-29] MEDS: enoxaparin 100 mg/mL Syringe 90 MG SUBCUT (05:46)
[2022-06-29 06:45] LABS: Glucose Point of Care 108 mg/dL (70-110)
--- NOTE | 2022-06-29 09:49 | XACV_ITS ---
Exam Room: [facility] Ht: 180 cm Wt: 93 kg BSA: 2.18 m2 Gender: Male : 1950 Any Known Allergies: Other Exam Priority: Routine Procedure(s): Procedure Description: Diagnostic procedure Procedure Description: PCI procedure Procedure Description: Left Heart Catheterization Procedure Description: Drug Eluting Coronary Stent Procedure Description: PTCA Procedure Description: Coronary Angiography Delvin DONNELLY; Diagnostic Cath Status: Urgent Diagnostic Findings * Left Main has minor luminal irregularities. * Circumflex has no significant disease. * Right Coronary Artery could not be selectively engaged however is non dominant vessel and no significant disease. * Proximal Left Anterior Descending: obstructive 70% stenosis, LYN: 3 flow. Patent prior stent in proximal to mid LAD.. * Coronary angiography shows left dominance. PCI Status: Urgent PCI Indication: NSTE - ACS Interventional Findings * Procedure detail: We engaged left main artery with XB 3.5 guide catheter. IV heparin was administered to maintain ACT above 250 S. After normalization, IFR wire was advanced into distal LAD. Ischemic IFR value of 0.80 was obtained. We then switched wire to run-through wire. We predilated the stenosis with 2.75 x 12 mm noncompliant balloon. This was followed by placement of 3.5 x 15 mm resolute rachel drug-eluting stent. Proximal section of the stent was postdilated with 3.75 x 8 mm NC balloon. At this time cholangiogram was performed that showed excellent stent expansion, LYN-3 flow and no residual stenosis. Guidewire and guide catheter were removed. 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 * Proximal Left Anterior Descendin% stenosis treated with a AB TREK 2.75X12 RX BALLOON, SHAQUILLE Workman RACHEL 3.5X15 KHOA, and SHAQUILLE SILVERMAN EUPHORA RX [id number] BALLOON. 0% residual stenosis, LYN: 3 flow. Conclusions 1. Severe proximal LAD stenosis confirmed with ischemic IFR value of 0.8 status post successful revascularization with KHOA x1. 2. Proximal Left Anterior Descending was treated with a Balloon, Drug Eluting Stent, and Balloon. Recommendations * Continue to antiplatelet therapy with aspirin and Plavix. * High intensity statin therapy. * Outpatient cardiology follow-up in 4 weeks. Interventional RX Recommendation: PCI w/o planned CABG Diagnostic RX Recommendation: PCI w/o planned CABG Pressures Phase:Rest AO : 120 / 64 ( 87 ) @ 11:55:00 AM 132 / 66 ( 94 ) @ 11:57:00 AM 129 / 66 ( 94 ) @ 12:02:00 PM 144 / 60 ( 93 ) @ 12:04:00 PM 144 / 57 ( 91 ) @ 12:04:00 PM 141 / 60 ( 91 ) @ 12:09:00 PM 149 / 60 ( 94 ) @ 12:16:00 PM 150 / 62 ( 97 ) @ 12:17:00 PM 144 / 61 ( 93 ) @ 12:20:00 PM 142 / 60 ( 91 ) @ 12:25:00 PM 182 / 73 ( 115 ) @ 12:28:00 PM 129 / 64 ( 89 ) @ 12:33:00 PM LV : 143 / -14 / 8 @ 12:04:00 PM 138 / -13 / 8 @ 12:04:00 PM Valves Phase:DefaultPhase AV : 0.0 @ 11:43:47 AM AV Mean Gradient: 0.0 @ 11:43:47 AM Clinical Evaluation EBL: 5mL-10mL Procedural Details Procedure Consent Obtained. Admit Source: In Patient. Current Diagnosis : NSTEMI. Pre-Procedure Time Out. Identified patient by full name and date of as verbalized by the patient/guarantor. Does the consent match the physician's order: Yes. Accurate & Complete Informed Consent: Yes. Inpatient/Outpatient History & Physical on Chart: Yes. If H&P is completed, is and addenduem needed: No; If yes, is the addendum complete: N/A. Visualize and Verify Site with Patient/Guarantor: N/A. Relevant Radiology Images available: Yes. Pre-op teaching completed and patient verbalized understanding. The risks, benefits, and alternatives of sedation and/or procedure were discussed by physician. The patient agrees to continue. Procedure started. [facility] Clinical Fraility Score: 4: Vulnerable. 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 Chest Pain Symptom Assessment: Atypical Angina. Correct patient, site and procedure confirmed by cath team. Current diagnosis: NSTEMI. PERRLA. 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 Lungs clear x 5 lobes. IV Site on Arrival: 18 gauge in the right anticubital. IV Fluids: 0.9% NaCl at KVO. 0 mL infused prior to laboratory inspector. Oxygen started at 2liters/min via nasal canula. right groin was prepped with chloroprep then draped in the usual sterile fashion. right radial was prepped with chloroprep then draped in the usual sterile fashion. Physician notified. Baseline sample Acquired. HR: 58 BPM. Physician arrived. Physician scrubbed in. Immediate Pre-Procedure Time Out. Correct Patient: Yes; Correct Procedure: Yes; Correct Site: Yes; Correct Patient Position: Yes; Correct Supplies: Yes; Dried Flammable Prep: Yes; Blood Products Available: N/A;. Lidocaine 1% infiltrated to the right radial. Ultrasound being used for radial access. Arterial access obtained. A 5 emirati TIG catheter in over wire. Catheter removed over the exchange wire. Lidocaine 1% infiltrated to the right groin. Ultrasound being used to obtain arterial access. A TR Band was successful obtaining hemostatsis at the Right Radial artery insertion site. Arterial access obtained with micropuncture set. A 5 emirati JL4 catheter in over wire. Multiple views taken of left coronary artery. Catheter removed over the exchange wire. A 5 emirati JR4 catheter in over wire. EDP Sample taken: LV 143/-15,8; HR: 58 BPM; SpO2: 99%. Pullback taken: LV 138/-14,8; AO 144/60(93); Mean: 0mmHg, Peak to Peak: 0mmHg, SEP: 5sec/min; HR: 58 BPM; SpO2: 99%. Catheter removed over the exchange wire. Sheath upsized to a 6 Fr. 6 emirati XB 3.5 guide catheter was inserted over the wire. FFR guidewire was advanced through the guide catheter to lesion in the prox LAD. IFR results: 0.80. Wire out. Runthrough guidewire was advanced through the guide catheter to lesion in the prox LAD. Inflation number : 1 A AB TREK 2.75X12 RX BALLOON was prepped and advanced across the Prox LAD , then inflated to 10 ALLEN for 0:13 seconds. Inflation number: 2 The AB TREK 2.75X12 RX BALLOON was reinflated across the Prox LAD, to 12 ALLEN for 0:15 seconds. Balloon out. Results checked. Inflation Number : 3 A MDT R RACHEL 3.5X15 KHOA -Lot Number# [id number] EXP: 08/16/2024 was prepped and advanced across the Prox LAD. The stent was deployed at 12 ALLEN for 0:32 seconds. Stent balloon out over wire. Results checked. Inflation number : 4 A MDT NC EUPHORA RX 3.53K20AO BALLOON was prepped and advanced across the Prox LAD , then inflated to 14 ALLEN for 0:23 seconds. Inflation number: 5 The MDT NC EUPHORA RX [id number] BALLOON was reinflated across the Prox LAD, to 0 ALLEN for 0:15 seconds. Balloon out. Results checked. Wire out. Guide catheter out. A Right femoral angiogram was performed to determine safe placement of closure device. A Angio-Seal VIP ([facility]) was successful obtaining hemostatsis at the Right Femoral artery insertion site. Post Procedure: Pulses reassessed and unchanged. PERRLA. 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 No VTE prophylaxis required. Medication's Wasted: Lidocaine 1% = 8 mL. Medication's Wasted: Nitro = 49.6 mg. Medication's Wasted: Heparin = 1000 units. Medication's Wasted: Other = Versed 1 mg. Total IV fluids: 800 mL. PCI Indication: NSTE. Post-op diagnosis: CAD. Complications: None. Estimated blood loss: 5mL-10mL. Responsiveness - Normal response to verbal stimuli; alert and oriented, PERRLA. Airway - Unaffected, no intervention required; spontaneous ventilation. Circulation: W/N/L, pulses unchanged. Nausea/Vomiting: No. Procedure completed. Patient transferred by bed to 1st floor. Vital chart was stopped. Access Site Site: Right Radial artery Sheath Size: 6 Fr Hemostasis Method: TR Band Hemostasis Success: Successful Site: Right Femoral artery Sheath Size: 5 Fr Hemostasis Method: Angio-Seal VIP ([facility]ico) Hemostasis Success: Successful Procedure Medications Start: 10:32 AM Stop: 10:32 AM Medication: Versed Amount: 1 mg Route: I.V. Start: 10:33 AM Stop: 10:33 AM Medication: Fentanyl Amount: 50 mcg Route: I.V. Start: 10:39 AM Stop: 10:39 AM Medication: Versed Amount: 1 mg Route: I.V. Start: 10:42 AM Stop: 10:42 AM Medication: Nitrogylcerin Amount: 200 mcg Route: I.A. Start: 10:42 AM Stop: 10:42 AM Medication: Verapamil Amount: 5 mg Route: I.A. Start: 11:16 AM Stop: 11:16 AM Medication: Versed 1 mg and Fentanyl 25 mcg Amount: 1 Route: I.V. Start: 11:31 AM Stop: 11:31 AM Medication: Nitrogylcerin Amount: 200 mcg Route: I.C. Start: 11:37 AM Stop: 11:37 AM Medication: Fentanyl Amount: 25 mcg Route: I.V. Start: 11:37 AM Stop: 11:37 AM Medication: Plavix Amount: 300 mg Route: P.O. I, the attending physician, have reviewed and verified all procedure medications. Yes, all medications given per verbal order History/Risk Factors Hypertension: Yes Dyslipidemia: Yes Peripheral Arterial Disease (PAD): No Myocardial Infarction (MT): No Obesity: No Renal Disease: No Tobacco Use: Never Prior Interventions PCI: Yes CABG: No Valve Surgery: No Date of PCI: 01/20/2022 Report Signatures Finalized by Sandro Miller MD on 07/05/2022 01:21 PM
--- NOTE | 2022-06-29 10:15 | P.PN_ITS ---
Subjective Subjective: Patient is feeling okay. He has no recurrence of chest pain. His EKGs showed persistent T inversions in the anterolateral leads. Medications: Medication Review Details: Current Medications Acetaminophen (Acetaminophen 325 Mg Tablet) 650 mg PO Q6H PRN PRN Reason: MILD PAIN Al Hydrox/Mg Hydrox/Simethicone (Ehig-Way-Jitzelniz-Melissa 30 Ml Udc) 30 ml PO Q15M PRN PRN Reason: INDIGESTION Albuterol/Ipratropium (Ipratropium-Albuterol 3 Ml Neb) 3 ml INHALATION Q6H PRN PRN Reason: SHORTNESS OF BREATH Alprazolam (Alprazolam 0.5 Mg Tablet) 0.25 mg PO TID PRN PRN Reason: ANXIETY Aspirin (Aspirin 81 Mg Ec Tablet) 81 mg PO [facility] Last Admin: 06/29/22 05:46 Dose: 81 mg Atropine Sulfate (Atropine 1 Mg/Ml Sdv 1 Ml) 0.5 mg IVP PRN PRN PRN Reason: Symptomatic bradycardia Benztropine Mesylate (Benztropine 1 Mg Tablet) 2 mg PO [facility] Last Admin: 06/29/22 05:46 Dose: 2 mg Benztropine Mesylate (Benztropine 1 Mg Tablet) 1 mg PO 1200,2100 [facility] Last Admin: 06/29/22 13:20 Dose: 1 mg Clopidogrel Bisulfate (Clopidogrel 75 Mg Tablet) 75 mg PO [facility] Last Admin: 06/29/22 05:46 Dose: 75 mg Dextrose (Dextrose 50% Syringe 50 Ml) 25 ml IVP ONCE PRN; Protocol PRN Reason: hypoglycemia protocol Dextrose (Dextrose 50% Syringe 50 Ml) 50 ml IVP PRN PRN; Protocol PRN Reason: hypoglycemia protocol Fentanyl (Fentanyl 50 Mcg/Ml Inj 2ml) 50 mcg IVP PRN PRN PRN Reason: PAIN Glucagon (Glucagon 1 Mg/Ml Inj 1 Ml) 1 mg IM ONCE PRN; Protocol PRN Reason: Adult Acute Hypoglycemia Prot. Dextrose (D5w) 500 mls @ 100 mls/hr IV ONCE PRN; Protocol PRN Reason: Adult Acute Hypoglycemia Prot Sodium Chloride (Sodium Chloride 0.9%) 1,000 mls @ 100 mls/hr IV .Q10H [facility] Last Admin: 06/29/22 13:21 Dose: 100 mls/hr Insulin Human Lispro (Insulin Lispro 100 Unit/1 Ml) 0 unit SUBCUT TIDWM [facility]; Protocol Last Admin: 06/29/22 13:14 Dose: Not Given Isosorbide Mononitrate (Isosorbide Mononitrate Er 60 Mg Tablet) 60 mg PO DAILY [facility] Last Admin: 06/29/22 12:48 Dose: 60 mg Magnesium Hydroxide (Magnesium Hydroxide 30 Ml Udc) 30 ml PO DAILY PRN PRN Reason: CONSTIPATION Morphine Sulfate (Morphine Ir 15 Mg Tablet) 15 mg PO Q6H PRN PRN Reason: pAIN Naloxone HCl (Naloxone 0.4 Mg/Ml Sdv) 0.1 mg IVP Q2M PRN PRN Reason: RESPIRATORY RATE < 8/MIN Nitroglycerin (Nitroglycerin 0.4 Mg Sublingual Tablet) 0.4 mg SUBLINGUAL Q5M PRN PRN Reason: CHEST PAIN Olanzapine (Olanzapine 5 Mg Tablet) 5 mg PO BEDTIME BENJIE Ondansetron HCl (Ondansetron 2 Mg/Ml Sdv 2 Ml) 4 mg IVP Q6H PRN PRN Reason: NAUSEA AND VOMITING Oxcarbazepine (Oxcarbazepine 300 Mg Tablet) 600 mg PO Q12H [facility] Senna/Docusate Sodium (Sennosides-Docusate Tablet) 1 tab PO DAILY [facility] Last Admin: 06/29/22 10:25 Dose: Not Given Temazepam (Temazepam 15 Mg Capsule) 15 mg PO BEDTIME PRN PRN Reason: INSOMNIA Topiramate (Topiramate 25 Mg Tablet) 50 mg PO TID [facility] Last Admin: 06/29/22 15:10 Dose: Not Given Venlafaxine HCl (Venlafaxine 75 Mg Tablet) 75 mg PO QAM [facility] Last Admin: 06/29/22 05:46 Dose: 75 mg Vitals/I&O/Wt Last Vital Signs Temp 98.4 F 06/29/22 07:52 Pulse 89 06/29/22 08:59 Resp 18 06/29/22 08:59 BP 174/97 06/29/22 07:52 Pulse Ox 96 06/29/22 08:59 O2 Del Method 06/29/22 08:59 06/28/22 06/29/22 06/29/22 22:59 06:59 14:59 Intake Total 240 / 240 Balance 240 / 240 Weight last 48 hrs Weight 206 lb 5 oz Weight 200 lb Physical Exam Narrative: GENERAL: The patient is alert and oriented times three. Not in any acute distress. Moderately obese HEENT: No significant pallor, icterus or lymphadenopathy.Oral cavity: There are no mucous membrane lesions. NECK: Trachea appears to be central. No masses noted. No JVD or thyromegaly appreciated. RESPIRATORY: Chest is symmetrical. No intercostals muscle retraction or any accessory muscle activation. There is no chest wall tenderness. Breath sounds are heard bilaterally. No rales or rhonchi heard. No evidence of any consolidation. BREASTS: Deferred. HEART: The heart sounds are normal. No S3 or S4. No significant murmurs. No pericardial rub ABDOMEN: No vessel pulsations or distention. No tenderness. No organomegaly appreciated. Bowel sounds are normally heard. : Deferred. RECTAL: Deferred. LYMPHATIC: No lymphadenopathy noted in the neck. EXTREMITIES: No edema or cyanosis. No clubbing. MUSCULOSKELETAL: No acute joint deformities or swelling SKIN: There are no significant rashes or ecchymosis NEUROPSYCHIATRIC: The patient is alert and oriented x3. Appears to be in a good mood. No tremors or rigidity noted. Data : 06/29/22 04:35 06/29/22 04:35 Other Labs: Laboratory Last Values WBC 5.3 10^3/uL (4.0-10.0) 06/29/22 04:35 RBC 5.02 10^6/uL (4.1-5.3) 06/29/22 04:35 Hgb 13.7 g/dL (11.7-16.6) 06/29/22 04:35 Hct 42.2 % (42.0-52.0) 06/29/22 04:35 MCV 84.1 fl (80-94) 06/29/22 04:35 MCH 27.3 pg (28.0-34.0) L 06/29/22 04:35 MCHC 32.5 g/dL (30.0-36.0) 06/29/22 04:35 RDW 14.2 % (12.1-15.1) 06/29/22 04:35 Plt Count 166 10^3/cmm (130-400) 06/29/22 04:35 MPV 11.2 fL (7.4-10.4) H 06/29/22 04:35 Neut % (Auto) 55.9 % 06/29/22 04:35 Lymph % (Auto) 28.1 % 06/29/22 04:35 [place] % (Auto) 13.0 % 06/29/22 04:35 Eos % (Auto) 2.4 % 06/29/22 04:35 Baso % (Auto) 0.4 % 06/29/22 04:35 Neut # (Auto) 2.97 10^3/uL (1.8-7.7) 06/29/22 04:35 Lymph # (Auto) 1.5 10^3/uL (0.8-4.8) 06/29/22 04:35 [place] # (Auto) 0.7 10^3/uL (0.2-0.9) 06/29/22 04:35 Eos # (Auto) 0.1 10^3/uL (0.0-0.8) 06/29/22 04:35 Baso # (Auto) 0.0 10^3/uL (0.0-0.1) 06/29/22 04:35 Nucleated RBC % (auto) 0 % 06/29/22 04:35 Nucleated RBCs # 0.0 /100WBC 06/29/22 04:35 D-Dimer 0.41 ug/mIFEU (0-0.59) 06/28/22 10:05 Sodium 142 mmol/L (136-145) 06/29/22 04:35 Potassium 4.2 mmol/L (3.5-5.1) 06/29/22 04:35 Chloride 112 mmol/L (98-107) H 06/29/22 04:35 Carbon Dioxide 22 mmol/L (22-29) 06/29/22 04:35 Anion Gap 12.2 (5-19) 06/29/22 04:35 BUN 24 mg/dL (8-23) H 06/29/22 04:35 Creatinine 0.9 mg/dL (0.7-1.2) 06/29/22 04:35 GFR Calculation Not Reportable 06/29/22 04:35 Glucose 93 mg/dL (65-115) 06/29/22 04:35 POC Glucose 108 mg/dL (70-110) 06/29/22 06:37 Calculated Osmolality 298 mOsm/kg (285-295) H 06/29/22 04:35 Calcium 9.0 mg/dL (8.5-10.5) 06/29/22 04:35 Magnesium 2.4 mg/dL (1.7-2.3) H 06/29/22 04:35 Total Bilirubin 0.2 mg/dL (0.15-1.2) 06/28/22 10:05 AST 18 U/L (0-40) 06/28/22 10:05 ALT 14 U/L (0-41) 06/28/22 10:05 Alkaline Phosphatase 86 U/L (40-130) 06/28/22 10:05 Troponin T Baseline 41 ng/L (0-15) H 06/28/22 10:05 Troponin T 120 Minute 41.44 ng/L (0-15) H 06/28/22 11:53 Delta Troponin T 0.44 ABS# (0-10) 06/28/22 11:53 Troponin T Hi Sens 6Hr 39.59 ng/L (0-15) H 06/28/22 15:48 Troponin T Hi Sens 6Hr Delta -1.41 ng/L (0-12) L 06/28/22 15:48 C-Reactive Protein 3.0 mg/L (0.0-4.9) 06/29/22 04:35 Total Protein 6.1 g/dL (6.6-8.7) L 06/28/22 10:05 Albumin 4.0 g/dL (3.5-5.2) 06/28/22 10:05 Globulin 2.1 g/dL (1.3-4.6) 06/28/22 10:05 Procalcitonin 0.06 ng/mL (0-0.5) 06/28/22 10:05 TSH 0.72 uIU/mL (0.27-4.20) 06/28/22 10:05 Free T4 0.69 ng/dL (0.82-1.77) L 06/28/22 10:05 EKG 1: My Interpretation: Normal sinus rhythm with a first-degree AV block, right bundle branch block, left anterior fascicle block, PVCs, persistent T inversions in the anterolateral leads. EKG computer-generated impression: Chest X-Ray 06/28/22 09:51 IMPRESSION: No acute findings. Thyroid Ultrasound 06/28/22 17:05 IMPRESSION: 1. Enlarged heterogeneous nodular thyroid. Most likely this is a multinodular goiter. 2. No adjacent lymph nodes. A&P Assessment and plan (1) Chest pain: Patient chest pain, in view of his risk factors, abnormal EKG and elevated troponin T is suggestive of non-ST elevation myocardial infarction. Hemodynamically seems to be stable. The 2-hour delta was not significant. In view of the patient's recurrent episodes of chest pains requiring hospital admissions, new EKG changes and elevated troponin T, it would be appropriate to go ahead with a repeat cardiac catheterization to reevaluate the coronary status and decide on further management. The risk of bleeding, hematoma, vascular injury, myocardial infarction, CVA, renal failure and other concomitant complications were explained in detail. I discussed this with the patient and his caregiver-stepmother. They understood this and consented to proceed. So we will go ahead and schedule the angiogram today with Dr. Miller. (2) Elevated troponin: Patient mated with aspirin, Plavix, subcu Lovenox and other symptomatic measures. (3) Atherosclerosis of coronary artery: May be continued on the current medications. An echocardiogram will be helpful to evaluate LV function and rule out new pathology. Patient may benefit from a repeat cardiac catheterization, to reevaluate the coronary status and decide on further management. The echocardiogram revealed normal LV size ejection fraction with no significant wall motion normalities. (4) Dyslipidemia: May be continued on the current medications. (5) Heart block atrioventricular: Currently the patient has first-degree AV block. He is known to have isometric A-V dissociation. We will continue to monitor him on the telemetry. (6) Diabetes: Aggressive management of the diabetes will be appropriate. (7) Hypertension: The antihypertensive medication doses need to be adjusted. Blood pressures are stage II at this time. I may increase the dose of the isosorbide mononitrate to 120 mg p.o. daily. Plan Based on the cardiac catheterization data, further management decisions will be made Attestations Medical Necessity Statement*: Patient requires continued hospital stay for close monitoring and further management Coding Level of Care Code Acute Field Sales Manager for g Fwd Diagnoses Chest pain R07.9 Elevated troponin R77.8 Atherosclerosis of coronary artery I25.10 Dyslipidemia E78.5 Heart block atrioventricular I44.30 Diabetes E11.9 Hypertension I10
--- NOTE | 2022-06-29 10:27 | W.PM.OPSUD ---
Surgery/Procedure H&P Update DATE OF PROCEDURE: June 29, 2022 DATE H&P PERFORMED: 06/28/22 H&P UPDATE INFORMATION: I have reviewed H&P completed within last 30 days, I have examined patient prior to procedure and No changes to prior documentation PREOP DIAGNOSIS: NSTEMI PRIMARY INDICATION FOR PROCEDURE: NSTEMI PLANNED PROCEDURE: Left heart cath with possible percutaneous coronary intervention PATIENT REASSESSED PRIOR TO SEDATION, WITH NO CHANGE NOTED: Yes PHYSICAL EXAM: alert, oriented x 3, clear to auscultation bilaterally and regular rate & rhythm AIRWAY EVAL/ANESTHESIA PLAN: ASA III, Local Anesthesia, Risks, benefits & alternatives of sedation and/or procedure discussed and Patient agrees to continue as planned ADDITIONAL INFORMATION: Moderate sedation
--- NOTE | 2022-06-29 11:59 | PM.PN ---
Subjective Subjective: No active chest pain Patient is oriented to himself only Plan for angiogram today Vitals/I&O/Wt Last Vital Signs Temp 98.4 F 06/29/22 07:52 Pulse 89 06/29/22 08:59 Resp 18 06/29/22 08:59 BP 174/97 06/29/22 07:52 Pulse Ox 96 06/29/22 08:59 O2 Del Method 06/29/22 08:59 06/28/22 06/29/22 06/29/22 22:59 06:59 14:59 Intake Total 240 / 240 Balance 240 / 240 Weight last 48 hrs Weight 93.582 kg Weight 90.718 kg Physical Exam Narrative: Awake and alert Euvolemic S1, S2 no active chest pain Abdomen soft Pleasant to communicate Oriented to himself BEREKET ESCOBAR Currently on room air Data : 06/29/22 04:35 06/29/22 04:35 A&P Assessment and plan (1) Elevated troponin: (2) Thyroid nodule: (3) Chest pain: (4) Bipolar disorder, current episode depressed, moderate: (5) Hypertension: (6) Diabetes: (7) Bradycardia: (8) Dyslipidemia: Plan Unstable angina plan for angiogram today No active chest pain He was given therapeutic Lovenox on request of Dr. Hargrove EKG was showing T wave inversion in lateral leads Multinodular goiter TSH is normal I will refer him to see Dr. 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
--- NOTE | 2022-06-29 12:31 | PM.MISC ---
Miscellaneous Note Purpose of Documentation: Brief procedure note Note: Moderate to severe 70% proximal LAD, hazy stenosis. iFR performed that was abnormal with a value of 0.80. Patient underwent successful revascularization with KHOA x 1. Patent prior LAD stent Continue aspirin and plavix for 1 year
[2022-06-29 12:38] LABS: Glucose Point of Care 99 mg/dL (70-110)
[2022-06-29] MEDS: OXcarbazepine 300 mg Tablet 600 MG PO ×2 (12:47→21:00)
[2022-06-29] MEDS: isosorbide mononitrate ER 60 mg Tablet PO (12:48)
[2022-06-29] MEDS: topiramate 25 mg Tablet 50 MG PO ×2 (12:48→21:00)
[2022-06-29] MEDS: benztropine 1 mg Tablet PO ×2 (13:20→21:00)
[2022-06-29] MEDS: sodium chloride 0.9% 1,000 ML 100 ML IV ×2 (13:21→23:16)
--- NOTE | 2022-06-29 13:36 | PC.NURSE ---
received from cardiac corn lab technician via bed at 1155.report received.pt is alert and awake.sr with 1st degree block on monitor.pt denies any pain.oriented to room environment.right radial tr band on and inflated.right hand is warm to touch and with brisk capillary refill.no hematoma noted.right radial pulse palpated distal to tr band.right femoral sheath had been removed in corn lab technician and angioseal applied.right groin with drsg dry and intact.no hematoma noted.right leg is warm to touch and with brisk capillary refill.palpable dp pulse noted.pt instructed in activity restrictions s/p radial and femoral artery procedures...and instructed to notify staff for any bleeding,pain,numbness,sob,chest pain,dizziness..or for any concerns at all.pt verb understanding of instructions.bed alarm placed on.will conctinue to observe pt closely.
--- NOTE | 2022-06-29 13:47 | PC.NURSE ---
at 1320 bed alarm sounded.pt found sitting on side of bed.pt again instructed in activity restrictions s/p radial and femoral artery procedures..and potential complications that could occur.assisted to lying position.no femoral or radial artery hematoma noted .bed alarm reset.pt verb understanding of instructions,but will need reinforcement
--- NOTE | 2022-06-29 16:29 | PC.NURSE ---
right radial tr band slowly deflated and eventually removed at 1615.site dressed with 2x2 gauze and secured with biocclusive drsg.right hand remains warm to touch and with brisk capillary refill.no hematoma noted.palpable radial pulse noted.pt instructed in activity restrictions s/p tr band removal...amd instructed to notify staff for any bleeding,bruising,pain,or for any concerns at all.pt verb understanding of instructions.pt has not attempted to get out of bed.small amt red drng noted on right femoral drsg.drsg removed. no hematoma noted.appears as small amt of track ooze from puncture site.redressed with 2x2 gauze and secured with biocclusive drsg.
[2022-06-29 16:31] LABS: Glucose Point of Care 98 mg/dL (70-110)
--- NOTE | 2022-06-29 17:39 | PC.NURSE ---
transferred to [place] [id number] via bed at this time
[2022-06-29 18:02] LABS: Glucose Point of Care 126 mg/dL (70-110)
[2022-06-29 20:36] LABS: Glucose Point of Care 118 mg/dL (70-110)
[2022-06-29] MEDS: OLANZapine 5 mg TABLET PO (21:00)
[2022-06-30] VITALS: BP 134/72; PULSE 56; RESP 18; TEMP 36.4; O2SAT 92
[2022-06-30 03:08] LABS: Basophils % 0.5 %; Eosinophils # 0.1 10^3/uL (0.0-0.8); Eosinophils % 2.3 %; Hematocrit 37.9 % (42.0-52.0); Hemoglobin 12.3 g/dL (11.7-16.6); Lymphocytes # 1.1 10^3/uL (0.8-4.8); Lymphocytes % 20.3 %; Mean Corpuscular HGB Conc 32.5 g/dL (30.0-36.0); Mean Corpuscular Hemoglobin 27.6 pg (28.0-34.0); Mean Corpuscular Volume 85.2 fl (80-94); Mean Platelet Volume 11.7 fL (7.4-10.4); Monocytes # 0.7 10^3/uL (0.2-0.9); Monocytes % 12.2 %; Neutrophils # 3.58 10^3/uL (1.8-7.7); Neutrophils % 64.5 %; Nucleated Red Blood Cells % 0 %; Platelet Count 164 10^3/cmm (130-400); Red Blood Count 4.45 10^6/uL (4.1-5.3); Red Cell Distribution Width 14.3 % (12.1-15.1); White Blood Count 5.6 10^3/uL (4.0-10.0)
[2022-06-30 03:29] LABS: Blood Urea Nitrogen 19 mg/dL (8-23); Calcium 8.5 mg/dL (8.5-10.5); Carbon Dioxide 21 mmol/L (22-29); Chloride 112 mmol/L (98-107); Glucose 93 mg/dL (65-115); Osmolality Calculated 292 mOsm/kg (285-295); Sodium 140 mmol/L (136-145)
[2022-06-30 04:00] VITALS: BP 134/72; PULSE 46; RESP 19; TEMP 36.5; O2SAT 92
[2022-06-30] MEDS: venlafaxine 75 mg Tablet PO (05:29)
[2022-06-30] MEDS: benztropine 1 mg Tablet 2 MG PO (05:29)
[2022-06-30] MEDS: clopidogrel 75 mg Tablet PO (05:30)
[2022-06-30] MEDS: aspirin 81 mg EC Tablet PO (05:30)
[2022-06-30 05:56] VITALS: PULSE 48
[2022-06-30 06:16] LABS: Glucose Point of Care 92 mg/dL (70-110)
[2022-06-30 07:32] VITALS: BP 195/93; PULSE 62; RESP 18; TEMP 36.6; O2SAT 96
[2022-06-30] MEDS: OXcarbazepine 300 mg Tablet 600 MG PO (08:29)
[2022-06-30] MEDS: topiramate 25 mg Tablet 50 MG PO (08:29)
[2022-06-30] MEDS: isosorbide mononitrate ER 60 mg Tablet 120 MG PO (08:29)
--- NOTE | 2022-06-30 09:34 | P.PN_ITS ---
Subjective Subjective: Patient had a cardiac arrest yesterday followed by PCI of the proximal LAD. Currently is remaining stable. Telemetry shows sinus rhythm with a first-degree AV block and occasional PVCs. No new arrhythmias. Medications: Medication Review Details: Current Medications Acetaminophen (Acetaminophen 325 Mg Tablet) 650 mg PO Q6H PRN PRN Reason: MILD PAIN Al Hydrox/Mg Hydrox/Simethicone (Tfad-Ozm-Zlhyjgpxm-Melissa 30 Ml Udc) 30 ml PO Q15M PRN PRN Reason: INDIGESTION Albuterol/Ipratropium (Ipratropium-Albuterol 3 Ml Neb) 3 ml INHALATION Q6H PRN PRN Reason: SHORTNESS OF BREATH Alprazolam (Alprazolam 0.5 Mg Tablet) 0.25 mg PO TID PRN PRN Reason: ANXIETY Aspirin (Aspirin 81 Mg Ec Tablet) 81 mg PO [facility] Last Admin: 06/30/22 05:30 Dose: 81 mg Atropine Sulfate (Atropine 1 Mg/Ml Sdv 1 Ml) 0.5 mg IVP PRN PRN PRN Reason: Symptomatic bradycardia Benztropine Mesylate (Benztropine 1 Mg Tablet) 2 mg PO [facility] Last Admin: 06/30/22 05:29 Dose: 2 mg Benztropine Mesylate (Benztropine 1 Mg Tablet) 1 mg PO 1200,2100 [facility] Last Admin: 06/29/22 21:00 Dose: 1 mg Clopidogrel Bisulfate (Clopidogrel 75 Mg Tablet) 75 mg PO [facility] Last Admin: 06/30/22 05:30 Dose: 75 mg Dextrose (Dextrose 50% Syringe 50 Ml) 25 ml IVP ONCE PRN; Protocol PRN Reason: hypoglycemia protocol Dextrose (Dextrose 50% Syringe 50 Ml) 50 ml IVP PRN PRN; Protocol PRN Reason: hypoglycemia protocol Fentanyl (Fentanyl 50 Mcg/Ml Inj 2ml) 50 mcg IVP PRN PRN PRN Reason: PAIN Glucagon (Glucagon 1 Mg/Ml Inj 1 Ml) 1 mg IM ONCE PRN; Protocol PRN Reason: Adult Acute Hypoglycemia Prot. Dextrose (D5w) 500 mls @ 100 mls/hr IV ONCE PRN; Protocol PRN Reason: Adult Acute Hypoglycemia Prot Sodium Chloride (Sodium Chloride 0.9%) 1,000 mls @ 100 mls/hr IV .Q10H [facility] Last Admin: 06/30/22 08:23 Dose: Not Given Insulin Human Lispro (Insulin Lispro 100 Unit/1 Ml) 0 unit SUBCUT TIDWM [facility]; Protocol Last Admin: 06/30/22 08:22 Dose: Not Given Isosorbide Mononitrate (Isosorbide Mononitrate Er 60 Mg Tablet) 120 mg PO DAILY [facility] Last Admin: 06/30/22 08:29 Dose: 120 mg Magnesium Hydroxide (Magnesium Hydroxide 30 Ml Udc) 30 ml PO DAILY PRN PRN Reason: CONSTIPATION Morphine Sulfate (Morphine Ir 15 Mg Tablet) 15 mg PO Q6H PRN PRN Reason: pAIN Naloxone HCl (Naloxone 0.4 Mg/Ml Sdv) 0.1 mg IVP Q2M PRN PRN Reason: RESPIRATORY RATE < 8/MIN Nitroglycerin (Nitroglycerin 0.4 Mg Sublingual Tablet) 0.4 mg SUBLINGUAL Q5M PRN PRN Reason: CHEST PAIN Olanzapine (Olanzapine 5 Mg Tablet) 5 mg PO BEDTIME [facility] Last Admin: 06/29/22 21:00 Dose: 5 mg Ondansetron HCl (Ondansetron 2 Mg/Ml Sdv 2 Ml) 4 mg IVP Q6H PRN PRN Reason: NAUSEA AND VOMITING Oxcarbazepine (Oxcarbazepine 300 Mg Tablet) 600 mg PO Q12H [facility] Last Admin: 06/30/22 08:29 Dose: 600 mg Senna/Docusate Sodium (Sennosides-Docusate Tablet) 1 tab PO DAILY [facility] Last Admin: 06/30/22 08:30 Dose: Not Given Temazepam (Temazepam 15 Mg Capsule) 15 mg PO BEDTIME PRN PRN Reason: INSOMNIA Topiramate (Topiramate 25 Mg Tablet) 50 mg PO TID [facility] Last Admin: 06/30/22 08:29 Dose: 50 mg Venlafaxine HCl (Venlafaxine 75 Mg Tablet) 75 mg PO QAM [facility] Last Admin: 06/30/22 05:29 Dose: 75 mg Vitals/I&O/Wt Last Vital Signs Temp 97.9 F 06/30/22 07:32 Pulse 62 06/30/22 07:32 Resp 18 06/30/22 07:32 BP 195/93 06/30/22 07:32 Pulse Ox 96 06/30/22 07:32 O2 Del Method 06/30/22 07:32 06/29/22 06/30/22 06/30/22 22:59 06:59 14:59 Intake Total 360 / 720 1111.667 / 1831.667 360 / 360 Output Total 200 / 380 Balance 160 / 340 1111.667 / 1451.667 360 / 360 Weight last 48 hrs Weight 206 lb 5 oz Weight 200 lb Physical Exam Narrative: For GENERAL: The patient is alert and oriented times three. Not in any acute distress. HEENT: No significant pallor, icterus or lymphadenopathy.Oral cavity: There are no mucous membrane lesions. NECK: Trachea appears to be central. No masses noted. No JVD or thyromegaly appreciated. RESPIRATORY: Chest is symmetrical. No intercostals muscle retraction or any accessory muscle activation. There is no chest wall tenderness. Breath sounds are heard bilaterally. No rales or rhonchi heard. No evidence of any consolidation. BREASTS: Deferred. HEART: The heart sounds are normal. No S3 or S4. No significant murmurs. No pericardial rub ABDOMEN: No vessel pulsations or distention. No tenderness. No organomegaly appreciated. Bowel sounds are normally heard. : Deferred. RECTAL: Deferred. LYMPHATIC: No lymphadenopathy noted in the neck. EXTREMITIES: No hematoma bleeding of the arterial puncture site MUSCULOSKELETAL: No acute joint deformities or swelling SKIN: There are no significant rashes or ecchymosis NEUROPSYCHIATRIC: The patient is alert and oriented x3. Appears to be in a good mood. No tremors or rigidity noted. Data : 06/30/22 02:48 06/30/22 02:48 Micro: Laboratory Last Values WBC 5.6 10^3/uL (4.0-10.0) 06/30/22 02:48 RBC 4.45 10^6/uL (4.1-5.3) 06/30/22 02:48 Hgb 12.3 g/dL (11.7-16.6) 06/30/22 02:48 Hct 37.9 % (42.0-52.0) L 06/30/22 02:48 MCV 85.2 fl (80-94) 06/30/22 02:48 MCH 27.6 pg (28.0-34.0) L 06/30/22 02:48 MCHC 32.5 g/dL (30.0-36.0) 06/30/22 02:48 RDW 14.3 % (12.1-15.1) 06/30/22 02:48 Plt Count 164 10^3/cmm (130-400) 06/30/22 02:48 MPV 11.7 fL (7.4-10.4) H 06/30/22 02:48 Neut % (Auto) 64.5 % 06/30/22 02:48 Lymph % (Auto) 20.3 % 06/30/22 02:48 [place] % (Auto) 12.2 % 06/30/22 02:48 Eos % (Auto) 2.3 % 06/30/22 02:48 Baso % (Auto) 0.5 % 06/30/22 02:48 Neut # (Auto) 3.58 10^3/uL (1.8-7.7) 06/30/22 02:48 Lymph # (Auto) 1.1 10^3/uL (0.8-4.8) 06/30/22 02:48 [place] # (Auto) 0.7 10^3/uL (0.2-0.9) 06/30/22 02:48 Eos # (Auto) 0.1 10^3/uL (0.0-0.8) 06/30/22 02:48 Baso # (Auto) 0.0 10^3/uL (0.0-0.1) 06/30/22 02:48 Nucleated RBC % (auto) 0 % 06/30/22 02:48 Nucleated RBCs # 0.0 /100WBC 06/30/22 02:48 D-Dimer 0.41 ug/mIFEU (0-0.59) 06/28/22 10:05 Sodium 140 mmol/L (136-145) 06/30/22 02:48 Potassium 4.0 mmol/L (3.5-5.1) 06/30/22 02:48 Chloride 112 mmol/L (98-107) H 06/30/22 02:48 Carbon Dioxide 21 mmol/L (22-29) L 06/30/22 02:48 Anion Gap 11.0 (5-19) 06/30/22 02:48 BUN 19 mg/dL (8-23) 06/30/22 02:48 Creatinine 0.8 mg/dL (0.7-1.2) 06/30/22 02:48 GFR Calculation Not Reportable 06/30/22 02:48 Glucose 93 mg/dL (65-115) 06/30/22 02:48 POC Glucose 92 mg/dL (70-110) 06/30/22 06:12 Calculated Osmolality 292 mOsm/kg (285-295) 06/30/22 02:48 Calcium 8.5 mg/dL (8.5-10.5) 06/30/22 02:48 Magnesium 2.4 mg/dL (1.7-2.3) H 06/29/22 04:35 Total Bilirubin 0.2 mg/dL (0.15-1.2) 06/28/22 10:05 AST 18 U/L (0-40) 06/28/22 10:05 ALT 14 U/L (0-41) 06/28/22 10:05 Alkaline Phosphatase 86 U/L (40-130) 06/28/22 10:05 Troponin T Baseline 41 ng/L (0-15) H 06/28/22 10:05 Troponin T 120 Minute 41.44 ng/L (0-15) H 06/28/22 11:53 Delta Troponin T 0.44 ABS# (0-10) 06/28/22 11:53 Troponin T Hi Sens 6Hr 39.59 ng/L (0-15) H 06/28/22 15:48 Troponin T Hi Sens 6Hr Delta -1.41 ng/L (0-12) L 06/28/22 15:48 C-Reactive Protein 3.0 mg/L (0.0-4.9) 06/29/22 04:35 Total Protein 6.1 g/dL (6.6-8.7) L 06/28/22 10:05 Albumin 4.0 g/dL (3.5-5.2) 06/28/22 10:05 Globulin 2.1 g/dL (1.3-4.6) 06/28/22 10:05 Procalcitonin 0.06 ng/mL (0-0.5) 06/28/22 10:05 TSH 0.72 uIU/mL (0.27-4.20) 06/28/22 10:05 Free T4 0.69 ng/dL (0.82-1.77) L 06/28/22 10:05 A&P Assessment and plan (1) Chest pain: Patient s/p cardiac colorization followed by PCI of the proximal LAD lesion. Currently remaining stable. No recurrence of chest pain. If he continues to remain stable, may be discharged home today. (2) Elevated troponin: Patient mated with aspirin, Plavix, subcu Lovenox and other symptomatic measures . (3) Atherosclerosis of coronary artery: For the cardiac catheterization report, please refer to the report by Dr. Miller from yesterday. Patient is currently stable. (4) Dyslipidemia: May be continued on the current medications. (5) Heart block atrioventricular: Currently the patient has first-degree AV block. He is known to have isometric A-V dissociation. We will continue to monitor him on the telemetry. (6) Diabetes: Aggressive management of the diabetes will be appropriate. (7) Hypertension: May continue monitoring blood pressure at home. Plan If the patient continues remain stable, may be discharged home today. Appointment at the [facility] to be seen by nurse practitioner next week. 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
--- NOTE | 2022-06-30 09:37 | PM.DCS ---
Discharge Providers Date of Admission: 06/28/22 15:33 Date of Discharge: June 30, 2022 Attending Provider at Admission: Sean Aragon MD Attending Provider at Discharge: Sean Aragon MD Primary Care Provider: Tray Dennis Diagnoses at Discharge Discharge Diagnosis (1) Chest pain: Status: Acute (2) Elevated troponin: Status: Acute (3) Atherosclerosis of coronary artery: Status: Acute (4) Dyslipidemia: Status: Acute (5) Heart block atrioventricular: Status: Acute (6) Diabetes: Status: Acute (7) Hypertension: Status: Acute Reason for Visit Reason for Visit: chest pain Hospital Course Hospital Course 71-year male who has intellectual disability, bipolar disorder, who presented to hospital with chief complaint of recurrent chest pain, recently had a stent placed in LAD, he is a known patient of Dr. Hargrove, Dr. Hargrove was consulted for further evaluation as his stress test was done recently, patient went for coronary angiogram on 06/29, received stent in LAD distal be his second drug-eluting stent, I have increased his dose of aspirin 162 mg along with Plavix, he cannot take any statins because of intolerance, he is staying hypertensive, his TSH is normal, thyroid ultrasound did show goiter, he can follow-up with Dr. Delgado outpatient in 4 behavioral issues I have added olanzapine and discontinue trazodone at the bedtime. He will get referral for behavioral health clinic. His stepmother might think about [facility] placement at some point but not during this visit. Physical Exam Narrative: Patient is awake and alert Atrial flutter No active complaints Hypertensive he has been given 1 dose of hydralazine 10 mg IV push Mood is appropriate calm and cooperative Awake and alert S1, S2 Abdomen soft Nonfocal neuro exam Intellectual/cognitive impairment Discharge Data Studies Completed and Pending Completed Studies During Hospitalization Category Date Time Status XR chest 1V portable [id number] Stat Exams 06/28/22 09:51 Completed CV. echo complete* [id number] Routine Ultrasound 06/28/22 17:49 Completed US thyroid [id number] Routine Ultrasound 06/28/22 17:05 Completed Pending at discharge Category Date Time Status [employer] request for service Routine Exams 06/29/22 09:49 Taken TSH Receptor Binding Antibody Routine Lab 06/28/22 10:05 Received Thyroid Stimulating Immunoglob Routine Lab 06/28/22 10:05 Received Radiology Impressions Chest X-Ray 06/28/22 09:51 IMPRESSION: No acute findings. Thyroid Ultrasound 06/28/22 17:05 IMPRESSION: 1. Enlarged heterogeneous nodular thyroid. Most likely this is a multinodular goiter. 2. No adjacent lymph nodes. Laboratory Results WBC 5.6 10^3/uL (4.0-10.0) 06/30/22 02:48 RBC 4.45 10^6/uL (4.1-5.3) 06/30/22 02:48 Hgb 12.3 g/dL (11.7-16.6) 06/30/22 02:48 Hct 37.9 % (42.0-52.0) L 06/30/22 02:48 MCV 85.2 fl (80-94) 06/30/22 02:48 MCH 27.6 pg (28.0-34.0) L 06/30/22 02:48 MCHC 32.5 g/dL (30.0-36.0) 06/30/22 02:48 RDW 14.3 % (12.1-15.1) 06/30/22 02:48 Plt Count 164 10^3/cmm (130-400) 06/30/22 02:48 MPV 11.7 fL (7.4-10.4) H 06/30/22 02:48 Neut % (Auto) 64.5 % 06/30/22 02:48 Lymph % (Auto) 20.3 % 06/30/22 02:48 [place] % (Auto) 12.2 % 06/30/22 02:48 Eos % (Auto) 2.3 % 06/30/22 02:48 Baso % (Auto) 0.5 % 06/30/22 02:48 Neut # (Auto) 3.58 10^3/uL (1.8-7.7) 06/30/22 02:48 Lymph # (Auto) 1.1 10^3/uL (0.8-4.8) 06/30/22 02:48 [place] # (Auto) 0.7 10^3/uL (0.2-0.9) 06/30/22 02:48 Eos # (Auto) 0.1 10^3/uL (0.0-0.8) 06/30/22 02:48 Baso # (Auto) 0.0 10^3/uL (0.0-0.1) 06/30/22 02:48 Nucleated RBC % (auto) 0 % 06/30/22 02:48 Nucleated RBCs # 0.0 /100WBC 06/30/22 02:48 D-Dimer 0.41 ug/mIFEU (0-0.59) 06/28/22 10:05 Sodium 140 mmol/L (136-145) 06/30/22 02:48 Potassium 4.0 mmol/L (3.5-5.1) 06/30/22 02:48 Chloride 112 mmol/L (98-107) H 06/30/22 02:48 Carbon Dioxide 21 mmol/L (22-29) L 06/30/22 02:48 Anion Gap 11.0 (5-19) 06/30/22 02:48 BUN 19 mg/dL (8-23) 06/30/22 02:48 Creatinine 0.8 mg/dL (0.7-1.2) 06/30/22 02:48 GFR Calculation Not Reportable 06/30/22 02:48 Glucose 93 mg/dL (65-115) 06/30/22 02:48 POC Glucose 92 mg/dL (70-110) 06/30/22 06:12 Calculated Osmolality 292 mOsm/kg (285-295) 06/30/22 02:48 Calcium 8.5 mg/dL (8.5-10.5) 06/30/22 02:48 Magnesium 2.4 mg/dL (1.7-2.3) H 06/29/22 04:35 Total Bilirubin 0.2 mg/dL (0.15-1.2) 06/28/22 10:05 AST 18 U/L (0-40) 06/28/22 10:05 ALT 14 U/L (0-41) 06/28/22 10:05 Alkaline Phosphatase 86 U/L (40-130) 06/28/22 10:05 Troponin T Baseline 41 ng/L (0-15) H 06/28/22 10:05 Troponin T 120 Minute 41.44 ng/L (0-15) H 06/28/22 11:53 Delta Troponin T 0.44 ABS# (0-10) 06/28/22 11:53 Troponin T Hi Sens 6Hr 39.59 ng/L (0-15) H 06/28/22 15:48 Troponin T Hi Sens 6Hr Delta -1.41 ng/L (0-12) L 06/28/22 15:48 C-Reactive Protein 3.0 mg/L (0.0-4.9) 06/29/22 04:35 Total Protein 6.1 g/dL (6.6-8.7) L 06/28/22 10:05 Albumin 4.0 g/dL (3.5-5.2) 06/28/22 10:05 Globulin 2.1 g/dL (1.3-4.6) 06/28/22 10:05 Procalcitonin 0.06 ng/mL (0-0.5) 06/28/22 10:05 TSH 0.72 uIU/mL (0.27-4.20) 06/28/22 10:05 Free T4 0.69 ng/dL (0.82-1.77) L 06/28/22 10:05 Vitals Last Vital Signs Temp 97.9 F 06/30/22 07:32 Pulse 62 06/30/22 07:32 Resp 18 06/30/22 07:32 BP 195/93 06/30/22 07:32 Pulse Ox 96 06/30/22 07:32 O2 Del Method 06/30/22 07:32 Discharge Plan Discharge Patient Disposition: Home Condition: Stable Prescriptions: New olanzapine 5 mg Tablet 5 mg PO BEDTIME Qty: 30 0RF losartan 50 mg tablet 50 mg PO DAILY Qty: 90 4RF amlodipine 5 mg tablet 5 mg PO DAILY Qty: 30 4RF Continued benztropine 1 mg tablet See Rx Instructions .ROUTE .COMPLEX Rx Instructions: 2mg po qam, 1mg po at noon and 1mg po at bedtime oxcarbazepine [Trileptal] 600 mg tablet 600 mg PO BID venlafaxine 75 mg tablet 75 mg PO QAM nitroglycerin 0.4 mg tablet, sublingual 0.4 mg sublingual Q5M PRN (Reason: Chest Pain) Rx Instructions: do not exceed 3 doses per episode isosorbide mononitrate 60 mg tablet extended release 24 hr 60 mg PO DAILY Qty: 60 5RF topiramate 50 mg tablet 50 mg PO TID glimepiride 1 mg tablet 2 mg PO QAM ascorbic acid (vitamin C) [Vitamin C] 500 mg Tablet 500 mg PO DAILY spironolactone 25 mg tablet 25 mg PO QAM Rx Instructions: for edema/shortness of breath clopidogrel 75 mg tablet 75 mg PO QAM Qty: 180 3RF Changed aspirin 81 mg tablet,delayed release (DR/EC) 162 mg PO QAM Qty: 180 4RF Discontinued trazodone 50 mg tablet 50 mg PO BEDTIME Discharge Orders: Discharge Order (Routine); Ordered 06/30/22 Ordered By: Sean Aragon Referrals: [facility], [Staff Physician] - 7-10 days Tray Dennis [Primary Care Provider] - 07/03/22 3:00 pm (APPOINTMENT WITH [facility]) Adriana Francis FNP [Nurse Practitioner] - 1 month Discharge Diet: Cardiac Discharge Activity: Increase activity as tolerated Patient Instructions: Opioid Safety Discharge Attestations Time Spent in Discharge Care*: less than 30 min Quality Metrics Clinical Quality Measures [ No reported AMI, CVA or VTE this stay] Coding Level of Care Code Acute g [facility] note Diagnoses Chest pain R07.9 Elevated troponin R77.8 Atherosclerosis of coronary artery I25.10 Dyslipidemia E78.5 Heart block atrioventricular I44.30 Diabetes E11.9 Hypertension I10
[2022-06-30 10:08] VITALS: PULSE 69; RESP 18; O2SAT 99
[2022-06-30 11:08] VITALS: BP 138/57; PULSE 67; RESP 18; TEMP 36.7; O2SAT 96
[2022-07-03 14:37] LABS: TSH Receptor Binding Antibody 1.37 IU/L (< OR = 2.00)
[2022-07-09 19:08] LABS: Thyroid Stimulating Immunoglob <89 % baseline (<140)
== END 2022-06-30 13:38 | disposition home or self-care (01) ==
LOC: ER 15:07 → MEDSURG 15:36 → CSU 06-29 12:30 → MEDSURG 06-29 14:58
PROVIDERS: Internal Medicine; Student in an Organized Health Care Education/Training Program; Admitting Provider Internal Medicine; Emergency Provider Emergency Medicine; PCP Family Medicine; Visit Provider Internal Medicine
DX: I25.10 Atherosclerotic heart disease of native coronary artery without angina pectoris (principal); R07.9 Chest pain, unspecified; R77.8 Other specified abnormalities of plasma proteins; E78.5 Hyperlipidemia, unspecified; I44.30 Unspecified atrioventricular block; E11.9 Type 2 diabetes mellitus without complications; I10 Essential (primary) hypertension; F79 Unspecified intellectual disabilities; F31.9 Bipolar disorder, unspecified; Z95.5 Presence of coronary angioplasty implant and graft
CPT/HCPCS: 36415; 36416; 71045; 76536; 80048; 80053; 82962; 83516; 83735; 84145; 84439; 84443; 84445; 84484; 85025; 85378; 86140; 93005; 93306; 93458; 93571; 96360; 96372; 99152; 99153; 99285; C1725; C1760; C1769; C1874; C1887; C1894; C9600; G0378; J1644; J1650; J2250; J3010; J3490; J7030; Q9967

== ENCOUNTER 2022-09-18 17:46 | Emergency (ER) | payer MEDICARE, SELFPAY ==
[2022-09-18 17:56] VITALS: BP 205/121; PULSE 69; RESP 16; O2SAT 98
--- NOTE | 2022-09-18 18:24 | ECG_ITS ---
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 Measurements Intervals [place] Rate: 68 P: 30 WA: 171 QRS: -63 QRSD: 172 T: 29 QT: 506 QTc: 540 Interpretive Statements SINUS RHYTHM WITH FREQUENT VENTRICULAR PREMATURE COMPLEXES LEFT AXIS DEVIATION [QRS AXIS < -30] RIGHT BUNDLE BRANCH BLOCK [120+ ms QRS DURATION, UPRIGHT V1, 40+ ms S IN I/aVL/V4/V5/V6] LEFT VENTRICULAR HYPERTROPHY AND ST-T CHANGE [VOLTAGE CRITERIA PLUS ST/T ABNORMALITY] POSSIBLE SEPTAL MYOCARDIAL INFARCTION , OF INDETERMINATE AGE [30 ms Q WAVE IN V1/V2] Compared to ECG 06/28/2022 11:59:50 Ventricular premature complex(es) now present Left-axis deviation now present Left anterior fascicular block no longer present ST (T wave) deviation still present Myocardial infarct finding still present Electronically Signed On 09-18-2022 23:51:14 SUPPORT MERCHANDISER by Sandro Miller M.D. [id number]
--- NOTE | 2022-09-18 18:24 | ED_ITS ---
HPI - Neck Pain/Injury General: Chief Complaint: Neck Pain/Injury Stated Complaint: Neck/Head Pain Time Seen by Provider: 09/18/22 18:06 Source: patient Mode of arrival: EMS Limitations: other (Patient poor historian. Patient has history of decreased mental capacity) History of Present Illness: Patient states he started having posterior upper neck pain after lunch today. He denies any injury or strain. His blood pressure is elevated. He has no other complaints. He denies any headache or new neurological changes. Denies any change in speech or vision. No change in gait. States he is able to walk without any difficulties. No decrease in strength. No change in sensory. Patient apparently does not take losartan or amlodipine anymore. See allergy list. Associated symptoms: Denies headache(s) or nausea Review of Systems Const: Denies: fever(s) or chills Eyes: Denies: change in vision ENMT: Denies: throat pain Card: Denies: chest pain or palpitations Resp: Denies: dyspnea or wheezing GI: Denies: abdominal pain, nausea or vomiting : Denies: flank pain Musc: Reports: neck pain (Reproducible pain with palpation to posterior neck); Denies: back pain Skin/Breast: Denies: rash or pruritus Neuro: Denies: headache(s) or numbness in extremities Psych: Denies: anxiety Keyur/Lymph: Denies: enlarged lymph nodes PFSH ED PFSH: Medical History Atherosclerosis of coronary artery Bipolar disorder, current episode depressed, moderate Bradycardia Chest pain Diabetes Dyslipidemia Elevated troponin SHANTEL (generalized anxiety disorder) Heart block atrioventricular Hyperlipidemia, unspecified Hypertension Intellectual disability Thyroid nodule Surgical History History of appendectomy Family History Grandfather Bleeding disorder Clotting disorder Mother CAD (coronary artery disease), Onset Age: 70 Father CAD (coronary artery disease), Onset Age: 70 Cancer Diabetes Lung disease Brother CAD (coronary artery disease), Onset Age: 70 Other Hypertension Denies family history of Dementia Chronic kidney disease (CKD) Suicide Anesthesia complication Stroke Social History Smoking and tobacco status: never smoked Second hand smoke exposure: No Smoking risk assessment/counseling performed?: No Alcohol intake: former Desire information about alcohol rehabilitation?: No Counseling given: No Desire information about substance/drug rehabilitation?: No Counseling given: No Physical Exam Narrative: EXAM NARRATIVE: Blood pressure 205/121. Patient appears in no distress. Const: COMMON NORMALS: no acute distress, patient oriented x3, no limitations and well nourished GENERAL APPEARANCE: cooperative HENMT: COMMON NORMALS: normocephalic and atraumatic HEAD & SCALP: normocephalic and atraumatic FACE & SINUS: normal facial exam Eye: COMMON NORMALS: EOMs intact bilaterally Neck/C-Spine: COMMON NORMALS: full ROM, no lymphadenopathy, supple and no meningeal signs GENERAL: Yes normal visual inspection OTHER: Mild pain to the paraspinous muscles of the upper cervical spine. No step-off. No rash. No soft tissue swelling. No midline pain. Patient has normal range of motion of the head and neck. Lymph: LYMPHATIC: no lymphadenopathy noted Chest: COMMONS NORMALS: normal inspection of the chest and normal palpation of entire chest wall CHEST: No Ecchymosis present and No rash Resp: COMMON NORMALS: normal respiratory effort, No retractions and clear to auscultation bilaterally EFFORT & INSPECTION: No respiratory distress AUSCULTATION: clear to auscultation bilaterally Cardio: COMMON NORMALS: regular rate, regular rhythm and Peripheral pulses 2+ throughout JUGULAR VENOUS DISTENTION: no JVD RATE: regular rate RHYTHM: regular rhythm PERIPHERAL PULSES: Peripheral pulses 2+ throughout GI: COMMON NORMALS: Normal to inspection, nondistended, normoactive bowel sounds present and non-tender : COMMON NORMALS: Yes no CVA tenderness BLADDER/KIDNEY EXAM: Yes no CVA tenderness Back/Pelvis: COMMON NORMALS: no CVA tenderness Extremity: COMMON NORMALS: normal to inspection, full ROM and capillary refill normal Neuro: COMMON NORMALS: patient oriented x3, CN's II-XII intact bilaterally, no focal motor deficits and no sensory deficits noted MENINGEAL SIGNS: Yes no meningeal signs Psych: COMMON NORMALS: mental status grossly normal and Normal thought process present THOUGHT PROCESS: Normal thought process present Skin: COMMON NORMALS: no rashes or lesions noted and no wounds GENERAL SKIN EXAM: no rashes or lesions noted Course Vital Signs: Vital signs: Vital Signs Pulse Rate 69 09/18/22 17:56 Respiratory Rate 16 09/18/22 17:56 Blood Pressure 205/121 09/18/22 17:56 Pulse Oximetry 98 09/18/22 17:56 Oxygen Delivery Me thod 09/18/22 17:56 MDM - Neck Pain/Injury Medical Decision Making Muscle strain. Accelerated hypertension. 1937: Vital signs show blood pressure 171/94, heart rate 69 pulse oximetry 99% on room air. 1944: Patient feeling much better. He has minimal neck discomfort. I do not believe patient has a count of aneurysm or hemorrhage in his spine. Therefore, will have patient take Tylenol or ibuprofen as needed for discomfort. We will increase his isosorbide by 30 mg a day. Lab Data 09/18/22 18:51 09/18/22 18:51 Laboratory Results WBC 6.9 10^3/uL (4.0-10.0) 09/18/22 18:51 RBC 5.65 10^6/uL (4.1-5.3) H 09/18/22 18:51 Hgb 15.6 g/dL (11.7-16.6) 09/18/22 18:51 Hct 48.9 % (42.0-52.0) 09/18/22 18:51 MCV 86.5 fl (80-94) 09/18/22 18:51 MCH 27.6 pg (28.0-34.0) L 09/18/22 18:51 MCHC 31.9 g/dL (30.0-36.0) 09/18/22 18:51 RDW 13.3 % (12.1-15.1) 09/18/22 18:51 Plt Count 179 10^3/cmm (130-400) 09/18/22 18:51 MPV 11.7 fL (7.4-10.4) H 09/18/22 18:51 Neut % (Auto) 67.9 % 09/18/22 18:51 Lymph % (Auto) 19.5 % 09/18/22 18:51 [place] % (Auto) 9.6 % 09/18/22 18:51 Eos % (Auto) 2.5 % 09/18/22 18:51 Baso % (Auto) 0.4 % 09/18/22 18:51 Neut # (Auto) 4.67 10^3/uL (1.8-7.7) 09/18/22 18:51 Lymph # (Auto) 1.3 10^3/uL (0.8-4.8) 09/18/22 18:51 [place] # (Auto) 0.7 10^3/uL (0.2-0.9) 09/18/22 18:51 Eos # (Auto) 0.2 10^3/uL (0.0-0.8) 09/18/22 18:51 Baso # (Auto) 0.0 10^3/uL (0.0-0.1) 09/18/22 18:51 Nucleated RBC % (auto) 0 % 09/18/22 18:51 Nucleated RBCs # 0.0 /100WBC 09/18/22 18:51 Sodium 137 mmol/L (136-145) 09/18/22 18:51 Potassium 4.0 mmol/L (3.5-5.1) 09/18/22 18:51 Chloride 104 mmol/L (98-107) 09/18/22 18:51 Carbon Dioxide 23 mmol/L (22-29) 09/18/22 18:51 Anion Gap 14.0 (5-19) 09/18/22 18:51 BUN 27 mg/dL (8-23) H 09/18/22 18:51 Creatinine 1.0 mg/dL (0.7-1.2) 09/18/22 18:51 GFR Calculation Not Reportable 09/18/22 18:51 Glucose 69 mg/dL (65-115) 09/18/22 18:51 Calculated Osmolality 287 mOsm/kg (285-295) 09/18/22 18:51 Calcium 9.6 mg/dL (8.5-10.5) 09/18/22 18:51 EKG Data EKG 1: I personally reviewed and interpreted this EKG as follows: EKG interpretation date: 09/18/22 EKG interpretation time: 18:38 Prior EKG tracings: available for review (No change from previous EKGs) Interpretation: Impression normal sinus rhythm with first-degree AV block, right bundle branch block, nonspecific ST-T changes. Occasional PVCs. Heart rate 68. Discharge Plan Discharge Patient Disposition: Home Clinical Impression: Hypertensive urgency, Essential hypertension, Muscle strain Condition: Stable Prescriptions: New isosorbide mononitrate 30 mg tablet extended release 24 hr 30 mg PO DAILY Qty: 30 3RF Rx Instructions: Add 30 mg to present dose of 60 mg for a total of 90 mg p.o. daily No Action benztropine 1 mg tablet See Rx Instructions .ROUTE .COMPLEX Rx Instructions: 2mg po qam, 1mg po at noon and 1mg po at bedtime oxcarbazepine [Trileptal] 600 mg tablet 600 mg PO BID venlafaxine 75 mg tablet 75 mg PO QAM nitroglycerin 0.4 mg tablet, sublingual 0.4 mg sublingual Q5M PRN (Reason: Chest Pain) Rx Instructions: do not exceed 3 doses per episode isosorbide mononitrate 60 mg tablet extended release 24 hr 60 mg PO DAILY Qty: 60 5RF topiramate 50 mg tablet 50 mg PO TID glimepiride 1 mg tablet 2 mg PO QAM ascorbic acid (vitamin C) [Vitamin C] 500 mg Tablet 500 mg PO DAILY spironolactone 25 mg tablet 25 mg PO QAM Rx Instructions: for edema/shortness of breath olanzapine 5 mg Tablet 5 mg PO BEDTIME Qty: 30 0RF clopidogrel 75 mg tablet 75 mg PO QAM Qty: 180 3RF aspirin 81 mg tablet,delayed release (DR/EC) 162 mg PO QAM Qty: 180 4RF Discharge Orders: Discharge ED (Routine); Ordered 09/18/22 Ordered By: Maco Hanson Referrals: Tray Dennis [Primary Care Provider] - 09/21/22 (Follow-up with family doctor early next week for recheck. Record blood pressures 3 times a day.) Discharge Diet: Cardiac and Low Salt Discharge Activity: Increase activity as tolerated Patient Instructions: Muscle Strain (ED), Hypertension (ED), Acute Neck Pain (ED) Activity Restrictions/Additional Instructions: May take Tylenol and/or ibuprofen as needed for pain or discomfort in the neck. May use moist heat to the neck to help with muscle pain. You will need to start taking a total of 90 mg of isosorbide daily. You presently take 60 mg daily. Due to your high blood pressure, you will need to take a total of 90 mg isosorbide daily. Coding Level of Care Code ED Snowmaker for Deangelo Melendez History Comprehensive Exam Comprehensive Medical Decision Making Moderate Complexity
[2022-09-18] MEDS: nitroglycerin 1 gm/inch oint Pkt 1 INCH TOPICAL (18:49)
--- NOTE | 2022-09-18 18:49 | PC.NURSE ---
PT PLACED ON CONTINUOUS SPO2, NIBP, AND CM.
--- NOTE | 2022-09-18 19:00 | PC.NURSE ---
REPORT GIVEN TO JOEY WERNER ASSUMED CARE.
[2022-09-18 19:21] LABS: Basophils % 0.4 %; Eosinophils # 0.2 10^3/uL (0.0-0.8); Eosinophils % 2.5 %; Hematocrit 48.9 % (42.0-52.0); Hemoglobin 15.6 g/dL (11.7-16.6); Lymphocytes # 1.3 10^3/uL (0.8-4.8); Lymphocytes % 19.5 %; Mean Corpuscular HGB Conc 31.9 g/dL (30.0-36.0); Mean Corpuscular Hemoglobin 27.6 pg (28.0-34.0); Mean Corpuscular Volume 86.5 fl (80-94); Mean Platelet Volume 11.7 fL (7.4-10.4); Monocytes # 0.7 10^3/uL (0.2-0.9); Monocytes % 9.6 %; Neutrophils # 4.67 10^3/uL (1.8-7.7); Neutrophils % 67.9 %; Nucleated Red Blood Cells % 0 %; Platelet Count 179 10^3/cmm (130-400); Red Blood Count 5.65 10^6/uL (4.1-5.3); Red Cell Distribution Width 13.3 % (12.1-15.1); White Blood Count 6.9 10^3/uL (4.0-10.0)
[2022-09-18 19:42] LABS: Blood Urea Nitrogen 27 mg/dL (8-23); Calcium 9.6 mg/dL (8.5-10.5); Carbon Dioxide 23 mmol/L (22-29); Chloride 104 mmol/L (98-107); Glucose 69 mg/dL (65-115); Osmolality Calculated 287 mOsm/kg (285-295); Sodium 137 mmol/L (136-145)
[2022-09-18 20:01] VITALS: BP 100/53; PULSE 89; RESP 16; O2SAT 98
== END 2022-09-18 20:03 | disposition home or self-care (01) ==
PROVIDERS: Emergency Provider Family Medicine; PCP Family Medicine
DX: S16.1XXA Strain of muscle, fascia and tendon at neck level, initial encounter (principal); I10 Essential (primary) hypertension; I16.0 Hypertensive urgency; Z79.84 Long term (current) use of oral hypoglycemic drugs; Z79.02 Long term (current) use of antithrombotics/antiplatelets; Z79.82 Long term (current) use of aspirin; E11.9 Type 2 diabetes mellitus without complications; E78.5 Hyperlipidemia, unspecified; X58.XXXA Exposure to other specified factors, initial encounter
CPT/HCPCS: 80048; 85025; 93005; 99284

== ENCOUNTER 2022-09-20 17:25 | Observation (INO) | payer MEDICARE, SELFPAY ==
[2022-09-20] VITALS (62 sets, daily range): BP systolic 159–198; BP diastolic 64–99; PULSE 52–69; RESP 4–22; O2SAT 73–100
--- NOTE | 2022-09-20 17:36 | W.ED.CHESTPA ---
Documented by User: Dawson Masterson MD 09/21/22 19:05 HPI - Chest Pain General: Chief Complaint: Chest Pain Stated Complaint: CHEST PAIN Time Seen by Provider: 09/20/22 17:31 Source: patient and EMS Mode of arrival: EMS Limitations: no limitations History of Present Illness: 71-year-old male well-known to the ER has been seen here multiple times for chest pain seen here 2 days ago he states that he started having some chest pain this morning after breakfast. He states its been constant throughout the day. Patient dates his pain is currently a 2 out of 10 he denies any shortness of breath he is resting comfortably currently. No vomiting or diarrhea Associated symptoms: Deny abdominal pain, dyspnea, fever(s), nausea or vomiting Review of Systems Const: Denies: fever(s), chills, body aches or change in appetite Eyes: Denies: blurry vision or eye discomfort ENMT: Denies: throat pain or dental pain Card: Reports: chest pain Resp: Denies: dyspnea GI: Denies: abdominal pain, nausea, vomiting or diarrhea : Denies: dysuria Musc: Denies: neck pain or back pain Skin/Breast: Denies: rash Neuro: Denies: headache(s) Psych: Denies: depression Keyur/Lymph: Denies: easy bruising All/Imm: Denies: urticaria PFSH ED PFSH: Medical History (Updated 09/21/22 @ 09:29 by Kofi Huizar MD) Atherosclerosis of coronary artery Bipolar disorder, current episode depressed, moderate Bradycardia Chest pain Diabetes Dyslipidemia Elevated troponin SHANTEL (generalized anxiety disorder) Heart block atrioventricular Hyperlipidemia, unspecified Hypertension Intellectual disability Thyroid nodule Surgical History History of appendectomy Family History Grandfather Bleeding disorder Clotting disorder Mother CAD (coronary artery disease), Onset Age: 70 Father CAD (coronary artery disease), Onset Age: 70 Cancer Diabetes Lung disease Brother CAD (coronary artery disease), Onset Age: 70 Other Hypertension Denies family history of Dementia Chronic kidney disease (CKD) Suicide Anesthesia complication Stroke Social History Smoking and tobacco status: never smoked Second hand smoke exposure: No Smoking risk assessment/counseling performed?: No Alcohol intake: former Desire information about alcohol rehabilitation?: No Counseling given: No Desire information about substance/drug rehabilitation?: No Counseling given: No Physical Exam Const: COMMON NORMALS: no acute distress, patient oriented x3 and healthy appearing HENMT: COMMON NORMALS: normocephalic and atraumatic HEAD & SCALP: normocephalic and atraumatic Eye: COMMON NORMALS: Equal, round and reactive pupils present and EOMs intact bilaterally PUPIL: Yes Equal, round and reactive pupils present Neck/C-Spine: COMMON NORMALS: full ROM and supple Chest: COMMONS NORMALS: normal inspection of the chest and normal palpation of entire chest wall Resp: COMMON NORMALS: normal respiratory effort, No retractions, No use of accessory muscles and clear to auscultation bilaterally AUSCULTATION: clear to auscultation bilaterally Cardio: COMMON NORMALS: regular rate, regular rhythm and No murmurs present (Cardio) RATE: regular rate RHYTHM: regular rhythm GI: COMMON NORMALS: Normal to inspection, nondistended, normoactive bowel sounds present, Soft to palpation, non-tender and no masses PALPATION: Yes Soft to palpation Extremity: COMMON NORMALS: normal to inspection and full ROM Neuro: COMMON NORMALS: patient oriented x3, moves all extremities and no focal motor deficits Psych: COMMON NORMALS: mental status grossly normal, Normal thought process present and cooperative THOUGHT PROCESS: Normal thought process present Skin: COMMON NORMALS: no rashes or lesions noted and no wounds GENERAL SKIN EXAM: no rashes or lesions noted Course Vital Signs: Vital signs: Vital Signs Temperature 97.3 F L 09/21/22 16:00 Pulse Rate 63 09/21/22 16:00 Respiratory Rate 25 H 09/21/22 16:00 Blood Pressure 152/77 09/21/22 16:00 Pulse Oximetry 100 09/21/22 11:55 Oxygen Delivery Me thod 09/21/22 10:38 MDM - Chest Pain Medical Decision Making Patient presents here with chest pain he has had recent stress test that was normal patient's care turned over to Dr. Owens to follow troponins Lab Data 09/20/22 18:55 09/20/22 18:55 Radiology Impressions Chest X-Ray 09/20/22 18:19 IMPRESSION: No acute cardiopulmonary abnormality. Laboratory Results WBC 5.4 10^3/uL (4.0-10.0) 09/20/22 18:55 RBC 5.14 10^6/uL (4.1-5.3) 09/20/22 18:55 Hgb 14.2 g/dL (11.7-16.6) 09/20/22 18:55 Hct 44.1 % (42.0-52.0) 09/20/22 18:55 MCV 85.8 fl (80-94) 09/20/22 18:55 MCH 27.6 pg (28.0-34.0) L 09/20/22 18: MCHC 32.2 g/dL (30.0-36.0) 09/20/22 18: RDW 13.2 % (12.1-15.1) 09/20/22 18:55 Plt Count 170 10^3/cmm (130-400) 09/20/22 18: MPV 11.7 fL (7.4-10.4) H 09/20/22 18:55 Neut % (Auto) 62.8 % 09/20/22 18:55 Lymph % (Auto) 22.2 % 09/20/22 18:55 [place] % (Auto) 12.4 % 09/20/22 18:55 Eos % (Auto) 2.0 % 09/20/22 18:55 Baso % (Auto) 0.6 % 09/20/22 18:55 Neut # (Auto) 3.40 10^3/uL (1.8-7.7) 09/20/22 18:55 Lymph # (Auto) 1.2 10^3/uL (0.8-4.8) 09/20/22 18:55 [place] # (Auto) 0.7 10^3/uL (0.2-0.9) 09/20/22 18:55 Eos # (Auto) 0.1 10^3/uL (0.0-0.8) 09/20/22 18:55 Baso # (Auto) 0.0 10^3/uL (0.0-0.1) 09/20/22 18:55 Nucleated RBC % (auto) 0 % 09/20/22 18:55 Nucleated RBCs # 0.0 /100WBC 09/20/22 18:55 D-Dimer 0.90 ug/mIFEU (0-0.59) H 09/21/22 01:11 Sodium 139 mmol/L (136-145) 09/20/22 18:55 Potassium 4.3 mmol/L (3.5-5.1) 09/20/22 18:55 Chloride 109 mmol/L (98-107) H 09/20/22 18:55 Carbon Dioxide 21 mmol/L (22-29) L 09/20/22 18:55 Anion Gap 13.3 (5-19) 09/20/22 18:55 BUN 31 mg/dL (8-23) H 09/20/22 18:55 Creatinine 1.0 mg/dL (0.7-1.2) 09/20/22 18:55 GFR Calculation Not Reportable 09/20/22 18:55 Glucose 60 mg/dL (65-115) L 09/20/22 18:55 POC Glucose 77 mg/dL (70-110) 09/20/22 23:32 Calculated Osmolality 292 mOsm/kg (285-295) 09/20/22 18:55 Calcium 9.0 mg/dL (8.5-10.5) 09/20/22 18:55 Total Bilirubin 0.2 mg/dL (0.15-1.2) 09/20/22 18:55 AST 19 U/L (0-40) 09/20/22 18:55 ALT 15 U/L (0-41) 09/20/22 18:55 Alkaline Phosphatase 92 U/L (40-130) 09/20/22 18:55 Troponin T Baseline 28 ng/L (0-15) H 09/20/22 18:55 Troponin T 120 Minute 28.81 ng/L (0-15) H 09/20/22 20:51 Delta Troponin T 0.81 ABS# (0-10) 09/20/22 20:51 NT-Pro-B Natriuret Pep 269 pg/mL (0-125) H 09/20/22 18:55 Total Protein 7.1 g/dL (6.6-8.7) 09/20/22 18:55 Albumin 3.6 g/dL (3.5-5.2) 09/20/22 18:55 Globulin 3.5 g/dL (1.3-4.6) 09/20/22 18:55 EKG Data EKG 1: I personally reviewed and interpreted this EKG as follows: EKG interpretation date: 09/20/22 EKG interpretation time: 17:38 Interpretation: nsr hr [address] elevation qrs 172 qtc 458 Discharge Plan Discharge Patient Disposition: Placed in Observation Admit Provider: Sean Aragon Clinical Impression: Chest pain, Bradycardia Coding Level of Care Code ED Real Estate Office Manager for Chg Fwd Exam Comprehensive Documented by User: Dudley Owens DO 09/21/22 01:22 HPI - Chest Pain General: Chief Complaint: Chest Pain Stated Complaint: CHEST PAIN Time Seen by Provider: 09/20/22 17:31 History of Present Illness: 71-year-old male well-known to the ER has been seen here multiple times for chest pain seen here 2 days ago he states that he started having some chest pain this morning after breakfast. He states its been constant throughout the day. Patient dates his pain is currently a 2 out of 10 he denies any shortness of breath he is resting comfortably currently. No vomiting or diarrhea. [facility] ED PFSH: Medical History (Updated 09/21/22 @ 09:29 by Kofi Huizar MD) Atherosclerosis of coronary artery Bipolar disorder, current episode depressed, moderate Bradycardia Chest pain Diabetes Dyslipidemia Elevated troponin SHANTEL (generalized anxiety disorder) Heart block atrioventricular Hyperlipidemia, unspecified Hypertension Intellectual disability Thyroid nodule Surgical History History of appendectomy Family History Grandfather Bleeding disorder Clotting disorder Mother CAD (coronary artery disease), Onset Age: 70 Father CAD (coronary artery disease), Onset Age: 70 Cancer Diabetes Lung disease Brother CAD (coronary artery disease), Onset Age: 70 Other Hypertension Denies family history of Dementia Chronic kidney disease (CKD) Suicide Anesthesia complication Stroke Social History Smoking and tobacco status: never smoked Second hand smoke exposure: No Smoking risk assessment/counseling performed?: No Alcohol intake: former Desire information about alcohol rehabilitation?: No Counseling given: No Desire information about substance/drug rehabilitation?: No Counseling given: No Course Consultations: Consultation #1: Lizabeth Consultation #2: Mahesh Vital Signs: Vital signs: Vital Signs Temperature 97.3 F L 09/21/22 16:00 Pulse Rate 63 09/21/22 16:00 Respiratory Rate 25 H 09/21/22 16:00 Blood Pressure 152/77 09/21/22 16:00 Pulse Oximetry 100 09/21/22 11:55 Oxygen Delivery Me thod 09/21/22 10:38 MDM - Chest Pain Medical Decision Making Patient presents here with chest pain he has had recent stress test that was normal patient's care turned over to Dr. Owens to follow troponins. 71-year-old male checked out to me by Dr. Masterson at shift change. This gentleman has a history of coronary disease. He had a balloon and stent to his LAD back in March. He complains of chest discomfort. CBC is normal. His BMP is not remarkable. His first troponin was 28 which is near his baseline. His second troponin is 29. His chest x-ray By my read does not show any significant acute changes. His EKG shows sinus rhythm with a very long MN interval. It appears to be an exaggerated first-degree AV block with right bundle branch block. Cardiology was consulted by phone, looked at the EKG and tends to agree. Technically, he could qualify for pacemaker placement with this. But, upon looking at old EKGs, this is been present for quite some time. Given the fact that this is not a new finding, consideration was made to send the patient home. Patient was agreeable, but family members were not, and given the patient's history of coronary disease, decision was made to observe. Hospitalist is aware and will see the patient. Lab Data 09/20/22 18:55 09/20/22 18:55 Radiology Impressions Chest X-Ray 09/20/22 18:19 IMPRESSION: No acute cardiopulmonary abnormality. Laboratory Results WBC 5.4 10^3/uL (4.0-10.0) 09/20/22 18:55 RBC 5.14 10^6/uL (4.1-5.3) 09/20/22 18:55 Hgb 14.2 g/dL (11.7-16.6) 09/20/22 18:55 Hct 44.1 % (42.0-52.0) 09/20/22 18:55 MCV 85.8 fl (80-94) 09/20/22 18:55 MCH 27.6 pg (28.0-34.0) L 09/20/22 18:55 MCHC 32.2 g/dL (30.0-36.0) 09/20/22 18:55 RDW 13.2 % (12.1-15.1) 09/20/22 18:55 Plt Count 170 10^3/cmm (130-400) 09/20/22 18:55 MPV 11.7 fL (7.4-10.4) H 09/20/22 18:55 Neut % (Auto) 62.8 % 09/20/22 18:55 Lymph % (Auto) 22.2 % 09/20/22 18:55 [place] % (Auto) 12.4 % 09/20/22 18:55 Eos % (Auto) 2.0 % 09/20/22 18:55 Baso % (Auto) 0.6 % 09/20/22 18:55 Neut # (Auto) 3.40 10^3/uL (1.8-7.7) 09/20/22 18:55 Lymph # (Auto) 1.2 10^3/uL (0.8-4.8) 09/20/22 18:55 [place] # (Auto) 0.7 10^3/uL (0.2-0.9) 09/20/22 18:55 Eos # (Auto) 0.1 10^3/uL (0.0-0.8) 09/20/22 18:55 Baso # (Auto) 0.0 10^3/uL (0.0-0.1) 09/20/22 18:55 Nucleated RBC % (auto) 0 % 09/20/22 18:55 Nucleated RBCs # 0.0 /100WBC 09/20/22 18:55 D-Dimer 0.90 ug/mIFEU (0-0.59) H 09/21/22 01:11 Sodium 139 mmol/L (136-145) 09/20/22 18:55 Potassium 4.3 mmol/L (3.5-5.1) 09/20/22 18:55 Chloride 109 mmol/L (98-107) H 09/20/22 18:55 Carbon Dioxide 21 mmol/L (22-29) L 09/20/22 18:55 Anion Gap 13.3 (5-19) 09/20/22 18:55 BUN 31 mg/dL (8-23) H 09/20/22 18:55 Creatinine 1.0 mg/dL (0.7-1.2) 09/20/22 18:55 GFR Calculation Not Reportable 09/20/22 18:55 Glucose 60 mg/dL (65-115) L 09/20/22 18:55 POC Glucose 77 mg/dL (70-110) 09/20/22 23:32 Calculated Osmolality 292 mOsm/kg (285-295) 09/20/22 18:55 Calcium 9.0 mg/dL (8.5-10.5) 09/20/22 18:55 Total Bilirubin 0.2 mg/dL (0.15-1.2) 09/20/22 18:55 AST 19 U/L (0-40) 09/20/22 18:55 ALT 15 U/L (0-41) 09/20/22 18:55 Alkaline Phosphatase 92 U/L (40-130) 09/20/22 18:55 Troponin T Baseline 28 ng/L (0-15) H 09/20/22 18:55 Troponin T 120 Minute 28.81 ng/L (0-15) H 09/20/22 20:51 Delta Troponin T 0.81 ABS# (0-10) 09/20/22 20:51 NT-Pro-B Natriuret Pep 269 pg/mL (0-125) H 09/20/22 18:55 Total Protein 7.1 g/dL (6.6-8.7) 09/20/22 18:55 Albumin 3.6 g/dL (3.5-5.2) 09/20/22 18:55 Globulin 3.5 g/dL (1.3-4.6) 09/20/22 18:55 Discharge Plan Discharge Patient Disposition: Placed in Observation Admit Provider: Sean Aragon Clinical Impression: Chest pain, Bradycardia Coding Level of Care Code ED Real Estate Office Manager for Chg Fwd Exam Comprehensive
--- NOTE | 2022-09-20 17:38 | ECG_ITS ---
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 Measurements Intervals [place] Rate: 66 P: 0 IL: 0 QRS: -73 QRSD: 172 T: 66 QT: 444 QTc: 467 Interpretive Statements UNCERTAIN REGULAR RHYTHM RIGHT BUNDLE BRANCH BLOCK [120+ ms QRS DURATION, UPRIGHT V1, 40+ ms S IN I/aVL/V4/V5/V6] LEFT ANTERIOR FASCICULAR BLOCK [QRS AXIS <= -45, QR IN I, RS IN II] MODERATE VOLTAGE CRITERIA FOR LVH, CONSIDER NORMAL VARIANT [MEETS CRITERIA IN ONE OF: R(aVL), S(V1), R(V5), R(V5/V6)+S(V1)] POSSIBLE SEPTAL MYOCARDIAL INFARCTION , PROBABLY OLD [30 ms Q WAVE IN V1/V2] Compared to ECG 09/18/2022 18:34:17 Left anterior fascicular block now present Sinus rhythm no longer present Ventricular premature complex(es) no longer present Left-axis deviation no longer present ST (T wave) deviation no longer present Myocardial infarct finding still present Electronically Signed On 09-21-2022 6:19:17 DIRECTOR LAW ENFORCEMENT by Sandro Miller M.D. [id number]
--- NOTE | 2022-09-20 18:19 | XRR_ITS ---
PROCEDURE INFORMATION: Exam: XR Chest Exam date and time: 09/20/2022 6:25 PM Age: 71 years old Clinical indication: Dyspnea; Other: Generalized; Patient HX: Chest pain and trouble breathing. ; Additional info: Cp TECHNIQUE: Imaging protocol: Radiologic exam of the chest. Views: 1 view. COMPARISON: CR XR chest 1V portable [id number] 06/28/2022 9:57 AM FINDINGS: Lungs: The lung parenchyma is clear. Pleural spaces: No pneumothorax. No pleural effusion. Heart/Mediastinum: The cardiomediastinal silhouette is within normal limits. Bones/joints: Unremarkable. XR/XR chest 1V portable [id number] IMPRESSION: No acute cardiopulmonary abnormality.
[2022-09-20 19:00] LABS: Basophils % 0.6 %; Eosinophils # 0.1 10^3/uL (0.0-0.8); Hematocrit 44.1 % (42.0-52.0); Hemoglobin 14.2 g/dL (11.7-16.6); Lymphocytes # 1.2 10^3/uL (0.8-4.8); Lymphocytes % 22.2 %; Mean Corpuscular HGB Conc 32.2 g/dL (30.0-36.0); Mean Corpuscular Hemoglobin 27.6 pg (28.0-34.0); Mean Corpuscular Volume 85.8 fl (80-94); Mean Platelet Volume 11.7 fL (7.4-10.4); Monocytes # 0.7 10^3/uL (0.2-0.9); Monocytes % 12.4 %; Neutrophils % 62.8 %; Nucleated Red Blood Cells % 0 %; Platelet Count 170 10^3/cmm (130-400); Red Blood Count 5.14 10^6/uL (4.1-5.3); Red Cell Distribution Width 13.2 % (12.1-15.1); White Blood Count 5.4 10^3/uL (4.0-10.0)
[2022-09-20 19:27] LABS: Troponin(5th) Baseline 28 ng/L (0-15)
--- NOTE | 2022-09-20 19:30 | ECG_ITS ---
[facility] Test Date: 2022-09-20 Pat Name: Jared Sofia Department: Room: Gender: Male Attendant Arcade: : 1950 Requested By: Dawson Masterson Order Number: [id number] Malachi MD: Sandro Miller M.D. Measurements Intervals [place] Rate: 51 P: 0 OH: 0 QRS: -69 QRSD: 168 T: 14 QT: 485 QTc: 448 Interpretive Statements UNCERTAIN IRREGULAR RHYTHM RIGHT BUNDLE BRANCH BLOCK [120+ ms QRS DURATION, UPRIGHT V1, 40+ ms S IN I/aVL/V4/V5/V6] LEFT ANTERIOR FASCICULAR BLOCK [QRS AXIS <= -45, QR IN I, RS IN II] MINIMAL VOLTAGE CRITERIA FOR LVH, CONSIDER NORMAL VARIANT [MEETS CRITERIA IN ONE OF: R(aVL), S(V1), R(V5), R(V5/V6)+S(V1)] POSSIBLE SEPTAL MYOCARDIAL INFARCTION , PROBABLY OLD [30 ms Q WAVE IN V1/V2] Compared to ECG 09/20/2022 17:38:11 No significant changes Electronically Signed On 09-21-2022 6:20:35 TREATMENT TECHNICIAN by Sandro Miller M.D. [id number]
[2022-09-20 19:35] LABS: Alanine Aminotransferase 15 U/L (0-41); Albumin Level 3.6 g/dL (3.5-5.2); Alkaline Phosphatase 92 U/L (40-130); Blood Urea Nitrogen 31 mg/dL (8-23); Carbon Dioxide 21 mmol/L (22-29); Chloride 109 mmol/L (98-107); Globulin 3.5 g/dL (1.3-4.6); Glucose 60 mg/dL (65-115); NT Pro B Type Natriuretic Pept 269 pg/mL (0-125); Osmolality Calculated 292 mOsm/kg (285-295); Sodium 139 mmol/L (136-145); Total Bilirubin 0.2 mg/dL (0.15-1.2); Total Protein 7.1 g/dL (6.6-8.7)
[2022-09-20 19:37] LABS: Anion Gap 13.3 (5-19); Aspartate Amino Transferase 19 U/L (0-40); Potassium 4.3 mmol/L (3.5-5.1)
[2022-09-20] MEDS: morphine 4 mg/mL SDV 1 mL IVP (20:13)
[2022-09-20] MEDS: ondansetron 2 mg/ML SDV 2 mL 4 MG IVP (20:13)
[2022-09-20 21:12] LABS: Troponin 5 2HR 28.81 ng/L (0-15)
[2022-09-20 21:13] LABS: Troponin 5 2HR Delta 0.81 ABS# (0-10)
[2022-09-20 23:36] LABS: Glucose Point of Care 77 mg/dL (70-110)
[2022-09-21] VITALS (140 sets, daily range): BP systolic 123–213; BP diastolic 58–105; PULSE 53–93; RESP 4–27; TEMP 36–36.7; O2SAT 90–100
--- NOTE | 2022-09-21 00:42 | PM.HP ---
Providers/Chief Complaint Primary Care Provider: Tray Dennis Chief Complaint: CHEST PAIN History of Present Illness Jared Sofia is a 71 year old male significant history of coronary disease, recent stent in LAD, history of significant bifascicular block, first-degree AV block with intermittent third-degree block as per Dr. Moy note presented with chief complaint of chest pain. He has been hypertensive at home, as per the caregiver systolic blood pressure in 200s. In the ER he is showing prolonged UT interval first-degree AV, bifascicular block, QTC prolongation, troponins are flat, he is chest pain-free systolic blood pressure 170s Caregiver is not feeling comfortable taking him home because of his recurrent history of chest pain requiring stents ER was about to discharge him and have him follow-up outpatient however caregiver is very concerned and reluctant to take him home Stating that his chest pain started around breakfast which she describing as sharp stabbing pain radiating towards his left arm he has not noticed any shortness of breath, nausea, vomiting, fever or diarrhea. It took some time to come to the hospital and get evaluated At the time of my evaluation blood pressure is 180s/100 I have asked ER nurse to give him 10 mg of hydralazine Review of Systems Const: Denies: fever(s) Eyes: Denies: change in vision ENMT: Denies: throat pain Card: Reports: chest pain Resp: Denies: dyspnea GI: Denies: abdominal pain : Denies: flank pain Musc: Denies: neck pain Skin/Breast: Denies: rash Neuro: Denies: headache(s) Psych: Denies: anxiety Endo: Denies: polyuria Keyur/Lymph: Denies: easy bruising All/Imm: Denies: urticaria Medications/Allergies Home Medications Medication Instructions Recorded Confirmed Last Taken Type benztropine 1 mg tablet See Rx Instructions .Route .COMPLEX 08/11/21 06/28/22 06/25/22 History oxcarbazepine 600 mg tablet 600 mg PO BID 08/11/21 06/28/22 06/25/22 History (Trileptal) venlafaxine 75 mg tablet 75 mg PO QAM 08/11/21 06/28/22 06/25/22 History topiramate 50 mg tablet 50 mg PO TID 12/09/21 06/28/22 06/25/22 History nitroglycerin 0.4 mg sublingual 0.4 mg sublingual Q5M PRN Chest 01/29/22 06/28/22 Unknown History tablet Pain spironolactone 25 mg tablet 25 mg PO QAM 02/11/22 06/28/22 06/25/22 History glimepiride 1 mg tablet 2 mg PO QAM 03/05/22 06/28/22 06/25/22 History isosorbide mononitrate 60 mg 60 mg PO DAILY #60 tabs 03/05/22 06/28/22 06/25/22 Rx tablet,extended release 24 hr ascorbic acid (vitamin C) 500 mg 500 mg PO DAILY 06/25/22 06/28/22 06/24/22 History tablet (Vitamin C) aspirin 81 mg tablet,delayed 162 mg PO QAM #180 tabs 06/30/22 06/28/22 06/25/22 Rx release clopidogrel 75 mg tablet 75 mg PO QAM #180 tabs 06/30/22 06/28/22 06/25/22 Rx olanzapine 5 mg tablet 5 mg PO BEDTIME #30 tabs 06/30/22 Unknown Rx isosorbide mononitrate 30 mg 30 mg PO DAILY #30 tabs 09/18/22 Unknown Rx tablet,extended release 24 hr Allergies Allergy/AdvReac Type Severity Reaction Status Date / Time hydralazine Allergy Severe ADR-Agitate Verified 06/25/22 11:02 d lisinopril Allergy Severe Muscle pain Verified 06/25/22 11:02 aripiprazole [From Abilify] Allergy Mild UNKNOWN Verified 06/25/22 11:02 haloperidol [From Haldol] Allergy Mild UNKNOWN Verified 06/25/22 11:02 cephalexin [From Keflex] Allergy UNKNOWN Verified 06/25/22 11:02 fluoxetine [From Prozac] Allergy Unknown Verified 06/25/22 11:02 lithium Allergy UNKNOWN Verified 06/25/22 11:02 amlodipine AdvReac Severe ADR-Hyperte Verified 06/25/22 11:02 nsion ezetimibe [From Zetia] AdvReac Severe muscle pain Verified 06/25/22 11:02 losartan AdvReac Severe Muscle pain Verified 06/25/22 11:02 metoprolol AdvReac Severe unknown Verified 06/25/22 11:02 [id number] Reductase AdvReac Severe Muscle pain Verified 06/25/22 11:02 Inhibitor PFSH Acute PFSH: Medical History Atherosclerosis of coronary artery Bipolar disorder, current episode depressed, moderate Bradycardia Chest pain Diabetes Dyslipidemia Elevated troponin SHANTEL (generalized anxiety disorder) Heart block atrioventricular Hyperlipidemia, unspecified Hypertension Intellectual disability Thyroid nodule Surgical History History of appendectomy Family History Grandfather Bleeding disorder Clotting disorder Mother CAD (coronary artery disease), Onset Age: 70 Father CAD (coronary artery disease), Onset Age: 70 Cancer Diabetes Lung disease Brother CAD (coronary artery disease), Onset Age: 70 Other Hypertension Denies family history of Dementia Chronic kidney disease (CKD) Suicide Anesthesia complication Stroke Social History Smoking and tobacco status: never smoked Second hand smoke exposure: No Smoking risk assessment/counseling performed?: No Alcohol intake: former Desire information about alcohol rehabilitation?: No Counseling given: No Desire information about substance/drug rehabilitation?: No Counseling given: No Vitals/I&O/Wt Last Vital Signs Pulse 57 L 09/20/22 22:15 Resp 11 L 09/20/22 22:15 BP 198/88 09/20/22 22:30 Pulse Ox 99 09/20/22 22:20 O2 Del Method 09/20/22 17:26 Physical Exam Narrative: Patient is chest pain-free Hypertensive Awake and alert Pleasant and cooperative Clinically euvolemic Abdomen soft Doing well on room air Heart rate in 70s, Intellectually challenged Comfortable in his bed Data 09/20/22 18:55 09/20/22 18:55 A&P Assessment and plan (1) Hypertensive urgency: (2) Chest pain: (3) Bradycardia: (4) Prolonged UT interval: Plan Hypertensive urgency Troponins are flat No active chest pain Saturating well on room air Patient has several allergies listed I will add hydralazine, Imdur, amlodipine for his hypertension Prolonged UT interval History of first-degree AV block with intermittent third-degree AV block as per Dr. Moy note No active chest pain Troponins are flat Recent stent in LAD I do not think he needs a pacemaker at this point Is multiple EKGs are showing bradycardic range, bifascicular block, he is not an ideal candidate for AV kaity blocking agents Caregiver is very concerned, currently touch base with Dr. Hargrove in the morning Recent LAD stent Continue aspirin, Plavix Intellectually challenged Stepmother is the caregiver Patient is full code Cardiac diet DVT prophylaxis on board Check mag level along D-dimer Attestations Medical Necessity Statement*: Anticipating discharge within 48 hours Time Spent in Patient Care: 40 Coding Level of Care Code Acute Biology Lecturer for Chg Fwd Diagnoses Hypertensive urgency I16.0 Chest pain R07.9 Bradycardia R00.1 Prolonged UT interval I44.0
--- NOTE | 2022-09-21 01:29 | PC.NURSE ---
spoke with Dr. Aragon about patients existing allergy for Hydralyzine. Per Dr. Aragon agitation is not an allergy and to give medication. SPoke with Pharmacy regarding possible allergy and states side effect. WIll proceed with administration per Dr. Aragon's Approval.
[2022-09-21] MEDS: hyDRALAzine 20 mg/mL INJ 1 mL 10 MG IVP (01:37)
[2022-09-21] MEDS: hyDRALAzine 25 mg Tablet PO ×2 (02:35→08:57)
[2022-09-21] MEDS: enoxaparin 40 mg/0.4 mL Syringe SUBCUT (02:35)
[2022-09-21 05:35] LABS: Anion Gap 13.5 (5-19); Blood Urea Nitrogen 27 mg/dL (8-23); Calcium 9.2 mg/dL (8.5-10.5); Carbon Dioxide 24 mmol/L (22-29); Chloride 107 mmol/L (98-107); Creatinine Clr Calc Pharmacy 76.1591; Glucose 98 mg/dL (65-115); Magnesium 2.2 mg/dL (1.7-2.3); Osmolality Calculated 297 mOsm/kg (285-295); Potassium 3.5 mmol/L (3.5-5.1); Sodium 141 mmol/L (136-145)
[2022-09-21 06:30] LABS: Glucose Point of Care 109 mg/dL (70-110)
[2022-09-21] MEDS: isosorbide mononitrate ER 30 mg Tablet PO ×2 (08:56→17:18)
[2022-09-21] MEDS: aspirin 81 mg EC Tablet PO (08:56)
[2022-09-21] MEDS: clopidogrel 75 mg Tablet PO (08:57)
[2022-09-21] MEDS: amlodipine 10 mg Tablet PO (08:57)
[2022-09-21] MEDS: famotidine 20 mg Tablet PO ×2 (08:57→17:18)
--- NOTE | 2022-09-21 09:06 | PC.PHAR ---
pts stepmother marisol [phone] verified pts medications-states the pt hasnt started taking the isosorbide mono er 30mg daily states has only been taking the er 60mg qam-pts stepmother states the pts losartan 50mg daily filled 06/30/22 90d/s and amlodipine 5mg daily filled 06/30/22 30d/s was dced-
--- NOTE | 2022-09-21 09:12 | DCPLANNER ---
Addendum entered by Jessie Silva 10/13/22 14:55: Patient had a follow up appointment scheduled with heart care - patient did attend appointment Addendum entered by Jessie Silva 09/24/22 09:35: Patient has a follow up appointment scheduled for Thursday, September 29, 2022 at 2:[address] Hargrove at [facility]. Clinic will call patient with appointment information. Original Note: reo asset manager had message to schedule a follow up appointment for patient with cardiology. reo asset manager sent patients information to the front office staff at cardiology. Patients information will be printed and reviewed. Clinic will call patient with appointment information.
--- NOTE | 2022-09-21 09:28 | P.PN_ITS ---
Subjective Subjective: Jared is somewhat difficult to get a history from. He relates he did have chest discomfort. He is eating a pancake, and relates maybe he has some now as well but on repeat questioning this is not confirmed. He does not appear short of breath, or nauseated. Medications: Reviewed: Yes Vitals/I&O/Wt Last Vital Signs Temp 97.8 F 09/21/22 07:50 Pulse 72 09/21/22 08:05 Resp 13 09/21/22 08:05 BP 160/77 09/21/22 08:05 Pulse Ox 90 09/21/22 08:05 O2 Del Method 09/21/22 04:00 09/20/22 09/21/22 09/21/22 22:59 06:59 14:59 Intake Total 240 / 240 Balance 240 / 240 Weight last 48 hrs Weight 89.176 kg Physical Exam Narrative: General exam is no distress Neck is supple no lymphadenopathy or megaly Cardiovascular irregular, controlled rhythm without murmur Lungs clear no wheezing or crackles Abdomen is soft, positive bowel sounds Extremities no cyanosis clubbing or edema Skin no rash Data 09/20/22 18:55 09/21/22 04:49 A&P Assessment and plan (1) Chest pain: Patient presents with chest discomfort. Troponin elevated but flat Last angiogram, June with LAD stent at that time. He has been on Plavix and aspirin since that time and for my understanding he is compliant with taking the medication. He is allergic to statins Stepmother is very concerned regarding his recurrent pain. She would like evaluation by cardiology. I have consulted Dr. Nagy to see him this morning. Add Pepcid. Stepmother believes he is also been having some heartburn lately. (2) Hypertensive urgency: Patient's initial complaints, and exam complicated by hypertensive urgency. Continue his Aldactone, Imdur Added Norvasc, hydralazine (3) Atherosclerosis of coronary artery: See notations under chest discomfort Last echo in June demonstrated preserved EF (4) Diabetes: Sliding scale insulin Plan Arrhythmia. Some of his rhythms on EKG are quite irregular, with frequent PVCs, PACs and then some with prolonged AK intervals. Cardiology is consulted to comment on whether some of this rhythm represents atrial fibrillation as well. He is not a great candidate for rate limiting medicines for blood pressure secondary to bradycardia at times. Multiple other medical problems as outlined in past medical history Full code Lovenox for DVT prophylaxis Attestations Medical Necessity Statement*: Will need less than 2 midnight stay for evaluation and treatment of chest discomfort Coding Level of Care Code Acute Steel Inspector for Kevyng Fwd Diagnoses Chest pain R07.9 Hypertensive urgency I16.0 Atherosclerosis of coronary artery I25.10 Diabetes E11.9
[2022-09-21 10:59] LABS: Glucose Point of Care 132 mg/dL (70-110)
[2022-09-21] MEDS: spironolactone 25 mg Tablet PO (11:02)
[2022-09-21] MEDS: venlafaxine 75 mg Tablet PO (11:02)
--- NOTE | 2022-09-21 12:07 | PC.CHAP ---
Pastoral Care Encounter/Spiritual Assessment Type of Contact [] Declined facilities coordinator visit [] Patient/Family/Request visit [] Outpatient visit [] Follow-up visit [] Physician referral [] Code/Alert [x] Routine visit [] Staff referral [] Actively dying [] Patient sleeping [] Family support [] [] Out of room [] Palliative care [] [] Receiving care in room [] Pre-surgical visit [] Trauma [] Long length of stay [] ICU visit [] Other: Relational/Emotional Strength [x] Patient feels connected with others/family/visitors/staff [] Distress [] Loneliness/isolation [] Abandonment Spirituality of Patient [] Person of [place] [] Attends Confucianism of their [place] [x] Believes in Prayer [] Reads Bible or Sabianism materials [] There are Spiritual issues to be addressed Licensed Master Social Worker Interventions [x] Prayer [x] Active listening [] Non-anxious presence [x] Spiritual/emotional support [] Crisis/trauma care [] Spiritual counseling [] Bereavement support [] Provided bereavement packet [] Provided Bible/devotional materials [] Provided toy/stuffed animal, coloring book to patient or family member [] Provided Communion [] Anointing/[place] [] Salvation [x] Completed spiritual assessment [] Other: Impact on Illness or Injury [] Angry [] Fearful [] Anxious [] Often cries [] Exhaustion [] Unable to work [] Unable to attend nondenominational [] Unable to walk/stand [] Unable to read [] Unable to drive [] Unable to eat/drink [] Unable to sleep [] Unable to be with family [] Patient intubated [] Other: Summary Time spent with patient 10 min
--- NOTE | 2022-09-21 12:26 | P.CONIM_ITS ---
Providers/Reason For Consult Consulting Physician/Specialty*: Sandro Miller MD/ Cardiology Reason for Consult*: Chest pain Requesting Physician: Dr Huizar Attending Physician: Kofi Huizar MD Primary Care Provider: Tray Dennis History of Present Illness History of Present Illness Jared Sofia is a 71 year old male with past medical history of coronary artery disease with recent LAD stent came to the hospital with chest discomfort episodes. According to patient he has been noticing some pain discomfort in the chest that at times radiates to the left arm. EKG shows possible sinus rhythm with PVCs/PACs. No definitive indication of atrial fibrillation. Troponins have not trended up significantly. His blood pressure has been staying very high at home. Even in the hospital it has been over 180 mmHg systolic at times. Review of Systems Const: Denies: fever(s) Eyes: Denies: change in vision ENMT: Denies: throat pain Card: Reports: chest pain Resp: Denies: dyspnea GI: Denies: abdominal pain : Denies: flank pain Musc: Denies: neck pain Skin/Breast: Denies: rash Neuro: Denies: headache(s) Psych: Denies: anxiety Endo: Denies: polyuria Keyur/Lymph: Denies: easy bruising All/Imm: Denies: urticaria Medications/Allergies Home Medications Medication Instructions Recorded Confirmed Last Taken Type benztropine 1 mg tablet See Rx Instructions .Route .COMPLEX 08/11/21 09/21/22 06/25/22 History oxcarbazepine 600 mg tablet 600 mg PO BID 08/11/21 09/21/22 06/25/22 History (Trileptal) venlafaxine 75 mg tablet 75 mg PO QAM 08/11/21 09/21/22 06/25/22 History topiramate 50 mg tablet 50 mg PO TID 12/09/21 09/21/22 06/25/22 History nitroglycerin 0.4 mg sublingual 0.4 mg sublingual Q5M PRN Chest 01/29/22 09/21/22 Unknown History tablet Pain spironolactone 25 mg tablet 25 mg PO QAM 02/11/22 09/21/22 06/25/22 History glimepiride 1 mg tablet 2 mg PO QAM 03/05/22 09/21/22 06/25/22 History ascorbic acid (vitamin C) 500 mg 500 mg PO QAM 06/25/22 09/21/22 06/24/22 History tablet (Vitamin C) clopidogrel 75 mg tablet 75 mg PO QAM #180 tabs 06/30/22 09/21/22 06/25/22 Rx olanzapine 5 mg tablet 5 mg PO BEDTIME #30 tabs 06/30/22 09/21/22 Unknown Rx aspirin 81 mg tablet,delayed 81 mg PO QAM 09/21/22 09/21/22 Unknown History release loratadine 10 mg tablet (Claritin) 10 mg PO DAILY PRN Allergy Symptoms 09/21/22 09/21/22 Unknown History trazodone 50 mg tablet 50 mg PO BEDTIME 09/21/22 09/21/22 Unknown History amlodipine 10 mg tablet 10 mg PO DAILY #30 tabs 09/22/22 Unknown Rx famotidine 20 mg tablet 20 mg PO BID #60 tabs 09/22/22 Unknown Rx hydralazine 50 mg tablet 50 mg PO TID #90 tabs 09/22/22 Unknown Rx isosorbide mononitrate 30 mg 30 mg PO BID #60 tabs 09/22/22 Unknown Rx tablet,extended release 24 hr Allergies Allergy/AdvReac Type Severity Reaction Status Date / Time lisinopril Allergy Severe Muscle pain Verified 09/21/22 09:01 aripiprazole [From Abilify] Allergy Mild UNKNOWN Verified 09/21/22 09:01 haloperidol [From Haldol] Allergy Mild UNKNOWN Verified 09/21/22 09:01 cephalexin [From Keflex] Allergy UNKNOWN Verified 09/21/22 09:01 fluoxetine [From Prozac] Allergy Unknown Verified 09/21/22 09:01 lithium Allergy UNKNOWN Verified 09/21/22 09:01 ezetimibe [From Zetia] AdvReac Severe muscle pain Verified 09/21/22 09:01 losartan AdvReac Severe Muscle pain Verified 09/21/22 09:01 metoprolol AdvReac Severe unknown Verified 09/21/22 09:01 [id number] Reductase AdvReac Severe Muscle pain Verified 09/21/22 09:01 Inhibitor Current Medications Generic Name Dose Route Start Last Admin Trade Name Freq PRN Reason Stop Dose Admin Amlodipine Besylate 10 mg 09/21/22 09:00 09/21/22 08:57 Amlodipine 10 Mg Tablet PO 10 mg DAILY BENJIE Administration Aspirin 81 mg 09/21/22 09:00 09/21/22 08:56 Aspirin 81 Mg Ec Tablet PO 81 mg DAILY BENJIE Administration Clopidogrel Bisulfate 75 mg 09/21/22 09:00 09/21/22 08:57 Clopidogrel 75 Mg Tablet PO 75 mg DAILY BENJIE Administration Enoxaparin Sodium 40 mg 09/21/22 02:00 09/21/22 02:35 Enoxaparin 40 Mg/0.4 Ml Syringe SUBCUT 40 mg Q24H BENJIE Administration Famotidine 20 mg 09/21/22 09:00 09/21/22 08:57 Famotidine 20 Mg Tablet PO 20 mg BID BENJIE Administration Insulin Human Lispro 0 unit 09/21/22 08:00 09/21/22 11:02 Insulin Lispro 100 Unit/1 Ml SUBCUT Not Given WM&BEDTIME [facility] Protocol Isosorbide Mononitrate 30 mg 09/21/22 09:00 09/21/22 08:56 Isosorbide Mononitrate Er 30 Mg Tablet PO 30 mg BID BENJIE Administration Spironolactone 25 mg 09/21/22 09:35 09/21/22 11:02 Spironolactone 25 Mg Tablet PO 25 mg QAM BENJIE Administration Venlafaxine HCl 75 mg 09/21/22 09:35 09/21/22 11:02 Venlafaxine 75 Mg Tablet PO 75 mg QAM BENJIE Administration PFSH Acute PFSH: Medical History Atherosclerosis of coronary artery Bipolar disorder, current episode depressed, moderate Bradycardia Chest pain Diabetes Dyslipidemia Elevated troponin SHANTEL (generalized anxiety disorder) Heart block atrioventricular Hyperlipidemia, unspecified Hypertension Intellectual disability Thyroid nodule Surgical History History of appendectomy Family History Grandfather Bleeding disorder Clotting disorder Mother CAD (coronary artery disease), Onset Age: 70 Father CAD (coronary artery disease), Onset Age: 70 Cancer Diabetes Lung disease Brother CAD (coronary artery disease), Onset Age: 70 Other Hypertension Denies family history of Dementia Chronic kidney disease (CKD) Suicide Anesthesia complication Stroke Social History Smoking and tobacco status: never smoked Second hand smoke exposure: No Smoking risk assessment/counseling performed?: No Alcohol intake: former Desire information about alcohol rehabilitation?: No Counseling given: No Desire information about substance/drug rehabilitation?: No Counseling given: No Vitals/I&O/Wt Last Vital Signs Temp 97.8 F 09/21/22 11:55 Pulse 82 09/21/22 12:10 Resp 23 H 09/21/22 12:10 BP 185/81 09/21/22 12:10 Pulse Ox 100 09/21/22 11:55 O2 Del Method 09/21/22 10:38 09/20/22 09/21/22 09/21/22 22:59 06:59 14:59 Intake Total 240 / 240 Balance 240 / 240 Weight last 48 hrs Weight 196 lb 9.6 oz Physical Exam Narrative: GENERAL: Patient is alert, awake and oriented x3. [] NECK: No jugular vein distension. [] HEENT: No cyanosis. No icterus. No pallor. [] HEART: Regular S1 and S2. No murmur, rub or gallop. [] LUNGS: Clear to auscultate bilaterally. [] ABDOMEN: Soft, nontender and nondistended. Positive bowel sounds. No guarding, rebound or tenderness. [] CENTRAL NERVOUS SYSTEM: Grossly nonfocal. [] EXTREMITIES: Lower extremities with 1+ edema bilaterally. Pulses palpable in the lower extremities, both dorsalis pedis and posterior tibial. [] Data 09/20/22 18:55 09/21/22 04:49 A&P Assessment and plan (1) Hypertensive urgency: (2) Essential hypertension: (3) Chest pain: (4) Diabetes: Plan Patient had recent PCI of LAD performed. His chest discomfort is atypical. No EKG changes. No troponin elevation. It appears related to his hypertensive episodes. Continue uptitrating antihypertensive regimen. I have uptitrated hydralazine to 50 mg 3 times daily. Can further uptitrate if bp not controlled. Patient also needs to follow-up in cardiology office post-hospital discharge as his blood pressure needs to be followed and managed closely. He likely has underlying sinus rhythm with PVCs/PACs. No definitive indication of atrial fibrillation. Will recommend 14-day event monitor at time of discharge. Continue dual antiplatelet therapy Thank you for involving us with care of this patient. We will continue to follow. Please call with questions. Consult Attestations Medical Necessity Statement: Care expected to cross 2 midnights. Coding Level of Care Code Acute Specialist Physicians for Deangelo Melendez Diagnoses Hypertensive urgency I16.0 Essential hypertension I10 Chest pain R07.9 Diabetes E11.9
[2022-09-21] MEDS: benztropine 1 mg Tablet PO ×2 (13:03→21:19)
[2022-09-21] MEDS: hyDRALAzine 50 mg Tablet PO ×2 (13:03→21:20)
[2022-09-21] MEDS: topiramate 25 mg Tablet 50 MG PO ×2 (14:46→21:20)
[2022-09-21 16:42] LABS: Glucose Point of Care 96 mg/dL (70-110)
[2022-09-21] MEDS: OXcarbazepine 300 mg Tablet 600 MG PO (17:18)
[2022-09-21 20:46] LABS: Glucose Point of Care 149 mg/dL (70-110)
[2022-09-21] MEDS: insulin lispro 100 unit/1 mL SUBCUT (21:20)
[2022-09-22 00:23] VITALS: BP 146/71; PULSE 52; RESP 14; TEMP 37; O2SAT 98
[2022-09-22] MEDS: enoxaparin 40 mg/0.4 mL Syringe SUBCUT (01:47)
[2022-09-22 01:50] LABS: Basophils % 0.3 %; Eosinophils # 0.1 10^3/uL (0.0-0.8); Eosinophils % 2.4 %; Hematocrit 41.9 % (42.0-52.0); Hemoglobin 13.6 g/dL (11.7-16.6); Lymphocytes # 1.2 10^3/uL (0.8-4.8); Lymphocytes % 20.2 %; Mean Corpuscular HGB Conc 32.5 g/dL (30.0-36.0); Mean Corpuscular Hemoglobin 27.8 pg (28.0-34.0); Mean Corpuscular Volume 85.5 fl (80-94); Mean Platelet Volume 11.7 fL (7.4-10.4); Monocytes # 0.8 10^3/uL (0.2-0.9); Monocytes % 12.6 %; Neutrophils # 3.83 10^3/uL (1.8-7.7); Neutrophils % 64.5 %; Nucleated Red Blood Cells % 0 %; Platelet Count 172 10^3/cmm (130-400); Red Cell Distribution Width 13.3 % (12.1-15.1); White Blood Count 5.9 10^3/uL (4.0-10.0)
[2022-09-22 02:22] LABS: Blood Urea Nitrogen 27 mg/dL (8-23); Carbon Dioxide 21 mmol/L (22-29); Chloride 113 mmol/L (98-107); Creatinine Clr Calc Pharmacy 76.1591; Glucose 79 mg/dL (65-115); Osmolality Calculated 300 mOsm/kg (285-295); Sodium 143 mmol/L (136-145)
[2022-09-22 03:52] VITALS: BP 154/69; PULSE 55; RESP 15; TEMP 36.7; O2SAT 98
[2022-09-22 05:02] VITALS: PULSE 58
[2022-09-22] MEDS: spironolactone 25 mg Tablet PO (06:19)
[2022-09-22] MEDS: venlafaxine 75 mg Tablet PO (06:19)
[2022-09-22 06:32] LABS: Glucose Point of Care 96 mg/dL (70-110)
[2022-09-22] MEDS: benztropine 1 mg Tablet 2 MG PO (06:51)
[2022-09-22] MEDS: famotidine 20 mg Tablet PO (08:28)
[2022-09-22] MEDS: aspirin 81 mg EC Tablet PO (08:28)
[2022-09-22] MEDS: OXcarbazepine 300 mg Tablet 600 MG PO (08:29)
[2022-09-22] MEDS: hyDRALAzine 50 mg Tablet PO (08:30)
[2022-09-22] MEDS: topiramate 25 mg Tablet 50 MG PO (08:30)
[2022-09-22] MEDS: clopidogrel 75 mg Tablet PO (08:30)
[2022-09-22] MEDS: isosorbide mononitrate ER 30 mg Tablet PO (08:30)
[2022-09-22] MEDS: amlodipine 10 mg Tablet PO (08:31)
[2022-09-22 08:36] VITALS: PULSE 67; RESP 18; O2SAT 100
--- NOTE | 2022-09-22 09:36 | P.DS_ITS ---
Discharge Providers Date of Admission: 09/21/22 01:12 Date of Discharge: September 22, 2022 Attending Provider at Admission: Sean Aragon MD Attending Provider at Discharge: Kofi Huizar MD Primary Care Provider: Tray Dennis Diagnoses at Discharge Discharge Diagnosis (1) Hypertensive urgency: Status: Acute (2) Essential hypertension: Status: Acute (3) Chest pain: Status: Acute (4) Diabetes: Status: Acute Reason for Visit Reason for Visit: CHEST PAIN Hospital Course Hospital Course Jared presented to the hospital with complaints of chest pain. He had previously been seen in the ER for neck pain. Troponin slightly elevated, but no significant delta. EKG with no acute changes. Blood pressure was noted to be markedly elevated. He was placed in the hospital and myocardial infarction was ruled out. Aggressive treatment of his hypertensive urgency was initiated. Cardiology was consulted. By September 22 blood pressure was improved on current regimen and it was thought he could be discharged home. I discussed with his stepmother who is his caregiver need for close follow-up in cardiology and with his primary care provider. She was given an opportunity to ask questions, and agreed with plan. Cardiology requested an event monitor be placed prior to discharge, and they will follow this up in clinic. Physical Exam Narrative: General exam no distress Neck is supple no lymphadenopathy thyromegaly Cardiovascular regular rate and rhythm this morning Lungs clear Abdomen is soft, positive bowel sounds Extremities no cyanosis clubbing or edema Skin no rash Discharge Data Studies Completed and Pending Completed Studies During Hospitalization Category Date Time Status XR chest 1V portable [id number] Stat Exams 09/20/22 18:19 Completed Radiology Impressions Chest X-Ray 09/20/22 18:19 IMPRESSION: No acute cardiopulmonary abnormality. Laboratory Results WBC 5.9 10^3/uL (4.0-10.0) 09/22/22 01:15 RBC 4.90 10^6/uL (4.1-5.3) 09/22/22 01:15 Hgb 13.6 g/dL (11.7-16.6) 09/22/22 01:15 Hct 41.9 % (42.0-52.0) L 09/22/22 01:15 MCV 85.5 fl (80-94) 09/22/22 01:15 MCH 27.8 pg (28.0-34.0) L 09/22/22 01:15 MCHC 32.5 g/dL (30.0-36.0) 09/22/22 01:15 RDW 13.3 % (12.1-15.1) 09/22/22 01:15 Plt Count 172 10^3/cmm (130-400) 09/22/22 01:15 MPV 11.7 fL (7.4-10.4) H 09/22/22 01:15 Neut % (Auto) 64.5 % 09/22/22 01:15 Lymph % (Auto) 20.2 % 09/22/22 01:15 [place] % (Auto) 12.6 % 09/22/22 01:15 Eos % (Auto) 2.4 % 09/22/22 01:15 Baso % (Auto) 0.3 % 09/22/22 01:15 Neut # (Auto) 3.83 10^3/uL (1.8-7.7) 09/22/22 01:15 Lymph # (Auto) 1.2 10^3/uL (0.8-4.8) 09/22/22 01:15 [place] # (Auto) 0.8 10^3/uL (0.2-0.9) 09/22/22 01:15 Eos # (Auto) 0.1 10^3/uL (0.0-0.8) 09/22/22 01:15 Baso # (Auto) 0.0 10^3/uL (0.0-0.1) 09/22/22 01:15 Nucleated RBC % (auto) 0 % 09/22/22 01:15 Nucleated RBCs # 0.0 /100WBC 09/22/22 01:15 D-Dimer 0.90 ug/mIFEU (0-0.59) H 09/21/22 01:11 Sodium 143 mmol/L (136-145) 09/22/22 01:15 Potassium 4.0 mmol/L (3.5-5.1) 09/22/22 01:15 Chloride 113 mmol/L (98-107) H 09/22/22 01:15 Carbon Dioxide 21 mmol/L (22-29) L 09/22/22 01:15 Anion Gap 13.0 (5-19) 09/22/22 01:15 BUN 27 mg/dL (8-23) H 09/22/22 01:15 Creatinine 1.0 mg/dL (0.7-1.2) 09/22/22 01:15 GFR Calculation Not Reportable 09/22/22 01:15 Glucose 79 mg/dL (65-115) 09/22/22 01:15 POC Glucose 96 mg/dL (70-110) 09/22/22 06:22 Calculated Osmolality 300 mOsm/kg (285-295) H 09/22/22 01:15 Calcium 9.0 mg/dL (8.5-10.5) 09/22/22 01:15 Magnesium 2.2 mg/dL (1.7-2.3) 09/21/22 04:49 Total Bilirubin 0.2 mg/dL (0.15-1.2) 09/20/22 18:55 AST 19 U/L (0-40) 09/20/22 18:55 ALT 15 U/L (0-41) 09/20/22 18:55 Alkaline Phosphatase 92 U/L (40-130) 09/20/22 18:55 Troponin T Baseline 28 ng/L (0-15) H 09/20/22 18:55 Troponin T 120 Minute 28.81 ng/L (0-15) H 09/20/22 20:51 Delta Troponin T 0.81 ABS# (0-10) 09/20/22 20:51 NT-Pro-B Natriuret Pep 269 pg/mL (0-125) H 09/20/22 18:55 Total Protein 7.1 g/dL (6.6-8.7) 09/20/22 18:55 Albumin 3.6 g/dL (3.5-5.2) 09/20/22 18:55 Globulin 3.5 g/dL (1.3-4.6) 09/20/22 18:55 Vitals Last Vital Signs Temp 98.0 F 09/22/22 03:52 Pulse 67 09/22/22 08:36 Resp 18 09/22/22 08:36 BP 154/69 09/22/22 03:52 Pulse Ox 100 09/22/22 08:36 O2 Del Method 09/22/22 08:36 Discharge Plan Discharge Patient Disposition: Home Condition: Stable Prescriptions: New isosorbide mononitrate 30 mg Tablet Extended Release 24 Hr 30 mg PO BID Qty: 60 0RF famotidine 20 mg Tablet 20 mg PO BID Qty: 60 0RF amlodipine 10 mg Tablet 10 mg PO DAILY Qty: 30 0RF hydralazine 50 mg Tablet 50 mg PO TID Qty: 90 0RF Continued benztropine 1 mg tablet See Rx Instructions .ROUTE .COMPLEX Rx Instructions: 2mg po qam, 1mg po at noon and 1mg po at bedtime oxcarbazepine [Trileptal] 600 mg tablet 600 mg PO BID venlafaxine 75 mg tablet 75 mg PO QAM nitroglycerin 0.4 mg tablet, sublingual 0.4 mg sublingual Q5M PRN (Reason: Chest Pain) Rx Instructions: do not exceed 3 doses per episode topiramate 50 mg tablet 50 mg PO TID glimepiride 1 mg tablet 2 mg PO QAM ascorbic acid (vitamin C) [Vitamin C] 500 mg Tablet 500 mg PO QAM spironolactone 25 mg tablet 25 mg PO QAM Rx Instructions: for edema/shortness of breath olanzapine 5 mg Tablet 5 mg PO BEDTIME Qty: 30 0RF clopidogrel 75 mg tablet 75 mg PO QAM Qty: 180 3RF trazodone 50 mg tablet 50 mg PO BEDTIME Claritin 10 mg Tablet 10 mg PO DAILY PRN (Reason: Allergy Symptoms) aspirin 81 mg tablet,delayed release (DR/EC) 81 mg PO QAM Discontinued isosorbide mononitrate 30 mg tablet extended release 24 hr 30 mg PO DAILY Qty: 30 3RF Rx Instructions: Add 30 mg to present dose of 60 mg for a total of 90 mg isosorbide mononitrate 60 mg tablet extended release 24 hr 60 mg PO QAM Discharge Orders: Discharge Order (Routine); Ordered 09/22/22 Ordered By: Kofi Huizar Other Ambulatory Orders: MCT/Event Monitor 21 Days (Routine) Timeframe: 1 Day Facility: [facility] - Location: Radiology Ordered By: Kofi Huizar Referrals: Angel Hargrove MD [Physician] - 4-7 days Tray Dennis [Primary Care Provider] - 4-7 days (BMP on follow-up) Discharge Diet: Cardiac and Diabetic Discharge Activity: Increase activity as tolerated Patient Instructions: Chest Pain (ED), Bradycardia (ED), Opioid Safety Activity Restrictions/Additional Instructions: Follow-up with cardiology Follow-up with primary care provider No medicine changes Return for any concerns Patient's Health Concerns: Chest pain Assessment: Hypertensive urgency No evidence of myocardial infarction Plan of Treatment: Aggressive treatment of hypertension Goals: No recurrent hospitalizations Discharge Attestations Time Spent in Discharge Care*: greater than 30 min Quality Metrics Clinical Quality Measures [ No reported AMI, CVA or VTE this stay] Coding Level of Care Code Acute g FW MN note Diagnoses Hypertensive urgency I16.0 Essential hypertension I10 Chest pain R07.9 Diabetes E11.9
--- NOTE | 2022-09-22 09:37 | PM.PN ---
Subjective Subjective: Patient is stable. No complaints of chest pain. Blood pressure control is improved. Vitals/I&O/Wt Last Vital Signs Temp 98.0 F 09/22/22 03:52 Pulse 67 09/22/22 08:36 Resp 18 09/22/22 08:36 BP 154/69 09/22/22 03:52 Pulse Ox 100 09/22/22 08:36 O2 Del Method 09/22/22 08:36 09/21/22 09/22/22 09/22/22 22:59 06:59 14:59 Intake Total 470 / 1110 250 / 1360 240 / 240 Balance 470 / 1110 250 / 1360 240 / 240 Weight last 48 hrs Weight 196 lb 9.6 oz Physical Exam Narrative: GENERAL: Patient is alert, awake and oriented x3. [] NECK: No jugular vein distension. [] HEENT: No cyanosis. No icterus. No pallor. [] HEART: Regular S1 and S2. No murmur, rub or gallop. [] LUNGS: Clear to auscultate bilaterally. [] ABDOMEN: Soft, nontender and nondistended. Positive bowel sounds. No guarding, rebound or tenderness. [] CENTRAL NERVOUS SYSTEM: Grossly nonfocal. [] EXTREMITIES: Lower extremities with 1+ edema bilaterally. Pulses palpable in the lower extremities, both dorsalis pedis and posterior tibial. [] Data 09/22/22 01:15 09/22/22 01:15 A&P Assessment and plan (1) Hypertensive urgency: (2) Essential hypertension: (3) Chest pain: (4) Diabetes: Plan Blood pressure is better controlled. Continue current medications. Close follow up with cardiology office. He likely has underlying sinus rhythm with PVCs/PACs. No definitive indication of atrial fibrillation. Will recommend 14-day event monitor at time of discharge. Continue dual antiplatelet therapy Thank you for involving us with care of this patient. Patient is stable to be discharged from cardiology standpoint. Please call with questions. Attestations Medical Necessity Statement*: Care expected to cross 2 midnights. Coding Level of Care Code Acute Process Development Chemist for Chg Fwd Diagnoses Hypertensive urgency I16.0 Essential hypertension I10 Chest pain R07.9 Diabetes E11.9
[2022-09-22 11:54] VITALS: PULSE 67; RESP 18; O2SAT 100
--- NOTE | 2022-09-22 12:23 | PC.NURSE ---
Patient was discharged at 1220 with written/printed instructions on new medications and follow up appointments. Patient and friend verbalized understanding. IV was removed and patient tolerated well. Patient left with family friend who is transporting him home. Medications called to pharmacy.
== END 2022-09-22 12:23 | disposition home or self-care (01) ==
LOC: ER 19:48 → CSU 09-21 01:12
PROVIDERS: Emergency Medicine; Admitting Provider Internal Medicine; Emergency Provider Emergency Medicine; PCP Family Medicine; Visit Provider Internal Medicine
DX: R07.89 Other chest pain (principal); I16.0 Hypertensive urgency; I10 Essential (primary) hypertension; E11.9 Type 2 diabetes mellitus without complications; I25.10 Atherosclerotic heart disease of native coronary artery without angina pectoris; Z95.5 Presence of coronary angioplasty implant and graft; E78.5 Hyperlipidemia, unspecified
CPT/HCPCS: 36415; 36416; 71045; 80048; 80053; 82962; 83735; 83880; 84484; 85025; 85378; 93005; 96372; 96374; 99285; G0378; J0360; J1650; J1815; J2270; J2405

== ENCOUNTER → 2022-10-12 10:13 | Outpatient (BNVA) | payer MEDICARE, SELFPAY | PROVIDERS: PCP Family Medicine; Visit Provider Nurse Practitioner Family | DX: I25.10 Atherosclerotic heart disease of native coronary artery without angina pectoris (principal); I10 Essential (primary) hypertension; R00.1 Bradycardia, unspecified | CPT/HCPCS: 99214 ==

== ENCOUNTER 2022-11-23 11:22 | Emergency (ER) | payer MEDICARE, MEDICAID, SELFPAY ==
[2022-11-23 11:28] VITALS: BP 173/93; PULSE 79; RESP 16; TEMP 36.3; O2SAT 97
[2022-11-23 11:43] VITALS: BP 183/83; PULSE 68; RESP 14; O2SAT 98
--- NOTE | 2022-11-23 11:53 | ED_ITS ---
HPI - Extremity Problem General: Chief complaint: Extremity Injury, Upper Stated complaint: LEG BRUISED & SWOLLEN Time Seen by Provider: 11/23/22 11:28 Source: patient Mode of arrival: EMS Limitations: no limitations History of Present Illness: Patient is a 72-year-old male who presents to ED today with a complaint of a right lower leg injury. Patient tells me on Wednesday he accidentally struck the right leg on something in the bathroom. He sustained a small skin tear. He began noticing a hematoma following the injury. He states now his leg is swollen and black and blue . Patient has been ambulatory on the leg but complains of pain. MD Complaint: extremity pain and extremity swelling Onset (ago): day(s) Pain Consistency: constant Location: right and lower extremity Radiation: none Relieving factors: immobilization Exacerbating factors: weight bearing and walking Associated symptoms: Reports no associated symptoms; Deny chest pain or fever(s) Review of Systems Const: Denies: fever(s), chills, body aches, fatigue or malaise Card: Denies: chest pain Resp: Denies: dyspnea Musc: Reports: extremity pain and extremity swelling; Denies: neck pain, back pain, joint pain or joint swelling Skin/Breast: Reports: changes in skin color (R LE) Neuro: Denies: headache(s), numbness in extremities, weakness in extremities or sensory changes [facility] ED PFSH: Medical History Atherosclerosis of coronary artery Bipolar disorder, current episode depressed, moderate Bradycardia Chest pain Diabetes Dyslipidemia Elevated troponin SHANTEL (generalized anxiety disorder) Heart block atrioventricular Hyperlipidemia, unspecified Hypertension Intellectual disability Thyroid nodule Surgical History History of appendectomy Family History Grandfather Bleeding disorder Clotting disorder Mother CAD (coronary artery disease), Onset Age: 70 Father CAD (coronary artery disease), Onset Age: 70 Cancer Diabetes Lung disease Brother CAD (coronary artery disease), Onset Age: 70 Other Hypertension Denies family history of Dementia Chronic kidney disease (CKD) Suicide Anesthesia complication Stroke Social History Smoking and tobacco status: never smoked Second hand smoke exposure: No Smoking risk assessment/counseling performed?: No Alcohol intake: former Desire information about alcohol rehabilitation?: No Counseling given: No Desire information about substance/drug rehabilitation?: No Counseling given: No Physical Exam Const: COMMON NORMALS: no acute distress, average body habitus, no limitati ons, alert and well nourished GENERAL APPEARANCE: cooperative ORIENTATION/CONSCIOUSNESS: Yes awake, Yes oriented to person and Yes oriented to place HENMT: COMMON NORMALS: normocephalic and atraumatic HEAD & SCALP: normal to inspection, normocephalic and atraumatic Resp: COMMON NORMALS: normal respiratory effort and clear to auscultation bilaterally AUSCULTATION: clear to auscultation bilaterally Cardio: COMMON NORMALS: regular rate and regular rhythm RATE: regular rate RHYTHM: regular rhythm Extremity: COMMON NORMALS: full ROM and capillary refill normal GENERAL: Yes normal exam except as noted RIGHT LOWER EXTREMITY: Yes lower leg EXTREMITY IMAGE (FRONT): 1. hematoma with very minimal skin tear; surrounding ecchymosis; no redness/drainage/streaking; pt has ecchymosis distally to lower extremity Neuro: COMMON NORMALS: moves all extremities, no focal motor deficits and no s ensory deficits noted SENSORIUM/ORIENTATION: Yes alert, Yes oriented to p erson and Yes oriented to place Course Vital Signs: Vital signs: Vital Signs Temperature 97.4 F L 11/23/22 11:28 Pulse Rate 68 11/23/22 11:43 Respiratory Rate 14 11/23/22 11:43 Blood Pressure 183/83 11/23/22 11:43 Pulse Oximetry 98 11/23/22 11:43 Oxygen Delivery Me thod 11/23/22 11:43 MDM - Extremity (Nontraumatic) Medical Decision Making XR negative. Given recent injury and now swelling to leg-US ordered to evaluate for DVT. This is negative. Recommend ice/elevation and he can follow up with PCP in a week or so for re-evaluation. Recommend keeping small skin tear clean and monitoring for infection. Discharge Plan Discharge Patient Disposition: Home Clinical Impression: Hematoma of right lower extremity Qualifiers: Encounter type: initial encounter Qualified Code(s): S80.11XA - Contusion of right lower leg, initial encounter Condition: Stable Prescriptions: No Action benztropine 1 mg tablet See Rx Instructions .ROUTE .COMPLEX Rx Instructions: 2mg po qam, 1mg po at noon and 1mg po at bedtime oxcarbazepine [Trileptal] 600 mg tablet 600 mg PO BID nitroglycerin 0.4 mg tablet, sublingual 0.4 mg sublingual Q5M PRN (Reason: Chest Pain) Rx Instructions: do not exceed 3 doses per episode famotidine 20 mg tablet 20 mg PO BID PRN clonidine 0.1 mg/24 hr patch weekly 1 patch transdermal .weekly Qty: 4 3RF spironolactone 25 mg tablet 50 mg PO QAM Qty: 120 3RF Rx Instructions: for edema/shortness of breath isosorbide mononitrate 30 mg tablet extended release 24 hr 60 mg PO BID Qty: 240 2RF topiramate 50 mg tablet 50 mg PO TID glimepiride 1 mg tablet 2 mg PO QAM ascorbic acid (vitamin C) [Vitamin C] 500 mg Tablet 500 mg PO QAM olanzapine 5 mg Tablet 5 mg PO BEDTIME Qty: 30 0RF clopidogrel 75 mg tablet 75 mg PO QAM Qty: 180 3RF trazodone 50 mg tablet 50 mg PO BEDTIME Claritin 10 mg Tablet 10 mg PO DAILY PRN (Reason: Allergy Symptoms) aspirin 81 mg tablet,delayed release (DR/EC) 81 mg PO QAM amlodipine 10 mg Tablet 10 mg PO DAILY Qty: 30 0RF Discharge Orders: Discharge ED (Routine); Ordered 11/23/22 Ordered By: Nan Crum Referrals: Tray Dennis [Primary Care Provider] - Patient Instructions: Hematoma (ED) Coding Level of Care Code ED Agricultural Appraiser for Deangelo Melendez
--- NOTE | 2022-11-23 12:01 | USCV_ITS ---
Jared Sofia Age: 72 Gender: M : 1950 Exam Date: 11/23/2022 12:30 Ordering Phys: Nan Crum Technologist: CT Exam Location: [facility] Indication: injury to villalpando PROCEDURES: Venous duplex imaging was performed in only the right lower extremity. In addition, the posterior tibial and peroneal trunk were evaluated. On the right side, the common femoral, superficial femoral, profunda femoral, popliteal, posterior tibial, greater saphenous veins and the peroneal trunk were identified and interrogated in the standard fashion. These veins were found to be easily compressible with spontaneous blood flow. No evidence of insufficiency or thrombus noted. CONCLUSIONS No evidence of right lower extremity DVT. Griffin Souza MD (Electronically Signed) Final Date: 23 November 2022 13:10 S
--- NOTE | 2022-11-23 12:01 | XR_ITS ---
WS: [id number] Exam: XR tibia fibula RT 2V [id number] Date/Time of Exam: 11/23/2022 12:48 PM Reason For Exam: injury/swelling No acute fracture or dislocation noted. Vascular calcifications in the posterior soft tissues. XR/XR tibia fibula RT 2V [id number] IMPRESSION: 1. No acute fracture or dislocation.
== END 2022-11-23 13:50 | disposition home or self-care (01) ==
PROVIDERS: Emergency Provider Physician Assistant; PCP Family Medicine
DX: S80.11XA Contusion of right lower leg, initial encounter (principal); Z79.82 Long term (current) use of aspirin; Z79.85 Long-term (current) use of injectable non-insulin antidiabetic drugs; Z79.02 Long term (current) use of antithrombotics/antiplatelets; E11.9 Type 2 diabetes mellitus without complications; E78.5 Hyperlipidemia, unspecified; I10 Essential (primary) hypertension; W22.8XXA Striking against or struck by other objects, initial encounter
CPT/HCPCS: 73590; 93971; 99284

== ENCOUNTER 2022-12-02 17:47 | Emergency (ER) | payer MEDICARE, MEDICAID, SELFPAY ==
[2022-12-02] VITALS (8 sets, daily range): BP systolic 152–189; BP diastolic 76–147; PULSE 46–80; RESP 13–18; TEMP 36.6; O2SAT 97–99
--- NOTE | 2022-12-02 17:55 | XRR_ITS ---
PROCEDURE INFORMATION: Exam: XR Chest Exam date and time: 12/02/2022 6:44 PM Age: 72 years old Clinical indication: Pain; Chest pressure; Prior surgery; Surgery type: Stents; Additional info: Cp, SOB, cough today, HX of heart attackFINDINGS: TECHNIQUE: Imaging protocol: Radiologic exam of the chest. Views: 1 view. COMPARISON: CR XR chest 1V portable [id number] 09/20/2022 6:25 PM FINDINGS: Lungs: Unremarkable. No consolidation. Pleural spaces: Unremarkable. No pleural effusion. No pneumothorax. Heart/Mediastinum: Cardiac silhouette appears mildly enlarged on this portable chest. Bones/joints: Unremarkable. XR/XR chest 1V portable [id number] IMPRESSION: Mild cardiomegaly otherwise negative chest.
--- NOTE | 2022-12-02 17:55 | ECG_ITS ---
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 Measurements Intervals [place] Rate: 66 P: 0 MN: 0 QRS: -65 QRSD: 178 T: 26 QT: 447 QTc: 468 Interpretive Statements SINUS RHYTHM WITH FIRST DEGREE AV BLOCK AND PVCs RIGHT BUNDLE BRANCH BLOCK [120+ ms QRS DURATION, UPRIGHT V1, 40+ ms S IN I/aVL/V4/V5/V6] LEFT ANTERIOR FASCICULAR BLOCK [QRS AXIS <= -45, QR IN I, RS IN II] MODERATE VOLTAGE CRITERIA FOR LVH, CONSIDER NORMAL VARIANT [MEETS CRITERIA IN ONE OF: R(aVL), S(V1), R(V5), R(V5/V6)+S(V1)] POSSIBLE SEPTAL MYOCARDIAL INFARCTION , OF INDETERMINATE AGE [30 ms Q WAVE IN V1/V2] Compared to ECG 09/20/2022 20:47:54 No significant changes Electronically Signed On 12-03-2022 18:06:38 TAPPER HAND by Sandro Miller M.D. [id number]
--- NOTE | 2022-12-02 18:17 | W.ED.CHESTPA ---
HPI - Chest Pain General: Chief Complaint: Chest Pain Stated Complaint: CHEST PAIN Time Seen by Provider: 12/02/22 17:56 Source: patient and EMS Mode of arrival: EMS Limitations: no limitations History of Present Illness: 72-year-old male who presents for chest pain I know patient well he has had chronic chest pain states today he was just sitting around roughly 2 hours ago and started having a sharp pain in the center of his chest denies any nausea denies any diaphoresis denies any shortness of breath he states his pain is improved currently did receive aspirin in route. Associated symptoms: Deny abdominal pain, dyspnea, fever(s), nausea or vomiting Review of Systems Const: Denies: fever(s), chills, body aches or change in appetite Eyes: Denies: blurry vision or eye discomfort ENMT: Denies: throat pain or dental pain Card: Reports: chest pain Resp: Denies: dyspnea GI: Denies: abdominal pain, nausea, vomiting or diarrhea : Denies: dysuria Musc: Denies: neck pain or back pain Skin/Breast: Denies: rash Neuro: Denies: headache(s) Psych: Denies: depression Keyur/Lymph: Denies: easy bruising All/Imm: Denies: urticaria PFSH ED PFSH: Medical History Atherosclerosis of coronary artery Bipolar disorder, current episode depressed, moderate Bradycardia Chest pain Diabetes Dyslipidemia Elevated troponin SHANTEL (generalized anxiety disorder) Heart block atrioventricular Hyperlipidemia, unspecified Hypertension Intellectual disability Thyroid nodule Surgical History History of appendectomy Family History Grandfather Bleeding disorder Clotting disorder Mother CAD (coronary artery disease), Onset Age: 70 Father CAD (coronary artery disease), Onset Age: 70 Cancer Diabetes Lung disease Brother CAD (coronary artery disease), Onset Age: 70 Other Hypertension Denies family history of Dementia Chronic kidney disease (CKD) Suicide Anesthesia complication Stroke Social History Smoking and tobacco status: never smoked Second hand smoke exposure: No Smoking risk assessment/counseling performed?: No Alcohol intake: former Desire information about alcohol rehabilitation?: No Counseling given: No Desire information about substance/drug rehabilitation?: No Counseling given: No Physical Exam Const: COMMON NORMALS: no acute distress, patient oriented x3 and healthy appearing HENMT: COMMON NORMALS: normocephalic and atraumatic HEAD & SCALP: normocephalic and atraumatic Eye: COMMON NORMALS: Equal, round and reactive pupils present and EOMs intact bilaterally PUPIL: Yes Equal, round and reactive pupils present Neck/C-Spine: COMMON NORMALS: full ROM and supple Chest: COMMONS NORMALS: normal inspection of the chest and normal palpation of entire chest wall Resp: COMMON NORMALS: normal respiratory effort, No retractions, No use of accessory muscles and clear to auscultation bilaterally AUSCULTATION: clear to auscultation bilaterally Cardio: COMMON NORMALS: regular rate, regular rhythm and No murmurs present (Cardio) RATE: regular rate RHYTHM: regular rhythm GI: COMMON NORMALS: Normal to inspection, nondistended, normoactive bowel sounds present, Soft to palpation, non-tender and no masses PALPATION: Yes Soft to palpation Extremity: COMMON NORMALS: normal to inspection and full ROM Neuro: COMMON NORMALS: patient oriented x3, moves all extremities and no focal motor deficits Psych: COMMON NORMALS: mental status grossly normal, Normal thought process present and cooperative THOUGHT PROCESS: Normal thought process present Skin: COMMON NORMALS: no rashes or lesions noted and no wounds GENERAL SKIN EXAM: no rashes or lesions noted Course Vital Signs: Vital signs: Vital Signs Temperature 97.9 F 12/02/22 20:57 Pulse Rate 43 L 12/03/22 01:43 Respiratory Rate 18 12/03/22 01:43 Blood Pressure 158/78 12/03/22 01:43 Pulse Oximetry 97 12/03/22 01:43 Oxygen Delivery Me thod 12/02/22 23:32 MDM - Chest Pain Medical Decision Making Patient presents for chest pain along with hypertension he has been pain-free here EKGs and troponins here are negative his blood pressure is improved as well we will start him on HCTZ as he has been hypertensive for quite some time. 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 Lab Data 12/02/22 18:20 12/02/22 18:20 Radiology Impressions Chest X-Ray 12/02/22 17:55 IMPRESSION: Mild cardiomegaly otherwise negative chest. Laboratory Results WBC 8.5 10^3/uL (4.0-10.0) 12/02/22 18:20 RBC 5.00 10^6/uL (4.1-5.3) 12/02/22 18:20 Hgb 13.9 g/dL (11.7-16.6) 12/02/22 18:20 Hct 42.6 % (42.0-52.0) 12/02/22 18:20 MCV 85.2 fl (80-94) 12/02/22 18:20 MCH 27.8 pg (28.0-34.0) L 12/02/22 18:20 MCHC 32.6 g/dL (30.0-36.0) 12/02/22 18:20 RDW 13.9 % (12.1-15.1) 12/02/22 18:20 Plt Count 208 10^3/cmm (130-400) 12/02/22 18:20 MPV 11.0 fL (7.4-10.4) H 12/02/22 18:20 Neut % (Auto) 72.9 % 12/02/22 18:20 Lymph % (Auto) 14.7 % 12/02/22 18:20 [place] % (Auto) 9.6 % 12/02/22 18:20 Eos % (Auto) 2.1 % 12/02/22 18:20 Baso % (Auto) 0.5 % 12/02/22 18:20 Neut # (Auto) 6.16 10^3/uL (1.8-7.7) 12/02/22 18:20 Lymph # (Auto) 1.2 10^3/uL (0.8-4.8) 12/02/22 18:20 [place] # (Auto) 0.8 10^3/uL (0.2-0.9) 12/02/22 18:20 Eos # (Auto) 0.2 10^3/uL (0.0-0.8) 12/02/22 18:20 Baso # (Auto) 0.0 10^3/uL (0.0-0.1) 12/02/22 18:20 Nucleated RBC % (auto) 0 % 12/02/22 18:20 Nucleated RBCs # 0.0 /100WBC 12/02/22 18:20 Sodium 140 mmol/L (136-145) 12/02/22 18:20 Potassium 3.9 mmol/L (3.5-5.1) 12/02/22 18:20 Chloride 105 mmol/L (98-107) 12/02/22 18:20 Carbon Dioxide 21 mmol/L (22-29) L 12/02/22 18:20 Anion Gap 17.9 (5-19) 12/02/22 18:20 BUN 25 mg/dL (8-23) H 12/02/22 18:20 Creatinine 0.8 mg/dL (0.7-1.2) 12/02/22 18:20 GFR Calculation Not Reportable 12/02/22 18:20 Glucose 80 mg/dL (65-115) 12/02/22 18:20 Calculated Osmolality 293 mOsm/kg (285-295) 12/02/22 18:20 Calcium 9.6 mg/dL (8.5-10.5) 12/02/22 18:20 Total Bilirubin 0.2 mg/dL (0.15-1.2) 12/02/22 18:20 AST 19 U/L (0-40) 12/02/22 18:20 ALT 13 U/L (0-41) 12/02/22 18:20 Alkaline Phosphatase 121 U/L (40-130) 12/02/22 18:20 Troponin T Baseline 24 ng/L (0-15) H 12/02/22 18:20 Troponin T 120 Minute 23.58 ng/L (0-15) H 12/02/22 20:41 Delta Troponin T -0.42 ABS# (0-10) L 12/02/22 20:41 Total Protein 8.2 g/dL (6.6-8.7) 12/02/22 18:20 Albumin 4.7 g/dL (3.5-5.2) 12/02/22 18:20 Globulin 3.5 g/dL (1.3-4.6) 12/02/22 18:20 EKG Data EKG 1: I personally reviewed and interpreted this EKG as follows: EKG interpretation date: 03/01/23 EKG interpretation time: 18:50 Interpretation: nsr hr [address] or t wave abnormalities qrs 178 qtc 460 unchanged from previous Discharge Plan Discharge Patient Disposition: Home Clinical Impression: Chest pain, Hypertension Condition: Stable Prescriptions: New hydrochlorothiazide 25 mg tablet 25 mg PO DAILY Qty: 30 0RF No Action benztropine 1 mg tablet See Rx Instructions .ROUTE .COMPLEX Rx Instructions: 2mg po qam, 1mg po at noon and 1mg po at bedtime oxcarbazepine [Trileptal] 600 mg tablet 600 mg PO BID nitroglycerin 0.4 mg tablet, sublingual 0.4 mg sublingual Q5M PRN (Reason: Chest Pain) Rx Instructions: do not exceed 3 doses per episode famotidine 20 mg tablet 20 mg PO BID PRN clonidine 0.1 mg/24 hr patch weekly 1 patch transdermal .weekly Qty: 4 3RF spironolactone 25 mg tablet 50 mg PO QAM Qty: 120 3RF Rx Instructions: for edema/shortness of breath isosorbide mononitrate 30 mg tablet extended release 24 hr 60 mg PO BID Qty: 240 2RF topiramate 50 mg tablet 50 mg PO TID glimepiride 1 mg tablet 2 mg PO QAM ascorbic acid (vitamin C) [Vitamin C] 500 mg Tablet 500 mg PO QAM olanzapine 5 mg Tablet 5 mg PO BEDTIME Qty: 30 0RF clopidogrel 75 mg tablet 75 mg PO QAM Qty: 180 3RF trazodone 50 mg tablet 50 mg PO BEDTIME Claritin 10 mg Tablet 10 mg PO DAILY PRN (Reason: Allergy Symptoms) aspirin 81 mg tablet,delayed release (DR/EC) 81 mg PO QAM amlodipine 10 mg Tablet 10 mg PO DAILY Qty: 30 0RF Discharge Orders: Discharge ED (Routine); Ordered 12/02/22 Ordered By: Dawson Masterson Referrals: Angel Hargrove MD [Physician] - 1-3 days Tray Dennis [Primary Care Provider] - 1-3 days Discharge Diet: Advance as tolerated Discharge Activity: Resume usual activity Patient Instructions: Chest Pain (ED) Coding Level of Care Code ED Obiee Consultant for Deangelo Melendez
[2022-12-02 18:35] LABS: Basophils % 0.5 %; Eosinophils # 0.2 10^3/uL (0.0-0.8); Eosinophils % 2.1 %; Hematocrit 42.6 % (42.0-52.0); Hemoglobin 13.9 g/dL (11.7-16.6); Lymphocytes # 1.2 10^3/uL (0.8-4.8); Lymphocytes % 14.7 %; Mean Corpuscular HGB Conc 32.6 g/dL (30.0-36.0); Mean Corpuscular Hemoglobin 27.8 pg (28.0-34.0); Mean Corpuscular Volume 85.2 fl (80-94); Monocytes # 0.8 10^3/uL (0.2-0.9); Monocytes % 9.6 %; Neutrophils # 6.16 10^3/uL (1.8-7.7); Neutrophils % 72.9 %; Nucleated Red Blood Cells % 0 %; Platelet Count 208 10^3/cmm (130-400); Red Cell Distribution Width 13.9 % (12.1-15.1); White Blood Count 8.5 10^3/uL (4.0-10.0)
[2022-12-02 18:45] LABS: Troponin(5th) Baseline 24 ng/L (0-15)
[2022-12-02 18:49] LABS: Alanine Aminotransferase 13 U/L (0-41); Albumin Level 4.7 g/dL (3.5-5.2); Alkaline Phosphatase 121 U/L (40-130); Anion Gap 17.9 (5-19); Aspartate Amino Transferase 19 U/L (0-40); Blood Urea Nitrogen 25 mg/dL (8-23); Calcium 9.6 mg/dL (8.5-10.5); Carbon Dioxide 21 mmol/L (22-29); Chloride 105 mmol/L (98-107); Globulin 3.5 g/dL (1.3-4.6); Glucose 80 mg/dL (65-115); Osmolality Calculated 293 mOsm/kg (285-295); Potassium 3.9 mmol/L (3.5-5.1); Sodium 140 mmol/L (136-145); Total Bilirubin 0.2 mg/dL (0.15-1.2); Total Protein 8.2 g/dL (6.6-8.7)
--- NOTE | 2022-12-02 19:55 | ECG_ITS ---
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 Measurements Intervals [place] Rate: 64 P: 0 [place]: 0 QRS: -55 QRSD: 172 T: 19 QT: 468 QTc: 484 Interpretive Statements SINUS RHYTHM WITH FIRST DEGREE AV BLOCK AND PVCs RIGHT BUNDLE BRANCH BLOCK [120+ ms QRS DURATION, UPRIGHT V1, 40+ ms S IN I/aVL/V4/V5/V6] LEFT ANTERIOR FASCICULAR BLOCK [QRS AXIS <= -45, QR IN I, RS IN II] PROBABLE SEPTAL MYOCARDIAL INFARCTION , PROBABLY OLD [35 ms Q WAVE IN V1/V2] Compared to ECG 12/02/2022 18:50:25 No significant changes Electronically Signed On 12-03-2022 18:13:28 PRODUCTION LABORER by Sandro Miller M.D. [id number]
[2022-12-02 21:26] LABS: Troponin 5 2HR 23.58 ng/L (0-15)
[2022-12-02] MEDS: cloNIDine 0.1 mg Tablet 0.2 MG PO (21:47)
[2022-12-02 21:57] LABS: Troponin 5 2HR Delta -0.42 ABS# (0-10)
[2022-12-02] MEDS: amlodipine 10 mg Tablet PO (22:45)
[2022-12-02] MEDS: dilTIAZem 5 mg/mL SDV 5 mL 10 MG IVP (22:47)
[2022-12-03] VITALS: BP 160/76; PULSE 45; RESP 18; O2SAT 95
--- NOTE | 2022-12-03 01:23 | PC.NURSE ---
Due to pt step mother not being able to come get him, extended time for medicare ride and high fall risk, pt remained in ER room.
[2022-12-03 01:43] VITALS: BP 158/78; PULSE 43; RESP 18; O2SAT 97
== END 2022-12-03 01:46 | disposition home or self-care (01) ==
PROVIDERS: Emergency Provider Emergency Medicine; PCP Family Medicine
DX: R07.9 Chest pain, unspecified (principal); I10 Essential (primary) hypertension; I25.10 Atherosclerotic heart disease of native coronary artery without angina pectoris; E78.5 Hyperlipidemia, unspecified
CPT/HCPCS: 36415; 71045; 80053; 84484; 85025; 93005; 99285; J3490

== ENCOUNTER 2023-02-28 09:31 | Emergency (ER) | payer MEDICARE, MEDICAID, SELFPAY ==
[2023-02-28] VITALS (9 sets, daily range): BP systolic 124–176; BP diastolic 80–94; PULSE 51–107; RESP 14–30; TEMP 36.6; O2SAT 96–100; BMI 30.7
--- NOTE | 2023-02-28 09:34 | ECG_ITS ---
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 Measurements Intervals [place] Rate: 70 P: 0 [place]: 0 QRS: -73 QRSD: 177 T: 34 QT: 451 QTc: 487 Interpretive Statements UNCERTAIN IRREGULAR RHYTHM RIGHT BUNDLE BRANCH BLOCK [120+ ms QRS DURATION, UPRIGHT V1, 40+ ms S IN I/aVL/V4/V5/V6] LEFT ANTERIOR FASCICULAR BLOCK [QRS AXIS <= -45, QR IN I, RS IN II] PROBABLE SEPTAL MYOCARDIAL INFARCTION , PROBABLY OLD [35 ms Q WAVE IN V1/V2] Compared to ECG 12/02/2022 19:48:19 Sinus rhythm no longer present Ventricular premature complex(es) no longer present First degree AV block no longer present Myocardial infarct finding still present Electronically Signed On 03-01-2023 23:37:53 CDT by Sandro Miller M.D. [id number]
--- NOTE | 2023-02-28 09:36 | XRR_ITS ---
PROCEDURE INFORMATION: Exam: XR Chest Exam date and time: 02/28/2023 10:58 AM Age: 72 years old Clinical indication: Pain; Chest pressure; Additional info: Chest pain TECHNIQUE: Imaging protocol: Radiologic exam of the chest. Views: 1 view. COMPARISON: CR XR chest 1V portable [id number] 12/02/2022 6:44 PM FINDINGS: Lungs: There is mild ill-defined multifocal opacity in the lower lungs bilaterally. Pleural spaces: There is no pleural effusion or pneumothorax. Heart/Mediastinum: There is mild enlargement of the cardiac silhouette. Bones/joints: Bones are unremarkable. XR/XR chest 1V portable [id number] IMPRESSION: Nonspecific bilateral lower lung opacity is new since 12/02/2022. Possible infection, aspiration, interstitial edema or acute interstitial lung disease.
--- NOTE | 2023-02-28 09:43 | ED_ITS ---
HPI - Chest Pain General: Chief Complaint: Chest Pain Stated Complaint: CHEST PAIN Time Seen by Provider: 02/28/23 09:36 History of Present Illness: Patient presents to the ER with complaints of chest pain that started this morning. Patient does state he has a history of IN and Dr. Hargrove put in 2 stents. Patient does have a history of A-fib. Patient rates his pain 10 out of 10 currently but appears no acute distress. 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 Onset (ago): hour(s) Prior episodes: Yes Onset: during rest Pain location: parasternal Pain radiation: neck Severity: similar to previous episodes Relieving factors: nothing Exacerbating factors: nothing Associated symptoms: Reports dyspnea Review of Systems General: Reports: 10 or more systems reviewed and unremarkable except in HPI and below Resp: Reports: dyspnea PFSH ED PFSH: Medical History Atherosclerosis of coronary artery Bipolar disorder, current episode depressed, moderate Bradycardia Chest pain Diabetes Dyslipidemia Elevated troponin SHANTEL (generalized anxiety disorder) Heart block atrioventricular Hyperlipidemia, unspecified Hypertension Intellectual disability Thyroid nodule Surgical History History of appendectomy Family History Grandfather Bleeding disorder Clotting disorder Mother CAD (coronary artery disease), Onset Age: 70 Father CAD (coronary artery disease), Onset Age: 70 Cancer Diabetes Lung disease Brother CAD (coronary artery disease), Onset Age: 70 Other Hypertension Denies family history of Dementia Chronic kidney disease (CKD) Suicide Anesthesia complication Stroke Social History Smoking and tobacco status: never smoked Second hand smoke exposure: No Smoking risk assessment/counseling performed?: No Alcohol intake: former Desire information about alcohol rehabilitation?: No Counseling given: No Substance/Drug Use: never Desire information about substance/drug rehabilitation?: No Counseling given: No Physical Exam Const: COMMON NORMALS: no acute distress, average body habitus, patient oriented x3, no limitations, healthy appearing, alert and well nourished HENMT: COMMON NORMALS: normocephalic, atraumatic, hearing grossly normal bilaterally, external ears normal, Normal external nose present and moist oral mucous membranes HEAD & SCALP: normocephalic and atraumatic NOSE: Normal external nose present EXTERNAL EAR: Yes external ears normal Eye: COMMON NORMALS: Equal, round and reactive pupils present, EOMs intact bilaterally, conjunctivae normal and no scleral icterus CONJUNCTIVA: Yes conjunctivae normal PUPIL: Yes Equal, round and reactive pupils present Neck/C-Spine: COMMON NORMALS: full ROM, no lymphadenopathy, supple, no mening eal signs, no JVD and Thyroid normal THYROID: Thyroid normal Chest: COMMONS NORMALS: normal palpation of entire chest wall Resp: COMMON NORMALS: normal respiratory effort, No retractions, No use of accessory muscles and clear to auscultation bilaterally AUSCULTATION: clear to auscultation bilaterally Cardio: COMMON NORMALS: no JVD, regular rate, regular rhythm, S1 normal heart sound present, S2 normal heart sound present, No gallops present (Cardio), No clicks present (Cardio), No murmurs present (Cardio) and No rub (Cardio) RATE: regular rate RHYTHM: regular rhythm HEART SOUNDS: S1 normal heart sound present and S2 normal heart sound present GI: COMMON NORMALS: Normal to inspection, nondistended, normoactive bowel sounds present, Soft to palpation, non-tender, No hepatosplenomegaly present and no masses PALPATION: Yes Soft to palpation and Yes No hepatosplenomegaly present : COMMON NORMALS: Yes no CVA tenderness BLADDER/KIDNEY EXAM: Yes no CVA tenderness Back/Pelvis: COMMON NORMALS: no CVA tenderness Neuro: COMMON NORMALS: patient oriented x3 SENSORIUM/ORIENTATION: Yes alert MENINGEAL SIGNS: Yes no meningeal signs Course Vital Signs: Vital signs: Vital Signs Temperature 97.9 F 02/28/23 09:37 Pulse Rate 84 02/28/23 13:56 Respiratory Rate 22 H 02/28/23 13:21 Blood Pressure 163/86 02/28/23 13:56 Pulse Oximetry 97 02/28/23 13:56 Oxygen Delivery Me thod Room Air 02/28/23 10:05 [facility] - Chest Pain Medical Decision Making Patient presents to the ER complaining of chest pain that started this morning. Patient rates his pain 10 out of 10 however appears no acute distress. Patient does have a cardiac history. Patient was worked up in the normal manner with lab work x-ray and serial enzymes and EKGs. Lab work was essentially benign with a baseline troponin of 24 2-hour troponin of 27 for delta of 3. X-ray showed some nonspecific bilateral lung opacities which were new therefore CT sc an was instituted that showed no evidence of pulmonary emboli and thyroid gland is diffusely moderately heterogenous and enlarged representing multinodular goiter. Upon further exam patient was pain-free and asking for food and drink. Patient is currently on Eliquis, aspirin, and Plavix. Patient's chest pain was felt to be noncardiac in nature patient will be discharged home to follow-up with his primary care practitioner within the next week as needed. Differential Diagnosis Unlikely acute massive pulmonary embolism, acute respiratory failure, acute [place] cardial infarction, cardiac arrest or sudden cardiac Medical Records I reviewed the patient's medical records. Lab Data I reviewed the patient's lab results. 02/28/23 11:04 02/28/23 10:48 Radiology Impressions Chest X-Ray 02/28/23 09:36 IMPRESSION: Nonspecific bilateral lower lung opacity is new since 12/02/2022. Possible infection, aspiration, interstitial edema or acute interstitial lung disease. Chest CT 02/28/23 12:17 IMPRESSION: 1. No evidence for pulmonary embolus. 2. Thyroid gland is diffusely heterogeneous and enlarged, likely representing multinodular goiter. Laboratory Results WBC 5.6 10^3/uL (4.0-10.0) 02/28/23 11:04 RBC 4.70 10^6/uL (4.1-5.3) 02/28/23 11:04 Hgb 12.9 g/dL (11.7-16.6) 02/28/23 11:04 Hct 40.8 % (42.0-52.0) L 02/28/23 11:04 MCV 86.8 fl (80-94) 02/28/23 11:04 MCH 27.4 pg (28.0-34.0) L 02/28/23 11:04 MCHC 31.6 g/dL (30.0-36.0) 02/28/23 11:04 RDW 13.5 % (12.1-15.1) 02/28/23 11:04 Plt Count 164 10^3/cmm (130-400) 02/28/23 11:04 MPV 11.5 fL (7.4-10.4) H 02/28/23 11:04 Neut % (Auto) 69.9 % 02/28/23 11:04 Lymph % (Auto) 17.4 % 02/28/23 11:04 [place] % (Auto) 10.6 % 02/28/23 11:04 Eos % (Auto) 1.4 % 02/28/23 11:04 Baso % (Auto) 0.5 % 02/28/23 11:04 Neut # (Auto) 3.88 10^3/uL (1.8-7.7) 02/28/23 11:04 Lymph # (Auto) 1.0 10^3/uL (0.8-4.8) 02/28/23 11:04 [place] # (Auto) 0.6 10^3/uL (0.2-0.9) 02/28/23 11:04 Eos # (Auto) 0.1 10^3/uL (0.0-0.8) 02/28/23 11:04 Baso # (Auto) 0.0 10^3/uL (0.0-0.1) 02/28/23 11:04 Nucleated RBC % (auto) 0 % 02/28/23 11:04 Nucleated RBCs # 0.0 /100WBC 02/28/23 11:04 PT 13.10 SECONDS (12.1-14.9) 02/28/23 10:48 INR 0.96 (0.8-1.2) 02/28/23 10:48 Sodium 139 mmol/L (136-145) 02/28/23 10:48 Potassium 4.0 mmol/L (3.5-5.1) 02/28/23 10:48 Chloride 109 mmol/L (98-107) H 02/28/23 10:48 Carbon Dioxide 19 mmol/L (22-29) L 02/28/23 10:48 Anion Gap 15.0 (5-19) 02/28/23 10:48 BUN 27 mg/dL (8-23) H 02/28/23 10:48 Creatinine 0.8 mg/dL (0.7-1.2) 02/28/23 10:48 GFR Calculation Not Reportable 02/28/23 10:48 Glucose 97 mg/dL (65-115) 02/28/23 10:48 Calculated Osmolality 293 mOsm/kg (285-295) 02/28/23 10:48 Calcium 9.0 mg/dL (8.5-10.5) 02/28/23 10:48 Total Bilirubin 0.3 mg/dL (0.15-1.2) 02/28/23 10:48 AST 17 U/L (0-40) 02/28/23 10:48 ALT 15 U/L (0-41) 02/28/23 10:48 Alkaline Phosphatase 84 U/L (40-130) 02/28/23 10:48 Troponin T Baseline 24 ng/L (0-15) H 02/28/23 10:48 Troponin T 120 Minute 27.58 ng/L (0-15) H 02/28/23 12:54 Delta Troponin T 3.58 ABS# (0-10) 02/28/23 12:54 Total Protein 6.6 g/dL (6.6-8.7) 02/28/23 10:48 Albumin 4.1 g/dL (3.5-5.2) 02/28/23 10:48 Globulin 2.5 g/dL (1.3-4.6) 02/28/23 10:48 Urine Color Yellow (Yellow) 02/28/23 09:48 Urine Appearance Clear (CLEAR) 02/28/23 09:48 Urine pH 7 (5-7) 02/28/23 09:48 Ur Specific [place] 1.005 (1.005-1.030) 02/28/23 09:48 Urine Protein Neg (Negative) 02/28/23 09:48 Urine Glucose (UA) Norm (Normal) 02/28/23 09:48 Urine Ketones Negative (Negative) 02/28/23 09:48 Urine Blood Neg (Negative) 02/28/23 09:48 Urine Nitrate Negative (Negative) 02/28/23 09:48 Urine Bilirubin Neg (Negative) 02/28/23 09:48 Urine Urobilinogen Norm mg/dL (Negative) 02/28/23 09:48 Ur Leukocyte Esterase Negative (Negative) 02/28/23 09:48 EKG Data EKG 1: I personally reviewed and interpreted this EKG as follows: EKG interpretation date: 02/28/23 EKG interpretation time: 09:34 Prior EKG tracings: not available for review Interpretation: EKG shows ventricular rate of 70 bpm, QRS duration 177, QTc 471, irregular rhythm, right bundle branch block, left anterior fascicular block, Q waves in V1 and V2 EKG 2: I personally reviewed and interpreted this EKG as follows: EKG interpretation date: 02/28/23 EKG interpretation time: 11:29 Prior EKG tracings: available for review Interpretation: EKG shows ventricular rate of 63 bpm, NE interval 316, QRS 173, QTc of 450, normal sinus rhythm with a first-degree block with occasional PVCs, right bundle branch block, left anterior fascicular block, Q waves in V1 V2 Discharge Plan Discharge Patient Disposition: Home Clinical Impression: Atypical chest pain Condition: Stable Prescriptions: No Action benztropine 1 mg tablet See Rx Instructions .ROUTE .COMPLEX Rx Instructions: 2mg po qam, 1mg po at noon and 1mg po at bedtime oxcarbazepine [Trileptal] 600 mg tablet 600 mg PO BID nitroglycerin 0.4 mg tablet, sublingual 0.4 mg sublingual Q5M PRN (Reason: Chest Pain) Rx Instructions: do not exceed 3 doses per episode famotidine 20 mg tablet 20 mg PO BID PRN clonidine 0.1 mg/24 hr patch weekly 1 patch transdermal .weekly Qty: 4 3RF spironolactone 25 mg tablet 50 mg PO QAM Qty: 120 3RF Rx Instructions: for edema/shortness of breath Eliquis 5 mg tablet 5 mg PO BID Qty: 180 3RF isosorbide mononitrate 30 mg tablet extended release 24 hr See Rx Instructions .ROUTE .COMPLEX Qty: 360 0RF Dose Instruction: TAKE 2 TABLETS BY MOUTH TWICE DAILY Rx Instructions: TAKE 2 TABLETS BY MOUTH TWICE DAILY topiramate 50 mg tablet 50 mg PO TID glimepiride 1 mg tablet 2 mg PO QAM ascorbic acid (vitamin C) [Vitamin C] 500 mg Tablet 500 mg PO QAM hydrochlorothiazide 25 mg tablet 25 mg PO DAILY Qty: 30 0RF olanzapine 5 mg Tablet 5 mg PO BEDTIME Qty: 30 0RF clopidogrel 75 mg tablet 75 mg PO QAM Qty: 180 3RF trazodone 50 mg tablet 50 mg PO BEDTIME Claritin 10 mg Tablet 10 mg PO DAILY PRN (Reason: Allergy Symptoms) aspirin 81 mg tablet,delayed release (DR/EC) 81 mg PO QAM amlodipine 10 mg Tablet 10 mg PO DAILY Qty: 30 0RF Discharge Orders: Discharge ED (Routine); Ordered 02/28/23 Ordered By: Víctor Baxter Referrals: Tray Dennis [Primary Care Provider] - Patient Instructions: Chest Pain - Noncardiac Activity Restrictions/Additional Instructions: Please follow-up with your family practice doctor within 1 week or as needed. If your pain returns or worsens please feel free to return to the ER immediately. Coding Level of Care Code ED Light Industrial Supervisor for Deangelo Melendez
[2023-02-28 10:20] LABS: Add Urine Microscopic? NO; Charge for UA Resulting for Rev
[2023-02-28 10:26] LABS: Bilirubin Urine Neg (Negative); Blood Urine Neg (Negative); Glucose Urine UA Norm (Normal); Ketones Urine Negative (Negative); Leukocyte Esterase Urine Negative (Negative); Nitrate Urine Negative (Negative); Protein Urine Neg (Negative); Specific Gravity, Urine 1.005 (1.005-1.030); Urine Appearance Clear (CLEAR); Urine Color Yellow (Yellow); Urobilinogen Urine Norm (Negative); pH Urine 7 (5-7)
[2023-02-28 11:06] LABS: INR 0.96 (0.8-1.2)
[2023-02-28 11:12] LABS: Troponin(5th) Baseline 24 ng/L (0-15)
[2023-02-28 11:14] LABS: Basophils % 0.5 %; Eosinophils # 0.1 10^3/uL (0.0-0.8); Eosinophils % 1.4 %; Hematocrit 40.8 % (42.0-52.0); Hemoglobin 12.9 g/dL (11.7-16.6); Lymphocytes % 17.4 %; Mean Corpuscular HGB Conc 31.6 g/dL (30.0-36.0); Mean Corpuscular Hemoglobin 27.4 pg (28.0-34.0); Mean Corpuscular Volume 86.8 fl (80-94); Mean Platelet Volume 11.5 fL (7.4-10.4); Monocytes # 0.6 10^3/uL (0.2-0.9); Monocytes % 10.6 %; Neutrophils # 3.88 10^3/uL (1.8-7.7); Neutrophils % 69.9 %; Nucleated Red Blood Cells % 0 %; Platelet Count 164 10^3/cmm (130-400); Red Cell Distribution Width 13.5 % (12.1-15.1); White Blood Count 5.6 10^3/uL (4.0-10.0)
[2023-02-28 11:20] LABS: Alanine Aminotransferase 15 U/L (0-41); Albumin Level 4.1 g/dL (3.5-5.2); Alkaline Phosphatase 84 U/L (40-130); Aspartate Amino Transferase 17 U/L (0-40); Blood Urea Nitrogen 27 mg/dL (8-23); Carbon Dioxide 19 mmol/L (22-29); Chloride 109 mmol/L (98-107); Globulin 2.5 g/dL (1.3-4.6); Glucose 97 mg/dL (65-115); Osmolality Calculated 293 mOsm/kg (285-295); Sodium 139 mmol/L (136-145); Total Bilirubin 0.3 mg/dL (0.15-1.2); Total Protein 6.6 g/dL (6.6-8.7)
--- NOTE | 2023-02-28 11:29 | ECG_ITS ---
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 Measurements Intervals [place] Rate: 63 P: -37 MT: 316 QRS: -72 QRSD: 173 T: 34 QT: 442 QTc: 455 Interpretive Statements SINUS RHYTHM WITH FIRST DEGREE AV BLOCK WITH OCCASIONAL SUPRAVENTRICULAR PREMATURE COMPLEXES RIGHT BUNDLE BRANCH BLOCK [120+ ms QRS DURATION, UPRIGHT V1, 40+ ms S IN I/aVL/V4/V5/V6] LEFT ANTERIOR FASCICULAR BLOCK [QRS AXIS <= -45, QR IN I, RS IN II] POSSIBLE SEPTAL MYOCARDIAL INFARCTION , PROBABLY OLD [30 ms Q WAVE IN V1/V2] Compared to ECG 02/28/2023 09:34:36 First degree AV block now present Myocardial infarct finding still present Electronically Signed On 03-02-2023 8:35:17 CDT by Sandro Miller M.D. [id number]
--- NOTE | 2023-02-28 12:17 | CTR_ITS ---
PROCEDURE INFORMATION: Exam: CT Chest With Contrast; Diagnostic Exam date and time: 02/28/2023 1:11 PM Age: 72 years old Clinical indication: Pain; Chest pressure; Prior surgery; Surgery date: 6+ months; Surgery type: Stents; Additional info: Abnormal cxr, chest pain TECHNIQUE: Imaging protocol: Diagnostic computed tomography of the chest with contrast. Radiation optimization: All CT scans at this facility use at least one of these dose optimization techniques: automated exposure control; mA and/or kV adjustment per patient size (includes targeted exams where dose is matched to clinical indication); or iterative reconstruction. Contrast material: OMNI 350; Contrast volume: 100 ml; Contrast route: INTRAVENOUS (IV); REPORTING DATA: Count of CT and Cardiac NM exams in prior 12 months: This patient has received [address] and 0 known cardiac nuclear medicine studies in the 12 months prior to the current study. COMPARISON: CT angio chest PE protcl [id number] 02/03/2022 7:10 PM RADIATION DOSE METRICS: Total DLP (mGy-cm): 448.92 FINDINGS: Thyroid: Thyroid gland is diffusely heterogeneous and enlarged. Lungs: There is a pulmonary parenchymal calcification in the right lower lobe consistent with remote granulomatous organism exposure. Pleural spaces: Unremarkable. No pneumothorax. No pleural effusion. Heart: Unremarkable. No cardiomegaly. No pericardial effusion. Lymph nodes: Unremarkable. No enlarged lymph nodes. Vasculature: Unremarkable. No aortic aneurysm. Kidneys and ureters: There are cysts with benign features in the kidneys the larger of which measures 2.2 cm at the upper pole the right kidney. Follow-up is not necessary for this lesion. Bones/joints: There are degenerative changes in the visualized spine. Prominent thoracic kyphosis. Soft tissues: Unremarkable. Other findings: Motion artifact does moderately limit the sensitivity of this examination. CT/CT chest w con* [id number] IMPRESSION: 1. No evidence for pulmonary embolus. 2. Thyroid gland is diffusely heterogeneous and enlarged, likely representing multinodular goiter.
[2023-02-28] MEDS: iohexol 350 mg/mL 500 mL Btl (per mL) IV (13:20)
[2023-02-28 13:22] LABS: Troponin 5 2HR 27.58 ng/L (0-15)
[2023-02-28 13:23] LABS: Troponin 5 2HR Delta 3.58 ABS# (0-10)
== END 2023-02-28 14:33 | disposition home or self-care (01) ==
PROVIDERS: Emergency Provider Emergency Medicine; PCP Family Medicine
DX: R07.89 Other chest pain (principal); Z79.82 Long term (current) use of aspirin; Z79.02 Long term (current) use of antithrombotics/antiplatelets; Z79.84 Long term (current) use of oral hypoglycemic drugs; I25.10 Atherosclerotic heart disease of native coronary artery without angina pectoris; E11.9 Type 2 diabetes mellitus without complications; E78.5 Hyperlipidemia, unspecified; I10 Essential (primary) hypertension
CPT/HCPCS: 36415; 71045; 71260; 80053; 81003; 84484; 85025; 85610; 93005; 99285; Q9967